=== PATIENT | female | born 1970 | race Caucasian/White ===

== ENCOUNTER 2018-02-11 07:58 | Emergency (ER) | payer OTHER, SELFPAY ==
[2018-02-11] VITALS (33 sets, daily range): BP systolic 81–100; BP diastolic 52–69; PULSE 72–95; RESP 11–26; TEMP 36.4–36.7; O2SAT 94–100
--- NOTE | 2018-02-11 08:28 | W.ED.GENAD ---
Discharge Plan Disposition Patient Disposition: HOME Discharge Details Chief Complaint: Dizzy/Sync Clinical Impression: Vertigo Primary Care Provider: Anel Cunningham ED Provider: Danyel Butler Home Meds and New Rx's Prescriptions: New meclizine 25 mg tablet 25 mg PO TID PRN (Reason: dizziness) Qty: 30 RF: 0 Discharge Instructions Instructions: Vertigo (ED) Additional Instructions: Please drink plenty of fluids to stay hydrated. Use medication as prescribed. Warm Wenceslao maneuver as discussed. Please contact your primary care physician to arrange follow-up. Call today. Return to the ER for any worsening or new concerning symptoms. Referrals: Anel Cunningham [Primary Care Provider] - Discharge Data Discharge Date/Time-TO BE ENTERED AT DEPARTURE: 02/11/18 11:14 Medical Decision Making 8:30 --48-year-old female with history of benign positional vertigo, here with dizziness since waking this morning. Symptoms are positional. She has horizontal nystagmus on exam. Suspect benign positional vertigo. Will give antivert. Consider mild dehydration contributing. Will give IV fluid. Consider electrolyte of normalities. 10:50 --patient reassessed and notes significant improvement after meclizine. Labs reviewed and nondiagnostic. Patient not orthostatic. Usual and customary discharge instructions provided to the patient. I reviewed the Wenceslao maneuver with her. I encouraged her to follow-up with her primary care physician and return should she have any worsening or new concerning symptoms. HPI General Mode of arrival: ambulatory. Date/Time Provider Initiated Documentation: 02/11/18 08:08. Limitations to Documentation: no limitations. Information obtained by: patient. HPI Narrative: 48-year-old female with history of benign positional vertigo, presents with a chief complaint of dizziness. Patient notes that she woke up this morning, stood up and felt dizzy with associated nausea. Patient specifically states she felt lightheaded and had vertigo. Symptoms are similar to when she had benign positional vertigo in the past -last episode was years ago. Symptoms have persisted. Symptoms are positional and occur only with motion and standing. No associated chest pain, shortness of breath, abdominal pain, numbness, tingling or headache. No fever. Last menstrual period was 2 weeks ago. No heavy bleeding. Related Data Home Medications Medication Instructions Recorded Confirmed meclizine 25 mg PO TID PRN #30 tab 10/23/18 Previous Rx's Medication Instructions Recorded meclizine 25 mg PO TID PRN #30 tab 02/11/18 Allergies Allergy/AdvReac Type Severity Reaction Status Date / Time No Known Allergies Allergy Unverified 01/24/17 09:57 General Stated Complaint: Dizzy/Sync ALEXSANDER: 3 Review of Systems Review of Systems All systems reviewed & are unremarkable except as noted in HPI and below PFSH Family History Mother Hyperlipidemia Father Essential hypertension Grandmother Breast cancer Medical History Abnormal uterine bleeding (AUB) Social History Smoking/Tobacco Use Status: Never Surgical History Cervical Procedure (~1998) Cholecystectomy Ligation of fallopian tube Exam Const General: cooperative, no acute distress, well developed, acute distress and not in distress Orientation: alert and awake Limitations: mental status not altered HENNE Head: normal to inspection and normocephalic Mouth: mucous membranes dry Throat: posterior oropharynx normal, uvula midline, posterior oropharynx abnormal and no uvular edema Eyes General: appearance normal, both eyes and all related structures Conjunctivae: conjunctivae normal EOM: EOM intact bilaterally and nystagmus (horizontal on right gaze) Neck Neck: trachea midline, supple and no lymphadenopathy noted Resp Effort & Inspection: normal respiratory effort, not labored and no respiratory distress Auscultation: clear to auscultation bilaterally, no rales, no rhonchi and no wheezes Cardio Jugular venous pressure: no JVD Rate: regular rate Rhythm: regular rhythm Heart Sounds: S1 normal, S2 normal, no gallops, no murmurs and no rubs GI Palpation: soft and nontender Skin General skin exam: no rashes or lesions noted and dry skin Other: warm Neuro General: alert, awake and oriented x3 Cranial Nerves: nystagmus (horizontal on right gaze) Cognition: normal cognition Speech: speech normal Motor: muscle tone normal throughout and strength 5/5 throughout Sensory Exam: no sensory deficits noted Coordination: [id number] test normal Extrem General: no clubbing, cyanosis or edema Psych Appearance: grossly normal Affect: normal affect Course Vital Signs Temperature 36.4 C 02/11/18 08:08 Pulse 84 02/11/18 08:08 Respiratory Rate 18 02/11/18 08:08 Blood Pressure 97/55 L 02/11/18 08:08 Pulse Oximetry 94 L 02/11/18 08:08 Temperature 36.4 C 02/11/18 08:08 Temperature Source Skin 02/11/18 08:08 Pulse 84 02/11/18 08:08 Respiratory Rate 16 02/11/18 08:16 Respiratory Effort 02/11/18 08:16 Respiratory Depth Normal 02/11/18 08:16 Respiratory Pattern Normal 02/11/18 08:16 Blood Pressure 97/55 L 02/11/18 08:08 Blood Pressure Position Sitting 02/11/18 08:08 Pulse Oximetry 94 L 02/11/18 08:08 Oxygen Delivery Method Room Air 02/11/18 08:08 Oxygen Flow Rate 0 02/11/18 08:08
--- NOTE | 2018-02-11 08:33 | ED.GENADUL_ITS ---
Discharge Plan Disposition Patient Disposition: HOME Discharge Details Chief Complaint: Dizzy/Sync Clinical Impression: Vertigo Primary Care Provider: Anel Cunningham ED Provider: Danyel Butler Home Meds and New Rx's Prescriptions: New meclizine 25 mg tablet 25 mg PO TID PRN (Reason: dizziness) Qty: 30 RF: 0 Discharge Instructions Instructions: Vertigo (ED) Additional Instructions: Please drink plenty of fluids to stay hydrated. Use medication as prescribed. Warm Wenceslao maneuver as discussed. Please contact your primary care physician to arrange follow-up. Call today. Return to the ER for any worsening or new concerning symptoms. Referrals: Anel Cunningham [Primary Care Provider] - Discharge Data Discharge Date/Time-TO BE ENTERED AT DEPARTURE: 02/11/18 11:14 Medical Decision Making 8:30 --48-year-old female with history of benign positional vertigo, here with dizziness since waking this morning. Symptoms are positional. She has horizontal nystagmus on exam. Suspect benign positional vertigo. Will give antivert. Consider mild dehydration contributing. Will give IV fluid. Consider electrolyte of normalities. 10:50 --patient reassessed and notes significant improvement after meclizine. Labs reviewed and nondiagnostic. Patient not orthostatic. Usual and customary discharge instructions provided to the patient. I reviewed the Wenceslao maneuver with her. I encouraged her to follow-up with her primary care physician and return should she have any worsening or new concerning symptoms. HPI General Mode of arrival: ambulatory . Date/Time Provider Initiated Documentation: 02/11/18 08:08 . Limitations to Documentation: no limitations . Information obtained by: patient . HPI Narrative: 48-year-old female with history of benign positional vertigo, presents with a chief complaint of dizziness. Patient notes that she woke up this morning, stood up and felt dizzy with associated nausea. Patient specifically states she felt lightheaded and had vertigo. Symptoms are similar to when she had benign positional vertigo in the past -last episode was years ago. Symptoms have persisted. Symptoms are positional and occur only with motion and standing. No associated chest pain, shortness of breath, abdominal pain, numbness, tingling or headache. No fever. Last menstrual period was 2 weeks ago. No heavy bleeding. Related Data Home Medications Medication Instructions Recorded Confirmed meclizine 25 mg PO TID PRN #30 tab 10/23/18 Previous Rx's Medication Instructions Recorded meclizine 25 mg PO TID PRN #30 tab 02/11/18 Allergies Allergy/AdvReac Type Severity Reaction Status Date / Time No Known Allergies Allergy Unverified 01/24/17 09:57 General Stated Complaint: Dizzy/Sync ALEXSANDER: 3 Review of Systems Review of Systems All systems reviewed & are unremarkable except as noted in HPI and below PFSH Family History Mother Hyperlipidemia Father Essential hypertension Grandmother Breast cancer Medical History Abnormal uterine bleeding (AUB) Social History Smoking/Tobacco Use Status: Never Surgical History Cervical Procedure (~1998) Cholecystectomy Ligation of fallopian tube Exam Const General: cooperative, no acute distress, well developed, acute distress and not in distress Orientation: alert and awake Limitations: mental status not altered HENIN Head: normal to inspection and normocephalic Mouth: mucous membranes dry Throat: posterior oropharynx normal, uvula midline, posterior oropharynx abnormal and no uvular edema Eyes General: appearance normal, both eyes and all related structures Conjunctivae: conjunctivae normal EOM: EOM intact bilaterally and nystagmus (horizontal on right gaze) Neck Neck: trachea midline, supple and no lymphadenopathy noted Resp Effort & Inspection: normal respiratory effort, not labored and no respiratory distress Auscultation: clear to auscultation bilaterally, no rales, no rhonchi and no wheezes Cardio Jugular venous pressure: no JVD Rate: regular rate Rhythm: regular rhythm Heart Sounds: S1 normal, S2 normal, no gallops, no murmurs and no rubs GI Palpation: soft and nontender Skin General skin exam: no rashes or lesions noted and dry skin Other: warm Neuro General: alert, awake and oriented x3 Cranial Nerves: nystagmus (horizontal on right gaze) Cognition: normal cognition Speech: speech normal Motor: muscle tone normal throughout and strength 5/5 throughout Sensory Exam: no sensory deficits noted Coordination: [id number] test normal Extrem General: no clubbing, cyanosis or edema Psych Appearance: grossly normal Affect: normal affect Course Vital Signs Temperature 36.4 C 02/11/18 08:08 Pulse 84 02/11/18 08:08 Respiratory Rate 18 02/11/18 08:08 Blood Pressure 97/55 L 02/11/18 08:08 Pulse Oximetry 94 L 02/11/18 08:08 Temperature 36.4 C 02/11/18 08:08 Temperature Source Skin 02/11/18 08:08 Pulse 84 02/11/18 08:08 Respiratory Rate 16 02/11/18 08:16 Respiratory Effort 02/11/18 08:16 Respiratory Depth Normal 02/11/18 08:16 Respiratory Pattern Normal 02/11/18 08:16 Blood Pressure 97/55 L 02/11/18 08:08 Blood Pressure Position Sitting 02/11/18 08:08 Pulse Oximetry 94 L 02/11/18 08:08 Oxygen Delivery Method Room Air 02/11/18 08:08 Oxygen Flow Rate 0 02/11/18 08:08
[2018-02-11] MEDS: Lactated Ringers 1,000 ML 1000 ML IV (08:50)
[2018-02-11 09:04] LABS: Abs Immature Grans 0.02 k/cumm (0.0-0.09); Absolute Basophil Count 0.03 k/cumm (0.0-0.2); Absolute Eosinophil Count 0.11 k/cumm (0.0-0.7); Absolute Lymphocyte Count 1.24 k/cumm (1.2-3.4); Absolute Monocyte Count 0.52 k/cumm (0.11-0.7); Absolute Neutrophil Count 7.33 k/cumm (1.2-6.7); Basophils % 0.3; Eosinophils % 1.2; HCT 40.4 % (36.0-46.0); HGB 13.2 g/dL (12.0-15.5); Immature Grans % 0.2; Lymphocytes % 13.4; Mean Corp. HGB Concentration 32.7 g/dL (32.0-36.0); Mean Corpuscular Hemoglobin 31.1 pg (27.0-33.0); Mean Corpuscular Volume 95.1 fL (80-95); Monocytes % 5.6; Neutrophils % 79.3; Platelet Count 230 x1000/uL (130-400); RBC 4.25 m/cumm (4.00-5.20); RBC Distribution Width 13.6 % (11.7-14.6); White Blood Cell Count 9.25 k/cumm (4.4-10.8)
[2018-02-11] MEDS: Meclizine 25 MG TAB PO (09:13)
[2018-02-11 09:25] LABS: ALT 17 U/L (12-78); AST 12 U/L (15-37); Albumin 3.4 g/dL (3.4-5.0); Alkaline Phosphatase 34 U/L (46-116); Anion Gap 6.8 mmol/L (3-11); BUN 14 mg/dL (7-18); Bilirubin, Total 0.5 mg/dL (0.2-1.0); CO2 29.2 mmol/L (21.0-32.0); Calcium 8.5 mg/dL (8.5-10.1); Chloride 103 mmol/L (98-107); Glucose 110 mg/dL (70-100); Magnesium 1.9 mg/dL (1.8-2.4); Potassium 4.1 mmol/L (3.5-5.1); Sodium 139 mmol/L (136-145); TSH (W/Ref FT4) 1.32 uIU/mL (0.358-3.74); Total Protein 6.5 g/dL (6.4-8.2)
== END 2018-02-11 11:14 | disposition home or self-care (01) ==
PROVIDERS: Emergency Provider Student in an Organized Health Care Education/Training Program; PCP Nurse Practitioner Family
DX: R42 Dizziness and giddiness (principal)
CPT/HCPCS: 36415; 80053; 93005; 95992; 96360; 96361; 99284; 83735; 84443; 85025; 93010; 99285

== ENCOUNTER 2018-05-23 16:45 | Outpatient (REF) | payer OTHER, SELFPAY ==
--- NOTE | 2018-05-23 16:00 | PAPFT_PTH ---
PATIENT: Vilma Carey LOC: [facility] U#:[id number] AGE/SX: 48/F ROOM: RE05/23/[address]: KYLIE Chou : 1970 BED: DIS: 05/23/2018 SPEC #: [id number] RECD: 05/23/18 17:58 STATUS: CHRISTIANOKirt REBrad #: [id number] MICHAEL: 05/23/18 16:[address]: Karime Varela DEPT: [facility] Cytology RECD BY: Sravani Molina ENTERED: 05/23/18 17:59 SP TYPE: PAPFT OTHR DR: Anel Cunningham Tissues: 1 - CX/ENDOCX FOR PAP SMEARS Procedures: PAP THIN PREP/UVM Screening Comments: [id number]
== END 2018-05-23 17:05 ==
LOC: LBN 16:45
PROVIDERS: PCP Nurse Practitioner Family; Visit Provider Nurse Practitioner Family
DX: Z12.4 Encounter for screening for malignant neoplasm of cervix (principal)
CPT/HCPCS: 88142

== ENCOUNTER 2018-12-02 15:48 | Outpatient (CLI) | payer OTHER, SELFPAY ==
[2018-12-02 17:22] LABS: TSH (W/Ref FT4) 1.74 uIU/mL (0.36-3.74)
== END 2018-12-02 16:08 ==
PROVIDERS: PCP Nurse Practitioner Family; Visit Provider Nurse Practitioner Family
DX: N93.9 Abnormal uterine and vaginal bleeding, unspecified (principal)
CPT/HCPCS: 36415; 84443

== ENCOUNTER 2018-12-04 00:16 | Outpatient (CLI) | payer OTHER, SELFPAY ==
--- NOTE | 2018-12-04 07:58 | DI.US_ITS ---
SYMPTOM/DIAGNOSIS: ABNORMAL VAGINAL BLEEDING N93.0 PELVIC ULTRASOUND: 12/04 Pelvic ultrasound was performed transabdominally and transvaginally. Please see the accompanying data sheet for measurements of the pelvic structures. There are multiple areas of heterogeneity of the myometrium consistent with multiple poorly defined small uterine fibroids. An 18 mm in diameter probable submucosal fibroid is also noted in the fundus. Endometrial stripe is about 4 mm in thickness and appears homogeneous. Left ovary is nonvisualized. Right ovary has a normal follicular appearance. No free fluid identified in the cul de sac. CONCLUSION: Probable uterine fibroids as described above includin an apparent submucosal 18 m fundal fibroid.
== END 2018-12-04 00:36 ==
PROVIDERS: PCP Nurse Practitioner Family; Visit Provider Nurse Practitioner Family
DX: N93.9 Abnormal uterine and vaginal bleeding, unspecified (principal); D25.9 Leiomyoma of uterus, unspecified
CPT/HCPCS: 76830; 76856

== ENCOUNTER 2018-12-26 16:46 | Outpatient (REF) | payer OTHER, SELFPAY ==
--- NOTE | 2018-12-26 15:10 | ENDOMET_PTH ---
PATIENT: Vilma Carey LOC: [facility] U#:[id number] AGE/SX: 48/F ROOM: RE12/26/[address]: Miranda Collazo : 1970 BED: DIS: 12/26/2018 SPEC #: [id number] RECD: 12/26/18 17:50 STATUS: LITO REQ #: [id number] MICHAEL: 12/26/18 15:[address]: Miranda Collazo DEPT: Surgical Specimen RECD BY: Sravani Molina ENTERED: 12/26/18 17:51 SP TYPE: Endomet OTHR DR: Anel Cunningham Tissues: 1 - ENDOMETRIUM BX/MITCHEL Procedures: GROSS AND MICRO LEVEL 4 Comments: [id number]
== END 2018-12-26 17:06 ==
LOC: LBN 16:46
PROVIDERS: PCP Nurse Practitioner Family; Visit Provider Obstetrics & Gynecology Gynecology
DX: N85.8 Other specified noninflammatory disorders of uterus (principal); N93.8 Other specified abnormal uterine and vaginal bleeding
CPT/HCPCS: 88305

== ENCOUNTER 2019-02-06 10:02 | Outpatient (CLI) | payer OTHER, SELFPAY ==
[2019-02-06 10:34] LABS: HCT 43.9 % (36.0-46.0); HGB 14.2 g/dL (12.0-15.5); Mean Corp. HGB Concentration 32.3 g/dL (32.0-36.0); Mean Corpuscular Hemoglobin 30.3 pg (27.0-33.0); Mean Corpuscular Volume 93.6 fL (80-95); Mean Platelet Volume 10.9 fL (8.0-11.0); Platelet Count 272 x1000/uL (130-400); RBC 4.69 m/cumm (4.00-5.20); RBC Distribution Width 13.5 % (11.7-14.6); White Blood Cell Count 7.04 k/cumm (4.4-10.8)
[2019-02-06 11:45] LABS: BUN 13 mg/dL (7-18); CREATININE 0.71 mg/dL (0.55-1.02); Calcium 9.4 mg/dL (8.5-10.1); Chloride 102 mmol/L (98-107); Glucose 100 mg/dL (70-100); HCG Quant, Pregnancy 1 mIU/mL (1-3); Potassium 4.6 mmol/L (3.5-5.1); Sodium 139 mmol/L (136-145)
== END 2019-02-06 10:22 ==
PROVIDERS: PCP Nurse Practitioner Family; Visit Provider Obstetrics & Gynecology
DX: N93.8 Other specified abnormal uterine and vaginal bleeding (principal); Z01.812 Encounter for preprocedural laboratory examination; Z01.818 Encounter for other preprocedural examination
CPT/HCPCS: 36415; 80048; 85027; 86850; 86900; 86901; 84702

== ENCOUNTER 2019-02-11 14:14 | Observation (INO) | payer OTHER, SELFPAY ==
[2019-02-11] VITALS (14 sets, daily range): BP systolic 72–119; BP diastolic 42–78; PULSE 66–96; RESP 9–19; TEMP 36.5–37.1; O2SAT 92–99
[2019-02-11] MEDS: Lactated Ringers 1,000 ML 125 ML IV ×4 (09:18→23:51)
[2019-02-11] MEDS: ceFAZolin 2 GM/50 ML BAG IVPB (11:28)
[2019-02-11] MEDS: Bupivacaine 0.25% Pres-Free 30 ML VIAL (12:00)
--- NOTE | 2019-02-11 12:28 | UTER_PTH ---
PATIENT: Vilma Carey LOC: U#:[id number] AGE/SX: 49/F ROOM: 214 RE02/11/[address]: Miranda Collazo : 1970 BED: A DIS: 02/12/2019 SPEC #: [id number] RECD: 02/11/19 17:45 STATUS: LITO REQ #: [id number] MICHAEL: 02/11/19 12:[address]: Miranda Collazo DEPT: Surgical Specimen RECD BY: Sravani Moilna ENTERED: 02/11/19 17:46 SP TYPE: UTER OTHR DR: Anel Cunningham Tissues: 1 - UTERUS W OR W/O OVARIES(NOT TUMOR/PROLAPSE) Procedures: GROSS AND MICRO LEVEL 5 Comments: [id number]
[2019-02-11] MEDS: Lactated Ringers 1,000 ML 30 ML IV (15:47)
[2019-02-11] MEDS: Ketorolac 30 MG/ML VIAL IVP ×2 (16:48→19:50)
--- NOTE | 2019-02-11 17:27 | ROE_ITS ---
Date of service: 02/11/19 Time of Service: 17:27 Operative Note Operative Note DATE OF PROCEDURE: 02/11/19 PRE-OP DIAGNOSIS: Abnormal uterine bleeding, submucosal fibroid POST-OP DIAGNOSIS: same PROCEDURE: Laparoscopic assisted vaginal hysterectomy with bilateral salpingectomy SURGEON: Miranda Collazo CHUTE BUILDER: Clyde Everett ANESTHESIA: GETPrincess ESTIMATED BLOOD LOSS: 100 PATHOLOGY: other (Uterus cervix and fimbriated ends of fallopian tubes) COMPLICATIONS: None Patient was transported to: PACU Patient's condition: stable Indications: 49-year-old female with abnormal uterine bleeding not responsive to medical therapy. She was noted to have a submucosal fibroid on imaging studies and decided for definitive therapy in the form of hysterectomy Findings: Uterus small with normal appearing ovaries and distal fallopian tubes. Patient previously undergone a bilateral tubal ligation. Normal upper abdomen and pelvis. Procedure Description: Patient was taken to the OR where she was placed in the dorsal supine position and general endotracheal anesthesia was administered without difficulty. She was placed in the dorsal lithotomy position in yellowfin stirrups prepped and draped in the usual sterile fashion. A Baird catheter was inserted to gravity drainage remained in place during the case. She received 2 g of Ancef upon arrival in the operating room. Surgical timeout was performed. [place] speculum was placed into the vagina and the anterior lip of the cervix was grasped with single-tooth tenaculum and a Pelosi uterine manipulator was inserted into the uterine cavity and held in place with a single-tooth tenaculum. Attention was turned to the patient's abdomen where the periumbilical region was infiltrated with quarter percent Marcaine without epinephrine a transverse skin incision was made below the umbilicus using a scalpel and through this incision a varies needle was placed and intra-abdominal placement confirmed by a drop in the abdominal pressure with insufflation of carbon dioxide gas. A 12 mm Visiport was then placed to the incision and the abdomen was entered under direct visualization with laparoscope. 2 lower port sites were placed after the insertion site was infiltrated with quarter percent Marcaine without epinephrine and under direct visualization of 5 mm trocar and sleeve were introduced without difficulty. The patient was placed in Trendelenburg the bowel swept away from the operative field with the above- noted findings. A LigaSure electrocautery device was then used to dissect the right fallopian tube distal portion from the mesosalpinx and this specimen was delivered through the 12 mm umbilical port site. The right round ligament was then clamped cauterized and transected and the anterior leaf of the broad ligament was then sequentially clamped cauterized and transected to the level of the lower uterine segment at the cervix bladder interface. Bladder peritoneum was then dissected off of the body of the lower uterine segment and cervix using gentle traction and electrocautery with the LigaSure device. Posterior leaf of the broad ligament was then sequentially clamped cauterized and cut to the level of the uterine vessels. Similar technique was carried out on the contralateral left distal fallopian tube, left anterior leaf the broad ligament with dissection of the bladder flap away from the body of the cervix using LigaSure device and blunt technique. Once the bladder flap had been sufficiently mobilized the left posterior broad ligament was clamped cauterized and incised to the level of the uterine vessels. Attention was then turned to the vaginal portion of the procedure. Pneumoperitoneum was deflated and the Pelosi uterine manipulator was removed and the single-tooth tenaculum was left on the anterior lip of the cervix. The body of the cervix was infiltrated a circumferential fashion with quarter percent Marcaine and Bovie electrocautery was used to incise the body of the cervix circumferentially this allowed entry into the posterior cul-de-sac using curved Sosa scissors through this incision a longbilled weighted speculum was placed. The right and left uterosacral ligaments worse clamped transected and suture- ligated respectively with the sutures tagged and held long. This allowed sufficient mobilization of the cervix so that entry into the anterior cul-de-sac was performed with Metzenbaum scissors. A right angle retractor was placed through this incision and the bladder retracted away from the operative field. The remaining structures of the right broad ligament were subsequently clamped transected and suture-ligated with dissection of the right side of the uterus away from all abdominal attachments. Similar technique was carried out on the contralateral broad ligament. The uterus and cervix were then delivered and passed off of the operative field. The posterior peritoneum was sutured to the posterior vaginal cuff with excellent hemostasis achieved. The vaginal cuff was reapproximated in a vertical fashion with a running locked suture of 0 Vicryl with care taken to incorporate the identified uterosacral ligaments into the closure. After Closure all suture remnants were trimmed and the site carefully inspected and noted be hemostatic. A sterile vaginal pack was placed into the vagina. Attention was then directed towards the abdomen where after gloves were changed pneumoperitoneum was reestablished and laparoscope was used to inspect the vaginal cuff where the site was noted to be hemostatic and well approximated. I direct visualizations both 5 mm ports were removed pneumoperitoneum reduced after the laparoscope and trocar were removed. Fascial closure of the periumbilical site was accomplished with interrupted sutures of 0 Vicryl in [id number] fashion. The skin of 3 port sites was reapproximated with a subcuticular closure of 4-0 Monocryl and sealed with skin glue. Patient was then placed in the dorsal supine position awakened, extubated and transported recovery area in stable condition all sponge, needle and lap counts were performed and were correct x2.
[2019-02-11] MEDS: oxyCODONE 5 mg/Acetaminophen 325 mg TAB PO ×2 (18:08→23:49)
[2019-02-11] MEDS: Docusate Sodium 100 MG CAP PO (19:50)
[2019-02-11] MEDS: Normal Saline Flush 10 ML SYR IV (19:51)
[2019-02-11] MEDS: diphenhydrAMINE 25 MG CAP PO (23:49)
[2019-02-12 00:40] VITALS: BP 98/62; PULSE 95; RESP 18; TEMP 37; O2SAT 100
[2019-02-12] MEDS: Ketorolac 30 MG/ML VIAL IVP ×2 (02:11→08:28)
[2019-02-12 03:20] VITALS: BP 96/61; PULSE 72; RESP 17; TEMP 36.8; O2SAT 95
[2019-02-12 07:05] LABS: HCT 36.8 % (36.0-46.0); HGB 11.8 g/dL (12.0-15.5); Mean Corp. HGB Concentration 32.1 g/dL (32.0-36.0); Mean Corpuscular Hemoglobin 29.9 pg (27.0-33.0); Mean Corpuscular Volume 93.2 fL (80-95); Mean Platelet Volume 11.2 fL (8.0-11.0); Platelet Count 217 x1000/uL (130-400); RBC 3.95 m/cumm (4.00-5.20); RBC Distribution Width 12.9 % (11.7-14.6); White Blood Cell Count 10.14 k/cumm (4.4-10.8)
[2019-02-12 07:15] LABS: Anion Gap 7.8 mmol/L (3-11); BUN 9 mg/dL (7-18); CO2 28.2 mmol/L (21.0-32.0); CREATININE 0.65 mg/dL (0.55-1.02); Calcium 8.7 mg/dL (8.5-10.1); Chloride 106 mmol/L (98-107); Glucose 100 mg/dL (70-100); Potassium 4.2 mmol/L (3.5-5.1); Sodium 142 mmol/L (136-145)
[2019-02-12 07:50] VITALS: BP 108/69; PULSE 62; RESP 18; TEMP 37.1; O2SAT 97
[2019-02-12] MEDS: Docusate Sodium 100 MG CAP PO (08:28)
[2019-02-12] MEDS: Lactated Ringers 1,000 ML 125 ML IV (08:29)
--- NOTE | 2019-02-12 09:54 | DSE_ITS ---
Date of service: 02/12/19 Time of Service: 09:54 DS: Diagnosis Discharge Diagnosis (1) Status post laparoscopic assisted vaginal hysterectomy (LAVH): Status: Acute Asessment and Plan: With removal of tubal remnants. (2) Abnormal uterine bleeding (AUB): Status: Acute Discharge Plan Disposition Patient Disposition: HOME Condition: Fair Discharge Details Reason For Visit: ABNORMAL UTERINE BLEEDING.LAVH WITH BILATERAL SALP Admit Date/Time: 02/11/19 14:14 Admit Provider: Miranda Collazo Attending Provider: Miranda Collazo Primary Care Provider: Kelsey Cunningham[facility]ryn [facility] Course Hospital Course: Patient was admitted the morning of surgery and underwent the above-stated procedure. Postop course was uncomplicated she was able to void spontaneously after Baird catheter was removed the morning of discharge. Tolerating regular diet she had not had a bowel movement prior to discharge but was counseled regarding avoiding constipation. Incisions are clean dry and intact and her pain was controlled with ibuprofen and Percocet. She was given discharge instructions regarding pelvic rest and decreased activity and [facility] Home Meds and New Rx's Prescriptions: No Action No Known Home Meds RF: 0 Discharge Instructions Additional Instructions: Percocet 5/325 1 tablet every 6 hours as needed for pain you may take that in combination with ibuprofen 600 mg every 6 hours. Or you may alternate the doses every 6 hours. Do not take the Percocet and Tylenol together since the Percocet has Tylenol in it. Stand Alone Forms: DSU Post Gynecology Surgery Activity:: Activity as Tolerated Equipment/Supplies:: No Equipment Needed Diet:: Normal Diet Discharge Orders Discharge Orders: Discharge Order (Routine); Ordered 02/12/19 Ordered By: Miranda Collazo DS: Summary Status at Discharge Functional status at discharge: independent ambulation Overall status at discharge: patient is progressing back to baseline Mental Status: mental status grossly normal Speech and Movement: speech and movement normal Mood: congruent mood Affect: normal affect Exam Const General: no acute distress Nutritional Appearance: average body habitus Orientation: alert, awake and oriented x3 Resp Effort & Inspection: normal respiratory effort Auscultation: clear to auscultation bilaterally Cardio Rate: regular rate Rhythm: regular rhythm GI Inspection: incision (Clean dry and intact covered with skin glue) Palpation: soft (Continues at the port sites, no guarding or rebound no masses) General: other (Vaginal packing removed-serosanguineous drainage) Back/Spine/Pelvis Back: no CVA tenderness Skin General skin exam: no rashes or lesions noted Neuro General: other (Ambulatory without assistance in the room.) Extrem General: normal to inspection, full ROM and normal capillary refill Psych Mental Status: mental status grossly normal Speech and Movement: speech and movement normal Mood: congruent mood Affect: normal affect DS: Data Vitals/I&O Vitals and I&O: Vital Signs Temperature 98.8 F 02/12/19 07:50 Temperature Source Tympanic 02/12/19 07:50 Pulse 62 02/12/19 07:50 Pulse Rhythm Regular 02/12/19 01:45 Respiratory Rate 18 02/12/19 07:50 Respiratory Effort 02/12/19 01:45 Respiratory Depth Normal 02/12/19 01:45 Respiratory Pattern Normal 02/12/19 01:45 Blood Pressure 108/69 02/12/19 07:50 Pulse Oximetry 97 02/12/19 07:50 Respiratory End-tidal CO2 32 02/11/19 15:42 Oxygen Delivery Method Room Air 02/12/19 03:20 Oxygen Flow Rate 0 02/12/19 03:20 Pain Level 5 02/12/19 08:28 Comment 02/12/19 03:20 Intake & Output 02/11/19 02/11/19 02/12/19 11:59 23:59 11:59 Intake Total 2869 2820 / 2870 1000 / 1000 Output Total 1954 Balance 865 / 91 1000 / 1000 Weight 185 lb 6.54 oz Intake: IV 2069 1000 / 1000 Oral 800 / 800 Output: Urine 1924 / 192 Estimated Blood Loss 30 30 Other: Urine Color Yellow Yellow Urine Appearance Clear Clear Clear Emesis Description None Data Completed and Pending Labs on day of discharge: Labs from last 24 hours 02/12/19 02/12/19 06:25 06:25 WBC 10.14 RBC 3.95 L Hgb 11.8 L Hct 36.8 MCV 93.2 MCH 29.9 MCHC 32.1 RDW 12.9 Plt Count 217 MPV 11.2 H Sodium 142 Potassium 4.2 Chloride 106 Carbon Dioxide 28.2 Anion Gap 7.8 BUN 9 Creatinine 0.65 Estimated GFR/1.73 m2 >= 60.00 Glucose 100 Calcium 8.7 PFSH Social History (Updated 02/10/19 @ 22:25 by Miranda Collazo MD) Smoking/Tobacco Use Status: Never Drug use: Rarely Substance use type: marijuana Details: Last used: Last weekend Household members: spouse, children, none and other Details: H-Ad. 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 Do you feel safe at home: Yes Do you feel safe in your relationship?: Yes Female Reproductive History Menstrual control method: permanent sterilization
--- NOTE | 2019-02-12 09:56 | PDOC.CMIN ---
Care Management Initial Assess REASON FOR HOSPITALIZATION:: Abnormal uterine bleeding, LAVH with Bilateral Salp
== END 2019-02-12 11:37 | disposition home or self-care (01) ==
LOC: MS 16:14
PROVIDERS: Admitting Provider Obstetrics & Gynecology Gynecology; PCP Nurse Practitioner Family; Visit Provider Obstetrics & Gynecology Gynecology
PROC: 0UT9FZZ Resection of Uterus, Via Natural or Artificial Opening With Percutaneous Endoscopic Assistance (ICD-10-PCS; CPT 58552; principal; 2019-02-11 10:45)
DX: D25.0 Submucous leiomyoma of uterus (principal); N93.9 Abnormal uterine and vaginal bleeding, unspecified; N80.0 Endometriosis of uterus; Z98.51 Tubal ligation status
CPT/HCPCS: 58552; 36415; 80048; 85027; NC; 88307; G0378; J0131; J0690; J1100; J1200; J1885; J2001; J2250; J2405; J3010

== ENCOUNTER 2019-02-20 18:24 | Observation (INO) | payer OTHER, SELFPAY ==
[2019-02-20 18:27] VITALS: BP 134/87; PULSE 108; RESP 18; TEMP 37.1; O2SAT 94
[2019-02-20] MEDS: Normal Saline Flush 10 ML SYR IVP ×3 (18:48→23:24)
[2019-02-20] MEDS: Normal Saline 1,000 ML 1000 ML IV (18:48)
[2019-02-20 18:56] LABS: Abs Immature Grans 0.03 k/cumm (0.0-0.09); Absolute Basophil Count 0.03 k/cumm (0.0-0.2); Absolute Eosinophil Count 0.26 k/cumm (0.0-0.7); Absolute Lymphocyte Count 1.47 k/cumm (1.2-3.4); Absolute Monocyte Count 0.88 k/cumm (0.11-0.7); Absolute Neutrophil Count 8.96 k/cumm (1.2-6.7); Basophils % 0.3; Eosinophils % 2.2; HCT 39.5 % (36.0-46.0); HGB 13.1 g/dL (12.0-15.5); Immature Grans % 0.3; Lymphocytes % 12.6; Mean Corp. HGB Concentration 33.2 g/dL (32.0-36.0); Mean Corpuscular Hemoglobin 30.6 pg (27.0-33.0); Mean Corpuscular Volume 92.3 fL (80-95); Mean Platelet Volume 10.6 fL (8.0-11.0); Monocytes % 7.6; Platelet Count 280 x1000/uL (130-400); RBC 4.28 m/cumm (4.00-5.20); RBC Distribution Width 13.3 % (11.7-14.6); White Blood Cell Count 11.64 k/cumm (4.4-10.8)
[2019-02-20 19:06] LABS: ALT 20 U/L (14-59); AST 8 U/L (15-37); Albumin 3.6 g/dL (3.4-5.0); Alkaline Phosphatase 43 U/L (46-116); Anion Gap 9.1 mmol/L (3-11); BUN 17 mg/dL (7-18); Bilirubin, Total 0.4 mg/dL (0.2-1.0); CO2 26.9 mmol/L (21.0-32.0); CREATININE 0.79 mg/dL (0.55-1.02); Calcium 8.9 mg/dL (8.5-10.1); Chloride 104 mmol/L (98-107); Glucose 102 mg/dL (70-100); Potassium 3.9 mmol/L (3.5-5.1); Sodium 140 mmol/L (136-145); Total Protein 7.4 g/dL (6.4-8.2)
[2019-02-20] MEDS: Ondansetron 4 MG/2 ML VIAL (19:06)
[2019-02-20] MEDS: Omnipaque 350 MG/ML 100 ML BTL IJ (19:21)
--- NOTE | 2019-02-20 19:23 | DI.CT_ITS ---
EXAM: CT ABDOMEN PELVIS W CLINICAL HISTORY: abdominal pain, s/p hysterectomy TECHNIQUE: 100 milliliters of Omnipaque 350 were administered IV. No oral contrast was administered . COMPARISON: ABD PELVIS WITH CONTRAST from 05/17/2017 FINDINGS: The patient is status post hysterectomy. The exam is limited by lack of oral contrast. There is a question of a fluid collection posteriorly in the pelvis measuring 1.6 x 2.3 x 1.8 cm which could rep resent a loop of bowel versus a small abscess. There is a trace amount of free fluid. The ovaries a re unremarkable. The bladder appears intact. There is a small fatty containing hernia below the lev el of the umbilicus in the medial aspect of the right rectus muscle. There is some stranding of the fat which could indicate strangulation. No additional hernias are seen. The heart size is normal. The lung bases are clear. Patient is status post cholecystectomy. There is stable biliary dilatation. A diverticulum is seen of the descending duodenum. The spleen, pancre as, adrenals and kidneys are unremarkable. There is scattered colonic diverticula but no evidence of diverticulitis. There is no bowel dilatation or wall thickening. The aorta shows mild calcificatio n but is normal in diameter. IMPRESSION: 1. Small fatty containing hernia below the level of the umbilicus through the right rectus muscle whi ch may be strangulated. 2. Question of a small abscess in the low pelvis versus adjacent bowel.
[2019-02-20 19:29] VITALS: BP 112/69; PULSE 82; TEMP 37.1; O2SAT 98
--- NOTE | 2019-02-20 20:00 | DI.VRAD_ITS ---
PROCEDURE INFORMATION: Exam: CT Abdomen And Pelvis With Contrast Exam date and time: 02/20/2019 7:18 PM Clinical history: 49 years old, female; Abdominal pain; Generalized; Prior surgery; Surgery date: 1-6 months; Surgery type: S/P hysterectomy 01/12/19 TECHNIQUE: Imaging protocol: Computed tomography of the abdomen and pelvis with intravenous contrast. Radiation optimization: All CT scans at this facility use at least one of these dose optimization techniques: automated exposure control; mA and/or kV adjustment per patient size (includes targeted exams where dose is matched to clinical indication); or iterative reconstruction. Contrast material: [id number]; Contrast volume: 100 ml; Contrast route: IV 20G RAC; COMPARISON: CT ABD PELVIS WITH CONTRAST 05/17/2017 9:03 AM FINDINGS: Lungs: The visualized portions of the lung bases demonstrate no acute disease. Liver: There is marked enlargement of the liver. 5mm hypodense lesion in the right hepatic lobe on image 119 series 5 is too small to characterize but most probably benign representing a cyst. No acute liver pathology. Gallbladder and bile ducts: Prior cholecystectomy. Mild intra-and extrahepatic biliary ductal dilation is most likely the sequela of prior cholecystectomy in the absence of clinical symptomatology. Pancreas: Normal. No ductal dilation. Spleen: Normal. No splenomegaly. Adrenals: Normal. No mass. Kidneys and ureters: There is a 1 cm right renal cyst. Kidneys are otherwise unremarkable. Stomach and bowel: No bowel wall thickening, obstruction, or other acute pathology. Diffuse colonic diverticulosis is present. There is moderately excessive colonic stool content. Appendix: No evidence of appendicitis. Intraperitoneal space: There is a 1.6 cm x 2.3 cm x 1.8 cm fluid collection at the pelvis on image 671 series 5 and image 65 series 6. This is centered at the surgical bed from prior hysterectomy. Trace free fluid in the pelvis is noted. Vasculature: Unremarkable. No abdominal aortic aneurysm. Lymph nodes: Several prominent mesenteric lymph nodes are appreciated, most likely reactive. No concerning retroperitoneal or pelvic adenopathy is otherwise appreciated. Bladder: Unremarkable as visualized. Reproductive: Prior hysterectomy. There are prominent left pelvic vessels, as could be seen with pelvic congestion syndrome. Bones/joints: No acute abnormality or aggressive osseous lesion. Soft tissues: There is a right paraumbilical fat containing hernia which traverses through the right rectus abdominis muscle on image 495 series 5. There is mild stranding of the herniated mesenteric fat which could be related to mild strangulation. IMPRESSION: 1. Small 2.3 cm rim enhancing fluid collection at the hysterectomy bed for which the differential diagnoses includes: Postsurgical seroma versus small abscess in the appropriate clinical setting. Followup is recommended. 2. Right paraumbilical fat containing hernia traversing through the right rectus abdominis muscle with findings favoring mild strangulation of the herniated mesenteric fat. 3. Incidental findings as detailed above. Dictated and Authenticated by: Mathew Sarmiento MD. Ordering:JU Tam MD
[2019-02-20 20:07] LABS: Bilirubin Negative (Negative); Blood Moderate (Negative); Clarity Clear (Clear); Glucose Negative (Negative); Ketones Negative (Negative); Leukocyte Esterase Negative (Negative); Nitrite Negative (Negative); Urobilinogen 0.2 EU/dL (Up TO 0.2); pH 5.5 (5-8)
[2019-02-20 20:16] LABS: Bacteria Negative HPF (Negative); C & S Indicated? No/Sq. Contamination; Casts Negative LPF (Negative); Crystals Negative HPF (Negative); Epithelial Cells Moderate HPF (Negative); Mucus Negative (Negative); Other Cells Negative (Negative)
[2019-02-20 20:19] VITALS: BP 103/66; PULSE 79; TEMP 37.1; O2SAT 98
--- NOTE | 2019-02-20 21:07 | W.PM.HP.N ---
Date of service: 02/20/19 Time of Service: 21:07 Assessment and Plan Assessment and plan (1) Status post laparoscopic assisted vaginal hysterectomy (LAVH): Status: Acute Assessment and plan: The patient did have a CT of the abdomen and pelvis which demonstrated a seroma vs early abscess of the vaginal cuff. Also a small hernia at the umbilical incision with a small portion of herniated mesenteric fat was noted. Due to the severity of the patient's symptoms will place on observation overnight. Start on Zosyn for IV abx over night. I do not feel that the fat containing hernia needs attention at this point in time but we will simply observe this. Repeat labs in the am. Consider discharge home on PO antibiotics tomorrow if she remains afebrile and pain control improves. (2) Postoperative infection: Status: Acute (3) Hernia, umbilical: Status: Acute History of Present Illness History of Present Illness Chief Complaint: Pelvic pain s/p LAVH Narrative: 49 year old presents to the emergency dept 1 week s/p LAVH. Over the last two days she developed increasing pain and had some minimal vaginal spotting. She reports that her pain was such that she had trouble sitting down and feels worse than she did immediately postoperatively. The patient denies fevers or chills. No bowel or bladder complaints. No abnormal vaginal discharge. Review of Systems All systems reviewed & are unremarkable except as noted in HPI and below PFSH Medical History (Updated 02/20/19 @ 21:10 by Clyde Everett MD) Abnormal uterine bleeding (AUB) (Resolved) regular heavy cycles. Mirnea IUD 09/2014 - 02/2016 with no significant improvement in bleeding. Nl EMBx and pelvic u/s 2014. Abnormal uterine bleeding (AUB) (Acute) 02/11/2019. S/p laparoscopic-assisted vaginal hysterectomy with bilateral salpingectomy of tubal remnants Menorrhagia (Acute) Personal history of cervical dysplasia (Acute 01/24/17) 1999 EMBER II LEEP Rx Surgical History (Updated 02/12/19 @ 09:55 by Miranda Collazo MD) Cervical Procedure (~1998) LEEP Cholecystectomy Ligation of fallopian tube Status post laparoscopic assisted vaginal hysterectomy (LAVH) (Acute) Social History (Updated 02/10/19 @ 22:25 by Miranda Collazo MD) Smoking/Tobacco Use Status: Never Drug use: Rarely Substance use type: marijuana Details: edibles Last used: Last weekend Household members: spouse, children, none and other Details: [place]. 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 Do you feel safe at home: Yes Do you feel safe in your relationship?: Yes Female Reproductive History Menstrual control method: permanent sterilization Meds Home Medications and Allergies Home Medications Medication Instructions Recorded Confirmed Type oxycodone-acetaminophen 5 mg-325 1 tab PO Q6H PRN #10 tab MDD 4 02/12/19 02/20/19 Rx mg tablet Allergies Allergy/AdvReac Type Severity Reaction Status Date / Time chlorhexidine Allergy Severe rash Verified 02/20/19 18:57 Results Labs Result diagrams: 02/20/19 18:40 02/20/19 18:40 Labs: Laboratory Results - last 24 hr 02/20/19 02/20/19 02/20/19 18:40 18:40 19:55 WBC 11.64 H RBC 4.28 Hgb 13.1 Hct 39.5 MCV 92.3 MCH 30.6 MCHC 33.2 RDW 13.3 Plt Count 280 MPV 10.6 Immature Gran % 0.3 Neutrophils % 77.0 Lymphocytes % 12.6 Monocytes % 7.6 Eosinophils % 2.2 Basophils % 0.3 Absolute Neutrophils 8.96 H Absolute Lymphocytes 1.47 Absolute Monocytes 0.88 H Absolute Eosinophils 0.26 Absolute Basophils 0.03 Sodium 140 Potassium 3.9 Chloride 104 Carbon Dioxide 26.9 Anion Gap 9.1 BUN 17 Creatinine 0.79 Estimated GFR/1.73 m2 >= 60.00 Glucose 102 H Calcium 8.9 Total Bilirubin 0.4 AST 8 L ALT 20 Alkaline Phosphatase 43 L Total Protein 7.4 Albumin 3.6 Urine Color Yellow Urine Clarity Clear Urine pH 5.5 Ur Specific [place] 1.010 Urine Protein Negative Urine Ketones Negative Urine Blood Moderate H Urine Nitrite Negative Urine Bilirubin Negative Urine Urobilinogen 0.2 Ur Leukocyte Esterase Negative Urine RBC 3-5 H Urine WBC 5-10 Ur Epithelial Cells Moderate Urine Crystals Negative Urine Bacteria Negative Urine Casts Negative Urine Mucus Negative Urine Other Negative Ur Culture Indicated? No/sq. contamination Urine Glucose Negative Last Vital Signs Temp 98.8 F 02/20/19 20:19 Pulse 79 02/20/19 20:19 Resp 18 02/20/19 18:27 BP 103/66 02/20/19 20:19 Pulse Ox 98 02/20/19 20:19
[2019-02-20 21:46] VITALS: BP 98/69; PULSE 89; RESP 17; O2SAT 99
[2019-02-20 22:05] VITALS: BP 102/66; PULSE 90; RESP 18; TEMP 36.9; O2SAT 98
[2019-02-20] MEDS: Lactated Ringers 1,000 ML 75 ML IV (22:37)
[2019-02-20] MEDS: Ketorolac 30 MG/ML VIAL IVP (22:37)
--- NOTE | 2019-02-20 22:57 | NUR.NOTE ---
Patient was admitted to the Med-Surg unit this evening for pain to the lower aspect of her abdomen after doing surgery hysterectomy little over a week ago. She arrived on the unit accompanied by ER nurse on a stretcher. She was placed into bed and assessments as follows: Pt complaint of pain to the right lower aspect of her abdomen rated 6-7/10. She is alert, oriented in all areas. He lungs sounds are clear and her heart rate is regular. She has two healing incisions to the bilateral lower aspects of her abdomen and one to her umbilical area which is benign. 18G IV to her right forearm same patent and asymptomatic for IV fluids and medication regime. Patient ambulates without assistance.
[2019-02-20] MEDS: PIPERACILLIN/TAZO 3.375 GM in Normal Saline 50 ML IVPB (23:23)
--- NOTE | 2019-02-21 00:04 | W.ED.GENAD ---
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 Everett who presents for vaginal bleeding in the last 2 days which is spotting after having a gush of blood. Patient had onset of severe pain in the lower abdomen this evening which was intolerable for approximately 5 to 10 minutes then did mildly improved but is still quite uncomfortable. Patient does report light vaginal spotting. Patient denies fever or chills. Does admit to mild malaise. Patient was sent to the hospital by Dr. Everett after having a phone conversation. I spoke with Dr. Everett who is primarily concerned with the possibility of abscess or postoperative complication and would prefer to have a CAT scan with IV contrast as well as labs and urinalysis performed this evening in the emergency room. Patient is agreeable to this plan of care Patient does have moderate lower abdominal pain with palpation but lacks peritoneal signs and symptoms. I did offer patient morphine 2 mg for comfort which she consents to. After review of patient's labs and CAT scan evaluation. Patient does have a 2.3 cm enhancing fluid collection at the hysterectomy bed for which the differential diagnosis include postsurgical seroma versus small abscess. Patient also noted to have a right periumbilical fat-containing hernia just with question of mild strangulation of the mesenteric fat. There is a possibility that this is related to her recent laparoscopy incision site through the umbilicus. Patient does have mild discomfort on exam at this site. These findings were both discussed with patient's surgeon, Dr. Everett Incidental note of right renal cyst as well as liver cyst. Spoke with Dr. Everett who prefers to evaluate patient in the emergency room and admit for IV antibiotics. HPI General Date/Time Provider Initiated Documentation: 02/20/19 18:27. HPI Narrative: This is a 49-year-old patient the presents for abdominal pain in the lower abdomen which is noted this evening approximately 1 hour prior to arrival. Patient is one-week status post hysterectomy with Dr. Everett. Patient denies fever or chills. Patient reports mild malaise. Patient reports status post surgery she was having no significant abnormality. She reported on Saturday and episode of bleeding during which she expelled a stitch. She called the on-call ROTOGRAVURE PRESS OPERATOR who recommended close observation and for any increase in bleeding to have reevaluation. Patient did have one gush of blood which then resulted in spotting. Patient did follow-up with her surgeon yesterday. Patient had a benign physical exam yesterday per the surgeon was recommended to follow-up if needed. Today while patient was going to the bathroom she had extremely sharp lower abdominal pain which was very difficult to tolerate for approximately 5 to 10 minutes. Patient now reports persistent lower abdominal pain. Pain is worse when lying down improved when standing. 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 ALEXSANDER: 3 Review of Systems All systems reviewed & are unremarkable except as noted in HPI and below Constitutional Constitutional: Denies chills, Denies fatigue, Denies fever(s), Denies headache(s) and Reports malaise ENT Ears, Nose, Mouth, and Throat: Denies headache(s) Gastrointestinal Gastrointestinal: Reports abdominal pain, Reports cramping and Denies vomiting Genitourinary Genitourinary: Reports abnormal vaginal bleeding, Denies flank pain and Denies urinary urgency Neurologic Neurologic: Denies headache(s) Endocrine Endocrine: Denies fatigue [facility] Medical History Abnormal uterine bleeding (AUB) (Resolved) regular heavy cycles. Mirnea IUD 09/2014 - 02/2016 with no significant improvement in bleeding. Nl EMBx and pelvic u/s 2014. Abnormal uterine bleeding (AUB) (Acute) 02/11/2019. S/p laparoscopic-assisted vaginal hysterectomy with bilateral salpingectomy of tubal remnants Menorrhagia (Acute) Personal history of cervical dysplasia (Acute 01/24/17) 1998 EMBER II LEEP Rx Surgical History Cervical Procedure (~1998) LEEP Cholecystectomy Ligation of fallopian tube Status post laparoscopic assisted vaginal hysterectomy (LAVH) (Acute) Social History Smoking/Tobacco Use Status: Never Drug use: Rarely Substance use type: marijuana Details: edibles Last used: Last weekend Household members: spouse, children, none and other Details: H-Ad. 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 Do you feel safe at home: Yes Do you feel safe in your relationship?: Yes Female Reproductive History Menstrual control method: permanent sterilization Exam Narrative Exam Narrative: CONST: Healthy appearing patient, in no acute distress. Well hydrated. Alert and alert. NECK: Normal visual inspection. FROM. No lymphadenopathy. Trachea midline. No Midline tenderness. CHEST: Normal insepection of the chest. RESP: Normal respiratory effort. Speaking full sentences. No cough. No wheezing. No retractions. Clear to auscaltation. Breath sound equal and present bilaterally. CARDIO: No JVD. Normal PMI. Regular Rate. Regular Rhythm. Normal peripheral pulses. GI: Normal inspection of abdomen. No distension. Soft. Tenderness noted in the lower abdomen worse on the right than the left. Mild pain suprapubically. Bowel sounds present in all 4 quadrants. No rebound. No gaurding. MUSCULOSKELETAL: Normal Gait. FROM of all extremities. Distal neurovascularly intact. Sensation intact distally. SKIN: Normal. Dry. No rashes. NEURO: Alert and awake. Speech clear. PSYCH: Normal affect. Cooperative. Course Vital Signs Vital signs: Vital Signs Temperature 37.1 C 02/20/19 18:27 Pulse 108 H 02/20/19 18:27 Respiratory Rate 18 02/20/19 18:27 Blood Pressure 134/87 02/20/19 18:27 Pulse Oximetry 94 L 02/20/19 18:27 Temperature 36.9 C 02/20/19 22:05 Temperature Source Tympanic 02/20/19 20:19 Pulse 90 02/20/19 22:05 Pulse Rhythm Regular 02/20/19 22:05 Respiratory Rate 18 02/20/19 22:05 Respiratory Effort Non-Labored 02/20/19 22:05 Respiratory Depth Normal 02/20/19 22:05 Respiratory Pattern Normal 02/20/19 22:05 Blood Pressure 102/66 02/20/19 22:05 Blood Pressure Position Sitting 02/20/19 18:27 Pulse Oximetry 98 02/20/19 22:05 Oxygen Delivery Method Room Air 02/20/19 22:05 Oxygen Flow Rate 0 02/20/19 22:05 Pain Level 6 02/20/19 22:37 Comment 02/20/19 19:29 Lab/Test Results Lab/Test Results: 02/20/19 19:55 Urine - Clean Catch Urine Culture - Pending Laboratory Tests Range/Units 02/20/19 02/20/19 02/20/19 18:34 18:40 18:40 WBC (4.4-10.8) k/cumm 11.64 H RBC (4.00-5.20) m/cumm 4.28 Hgb (12.0-15.5) g/dL 13.1 Hct (36.0-46.0) % 39.5 MCV (80-95) fL 92.3 MCH (27.0-33.0) pg 30.6 MCHC (32.0-36.0) g/dL 33.2 RDW (11.7-14.6) % 13.3 Plt Count (130-400) x1000/uL 280 MPV (8.0-11.0) fL 10.6 Immature Gran % 0.3 Neutrophils % 77.0 Lymphocytes % 12.6 Monocytes % 7.6 Eosinophils % 2.2 Basophils % 0.3 Absolute Neutrophils (1.2-6.7) k/cumm 8.96 H Absolute Lymphocytes (1.2-3.4) k/cumm 1.47 Absolute Monocytes (0.11-0.7) k/cumm 0.88 H Absolute Eosinophils (0.0-0.7) k/cumm 0.26 Absolute Basophils (0.0-0.2) k/cumm 0.03 Sodium (136-145) mmol/L 140 Potassium (3.5-5.1) mmol/L 3.9 Chloride (98-107) mmol/L 104 Carbon Dioxide (21.0-32.0) mmol/L 26.9 Anion Gap (3-11) mmol/L 9.1 BUN (7-18) mg/dL 17 Creatinine (0.55-1.02) mg/dL 0.79 Estimated GFR/1.73 m2 (mL/min/1.73m2) >= 60.00 Glucose (70-100) mg/dL 102 H Calcium (8.5-10.1) mg/dL 8.9 Total Bilirubin (0.2-1.0) mg/dL 0.4 AST (15-37) U/L 8 L ALT (14-59) U/L 20 Alkaline Phosphatase (46-116) U/L 43 L Total Protein (6.4-8.2) g/dL 7.4 Albumin (3.4-5.0) g/dL 3.6 Urine Color Cancelled Urine Clarity Cancelled Urine pH Cancelled Ur Specific Sage Cancelled Urine Protein Cancelled Urine Ketones Cancelled Urine Blood Cancelled Urine Nitrite Cancelled Urine Bilirubin Cancelled Urine Urobilinogen Cancelled Ur Leukocyte Esterase Cancelled Urine RBC (0-2) Urine WBC (0-5) HPF Ur Epithelial Cells (Negative) HPF Urine Crystals (Negative) HPF Urine Bacteria (Negative) HPF Urine Casts (Negative) LPF Urine Mucus (Negative) Urine Other (Negative) Ur Culture Indicated? Urine Glucose Cancelled Range/Units 02/20/19 19:55 WBC (4.4-10.8) k/cumm RBC (4.00-5.20) m/cumm Hgb (12.0-15.5) g/dL Hct (36.0-46.0) % MCV (80-95) fL MCH (27.0-33.0) pg MCHC (32.0-36.0) g/dL RDW (11.7-14.6) % Plt Count (130-400) x1000/uL MPV (8.0-11.0) fL Immature Gran % Neutrophils % Lymphocytes % Monocytes % Eosinophils % Basophils % Absolute Neutrophils (1.2-6.7) k/cumm Absolute Lymphocytes (1.2-3.4) k/cumm Absolute Monocytes (0.11-0.7) k/cumm Absolute Eosinophils (0.0-0.7) k/cumm Absolute Basophils (0.0-0.2) k/cumm Sodium (136-145) mmol/L Potassium (3.5-5.1) mmol/L Chloride (98-107) mmol/L Carbon Dioxide (21.0-32.0) mmol/L Anion Gap (3-11) mmol/L BUN (7-18) mg/dL Creatinine (0.55-1.02) mg/dL Estimated GFR/1.73 m2 (mL/min/1.73m2) Glucose (70-100) mg/dL Calcium (8.5-10.1) mg/dL Total Bilirubin (0.2-1.0) mg/dL AST (15-37) U/L ALT (14-59) U/L Alkaline Phosphatase (46-116) U/L Total Protein (6.4-8.2) g/dL Albumin (3.4-5.0) g/dL Urine Color Yellow Urine Clarity Clear Urine pH 5.5 Ur Specific Sage 1.010 Urine Protein Negative Urine Ketones Negative Urine Blood Moderate H Urine Nitrite Negative Urine Bilirubin Negative Urine Urobilinogen 0.2 Ur Leukocyte Esterase Negative Urine RBC (0-2) 3-5 H Urine WBC (0-5) HPF 5-10 Ur Epithelial Cells (Negative) HPF Moderate Urine Crystals (Negative) HPF Negative Urine Bacteria (Negative) HPF Negative Urine Casts (Negative) LPF Negative Urine Mucus (Negative) Negative Urine Other (Negative) Negative Ur Culture Indicated? No/sq. contamination Urine Glucose Negative
[2019-02-21] MEDS: Ketorolac 30 MG/ML VIAL IVP ×4 (03:38→21:55)
[2019-02-21] MEDS: PIPERACILLIN/TAZO 3.375 GM in Normal Saline 50 ML IVPB ×3 (06:17→17:29)
[2019-02-21 07:22] VITALS: BP 111/73; PULSE 72; RESP 16; TEMP 37; O2SAT 97
[2019-02-21 08:40] LABS: HCT 35.4 % (36.0-46.0); HGB 11.7 g/dL (12.0-15.5); Mean Corp. HGB Concentration 33.1 g/dL (32.0-36.0); Mean Corpuscular Hemoglobin 30.8 pg (27.0-33.0); Mean Corpuscular Volume 93.2 fL (80-95); Mean Platelet Volume 10.3 fL (8.0-11.0); Platelet Count 275 x1000/uL (130-400); RBC Distribution Width 13.3 % (11.7-14.6); White Blood Cell Count 8.37 k/cumm (4.4-10.8)
[2019-02-21] MEDS: Normal Saline Flush 10 ML SYR IVP ×3 (10:05→22:48)
--- NOTE | 2019-02-21 10:34 | PDOC.CMIN ---
- If Service Date Differs Date of service: 02/21/19 Time of Service: 10:34 Care Management Initial Assess REASON FOR HOSPITALIZATION:: Vaginal Cuff Infection PAST MEDICAL HISTORY/PAST SURGICAL HISTORY:: Medical History. Abnormal uterine bleeding (AUB) (Resolved). regular heavy cycles. Mirnea IUD 09/2014 - 02/2016 with no significant improvement in bleeding. Nl EMBx and pelvic u/s 2014. Abnormal uterine bleeding (AUB) (Acute). 02/11/2019. S/p laparoscopic-assisted vaginal hysterectomy with bilateral salpingectomy of tubal remnants. Menorrhagia (Acute). Personal history of cervical dysplasia (Acute 01/24/17). 1998 EMBER II LEEP Rx. Surgical History. Cervical Procedure (~1998). LEEP. Cholecystectomy. Ligation of fallopian tube. Status post laparoscopic assisted vaginal hysterectomy (LAVH) (Acute) PREVIOUS FUNCTIONAL STATUS/SOCIAL/FAMILY SUPPORTS:: Vilma lives in [place] with her , Jack. They have two adult children. 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 She is independent with her ADL's. CURRENT FUNCTIONAL STATUS:: Vilma was sitting up in her chair when CM met with her. She stated that she has been walking around on the floor because it is hard for her to sit in her room all day. She reported that she is feeling better and is anxious to get home. CM will continue to follow. ADVANCE DIRECTIVES:: None on file Has patient been provided with information about the portal?: Yes Did the patient sign up for the portal?: No CODE STATUS:: Full Code INSURANCE COVERAGE / FINANCIAL ISSUES:: [employer] CURRENT HOME/COMMUNITY SERVICES/EQUIPMENT:: Vilma currently does not have any services or equipment PRIMARY CARE PHYSICIAN:: Anel Cunningham POTENTIAL DISCHARGE NEEDS:: Evaluation for further needs, follow up appointments PATIENT/FAMILY EDUCATION NEEDS:: Review discharge instructions, discussion of self care needs including Ask Me Three ANTICIPATED BARRIERS TO DISCHARGE:: None identified at this time. TRANSPORTATION:: Anticipate Vilma will be driven home via private vehicle by her . PLAN:: Anticipate Vilma will return home with no additional services when medically cleared. She will follow up with her PCP, as recommended. Her will drive her home via private vehicle.
--- NOTE | 2019-02-21 13:09 | PHARADMIT ---
Admission Pharmacy Clinical Review vAGINAL CUFF INFECTION (Observation s/p Laproscopic Vag.hysterectomy) Code Status Full Code Current Weight 83.461 kg Renally Cleared and Narrow Therapeutic Index Meds CrCl~67ml/min QTc Value / Action Taken QTC 435 (2018) BP Control, Fever BP 111/73 Afebrile Electrolytes reviewed WNL DVT Prophylaxis SCD's Opiate Usage / Scheduled Bowel Regimen Ordered MS IVP, Percocet...not using either/NO bowel meds Plt/SCr for Heparin / Enoxaparin Plt 275 SCr 0.79 INR for Warfarin H/H stable, WBC/Bands H/H 11.7/35.4 WBC 8.37 (down from 11.64) Antibiotic appropriateness Zosyn 3.375 Cultures and Sensitivities Urine pending Surgical ABX d/c within 24 hr DM control / Insulin Dosing BG 102 Heart Failure (Check EF%) (BRIAN's, B-Block, Diuretics) none IV to PO Switch Home Meds Reviewed Home Meds Not Ordered ok Comments CT abdomen: small fluid collection, ?herniation of abdominis muscle
[2019-02-21 15:54] VITALS: BP 108/70; PULSE 80; RESP 18; TEMP 37.6; O2SAT 97
--- NOTE | 2019-02-21 17:55 | W.PM.HP.N ---
Date of service: 02/21/19 Time of Service: 17:55 Assessment and Plan Assessment and plan (1) Postoperative infection: Status: Acute Assessment and plan: Doing well today. She has remained afebrile. We will continue IV antibiotics overnight and consider discharge home tomorrow. (2) Status post laparoscopic assisted vaginal hysterectomy (LAVH): Status: Acute History of Present Illness History of Present Illness Chief Complaint: Vaginal cuff infection Narrative: Pain did improve throughout the day today. She has been afebrile. She is ambulatory. No abnormal vaginal discharge. No significant vaginal bleeding. She denies any nausea or vomiting. [facility] Medical History Abnormal uterine bleeding (AUB) (Resolved) regular heavy cycles. Mirnea IUD 09/2014 - 02/2016 with no significant improvement in bleeding. Nl EMBx and pelvic u/s 2014. Abnormal uterine bleeding (AUB) (Acute) 02/11/2019. S/p laparoscopic-assisted vaginal hysterectomy with bilateral salpingectomy of tubal remnants Menorrhagia (Acute) Personal history of cervical dysplasia (Acute 01/24/17) 1998 EMBER II LEEP Rx Surgical History Cervical Procedure (~1998) LEEP Cholecystectomy Ligation of fallopian tube Status post laparoscopic assisted vaginal hysterectomy (LAVH) (Acute) Social History Smoking/Tobacco Use Status: Never Drug use: Rarely Substance use type: marijuana Details: edibles Last used: Last weekend Household members: spouse, children, none and other Details: [place]. 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 Do you feel safe at home: Yes Do you feel safe in your relationship?: Yes Female Reproductive History Menstrual control method: permanent sterilization Meds Home Medications and Allergies Home Medications Medication Instructions Recorded Confirmed Type oxycodone-acetaminophen 5 mg-325 1 tab PO Q6H PRN #10 tab MDD 4 02/12/19 02/20/19 Rx mg tablet Allergies Allergy/AdvReac Type Severity Reaction Status Date / Time chlorhexidine Allergy Severe rash Verified 02/20/19 18:57 Exam GI Other: Abdomen is soft and nontender. Results Labs Result diagrams: 02/21/19 08:28 02/20/19 18:40 Labs: Laboratory Results - last 24 hr 02/20/19 02/20/19 02/20/19 18:34 18:40 18:40 WBC 11.64 H RBC 4.28 Hgb 13.1 Hct 39.5 MCV 92.3 MCH 30.6 MCHC 33.2 RDW 13.3 Plt Count 280 MPV 10.6 Immature Gran % 0.3 Neutrophils % 77.0 Lymphocytes % 12.6 Monocytes % 7.6 Eosinophils % 2.2 Basophils % 0.3 Absolute Neutrophils 8.96 H Absolute Lymphocytes 1.47 Absolute Monocytes 0.88 H Absolute Eosinophils 0.26 Absolute Basophils 0.03 Sodium 140 Potassium 3.9 Chloride 104 Carbon Dioxide 26.9 Anion Gap 9.1 BUN 17 Creatinine 0.79 Estimated GFR/1.73 m2 >= 60.00 Glucose 102 H Calcium 8.9 Total Bilirubin 0.4 AST 8 L ALT 20 Alkaline Phosphatase 43 L Total Protein 7.4 Albumin 3.6 Urine Color Cancelled Urine Clarity Cancelled Urine pH Cancelled Ur Specific [place] Cancelled Urine Protein Cancelled Urine Ketones Cancelled Urine Blood Cancelled Urine Nitrite Cancelled Urine Bilirubin Cancelled Urine Urobilinogen Cancelled Ur Leukocyte Esterase Cancelled Urine RBC Urine WBC Ur Epithelial Cells Urine Crystals Urine Bacteria Urine Casts Urine Mucus Urine Other Ur Culture Indicated? Urine Glucose Cancelled 02/20/19 02/21/19 19:55 08:28 WBC 8.37 RBC 3.80 L Hgb 11.7 L Hct 35.4 L MCV 93.2 MCH 30.8 MCHC 33.1 RDW 13.3 Plt Count 275 MPV 10.3 Immature Gran % Neutrophils % Lymphocytes % Monocytes % Eosinophils % Basophils % Absolute Neutrophils Absolute Lymphocytes Absolute Monocytes Absolute Eosinophils Absolute Basophils Sodium Potassium Chloride Carbon Dioxide Anion Gap BUN Creatinine Estimated GFR/1.73 m2 Glucose Calcium Total Bilirubin AST ALT Alkaline Phosphatase Total Protein Albumin Urine Color Yellow Urine Clarity Clear Urine pH 5.5 Ur Specific [place] 1.010 Urine Protein Negative Urine Ketones Negative Urine Blood Moderate H Urine Nitrite Negative Urine Bilirubin Negative Urine Urobilinogen 0.2 Ur Leukocyte Esterase Negative Urine RBC 3-5 H Urine WBC 5-10 Ur Epithelial Cells Moderate Urine Crystals Negative Urine Bacteria Negative Urine Casts Negative Urine Mucus Negative Urine Other Negative Ur Culture Indicated? No/sq. contamination Urine Glucose Negative Last Vital Signs Temp 99.7 F H 02/21/19 15:54 Pulse 80 02/21/19 15:54 Resp 18 02/21/19 15:54 BP 108/70 02/21/19 15:54 Pulse Ox 97 02/21/19 15:54
[2019-02-21] MEDS: Lactated Ringers 1,000 ML 75 ML IV (18:32)
[2019-02-22] MEDS: PIPERACILLIN/TAZO 3.375 GM in Normal Saline 50 ML IVPB ×3 (00:05→11:01)
[2019-02-22 03:20] VITALS: BP 101/68; PULSE 71; RESP 18; TEMP 36.7; O2SAT 95
[2019-02-22] MEDS: Ketorolac 30 MG/ML VIAL IVP ×2 (04:15→10:18)
[2019-02-22] MEDS: Normal Saline Flush 10 ML SYR IVP ×2 (04:15→06:55)
[2019-02-22 07:27] VITALS: BP 107/74; PULSE 69; RESP 17; TEMP 36.8; O2SAT 96
[2019-02-22] MEDS: Lactated Ringers 1,000 ML 75 ML IV (09:18)
--- NOTE | 2019-02-22 09:50 | W.PM.PROGNOT ---
Date of Service Date of service: 02/22/19 Time of Service: 09:51 Assessment and Plan Assessment and plan (1) Postoperative infection: Status: Acute Assessment and plan: Plan for discharge home today on Augmentin. Follow up in the clinic this week. (2) Status post laparoscopic assisted vaginal hysterectomy (LAVH): Status: Acute (3) Hernia, umbilical: Status: Acute Subjective Subjective Interval history since last seen: Doing well today. Feels much better. Essentially no pain today. Afebrile. Tolerating regular diet. No nausea or vomiting. Normal bowel movement today. Objective Objective Clinical Data: Vital Signs Temperature 98.2 F 02/22/19 07:27 Temperature Source Tympanic 02/22/19 07:27 Pulse 69 02/22/19 07:27 Pulse Rhythm Regular 02/22/19 09:02 Respiratory Rate 17 02/22/19 07:27 Respiratory Effort 02/22/19 09:02 Respiratory Depth Normal 02/22/19 09:02 Respiratory Pattern Normal 02/22/19 09:02 Blood Pressure 107/74 02/22/19 07:27 Blood Pressure Position Sitting 02/20/19 18:27 Pulse Oximetry 96 02/22/19 07:27 Oxygen Delivery Method Room Air 02/22/19 07:27 Oxygen Flow Rate 0 02/22/19 07:27 Pain Level 0 02/22/19 07:27 Comment 02/22/19 03:20 Intake & Output 02/21/19 02/21/19 02/22/19 11:59 23:59 10:59 Intake Total 1070 / 1180 110 / 1180 728.75 / 728.75 Balance 1070 / 1180 110 / 1180 728.75 / 728.75 Intake: IV 1070 / 1180 110 / 1180 428.75 / 428.75 Oral 300 / 300 Other: Urine Color Pale Yellow Urine Appearance Clear Clear Clear Urine Odor None Comment patient is independant Stool Size Small Stool Characteristics Soft Formed Voiding Methods Toilet Laboratory Results WBC 8.37 k/cumm (4.4-10.8) 02/21/19 08:28 RBC 3.80 m/cumm (4.00-5.20) L 02/21/19 08:28 Hgb 11.7 g/dL (12.0-15.5) L 02/21/19 08:28 Hct 35.4 % (36.0-46.0) L 02/21/19 08:28 MCV 93.2 fL (80-95) 02/21/19 08:28 MCH 30.8 pg (27.0-33.0) 02/21/19 08:28 MCHC 33.1 g/dL (32.0-36.0) 02/21/19 08:28 RDW 13.3 % (11.7-14.6) 02/21/19 08:28 Plt Count 275 x1000/uL (130-400) 02/21/19 08:28 MPV 10.3 fL (8.0-11.0) 02/21/19 08:28 Immature Gran % 0.3 02/20/19 18:40 Neutrophils % 77.0 02/20/19 18:40 Lymphocytes % 12.6 02/20/19 18:40 Monocytes % 7.6 02/20/19 18:40 Eosinophils % 2.2 02/20/19 18:40 Basophils % 0.3 02/20/19 18:40 Absolute Neutrophils 8.96 k/cumm (1.2-6.7) H 02/20/19 18:40 Absolute Lymphocytes 1.47 k/cumm (1.2-3.4) 02/20/19 18:40 Absolute Monocytes 0.88 k/cumm (0.11-0.7) H 02/20/19 18:40 Absolute Eosinophils 0.26 k/cumm (0.0-0.7) 02/20/19 18:40 Absolute Basophils 0.03 k/cumm (0.0-0.2) 02/20/19 18:40 Sodium 140 mmol/L (136-145) 02/20/19 18:40 Potassium 3.9 mmol/L (3.5-5.1) 02/20/19 18:40 Chloride 104 mmol/L (98-107) 02/20/19 18:40 Carbon Dioxide 26.9 mmol/L (21.0-32.0) 02/20/19 18:40 Anion Gap 9.1 mmol/L (3-11) 02/20/19 18:40 BUN 17 mg/dL (7-18) 02/20/19 18:40 Creatinine 0.79 mg/dL (0.55-1.02) 02/20/19 18:40 Estimated GFR/1.73 m2 >= 60.00 (mL/min/1.73m2) 02/20/19 18:40 Glucose 102 mg/dL (70-100) H 02/20/19 18:40 Calcium 8.9 mg/dL (8.5-10.1) 02/20/19 18:40 Total Bilirubin 0.4 mg/dL (0.2-1.0) 02/20/19 18:40 AST 8 U/L (15-37) L 02/20/19 18:40 ALT 20 U/L (14-59) 02/20/19 18:40 Alkaline Phosphatase 43 U/L (46-116) L 02/20/19 18:40 Total Protein 7.4 g/dL (6.4-8.2) 02/20/19 18:40 Albumin 3.6 g/dL (3.4-5.0) 02/20/19 18:40 Urine Color Yellow (Yellow) 02/20/19 19:55 Urine Clarity Clear (Clear) 02/20/19 19:55 Urine pH 5.5 (5-8) 02/20/19 19:55 Ur Specific [place] 1.010 (1.005-1.025) 02/20/19 19:55 Urine Protein Negative mg/dL (Negative) 02/20/19 19:55 Urine Ketones Negative mg/dL (Negative) 02/20/19 19:55 Urine Blood Moderate (Negative) H 02/20/19 19:55 Urine Nitrite Negative (Negative) 02/20/19 19:55 Urine Bilirubin Negative (Negative) 02/20/19 19:55 Urine Urobilinogen 0.2 EU/dL (Up TO 0.2) 02/20/19 19:55 Ur Leukocyte Esterase Negative (Negative) 02/20/19 19:55 Urine RBC 3-5 (0-2) H 02/20/19 19:55 Urine WBC 5-10 HPF (0-5) 02/20/19 19:55 Ur Epithelial Cells Moderate HPF (Negative) 02/20/19 19:55 Urine Crystals Negative HPF (Negative) 02/20/19 19:55 Urine Bacteria Negative HPF (Negative) 02/20/19 19:55 Urine Casts Negative LPF (Negative) 02/20/19 19:55 Urine Mucus Negative (Negative) 02/20/19 19:55 Urine Other Negative (Negative) 02/20/19 19:55 Ur Culture Indicated? No/sq. contamination 02/20/19 19:55 Urine Glucose Negative mg/dL (Negative) 02/20/19 19:55
--- NOTE | 2019-02-22 09:56 | PDOC.DSDIS_ITS ---
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 She was placed on Zosyn. Over night she continued to improve and her pain resolved almost completely. She remained afebrile throughout admission. Laboratory studies were normal. She was felt suitable for discharge home on HD 2 Home Meds and New Rx's Prescriptions: New amoxicillin-pot clavulanate [Augmentin] 875-125 mg tablet 1 tab PO BID Qty: 14 RF: 0 fluconazole [Diflucan] 150 mg tablet 150 mg PO ONCE Qty: 1 RF: 2 Continued oxycodone-acetaminophen [Percocet] 5-325 mg tablet 1 tab PO Q6H MDD 4 PRN (Reason: pain) Qty: 10 RF: 0 Discharge Instructions Activity:: Activity as Tolerated Equipment/Supplies:: No Equipment Needed Diet:: As Tolerated Discharge Orders Discharge Orders: Discharge Order (Routine); Ordered 02/22/19 Ordered By: Clyde Everett Discharge Data Discharge Comment: Follow up this week in clinic with Dr. Collazo DS: Diagnosis Discharge Diagnosis (1) Postoperative infection: Status: Acute (2) Status post laparoscopic assisted vaginal hysterectomy (LAVH): Status: Acute (3) Hernia, umbilical: Status: Acute
--- NOTE | 2019-02-22 11:45 | PDOC.CMDIS ---
- If Service Date Differs Date of service: 02/22/19 Time of Service: 11:45 LACE Index Scoring Tool - Questions: Length of Stay (in days): 3 Acuity (Admit via E.D.?): Yes E.D. Visits: 1 - Answers: Total Score: 7 Risk of Readmission: Low Risk Care Management Discharge Reason for Hospitalization: Vaginal Cuff Infection Discharge Plan: Vilma will return home with no additional services at this time. Her will drive her home via private vehicle. She will follow up with her PCP, as recommended. Patient/Family Education Needs: Review discharge instructions, discussion of self care needs including Ask Me Three
== END 2019-02-22 12:05 | disposition home or self-care (01) ==
LOC: ER 18:31 → MS 22:01
PROVIDERS: Admitting Provider Obstetrics & Gynecology; Emergency Provider Physician Assistant; PCP Nurse Practitioner Family; Visit Provider Obstetrics & Gynecology
DX: T81.40XA Infection following a procedure, unspecified, initial encounter (principal); Z48.816 Encounter for surgical aftercare following surgery on the genitourinary system; Z90.710 Acquired absence of both cervix and uterus; K42.9 Umbilical hernia without obstruction or gangrene
CPT/HCPCS: 36415; 80053; 85027; 96361; 96374; 96375; 99223; 99233; 99285; 74177; 81003; 81015; 85025; 87086; 99284; G0378; J1885; J2405; J2543; J3490

== ENCOUNTER 2019-03-02 06:28 | Inpatient (IN) | payer OTHER, SELFPAY ==
[2019-03-02] VITALS (8 sets, daily range): BP systolic 93–112; BP diastolic 62–72; PULSE 76–128; RESP 15–21; TEMP 36.4–37.6; O2SAT 94–97
--- NOTE | 2019-03-02 06:53 | ED.GENADUL_ITS ---
Discharge Plan Disposition Patient Disposition: STILL A PATIENT Condition: Good Discharge Details Chief Complaint: Abd Prob Clinical Impression: Abdominal pain Admit Date/Time: 03/02/19 10:01 Admit Provider: Rula Herman Attending Provider: Rula Herman Primary Care Provider: Anel Cunningham ED Provider: Saima Butler Discharge Data Discharge Date/Time-TO BE ENTERED AT DEPARTURE: 03/02/19 12:35 Medical Decision Making <Dada Hamilton DO - Last Filed: 03/02/19 07:55> This is a pleasant 49-year-old female who presents today for evaluation of abdominal/pelvic pain. On 02/12 she had a hysterectomy secondary to vaginal bleeding, and then on 02/21 she was readmitted secondary to pain which seem to be caused from a small vaginal cuff infection. She was treated with antibiotics during her admission and eventually transition to Augmentin for which she has nearly completed. Since her last discharge she has had continued pain in the left hand side, including at her last checkup however over the last 24 to 48 hours the pain has become severe. Her OB doctor did prescribe Flexeril and some Valium to help with the pain as it was concerning for pelvic floor spasms, however these did not help with the pain at all. Pain is described as sharp and severe. Mainly located on the left-hand side of the abdomen and pelvis. Pain radiates to the left leg. Pain is worsened with movement and palpation, but notably significantly worsened with passive and active flexion of the left hip. She has notable associated symptoms of tingling and numbness over the anterior aspect of her thigh on the left but denies any saddle anesthesia. She denies any bowel or bladder incontinence. She denies any dysuria or hematuria. She denies any fever or chills. She also admits to profuse watery diarrhea over the last few days, nonbloody. She denies any numbness or tingling on the lower aspect of her left leg. She denies any other complaints at this time. She denies any vaginal discharge. She denies any vaginal bleeding. Physical exam demonstrates notable left-sided tenderness in the abdomen and pelvis, including mild peritoneal signs. She is notably tachycardic. No flank or CVA tenderness. Decreased sensation over the anterior thigh, no evidence of saddle anesthesia or decreased rectal tone. Decreased strength for flexion of the left hip which also notably worsens her pain in conjunction with a typical decrease in strength for dorsiflexion of the great toe on the left. With the patient's diarrhea, and other symptoms I am notably concern for any acute intra- abdominal process including worsening of the previous vaginal cuff abscess. We will get blood cultures labs and treat her pain. Additionally I am concerned for potential C. difficile with her profuse watery diarrhea after being on Augmentin. We will page OB, the patient will be signed out to my colleague Dr. Saima Butler for evaluation of labs, imaging, and reassessment. FINDINGS: Vertebrae: No acute fracture. Normal alignment. Discs/Spinal canal/Neural foramina: Lumbar spine degenerative disc disease is noted. Reproductive: Small fluid noted at the level of the cervical cuff in a patient status post hysterectomy. Adjacent gas and fluid collection is felt likely to be present within a loop of small bowel adjacent to the cervical cuff Soft tissues: Unremarkable. IMPRESSION: No acute findings Thank you for allowing us to participate in the care of your patient. Dictated and Authenticated by: Chandu Nam MD 03/02/2019 7:55 AM Eastern Time ([place] & [place]) FINDINGS: Liver: Normal. No mass. Gallbladder and bile ducts: Cholecystectomy. No ductal dilation. Pancreas: Normal. No ductal dilation. Spleen: Normal. No splenomegaly. Adrenals: Normal. No mass. Kidneys and ureters: Normal. No hydronephrosis. Stomach and bowel: Thickened appearance of the sigmoid colon with pericolic stranding likely reflective of sigmoid diverticulitis. Low-attenuation collections within the thickened wall may reflect intramural abscess collection measuring up to 14 x 10 mm. Appendix: No evidence of appendicitis. Intraperitoneal space: Unremarkable. No free air. No significant fluid collection. Vasculature: Unremarkable. No abdominal aortic aneurysm. Lymph nodes: Unremarkable. No enlarged lymph nodes. Bladder: Unremarkable as visualized. Reproductive: Unremarkable as visualized. Bones/joints: Unremarkable. No acute fracture. Soft tissues: Unremarkable. IMPRESSION: 1. Thickened appearance of the sigmoid colon with pericolic stranding likely reflective of sigmoid diverticulitis. Low-attenuation collections within the thickened wall may reflect intramural abscess collection measuring up to 14 x 10 mm. Thank you for allowing us to participate in the care of your patient. Dictated and Authenticated by: Chandu Nam MD 03/02/2019 7:51 AM Eastern Time ([place] & [place]) <Saima Butler MD - Last Filed: 03/02/19 13:25> Vilma Carey is a 49-year-old woman who presented to the emergency department with abdominal pain and diarrhea, signed out to me by Dr. Hamilton at time of shift change with disposition, reassessment pending, imaging showing diverticulitis and 10 x 14 mm intramural abscess. The patient was discussed with Dr. Collazo of gynecology, who requested surgical consultation. I discussed the patient with Dr. Herman of surgery, who will admit patient, plan for Cipro/Flagyl. Clinical impression: diverticulitis Disposition: [facility] inpatient Medical Records Medical records reviewed: Yes I reviewed the patient's medical records. Lab Data Lab results reviewed: Yes I reviewed the patient's lab results. Labs: 03/02/19 08:00 Blood Blood Culture - Pending 03/02/19 07:50 Blood Blood Culture - Pending Laboratory Tests Range/Units 03/02/19 03/02/19 03/02/19 06:44 06:45 07:05 WBC (4.4-10.8) k/cumm RBC (4.00-5.20) m/cumm Hgb (12.0-15.5) g/dL Hct (36.0-46.0) % MCV (80-95) fL MCH (27.0-33.0) pg MCHC (32.0-36.0) g/dL RDW (11.7-14.6) % Plt Count (130-400) x1000/uL MPV (8.0-11.0) fL Immature Gran % Neutrophils % Lymphocytes % Monocytes % Eosinophils % Basophils % Absolute Neutrophils (1.2-6.7) k/cumm Absolute Lymphocytes (1.2-3.4) k/cumm Absolute Monocytes (0.11-0.7) k/cumm Absolute Eosinophils (0.0-0.7) k/cumm Absolute Basophils (0.0-0.2) k/cumm Sodium (136-145) mmol/L 137 Potassium (3.5-5.1) mmol/L 4.0 Chloride (98-107) mmol/L 98 Carbon Dioxide (21.0-32.0) mmol/L 28.3 Anion Gap (3-11) mmol/L 10.7 BUN (7-18) mg/dL 16 Creatinine (0.55-1.02) mg/dL 0.89 Estimated GFR/1.73 m2 (mL/min/1.73m2) >= 60.00 Glucose (70-100) mg/dL 102 H Lactate (0.6-1.4) mmol/L 0.7 Calcium (8.5-10.1) mg/dL 9.0 Total Bilirubin (0.2-1.0) mg/dL 1.2 H AST (15-37) U/L 10 L ALT (14-59) U/L 13 L Alkaline Phosphatase (46-116) U/L 62 Total Protein (6.4-8.2) g/dL 7.8 Albumin (3.4-5.0) g/dL 3.4 Urine Color (Yellow) Yellow Urine Clarity (Clear) Cloudy Urine pH (5-8) 5.5 Ur Specific [place] (1.005-1.025) >= 1.030 H Urine Protein (Negative) mg/dL >=300 H Urine Ketones (Negative) mg/dL 15 H Urine Blood (Negative) Moderate H Urine Nitrite (Negative) Negative Urine Bilirubin (Negative) Large H Urine Urobilinogen (Up TO 0.2) EU/dL 1.0 H Ur Leukocyte Esterase (Negative) Negative Urine RBC (0-2) 5-10 H Urine WBC (0-5) HPF 3-5 Ur Epithelial Cells (Negative) HPF Many Urine Crystals (Negative) HPF Negative Urine Bacteria (Negative) HPF Few Urine Casts (Negative) LPF Negative Urine Mucus (Negative) Trace Ur Culture Indicated? No/sq. contamination Urine Glucose (Negative) mg/dL Negative Range/Units 03/02/19 07:05 WBC (4.4-10.8) k/cumm 16.20 H RBC (4.00-5.20) m/cumm 4.33 Hgb (12.0-15.5) g/dL 13.1 Hct (36.0-46.0) % 39.4 MCV (80-95) fL 91.0 MCH (27.0-33.0) pg 30.3 MCHC (32.0-36.0) g/dL 33.2 RDW (11.7-14.6) % 12.7 Plt Count (130-400) x1000/uL 441 H MPV (8.0-11.0) fL 9.7 Immature Gran % 0.2 Neutrophils % 79.4 Lymphocytes % 10.6 Monocytes % 8.0 Eosinophils % 1.6 Basophils % 0.2 Absolute Neutrophils (1.2-6.7) k/cumm 12.86 H Absolute Lymphocytes (1.2-3.4) k/cumm 1.72 Absolute Monocytes (0.11-0.7) k/cumm 1.30 H Absolute Eosinophils (0.0-0.7) k/cumm 0.26 Absolute Basophils (0.0-0.2) k/cumm 0.03 Sodium (136-145) mmol/L Potassium (3.5-5.1) mmol/L Chloride (98-107) mmol/L Carbon Dioxide (21.0-32.0) mmol/L Anion Gap (3-11) mmol/L BUN (7-18) mg/dL Creatinine (0.55-1.02) mg/dL Estimated GFR/1.73 m2 (mL/min/1.73m2) Glucose (70-100) mg/dL Lactate (0.6-1.4) mmol/L Calcium (8.5-10.1) mg/dL Total Bilirubin (0.2-1.0) mg/dL AST (15-37) U/L ALT (14-59) U/L Alkaline Phosphatase (46-116) U/L Total Protein (6.4-8.2) g/dL Albumin (3.4-5.0) g/dL Urine Color (Yellow) Urine Clarity (Clear) Urine pH (5-8) Ur Specific [place] (1.005-1.025) Urine Protein (Negative) mg/dL Urine Ketones (Negative) mg/dL Urine Blood (Negative) Urine Nitrite (Negative) Urine Bilirubin (Negative) Urine Urobilinogen (Up TO 0.2) EU/dL Ur Leukocyte Esterase (Negative) Urine RBC (0-2) Urine WBC (0-5) HPF Ur Epithelial Cells (Negative) HPF Urine Crystals (Negative) HPF Urine Bacteria (Negative) HPF Urine Casts (Negative) LPF Urine Mucus (Negative) Ur Culture Indicated? Urine Glucose (Negative) mg/dL HPI <Dada R Pomeroy, DO - Last Filed: 03/02/19 07:55> General Date/Time Provider Initiated Documentation: 03/02/19 06:30 . HPI Narrative: This is a pleasant 49-year-old female who presents today for evaluation of abdominal/pelvic pain. On 02/12 she had a hysterectomy secondary to vaginal bleeding, and then on 02/21 she was readmitted secondary to pain which seem to be caused from a small vaginal cuff infection. She was treated with antibiotics during her admission and eventually transition to Augmentin for which she has nearly completed. Since her last discharge she has had continued pain in the left hand side, including at her last checkup however over the last 24 to 48 hours the pain has become severe. Her OB doctor did prescribe Flexeril and some Valium to help with the pain as it was concerning for pelvic floor spasms, however these did not help with the pain at all. Pain is described as sharp and severe. Mainly located on the left-hand side of the abdomen and pelvis. Pain radiates to the left leg. Pain is worsened with movement and palpation, but notably significantly worsened with passive and active flexion of the left hip. She has notable associated symptoms of tingling and numbness over the anterior aspect of her thigh on the left but denies any saddle anesthesia. She denies any bowel or bladder incontinence. She denies any dysuria or hematuria. She denies any fever or chills. She also admits to profuse watery diarrhea over the last few days, nonbloody. She denies any numbness or tingling on the lower aspect of her left leg. She denies any other complaints at this time. She denies any vaginal discharge. She denies any vaginal bleeding. Related Data Home Medications Medication Instructions Recorded Confirmed amoxicillin-pot clavulanate 1 tab PO BID #14 tab 02/22/19 03/02/19 [Augmentin] fluconazole [Diflucan] 150 mg PO ONCE #1 tab 02/22/19 03/02/19 cyclobenzaprine 7.5 mg tablet 7.5 mg PO TID PRN #15 tab 02/27/19 03/02/19 Previous Rx's Medication Instructions Recorded amoxicillin-pot clavulanate 1 tab PO BID #14 tab 02/22/19 [Augmentin] fluconazole [Diflucan] 150 mg PO ONCE #1 tab 02/22/19 cyclobenzaprine 7.5 mg tablet 7.5 mg PO TID PRN #15 tab 02/27/19 Allergies Allergy/AdvReac Type Severity Reaction Status Date / Time chlorhexidine Allergy Severe rash Verified 03/02/19 06:53 General Stated Complaint: Abd Prob ALEXSANDER: 3 Review of Systems <Dada Hamilton DO - Last Filed: 03/02/19 07:55> All systems reviewed & are unremarkable except as noted in HPI and below PFSH <Dada Hamilton DO - Last Filed: 03/02/19 07:55> Medical History Abnormal uterine bleeding (AUB) (Resolved) regular heavy cycles. Mirnea IUD 09/2014 - 02/2016 with no significant improvement in bleeding. Nl EMBx and pelvic u/s 2014. Abnormal uterine bleeding (AUB) (Acute) 02/11/2019. S/p laparoscopic-assisted vaginal hysterectomy with bilateral salpingectomy of tubal remnants Menorrhagia (Acute) Personal history of cervical dysplasia (Acute 01/24/17) 1999 EMBER II LEEP Rx Surgical History Cervical Procedure (~1998) LEEP Cholecystectomy Ligation of fallopian tube Status post laparoscopic assisted vaginal hysterectomy (LAVH) (Acute) Family History Mother Hyperlipidemia Father Essential hypertension Grandmother Breast cancer paternal Social History Smoking/Tobacco Use Status: Never Drug use: Rarely Substance use type: marijuana Details: edibles Last used: Last weekend Household members: spouse, children, none and other Details: H-Ad. 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 Do you feel safe at home: Yes Do you feel safe in your relationship?: Yes Female Reproductive History Menstrual control method: permanent sterilization Exam <Dada Hamilton DO - Last Filed: 03/02/19 07:55> Narrative Exam Narrative: 1.Const: Well-nourished, Well-developed, appearing stated age 2.Eyes: PERRL, no conjunctival injection, and symmetrical lids. 3.ENT: Atraumatic external nose and ears. Moist MM. Neck: Symmetric, trachea midline, No thyromegaly. No nuchal rigidity, or meningeal signs. 4.CVS: +S1/S2, tachycardia, no murmurs or gallops. Peripheral pulses 2+ and equal in all extremities. Brisk capillary refill in all extremities. 5.RESP: Unlabored respiratory effort. Clear to auscultation bilaterally. No wheezes rales or rhonchi 6.GI: Abdomen is notably tense and tender. Significant tenderness and mild peritoneal signs in the left lower quadrant and left pelvis. Notable worsening of pain with flexion, rotation of the left leg, Notable psoas sign. No flank or CVA tenderness. No pain in the right abdomen. 7.MSK: Normocephalic/Atraumatic, Extremities w/o deformity or ttp No cyanosis or clubbing. No midline tenderness to palpation over the CTLS spine. Normal ROM in flexion, extension, side bend, and rotation. Right lower extremity: Patient has +5 out of 5 strength in the right lower extremities in dorsiflexion and plantarflexion, knee flexion and extension, hip flexion and extension. Normal strength for dorsiflexion and plantar flexion of the great toe. Left lower extremity: Patient has notable pain and decreased flexion of the left hip, demonstrates normal strength for extension. Dorsiflexion plantarflexion of the feet are equivalent bilaterally however the patient has mild to moderate atypical reduction in strength for dorsiflexion of the great toe on the left. Sensation is reduced over the thigh of the left upper extremity, however she demonstrates no evidence of saddle anesthesia, rectal tone is intact, normal perirectal sensation. There is +2 over 2 dorsalis pedis pulses bilaterally. There is normal sensation to the skin with light touch at the foot, knee, Good sensation over the deep sural nerve area bilaterally. Reflexes are difficult to elicit for the patellar reflexes bilaterally. 8.Skin: Warm, Dry. No rashes or lesions. 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 Please see musculoskeletal 10.Psych: (AAO) x3. Appropriate mood and affect Course <Dada Hamilton DO - Last Filed: 03/02/19 07:55> Vital Signs Vital signs: Vital Signs Temperature 36.7 C 03/02/19 06:35 Pulse 128 H 11/11/19 06:35 Respiratory Rate 20 03/02/19 06:35 Blood Pressure 112/67 03/02/19 06:35 Temperature 36.7 C 03/02/19 06:35 Temperature Source Temporal Artery Scan 03/02/19 06:35 Pulse 128 H 03/02/19 06:35 Respiratory Rate 20 03/02/19 06:35 Blood Pressure 112/67 03/02/19 06:35 Blood Pressure Position Sitting 03/02/19 06:35 Oxygen Delivery Method Room Air 03/02/19 06:35 Oxygen Flow Rate 0 03/02/19 06:35 Lab/Test Results Lab/Test Results: 03/02/19 06:44 Blood Blood Culture - Pending 03/02/19 06:44 Blood Blood Culture - Pending Sign Out <Dada Hamilton DO - Last Filed: 03/02/19 07:55> Sign Out Data: Sign Out Comment: Pending evaluation by OB/surgery Last updated by Dada Hamilton DO at 03/02/19 07:56
[2019-03-02 06:55] LABS: Bilirubin Large (Negative); Blood Moderate (Negative); Clarity Cloudy (Clear); Glucose Negative (Negative); Ketones 15 mg/dL (Negative); Leukocyte Esterase Negative (Negative); Nitrite Negative (Negative); Specific Gravity >= 1.030 (1.005-1.025); pH 5.5 (5-8)
[2019-03-02 07:01] LABS: Epithelial Cells Many HPF (Negative)
[2019-03-02 07:02] LABS: Bacteria Few HPF (Negative); C & S Indicated? No/Sq. Contamination; Casts Negative LPF (Negative); Crystals Negative HPF (Negative); Mucus Trace (Negative)
[2019-03-02] MEDS: Normal Saline 1,000 ML 1000 ML IV ×2 (07:08→08:11)
[2019-03-02 07:10] LABS: Lactate 0.7 mmol/L (0.6-1.4)
[2019-03-02] MEDS: Omnipaque 350 MG/ML 100 ML BTL IJ (07:14)
[2019-03-02 07:19] LABS: Abs Immature Grans 0.04 k/cumm (0.0-0.09); Absolute Eosinophil Count 0.26 k/cumm (0.0-0.7); Basophils % 0.2; Eosinophils % 1.6; HCT 39.4 % (36.0-46.0); HGB 13.1 g/dL (12.0-15.5); Immature Grans % 0.2; Lymphocytes % 10.6; Mean Corp. HGB Concentration 33.2 g/dL (32.0-36.0); Mean Corpuscular Hemoglobin 30.3 pg (27.0-33.0); Mean Platelet Volume 9.7 fL (8.0-11.0); Neutrophils % 79.4; Platelet Count 441 x1000/uL (130-400); RBC 4.33 m/cumm (4.00-5.20); RBC Distribution Width 12.7 % (11.7-14.6)
[2019-03-02 07:24] LABS: Absolute Basophil Count 0.03 k/cumm (0.0-0.2); Absolute Lymphocyte Count 1.72 k/cumm (1.2-3.4); Absolute Neutrophil Count 12.86 k/cumm (1.2-6.7)
[2019-03-02 07:31] LABS: ALT 13 U/L (14-59); AST 10 U/L (15-37); Albumin 3.4 g/dL (3.4-5.0); Alkaline Phosphatase 62 U/L (46-116); Anion Gap 10.7 mmol/L (3-11); BUN 16 mg/dL (7-18); Bilirubin, Total 1.2 mg/dL (0.2-1.0); CO2 28.3 mmol/L (21.0-32.0); CREATININE 0.89 mg/dL (0.55-1.02); Chloride 98 mmol/L (98-107); Glucose 102 mg/dL (70-100); Sodium 137 mmol/L (136-145); Total Protein 7.8 g/dL (6.4-8.2)
--- NOTE | 2019-03-02 07:36 | DI.CT_ITS ---
EXAM: CT ABDOMEN PELVIS W CT reconstructions of the lumbar spine CLINICAL HISTORY: Severe LLQ pain, postop hysto,diarrhea, weak L leg TECHNIQUE: The exam was performed according to the usual protocol utilizing 100 cc's of Omnipaque 35 0. COMPARISON: CT ABDOMEN PELVIS W from 02/20/2019 FINDINGS: CT scan of the abdomen and pelvis: There is linear atelectasis in the lung bases. The liver is unremarkable. The portal, superior mesenteric and splenic veins are patent. The patient is status post cholecystectomy. No significant biliary ductal dilatation is present. The pancreas is unremarkable. The spleen and adrenal glands are unremarkable. The kidneys, ureters and bladder are unremarkable. Incidental note is again made of a cyst in the ri ght kidney. The patient is status post hysterectomy. There is a small amount of fluid seen at the level of the ce rvical cuff. No focal fluid collection in this region is identified to suggest an abscess. The abdominal aorta is of normal caliber with mild atherosclerosis. No significant abdominal or pelvic adenopathy, ascites or pneumoperitoneum is present. There is diverticular disease of the descending and sigmoid colon. There is bowel wall thickening an d pericolonic inflammatory changes seen in the proximal sigmoid colon consistent with acute diverticu litis. There is a 1.4 x 1.0 cm fluid collection within the wall of the sigmoid colon in the inflamed area. This may represent an intramural abscess. The remainder of the bowel is unremarkable. No findings to suggest an acute appendicitis are present . There is a trace amount of free fluid in the pelvis. No acute osseous abnormalities identified. Reconstructions of the lumbar spine: There is normal alignment of the lumbar spine. Mild degenerative changes are present. No spondyloly sis or spondylolisthesis is present. No acute fractures or subluxations are seen. IMPRESSION: 1. Findings consistent with acute sigmoid diverticulitis. 1.4 x 1.0 cm fluid collection within the w all of the inflamed sigmoid which may represent an intramural abscess. 2. Degenerative changes seen in the lumbar spine. No acute abnormality.
--- NOTE | 2019-03-02 07:52 | DI.VRAD_ITS ---
PROCEDURE INFORMATION: Exam: CT Abdomen And Pelvis With Contrast Exam date and time: 03/02/2019 7:22 AM Clinical history: 49 years old, female; Other: Severe llq pain, postop hysto, diarrhea, weak L leg TECHNIQUE: Imaging protocol: Computed tomography of the abdomen and pelvis with intravenous contrast. Radiation optimization: All CT scans at this facility use at least one of these dose optimization techniques: automated exposure control; mA and/or kV adjustment per patient size (includes targeted exams where dose is matched to clinical indication); or iterative reconstruction. Contrast material: OMNIPAQUE 350; Contrast volume: 100 ml; Contrast route: IV; COMPARISON: CT ABDOMEN PELVIS W 02/20/2019 7:07 PM FINDINGS: Liver: Normal. No mass. Gallbladder and bile ducts: Cholecystectomy. No ductal dilation. Pancreas: Normal. No ductal dilation. Spleen: Normal. No splenomegaly. Adrenals: Normal. No mass. Kidneys and ureters: Normal. No hydronephrosis. Stomach and bowel: Thickened appearance of the sigmoid colon with pericolic stranding likely reflective of sigmoid diverticulitis. Low-attenuation collections within the thickened wall may reflect intramural abscess collection measuring up to 14 x 10 mm. Appendix: No evidence of appendicitis. Intraperitoneal space: Unremarkable. No free air. No significant fluid collection. Vasculature: Unremarkable. No abdominal aortic aneurysm. Lymph nodes: Unremarkable. No enlarged lymph nodes. Bladder: Unremarkable as visualized. Reproductive: Unremarkable as visualized. Bones/joints: Unremarkable. No acute fracture. Soft tissues: Unremarkable. IMPRESSION: 1. Thickened appearance of the sigmoid colon with pericolic stranding likely reflective of sigmoid diverticulitis. Low-attenuation collections within the thickened wall may reflect intramural abscess collection measuring up to 14 x 10 mm. Dictated and Authenticated by: Chandu Nam MD. Ordering:ABDOUL Garland MD
--- NOTE | 2019-03-02 07:55 | DI.VRAD_ITS ---
PROCEDURE INFORMATION: Exam: CT Lumbar Spine Without Contrast Exam date and time: 03/02/2019 7:22 AM Clinical history: 49 years old, female; Other: Severe llq pain, postop hysto, diarrhea, weak L leg TECHNIQUE: Imaging protocol: Computed tomography images of the lumbar spine without contrast. Radiation optimization: All CT scans at this facility use at least one of these dose optimization techniques: automated exposure control; mA and/or kV adjustment per patient size (includes targeted exams where dose is matched to clinical indication); or iterative reconstruction. COMPARISON: No relevant prior studies available. FINDINGS: Vertebrae: No acute fracture. Normal alignment. Discs/Spinal canal/Neural foramina: Lumbar spine degenerative disc disease is noted. Reproductive: Small fluid noted at the level of the cervical cuff in a patient status post hysterectomy. Adjacent gas and fluid collection is felt likely to be present within a loop of small bowel adjacent to the cervical cuff Soft tissues: Unremarkable. IMPRESSION: No acute findings Dictated and Authenticated by: Chandu Nam MD. Ordering:ABDOUL Garland MD
[2019-03-02] MEDS: metroNIDAZOLE 500 MG/100 ML BAG 100 MG IVPB ×3 (08:24→23:55)
--- NOTE | 2019-03-02 08:45 | W.PM.HP.N ---
Date of service: 03/02/19 Time of Service: 12:15 Assessment and Plan Assessment and plan (1) Diverticulitis large intestine: Status: Acute Assessment and plan: The patient will be admitted for IV antibiotics and pain control. It is expected the abscess will resolve without surgical intervention. There is not a collection that is amenable to percutaneous drainage either. Labs ordered for am. Qualifiers: Diverticulitis bleeding: without bleeding Diverticulitis complication: with abscess Qualified Code(s): K57.20 - Diverticulitis of large intestine with perforation and abscess without bleeding History of Present Illness Narrative: This patient presented to the ER today with complaints of left sided abdominal pain and diarrhea. Her recent history is significant for a LAVH on 02/11/19 for benign disease. She was admitted postop with a vaginal cuff infection for which she has been taking Augmentin. CT from today is reviewed and shows sigmoid diverticulitis with possible intramural abscess. Review of Systems Constitutional Constitutional: Denies fatigue and Denies headache(s) Eyes Eyes: Denies change in vision ENT Ears, Nose, Mouth, and Throat: Denies headache(s) and Denies neck mass Cardiovascular Cardiovascular: Denies chest pain, Denies edema, Denies palpitations and Denies dyspnea Respiratory Respiratory: Denies cough, Denies dyspnea and Denies wheezing Gastrointestinal Gastrointestinal: Denies hematochezia Genitourinary Genitourinary: Denies abnormal vaginal bleeding and Denies dysuria Musculoskeletal Musculoskeletal: Denies joint swelling Integumentary/Breasts Skin/Breast: Denies new lesions and Denies rash Neurologic Neurologic: Denies confusion, Denies headache(s) and Denies focal weakness Psychiatric Psychiatric: Reports system reviewed and no additional complaints, except as docu and Denies confusion Endocrine Endocrine: Denies fatigue and Denies palpitations Hematologic/Lymphatic Hematologic/Lymphatic: Denies easy bleeding and Denies lymphadenopathy Allergic/Immunologic Allergic/Immunologic: Denies wheezing [facility] Medical History Abnormal uterine bleeding (AUB) (Resolved) regular heavy cycles. Mirnea IUD 09/2014 - 02/2016 with no significant improvement in bleeding. Nl EMBx and pelvic u/s 2014. Abnormal uterine bleeding (AUB) (Acute) 02/11/2019. S/p laparoscopic-assisted vaginal hysterectomy with bilateral salpingectomy of tubal remnants Menorrhagia (Acute) Personal history of cervical dysplasia (Acute 01/24/17) 1998 EMBER II LEEP Rx Surgical History Cervical Procedure (~1998) LEEP Cholecystectomy Ligation of fallopian tube Status post laparoscopic assisted vaginal hysterectomy (LAVH) (Acute) Family History Mother Hyperlipidemia Father Essential hypertension Grandmother Breast cancer paternal Social History Smoking/Tobacco Use Status: Never Drug use: Rarely Substance use type: marijuana Details: edibles Last used: Last weekend Household members: spouse, children, none and other Details: H-Ad. 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 Do you feel safe at home: Yes Do you feel safe in your relationship?: Yes Female Reproductive History Menstrual control method: permanent sterilization Meds Home Medications and Allergies Home Medications Medication Instructions Recorded Confirmed Type amoxicillin-pot clavulanate 1 tab PO BID #14 tab 02/22/19 03/02/19 Rx [Augmentin] fluconazole [Diflucan] 150 mg PO ONCE #1 tab 02/22/19 03/02/19 Rx cyclobenzaprine 7.5 mg tablet 7.5 mg PO TID PRN #15 tab 02/27/19 03/02/19 Rx Allergies Allergy/AdvReac Type Severity Reaction Status Date / Time chlorhexidine Allergy Severe rash Verified 03/02/19 06:53 Exam Const General: healthy appearing and not in acute distress Nutritional Appearance: well nourished Orientation: oriented x3 HENMT Head: normal to inspection Eyes Sclera: sclerae normal Pupils: PERRL Neck Neck: no lymphadenopathy Thyroid: thyroid normal Carotids: no bruits Resp Effort & Inspection: normal respiratory effort Auscultation: clear to auscultation bilaterally and no wheezes Cardio Rate: regular rate Rhythm: regular rhythm GI Inspection: non-distended Palpation: soft, no hepatosplenomegaly and no hernias Other: Incisions healing well Abdomen mildly tender in LUQ, moderately tender LLQ. No peritonitis. Skin General skin exam: no rashes or lesions noted Neuro General: alert Cognition: normal cognition Extrem General: normal to inspection Psych Affect: normal affect Attitude: cooperative Results Labs Result diagrams: 03/02/19 07:05 03/02/19 07:05 Labs: Laboratory Results - last 24 hr 03/02/19 03/02/19 03/02/19 06:44 06:45 07:05 WBC RBC Hgb Hct MCV MCH MCHC RDW Plt Count MPV Immature Gran % Neutrophils % Lymphocytes % Monocytes % Eosinophils % Basophils % Absolute Neutrophils Absolute Lymphocytes Absolute Monocytes Absolute Eosinophils Absolute Basophils Sodium 137 Potassium 4.0 Chloride 98 Carbon Dioxide 28.3 Anion Gap 10.7 BUN 16 Creatinine 0.89 Estimated GFR/1.73 m2 >= 60.00 Glucose 102 H Lactate 0.7 Calcium 9.0 Total Bilirubin 1.2 H AST 10 L ALT 13 L Alkaline Phosphatase 62 Total Protein 7.8 Albumin 3.4 Urine Color Yellow Urine Clarity Cloudy Urine pH 5.5 Ur Specific [place] >= 1.030 H Urine Protein >=300 H Urine Ketones 15 H Urine Blood Moderate H Urine Nitrite Negative Urine Bilirubin Large H Urine Urobilinogen 1.0 H Ur Leukocyte Esterase Negative Urine RBC 5-10 H Urine WBC 3-5 Ur Epithelial Cells Many Urine Crystals Negative Urine Bacteria Few Urine Casts Negative Urine Mucus Trace Ur Culture Indicated? No/sq. contamination Urine Glucose Negative 03/02/19 07:05 WBC 16.20 H RBC 4.33 Hgb 13.1 Hct 39.4 MCV 91.0 MCH 30.3 MCHC 33.2 RDW 12.7 Plt Count 441 H MPV 9.7 Immature Gran % 0.2 Neutrophils % 79.4 Lymphocytes % 10.6 Monocytes % 8.0 Eosinophils % 1.6 Basophils % 0.2 Absolute Neutrophils 12.86 H Absolute Lymphocytes 1.72 Absolute Monocytes 1.30 H Absolute Eosinophils 0.26 Absolute Basophils 0.03 Sodium Potassium Chloride Carbon Dioxide Anion Gap BUN Creatinine Estimated GFR/1.73 m2 Glucose Lactate Calcium Total Bilirubin AST ALT Alkaline Phosphatase Total Protein Albumin Urine Color Urine Clarity Urine pH Ur Specific [place] Urine Protein Urine Ketones Urine Blood Urine Nitrite Urine Bilirubin Urine Urobilinogen Ur Leukocyte Esterase Urine RBC Urine WBC Ur Epithelial Cells Urine Crystals Urine Bacteria Urine Casts Urine Mucus Ur Culture Indicated? Urine Glucose Last Vital Signs Temp 98.6 F 03/02/19 08:00 Pulse 94 H 03/02/19 08:00 Resp 16 03/02/19 08:00 BP 107/70 03/02/19 08:00 Pulse Ox 96 11/11/19 08:00
[2019-03-02] MEDS: CIPROFLOXACIN 400 MG/200 ML BAG 200 MG IVPB ×2 (09:32→22:27)
[2019-03-02] MEDS: Lactated Ringers 1,000 ML 30 ML IV (09:38)
[2019-03-02] MEDS: Ondansetron 4 MG/2 ML VIAL IVP (10:46)
[2019-03-02] MEDS: Normal Saline Flush 10 ML SYR IVP ×3 (10:47→23:55)
[2019-03-02] MEDS: Ketorolac 30 MG/ML VIAL IVP ×2 (12:06→20:40)
--- NOTE | 2019-03-02 14:14 | CHAPLAIN ---
I introduced myself to Vilma, explained my role and offered support.
[2019-03-02] MEDS: Normal Saline 50 ML 200 ML IV (20:40)
[2019-03-03 02:52] VITALS: BP 92/62; PULSE 79; RESP 16; TEMP 36.8; O2SAT 94
--- NOTE | 2019-03-03 07:20 | W.PM.PROGNOT ---
Documented by User: CYNTHIA Pinto 03/03/19 07:24 Date of Service Date of service: 03/03/19 Time of Service: 07:20 Assessment and Plan Assessment and plan (1) Diverticulitis large intestine: Status: Acute Assessment and plan: Tolerating regular diet. No fevers overnight. Abdominal pain continues, Mild at this time. (+) Flatus Encouraged ambulation and activity OOB as tolerated. Qualifiers: Diverticulitis bleeding: without bleeding Diverticulitis complication: with abscess Qualified Code(s): K57.20 - Diverticulitis of large intestine with perforation and abscess without bleeding Subjective Subjective Interval history since last seen: Patient reports that she is feeling okay this morning. She reports that she is feeling some minor discomfort in her lower abdomen. Denies nausea or vomiting. She has been tolerating the regular diet. Exam Const General: cooperative, healthy appearing and comfortable Orientation: alert and oriented x3 Resp Effort & Inspection: normal respiratory effort, no audible wheezes and no cough GI Inspection: normal to inspection and non-distended Palpation: soft, no guarding and tender Auscultation: normal bowel sounds Objective Objective Clinical Data: Abnormal lab results 03/02/19 03/02/19 Range/Units 07:05 07:05 WBC 16.20 H (4.4-10.8) k/cumm Plt Count 441 H (130-400) x1000/uL Absolute Neutrophils 12.86 H (1.2-6.7) k/cumm Absolute Monocytes 1.30 H (0.11-0.7) k/cumm Glucose 102 H (70-100) mg/dL Total Bilirubin 1.2 H (0.2-1.0) mg/dL AST 10 L (15-37) U/L ALT 13 L (14-59) U/L Vital Signs Temperature 36.8 C 03/03/19 02:52 Temperature Source Tympanic 03/03/19 02:52 Pulse 79 03/03/19 02:52 Pulse Rhythm Regular 03/03/19 00:56 Respiratory Rate 16 03/03/19 02:52 Respiratory Effort Non-Labored 03/03/19 00:56 Respiratory Depth Normal 03/03/19 00:56 Respiratory Pattern Normal 03/03/19 00:56 Blood Pressure 92/62 L 03/03/19 02:52 Blood Pressure Position Sitting 03/02/19 06:35 Pulse Oximetry 94 L 03/03/19 02:52 Oxygen Delivery Method Room Air 03/03/19 02:52 Oxygen Flow Rate 0 03/03/19 02:52 Pain Level 0 03/03/19 02:52 Intake & Output 03/02/19 03/03/19 03/03/19 18:59 06:59 18:59 Intake Total 2300 / 2650 350 / 2650 Output Total 250 / 250 Balance 2300 / 2400 100 / 2400 Weight 83.915 kg Intake: IV 2300 / 2650 350 / 2650 Output: Urine 250 / 250 Other: Urine Color Dark Alem Urine Appearance Clear Urine Odor Normal Comment Voiding independently Voiding Methods Toilet Laboratory Results WBC 16.20 k/cumm (4.4-10.8) H 03/02/19 07:05 RBC 4.33 m/cumm (4.00-5.20) 03/02/19 07:05 Hgb 13.1 g/dL (12.0-15.5) 03/02/19 07:05 Hct 39.4 % (36.0-46.0) 03/02/19 07:05 MCV 91.0 fL (80-95) 03/02/19 07:05 MCH 30.3 pg (27.0-33.0) 03/02/19 07:05 MCHC 33.2 g/dL (32.0-36.0) 03/02/19 07:05 RDW 12.7 % (11.7-14.6) 03/02/19 07:05 Plt Count 441 x1000/uL (130-400) H 03/02/19 07:05 MPV 9.7 fL (8.0-11.0) 03/02/19 07:05 Immature Gran % 0.2 03/02/19 07:05 Neutrophils % 79.4 03/02/19 07:05 Lymphocytes % 10.6 03/02/19 07:05 Monocytes % 8.0 03/02/19 07:05 Eosinophils % 1.6 03/02/19 07:05 Basophils % 0.2 03/02/19 07:05 Absolute Neutrophils 12.86 k/cumm (1.2-6.7) H 03/02/19 07:05 Absolute Lymphocytes 1.72 k/cumm (1.2-3.4) 03/02/19 07:05 Absolute Monocytes 1.30 k/cumm (0.11-0.7) H 03/02/19 07:05 Absolute Eosinophils 0.26 k/cumm (0.0-0.7) 03/02/19 07:05 Absolute Basophils 0.03 k/cumm (0.0-0.2) 03/02/19 07:05 Sodium 137 mmol/L (136-145) 03/02/19 07:05 Potassium 4.0 mmol/L (3.5-5.1) 03/02/19 07:05 Chloride 98 mmol/L (98-107) 03/02/19 07:05 Carbon Dioxide 28.3 mmol/L (21.0-32.0) 03/02/19 07:05 Anion Gap 10.7 mmol/L (3-11) 03/02/19 07:05 BUN 16 mg/dL (7-18) 03/02/19 07:05 Creatinine 0.89 mg/dL (0.55-1.02) 03/02/19 07:05 Estimated GFR/1.73 m2 >= 60.00 (mL/min/1.73m2) 03/02/19 07:05 Glucose 102 mg/dL (70-100) H 03/02/19 07:05 Lactate 0.7 mmol/L (0.6-1.4) 03/02/19 06:44 Calcium 9.0 mg/dL (8.5-10.1) 03/02/19 07:05 Total Bilirubin 1.2 mg/dL (0.2-1.0) H 03/02/19 07:05 AST 10 U/L (15-37) L 03/02/19 07:05 ALT 13 U/L (14-59) L 03/02/19 07:05 Alkaline Phosphatase 62 U/L (46-116) 03/02/19 07:05 Total Protein 7.8 g/dL (6.4-8.2) 03/02/19 07:05 Albumin 3.4 g/dL (3.4-5.0) 03/02/19 07:05 Urine Color Yellow (Yellow) 03/02/19 06:45 Urine Clarity Cloudy (Clear) 03/02/19 06:45 Urine pH 5.5 (5-8) 03/02/19 06:45 Ur Specific [place] >= 1.030 (1.005-1.025) H 03/02/19 06:45 Urine Protein >=300 mg/dL (Negative) H 03/02/19 06:45 Urine Ketones 15 mg/dL (Negative) H 03/02/19 06:45 Urine Blood Moderate (Negative) H 03/02/19 06:45 Urine Nitrite Negative (Negative) 03/02/19 06:45 Urine Bilirubin Large (Negative) H 03/02/19 06:45 Urine Urobilinogen 1.0 EU/dL (Up TO 0.2) H 03/02/19 06:45 Ur Leukocyte Esterase Negative (Negative) 03/02/19 06:45 Urine RBC 5-10 (0-2) H 03/02/19 06:45 Urine WBC 3-5 HPF (0-5) 03/02/19 06:45 Ur Epithelial Cells Many HPF (Negative) 03/02/19 06:45 Urine Crystals Negative HPF (Negative) 03/02/19 06:45 Urine Bacteria Few HPF (Negative) 03/02/19 06:45 Urine Casts Negative LPF (Negative) 03/02/19 06:45 Urine Mucus Trace (Negative) 03/02/19 06:45 Ur Culture Indicated? No/sq. contamination 03/02/19 06:45 Urine Glucose Negative mg/dL (Negative) 03/02/19 06:45 Documented by User: Rula Herman MD 03/03/19 09:05
[2019-03-03 07:24] LABS: Abs Immature Grans 0.02 k/cumm (0.0-0.09); Absolute Basophil Count 0.04 k/cumm (0.0-0.2); Absolute Eosinophil Count 0.49 k/cumm (0.0-0.7); Absolute Lymphocyte Count 1.51 k/cumm (1.2-3.4); Absolute Monocyte Count 0.79 k/cumm (0.11-0.7); Absolute Neutrophil Count 6.72 k/cumm (1.2-6.7); Basophils % 0.4; Eosinophils % 5.1; HCT 34.2 % (36.0-46.0); HGB 10.9 g/dL (12.0-15.5); Immature Grans % 0.2; Lymphocytes % 15.8; Mean Corp. HGB Concentration 31.9 g/dL (32.0-36.0); Mean Corpuscular Hemoglobin 29.8 pg (27.0-33.0); Mean Corpuscular Volume 93.4 fL (80-95); Mean Platelet Volume 9.6 fL (8.0-11.0); Monocytes % 8.3; Neutrophils % 70.2; Platelet Count 378 x1000/uL (130-400); RBC 3.66 m/cumm (4.00-5.20); RBC Distribution Width 12.7 % (11.7-14.6); White Blood Cell Count 9.57 k/cumm (4.4-10.8)
--- NOTE | 2019-03-03 09:06 | DSE_ITS ---
Date of service: 03/03/19 Time of Service: 15:35 DS: Diagnosis Discharge Diagnosis (1) Diverticulitis large intestine: Status: Acute Discharge Plan Disposition Patient Disposition: HOME Condition: Good Discharge Details Chief Complaint: Abd Prob Clinical Impression: Abdominal pain Reason For Visit: DIVERTICULITIS Admit Date/Time: 03/02/19 10:01 Admit Provider: Rula Herman Attending Provider: Rula Herman Primary Care Provider: Anel Cunningham ED Provider: Saima Butler Hospital Course Hospital Course: This patient was admitted with left lower quadrant pain, an elevated white blood cell count and CT findings consistent with sigmoid diverticulitis. She had been on Augmentin for a possible vaginal cuff infection following a hysterectomy at the end of January. Her symptoms improved with IV ciprofloxacin and Flagyl. The day after admission her white blood cell count had normalized. She was afebrile. She is tolerating a soft diet and was passing flatus. Her stool cultures for C. difficile were negative. She was discharged home later in the day on oral antibiotics. The plan will be to proceed with a colonoscopy after the inflammation has resolved in approximately 2 months. Home Meds and New Rx's Prescriptions: New ciprofloxacin HCl 500 mg tablet 500 mg PO BID Qty: 14 RF: 0 metronidazole [Flagyl] 500 mg tablet 500 mg PO TID Qty: 21 RF: 0 Continued cyclobenzaprine 7.5 mg tablet 7.5 mg PO TID PRN (Reason: muscle spasm) Qty: 15 RF: 0 fluconazole [Diflucan] 150 mg tablet 150 mg PO ONCE Qty: 1 RF: 2 Discontinued amoxicillin-pot clavulanate [Augmentin] 875-125 mg tablet 1 tab PO BID Qty: 14 RF: 0 Discharge Instructions Instructions: Diverticulitis (DC), Soft Diet (DC) Additional Instructions: Continue ibuprofen and Tylenol as needed for pain. Continue probiotics. Okay to use a stool softener such as Colace if constipation is a concern. Plan for a colonoscopy in about 2 months. Plan for a follow up appointment next week with Dr. Herman. Your prescriptions have already been called into your pharmacy. Eat a soft diet. Continue to follow any restriction instructions given to you by your [employer] Dean. Stand Alone Forms: Nursing Discharge Form Referrals: Rula Herman MD [ [facility] STAFF PHYSICIAN] - 03/12/19 9:00 am (Return next week for an office visit.) Activity:: Activity as Tolerated Equipment/Supplies:: No Equipment Needed Diet:: Soft for two weeks Discharge Orders Discharge Orders: Discharge Order (Routine); Ordered 03/03/19 Ordered By: Rula Herman Discharge Data Discharge Date/Time-TO BE ENTERED AT DEPARTURE: 03/03/19 14:53 DS: Summary Status at Discharge Functional status at discharge: independent ambulation Overall status at discharge: patient is progressing back to baseline Mental Status: mental status grossly normal Speech and Movement: speech and movement normal Mood: congruent mood Affect: normal affect Exam Psych Mental Status: mental status grossly normal Speech and Movement: speech and movement normal Mood: congruent mood Affect: normal affect DS: Data Vitals/I&O Vitals and I&O: Vital Signs Temperature 98.2 F 03/03/19 02:52 Temperature Source Tympanic 03/03/19 02:52 Pulse 79 03/03/19 02:52 Pulse Rhythm Regular 03/03/19 00:56 Respiratory Rate 16 03/03/19 02:52 Respiratory Effort Non-Labored 03/03/19 00:56 Respiratory Depth Normal 03/03/19 00:56 Respiratory Pattern Normal 03/03/19 00:56 Blood Pressure 92/62 L 03/03/19 02:52 Blood Pressure Position Sitting 03/02/19 06:35 Pulse Oximetry 94 L 03/03/19 02:52 Oxygen Delivery Method Room Air 03/03/19 02:52 Oxygen Flow Rate 0 03/03/19 02:52 Pain Level 0 03/03/19 02:52 Intake & Output 03/02/19 03/02/19 03/03/19 11:59 23:59 11:59 Intake Total 2300 / 2650 350 / 2650 Output Total 250 / 250 Balance 2300 / 2650 350 / 2650 -250 / -250 Weight 185 lb 0.014 oz Intake: IV 2300 / 2650 350 / 2650 Output: Urine 250 / 250 Other: Urine Color Dark Alem Urine Appearance Clear Urine Odor Normal Comment Voiding independently Voiding Methods Toilet Data Completed and Pending Labs on day of discharge: Labs from last 24 hours 03/03/19 07:05 WBC 9.57 D RBC 3.66 L Hgb 10.9 L D Hct 34.2 L MCV 93.4 MCH 29.8 MCHC 31.9 L RDW 12.7 Plt Count 378 MPV 9.6 Immature Gran % 0.2 Neutrophils % 70.2 Lymphocytes % 15.8 Monocytes % 8.3 Eosinophils % 5.1 Basophils % 0.4 Absolute Neutrophils 6.72 H Absolute Lymphocytes 1.51 Absolute Monocytes 0.79 H Absolute Eosinophils 0.49 Absolute Basophils 0.04 03/02/19 08:00 Blood Blood Culture - Pending 03/02/19 07:50 Blood Blood Culture - Pending Preliminary micro results at discharge 03/02/19 08:00 Blood Culture - Pending Blood 03/02/19 07:50 Blood Culture - Pending Blood [facility] Medical History Abnormal uterine bleeding (AUB) (Resolved) regular heavy cycles. Mirnea IUD 09/2014 - 02/2016 with no significant improvement in bleeding. Nl EMBx and pelvic u/s 2014. Abnormal uterine bleeding (AUB) (Acute) 02/11/2019. S/p laparoscopic-assisted vaginal hysterectomy with bilateral salpingectomy of tubal remnants Menorrhagia (Acute) Personal history of cervical dysplasia (Acute 01/24/17) 1998 EMBER II LEEP Rx Surgical History Cervical Procedure (~1998) LEEP Cholecystectomy Ligation of fallopian tube Status post laparoscopic assisted vaginal hysterectomy (LAVH) (Acute) Family History Mother Hyperlipidemia Father Essential hypertension Grandmother Breast cancer paternal Social History Smoking/Tobacco Use Status: Never Drug use: Rarely Substance use type: marijuana Details: edibles Last used: Last weekend Household members: spouse, children, none and other Details: H-Ad. 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 Do you feel safe at home: Yes Do you feel safe in your relationship?: Yes Female Reproductive History Menstrual control method: permanent sterilization
--- NOTE | 2019-03-03 09:11 | PDOC.CMIN ---
- If Service Date Differs Date of service: 03/03/19 Time of Service: 09:11
[2019-03-03] MEDS: Normal Saline 500 ML IV (09:27)
[2019-03-03] MEDS: metroNIDAZOLE 500 MG/100 ML BAG 100 MG IVPB (09:28)
[2019-03-03] MEDS: Normal Saline Flush 10 ML SYR IVP ×2 (09:33→12:01)
[2019-03-03] MEDS: Ketorolac 30 MG/ML VIAL IVP (09:33)
[2019-03-03] MEDS: CIPROFLOXACIN 400 MG/200 ML BAG 200 MG IVPB (12:01)
[2019-03-03] MEDS: Lactated Ringers 1,000 ML 30 ML IV (13:20)
--- NOTE | 2019-03-03 16:55 | PDOC.CMPRO ---
- If Service Date Differs Date of service: 03/03/19 Time of Service: 16:55 Care Management Progress Note Vilma was sitting up in bed when CM came to see her. She was pleasant and smiling and stated that she is feeling much better. She has had 3 hospital stays recently and hopes that this visit will be brief. She shared that she came in with diverticulitis but that her pain is better and she is tolerating a full diet. The plan is for her to discharge later today. P: Vilma will be discharged home with no services. She will follow up with her PCP, surgeon and discharge plan of care. She will transport via private vehicle with family.
--- NOTE | 2019-03-03 16:59 | PDOC.CMDIS ---
- If Service Date Differs Date of service: 03/03/19 Time of Service: 16:59 LACE Index Scoring Tool - Questions: Length of Stay (in days): 1 Acuity (Admit via E.D.?): Yes E.D. Visits: 2 - Answers: Total Score: 6 Risk of Readmission: Low Risk Care Management Discharge Reason for Hospitalization: Diverticulitis Discharge Plan: Vilma will be discharged home with no services. She will follow up with her PCP, surgeon and discharge plan of care. She will transport via private vehicle with family. Patient/Family Education Needs: Discharge plan, limiattions, follow up plan, Ask Me Three
== END 2019-03-03 14:53 | disposition home or self-care (01) | DRG 392 ==
LOC: ER 09:24 → MS 10:02
PROVIDERS: Student in an Organized Health Care Education/Training Program; Admitting Provider Surgery; Emergency Provider Student in an Organized Health Care Education/Training Program; PCP Nurse Practitioner Family; Visit Provider Surgery
DX: K57.20 Diverticulitis of large intestine with perforation and abscess without bleeding (principal); Z98.890 Other specified postprocedural states
CPT/HCPCS: 36410; 36415; 80053; 87040; 96361; 96365; 96367; 96375; 99222; 99233; 99238; 99285; 74177; 81003; 81015; 83605; 85025; 87324; 99284; J0744; J1885; J2405; J3490

== ENCOUNTER 2019-05-20 10:44 | Outpatient (CLI) | payer OTHER, SELFPAY ==
[2019-05-20 11:54] LABS: Abs Immature Grans 0.03 k/cumm (0.0-0.09); Absolute Basophil Count 0.02 k/cumm (0.0-0.2); Absolute Lymphocyte Count 1.46 k/cumm (1.2-3.4); Absolute Monocyte Count 0.89 k/cumm (0.11-0.7); Basophils % 0.2; Eosinophils % 0.9; HCT 41.2 % (36.0-46.0); HGB 13.5 g/dL (12.0-15.5); Immature Grans % 0.3 %; Lymphocytes % 12.7; Mean Corp. HGB Concentration 32.8 g/dL (32.0-36.0); Mean Corpuscular Hemoglobin 30.6 pg (27.0-33.0); Mean Corpuscular Volume 93.4 fL (80-95); Monocytes % 7.7; Neutrophils % 78.2; Platelet Count 301 x1000/uL (130-400); RBC 4.41 m/cumm (4.00-5.20); RBC Distribution Width 14.2 % (11.7-14.6)
[2019-05-20 11:56] LABS: Anion Gap 8.7 mmol/L (3-11); BUN 13 mg/dL (7-18); CO2 30.3 mmol/L (21.0-32.0); CREATININE 0.89 mg/dL (0.55-1.02); Calcium 9.4 mg/dL (8.5-10.1); Chloride 101 mmol/L (98-107); Glucose 100 mg/dL (74-106); Potassium 4.4 mmol/L (3.5-5.1); Sodium 140 mmol/L (136-145)
[2019-05-20 12:01] LABS: Absolute Neutrophil Count 8.99 k/cumm (1.2-6.7)
== END 2019-05-20 11:04 ==
PROVIDERS: PCP Nurse Practitioner Family; Visit Provider Surgery
DX: K57.32 Diverticulitis of large intestine without perforation or abscess without bleeding (principal)
CPT/HCPCS: 36415; 80048; 85025

== ENCOUNTER 2019-05-20 14:04 | Outpatient (CLI) | payer OTHER, SELFPAY ==
--- NOTE | 2019-05-20 15:12 | DI.CT_ITS ---
EXAM: CT ABDOMEN AND PELVIS W CLINICAL HISTORY: RECURRENCE OF DIVERTICULITIS, DIVERTICULAR ABSCESS OF COLON, K57.92, Z87.19 TECHNIQUE: Post IV and oral contrast COMPARISON: CT LUMBAR SPINE RECONS from 03/02/2019 CT ABDOMEN PELVIS W from 03/02/2019 FINDINGS: There is an area of inflammation involving the mid descending colon where there are multiple divertic nick. The findings are consistent with diverticulitis. This is located at a slightly more superior l evel in the descending colon when compared with the previous exam. There is stranding along the left pericolic gutter but no evidence of abscess or perforation. There is no evidence of obstruction. T here is no small bowel dilatation or small bowel inflammation. There is no free fluid. The patient is status post hysterectomy. The ovaries and bladder are unremarkable. The heart size is normal. T he lung bases are clear. The patient is status post cholecystectomy. The liver, spleen, pancreas, a drenals and kidneys are unremarkable. IMPRESSION: Findings are consistent with acute diverticulitis of the mid descending colon.
[2019-05-20] MEDS: Omnipaque 350 MG/ML 100 ML BTL IJ (15:15)
[2019-05-20] MEDS: Normal Saline - Diluent 50 ML VIAL IV (15:16)
[2019-05-20] MEDS: Omnipaque 350 MG/ML 50 ML BTL IJ (15:16)
[2019-05-20] MEDS: Breeza Beverage 473 ML BTL PO ×2 (15:17→15:18)
--- NOTE | 2019-05-20 15:53 | W.PM.HP.N ---
Date of service: 05/20/19 Time of Service: 15:53 [facility] Social History Smoking/Tobacco Use Status: Never Drug use: Rarely Substance use type: marijuana Details: edibles Last used: Last weekend Household members: spouse, children, none and other Details: [place]. 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 Do you feel safe at home: Yes Do you feel safe in your relationship?: Yes Female Reproductive History Menstrual control method: permanent sterilization Meds Home Medications and Allergies Home Medications Medication Instructions Recorded Confirmed Type polyethylene glycol 3350 17 238 g PO ONCE #238 gm 03/12/19 03/12/19 Rx gram/dose oral powder bisacodyl 5 mg tablet,delayed 5 mg PO ONCE #4 tab 03/26/19 03/26/19 Rx release ibuprofen 200 mg tablet 200 mg PO Q6H PRN 05/20/19 05/20/19 History Allergies Allergy/AdvReac Type Severity Reaction Status Date / Time chlorhexidine Allergy Severe rash Verified 05/20/19 13:04
== END 2019-05-20 14:24 ==
PROVIDERS: PCP Nurse Practitioner Family; Visit Provider Surgery
DX: K57.92 Diverticulitis of intestine, part unspecified, without perforation or abscess without bleeding (principal); Z87.19 Personal history of other diseases of the digestive system; Z90.49 Acquired absence of other specified parts of digestive tract
CPT/HCPCS: 74177; 83993; J3490; Q9967

== ENCOUNTER 2019-05-20 16:01 | Inpatient (IN) | payer OTHER, SELFPAY ==
--- NOTE | 2019-05-20 16:10 | W.PM.HP.N ---
Date of service: 05/20/19 Time of Service: 16:10 Assessment and Plan Assessment and plan (1) Diverticulitis large intestine: Status: Acute Assessment and plan: Rocephin and flagyl supportive care bowel rest will post pone CE Qualifiers: Diverticulitis bleeding: without bleeding Diverticulitis complication: with abscess Qualified Code(s): K57.20 - Diverticulitis of large intestine with perforation and abscess without bleeding History of Present Illness Consults Consult date: 05/20/19 Narrative: Pt was in scene in clinic today c/o LLQ pain that radiates into her LLE. She has not had fever and chills. She has not had a BM in several days. She has been able to keep fluids down. She can't eat- it cuases to much pain. She was in hosp in mid w/ jana. She seemed to recover from that and was sheduled for CE in 2 wks w/ Dr. Herman. I did get a CT today b/c I was worried about an abcess. I did review the scan w/ Dr. Cole. She does have pretty signif again. No abcess. She doesn't feel that bad, but given the extensive Dx on Ct- I am gong to admit her for IV abx. Review of Systems All systems reviewed & are unremarkable except as noted in HPI and below Constitutional Constitutional: Reports as per HPI, Reports system reviewed and no additional complaints, except as docu, Denies anorexia, Denies chills, Denies difficulty sleeping, Denies fatigue, Denies headache(s), Denies lethargy, Denies malaise, Denies poor appetite, Denies weakness, Denies weight gain and Denies weight loss Eyes Eyes: Reports as per HPI, Reports system reviewed and no additional complaints, except as docu and Denies change in vision ENT Ears, Nose, Mouth, and Throat: Reports system reviewed and no additional complaints, except as docu, Reports as per HPI, Denies change in voice, Denies dental pain, Denies dysphagia, Denies dizziness, Denies facial pain, Denies headache(s) and Denies odynophagia Cardiovascular Cardiovascular: Reports as per HPI, Reports system reviewed and no additional complaints, except as docu, Denies chest pain, Denies chest pain with activity, Denies syncope, Denies leg edema and Denies dyspnea Respiratory Respiratory: Reports as per HPI, Reports system reviewed and no additional complaints, except as docu, Denies chest congestion, Denies cough, Denies pain with cough and Denies dyspnea Gastrointestinal Gastrointestinal: Reports as per HPI, Reports system reviewed and no additional complaints, except as docu, Denies abdominal pain, Denies bloating, Denies change in bowel habits, Denies change in stool character, Denies constipation, Denies cramping, Denies dysphagia, Denies early satiety, Denies heartburn, Denies diarrhea, Denies nausea, Denies odynophagia and Denies vomiting Musculoskeletal Musculoskeletal: Reports system reviewed and no additional complaints, except as docu, Reports as per HPI, Denies abnormal gait, Denies arthralgias and Denies muscle weakness Integumentary/Breasts Skin/Breast: Reports system reviewed and no additional complaints, except as docu, Reports as per HPI, Denies changing lesions, Denies new lesions and Denies jaundice Neurologic Neurologic: Reports system reviewed and no additional complaints, except as docu, Reports as per HPI, Denies abnormal speech, Denies abnormal gait, Denies dizziness, Denies syncope, Denies headache(s), Denies memory loss and Denies weakness Psychiatric Psychiatric: Reports system reviewed and no additional complaints, except as docu, Reports as per HPI, Denies change in appetite and Denies memory loss Endocrine Endocrine: Denies fatigue, Denies polydipsia and Denies polyuria Hematologic/Lymphatic Hematologic/Lymphatic: Reports system reviewed and no additional complaints, except as docu, Denies easy bleeding and Denies easy bruising Allergic/Immunologic Allergic/Immunologic: Denies system reviewed and no additional complaints, except as docu, Reports as per HPI and Denies urticaria [facility] Medical History Abnormal uterine bleeding (AUB) (Resolved) regular heavy cycles. Mirnea IUD 09/2014 - 02/2016 with no significant improvement in bleeding. Nl EMBx and pelvic u/s 2014. Abnormal uterine bleeding (AUB) (Acute) 02/11/2019. S/p laparoscopic-assisted vaginal hysterectomy with bilateral salpingectomy of tubal remnants Menorrhagia (Acute) Personal history of cervical dysplasia (Acute 01/24/17) 1998 EMBER II LEEP Rx Surgical History Cervical Procedure (~1998) LEEP Cholecystectomy Ligation of fallopian tube Status post laparoscopic assisted vaginal hysterectomy (LAVH) (Acute) Family History Mother Hyperlipidemia Father Essential hypertension Grandmother Breast cancer paternal Social History Smoking/Tobacco Use Status: Never Drug use: Rarely Substance use type: marijuana Details: edibles Last used: Last weekend Household members: spouse, children, none and other Details: H-Ad. 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 Do you feel safe at home: Yes Do you feel safe in your relationship?: Yes Female Reproductive History Menstrual control method: permanent sterilization Meds Home Medications and Allergies Home Medications Medication Instructions Recorded Confirmed Type polyethylene glycol 3350 17 238 g PO ONCE #238 gm 03/12/19 05/20/19 Rx gram/dose oral powder bisacodyl 5 mg tablet,delayed 5 mg PO ONCE #4 tab 03/26/19 05/20/19 Rx release ibuprofen 200 mg tablet 200 mg PO Q6H PRN 05/20/19 05/20/19 History Allergies Allergy/AdvReac Type Severity Reaction Status Date / Time chlorhexidine Allergy Severe rash Verified 05/20/19 13:04 Exam Const General: cooperative, healthy appearing, comfortable, no acute distress, well developed and well groomed Nutritional Appearance: average body habitus and well nourished Orientation: alert, awake and oriented x3 HENMT Head: normal to inspection, normocephalic and atraumatic Ears: hearing grossly normal bilaterally and external ears normal General nose exam: external nose normal Face and sinus: normal facial exam and sinuses nontender Mouth: oral mucosae normal, lip normal, tongue normal and moist mucous membranes Teeth and gingiva: dentition normal Eyes General: appearance normal, both eyes and all related structures Conjunctivae: conjunctivae normal Sclera: sclerae normal Pupils: PERRL Neck Neck: normal visual inspection and full ROM Chest Chest: normal inspection of the chest Resp Effort & Inspection: normal respiratory effort, able to speak in complete sentences, no cough, no nasal flaring, not tachypneic and no use of accessory muscles Auscultation: clear to auscultation bilaterally, no rales, no rhonchi and no wheezes Cardio Jugular venous pressure: no JVD Rate: regular rate Rhythm: regular rhythm GI Inspection: normal to inspection, no edema, non-distended and scar Palpation: soft, no masses, tender (localized rebound/guarding ) in the LLQ and with rebound tenderness and No ascites Auscultation: normal bowel sounds Skin General skin exam: no rashes or lesions noted Trauma: no lacerations or abrasions Neuro General: alert, oriented x3, oriented, gait normal, moves all extremities, no focal motor deficits and CN's II-XI intact bilaterally Cognition: normal cognition Speech: speech normal Gait: normal gait Motor: muscle tone normal throughout Extrem General: normal to inspection, full ROM and no clubbing, cyanosis or edema Psych Appearance: grossly normal and well kempt Mental Status: mental status grossly normal Speech and Movement: speech and movement normal Affect: normal affect
[2019-05-20 16:23] VITALS: BP 108/74; PULSE 61; RESP 12; TEMP 37.5; O2SAT 94
[2019-05-20 16:32] LABS: C-Reactive Protein 6.24 mg/dL (0.0-0.3); Magnesium 1.9 mg/dL (1.8-2.4)
[2019-05-20] MEDS: Lactated Ringers 1,000 ML 125 ML IV (16:54)
[2019-05-20] MEDS: Normal Saline Flush 10 ML SYR IVP (16:55)
[2019-05-20] MEDS: cefTRIAXone 2 GM/50 ML BAG IVPB (16:56)
[2019-05-20] MEDS: metroNIDAZOLE 500 MG/100 ML BAG 100 MG IVPB (17:46)
[2019-05-20] MEDS: Enoxaparin 40 MG/0.4 ML SYR SC (21:39)
[2019-05-20] MEDS: FAMOTIDINE 20 MG/50 ML BAG 200 MG IVPB (21:39)
[2019-05-21] MEDS: metroNIDAZOLE 500 MG/100 ML BAG 100 MG IVPB ×2 (02:06→09:50)
[2019-05-21 04:20] VITALS: BP 93/61; PULSE 81; RESP 17; TEMP 36.8; O2SAT 95
[2019-05-21] MEDS: Lactated Ringers 1,000 ML 125 ML IV ×3 (04:45→21:52)
[2019-05-21 08:16] VITALS: BP 93/60; PULSE 78; RESP 16; TEMP 37; O2SAT 96
[2019-05-21 09:04] LABS: Abs Immature Grans 0.01 k/cumm (0.0-0.09); Absolute Basophil Count 0.04 k/cumm (0.0-0.2); Absolute Eosinophil Count 0.13 k/cumm (0.0-0.7); Absolute Lymphocyte Count 1.44 k/cumm (1.2-3.4); Absolute Monocyte Count 0.67 k/cumm (0.11-0.7); Basophils % 0.5; Eosinophils % 1.6; HCT 38.7 % (36.0-46.0); HGB 12.7 g/dL (12.0-15.5); Immature Grans % 0.1 %; Mean Corp. HGB Concentration 32.8 g/dL (32.0-36.0); Mean Corpuscular Hemoglobin 30.9 pg (27.0-33.0); Mean Corpuscular Volume 94.2 fL (80-95); Mean Platelet Volume 10.3 fL (8.0-11.0); Monocytes % 8.4; Neutrophils % 71.4; Platelet Count 277 x1000/uL (130-400); RBC 4.11 m/cumm (4.00-5.20); White Blood Cell Count 7.98 k/cumm (4.4-10.8)
[2019-05-21 09:15] LABS: C-Reactive Protein 9.53 mg/dL (0.0-0.3)
[2019-05-21 09:29] LABS: ALT 13 U/L (14-59); AST 12 U/L (15-37); Albumin 3.5 g/dL (3.4-5.0); Alkaline Phosphatase 51 U/L (46-116); Anion Gap 7.9 mmol/L (3-11); BUN 9 mg/dL (7-18); Bilirubin, Total 1.3 mg/dL (0.2-1.0); CO2 30.1 mmol/L (21.0-32.0); CREATININE 0.81 mg/dL (0.55-1.02); Calcium 8.4 mg/dL (8.5-10.1); Chloride 103 mmol/L (98-107); Glucose 90 mg/dL (74-106); Potassium 3.7 mmol/L (3.5-5.1); Sodium 141 mmol/L (136-145)
[2019-05-21] MEDS: Lactobacillus Acidophilus CAP 1 CAP PO ×3 (09:46→20:27)
--- NOTE | 2019-05-21 15:30 | CHAPLAIN ---
Vilma was sitting up in her chair when I visited. She said she had diverticulitis in February and may not have gone completely away, although she said she is feeling better than the doctors thought she'd be feeling. She has family and/or friends coming in to visit after work today.
[2019-05-21] MEDS: Normal Saline Flush 10 ML SYR IVP (15:50)
[2019-05-21] MEDS: Ondansetron 4 MG/2 ML VIAL IVP (15:50)
[2019-05-21 16:11] VITALS: BP 107/72; PULSE 67; RESP 18; TEMP 36.8; O2SAT 99
[2019-05-21] MEDS: CLINDAMYCIN 600 MG/50 ML BAG 100 MG IVPB (16:15)
--- NOTE | 2019-05-21 17:21 | INITIAL_ITS ---
- If Service Date Differs Date of service: 05/21/19 Time of Service: 17:21 Care Management Initial Assess REASON FOR HOSPITALIZATION:: Acute diverticulitis PAST MEDICAL HISTORY/PAST SURGICAL HISTORY:: Medical History . Abnormal uterine bleeding (AUB) (Resolved). regular heavy cycles. Mirnea IUD 09/2014 - 02/2016 with no significant improvement in bleeding. Nl EMBx and pelvic u/s 2014. Abnormal uterine bleeding (AUB) (Acute). 02/11/2019. S/p laparoscopic-assisted vaginal hysterectomy with bilateral salpingectomy of tubal remnants. Menorrhagia (Acute). Personal history of cervical dysplasia (Acute 01/24/17). 1998 EMBER II LEEP Rx. Surgical History . Cervical Procedure (~1998). LEEP. Cholecystectomy. Ligation of fallopian tube. Status post laparoscopic assisted vaginal hysterectomy (LAVH) (Acute) PREVIOUS FUNCTIONAL STATUS/SOCIAL/FAMILY SUPPORTS:: Vilma lives in [place] with her , Jack. They have two adult daughters, one in college and one working at a local [employer]. 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 She is independent with her ADL's. CURRENT FUNCTIONAL STATUS:: Vilma was sitting up in her chair when CM met with her. She was pleasant and engaged in conversation. She reported that she hasn't been able to eat for a few days because of pain. Per provider, due to the recurrence of diverticulitis so soon, she will be treated with IV abx. CM will continue to follow. ADVANCE DIRECTIVES:: None on file. Has patient been provided with information about the portal?: Yes Did the patient sign up for the portal?: Yes (previously signed up) CODE STATUS:: Full Code INSURANCE COVERAGE / FINANCIAL ISSUES:: [employer] CURRENT HOME/COMMUNITY SERVICES/EQUIPMENT:: Vilma currently does not have any services or equipment PRIMARY CARE PHYSICIAN:: Anel Ramirez, [facility] POTENTIAL DISCHARGE NEEDS:: Evaluation for further needs, follow up appointments PATIENT/FAMILY EDUCATION NEEDS:: Review discharge instructions, discussion of self care needs including Ask Me Three ANTICIPATED BARRIERS TO DISCHARGE:: None identified at this time TRANSPORTATION:: Anticipate Vilma will be driven home via private vehicle by her . PLAN:: Anticipate Vilma will return home with no additional services when medically cleared. She will follow up with her PCP, as recommended. Her will drive her home via private vehicle. CM will continue to follow.
[2019-05-21] MEDS: FAMOTIDINE 20 MG/50 ML BAG 200 MG IVPB (20:27)
[2019-05-21] MEDS: Enoxaparin 40 MG/0.4 ML SYR SC (20:27)
--- NOTE | 2019-05-21 20:41 | PGE_ITS ---
Date of Service Date of service: 05/21/19 Time of Service: 14:00 Assessment and Plan Assessment and plan (1) Diverticulitis large intestine: Status: Acute Assessment and plan: Pt feels about the same today. WBC- back to nl CRP 6 to 9 today When she was in the hosp in February- she was on cipro and flagyl When she was in the hosp in jan- she was on rocphen. She was very constipated after that surgery. I am going to change her abx today and see what the CRP is today and hopefully d/c home in am will delay CE liquids for nest 2-3 days as tolerated and low fiber diet for a week chaney transition to high fiber diet. Qualifiers: Diverticulitis bleeding: without bleeding Diverticulitis complication: with abscess Qualified Code(s): K57.20 - Diverticulitis of large intestine with perforation and abscess without bleeding Subjective Subjective Interval history since last seen: pt seen and examined. She says she feels about the same painwise. Flagyl is making her very nauseated. She is tolerated water. She is feeling slt hungry. passing gas. linter tender in the LLQ. no diarrhea or bleeding. no headaches. No CP or SOB. no productive cough. no dysuria. no leg pain or swelling. No thrush. Exam Const General: cooperative, healthy appearing, comfortable, no acute distress, well developed and well groomed Nutritional Appearance: average body habitus and well nourished Orientation: alert, awake and oriented x3 [facility] Head: normal to inspection, normocephalic and atraumatic Ears: hearing grossly normal bilaterally and external ears normal General nose exam: external nose normal Face and sinus: normal facial exam and sinuses nontender Mouth: oral mucosae normal, lip normal, tongue normal and moist mucous membranes Teeth and gingiva: dentition normal Eyes General: appearance normal, both eyes and all related structures Conjunctivae: conjunctivae normal Sclera: sclerae normal Pupils: PERRL Neck Neck: normal visual inspection and full ROM Chest Chest: normal inspection of the chest Resp Effort & Inspection: normal respiratory effort, able to speak in complete sentences, no cough, no nasal flaring, not tachypneic and no use of accessory muscles Auscultation: clear to auscultation bilaterally, no rales, no rhonchi and no wheezes Cardio Jugular venous pressure: no JVD Rate: regular rate Rhythm: regular rhythm GI Inspection: normal to inspection, no edema and non-distended Palpation: soft, no masses, nontender and No ascites Auscultation: normal bowel sounds Skin General skin exam: no rashes or lesions noted Trauma: no lacerations or abrasions Neuro General: alert, oriented x3, oriented, gait normal, moves all extremities, no focal motor deficits and CN's II-XI intact bilaterally Cognition: normal cognition Speech: speech normal Gait: normal gait Motor: muscle tone normal throughout Extrem General: normal to inspection, full ROM and no clubbing, cyanosis or edema Psych Appearance: grossly normal and well kempt Mental Status: mental status grossly normal Speech and Movement: speech and movement normal Affect: normal affect Objective Objective Clinical Data: Abnormal lab results 05/21/19 Range/Units 08:55 Calcium 8.4 L (8.5-10.1) mg/dL Total Bilirubin 1.3 H (0.2-1.0) mg/dL AST 12 L (15-37) U/L ALT 13 L (14-59) U/L C-Reactive Protein 9.53 H (0.0-0.3) mg/dL Vital Signs Temperature 36.8 C 05/21/19 16:11 Temperature Source Tympanic 05/21/19 16:11 Pulse 67 05/21/19 16:11 Pulse Rhythm Regular 05/21/19 11:44 Respiratory Rate 18 05/21/19 16:11 Respiratory Effort Non-Labored 05/21/19 11:44 Respiratory Depth Normal 05/21/19 11:44 Respiratory Pattern Normal 05/21/19 11:44 Blood Pressure 107/72 05/21/19 16:11 Pulse Oximetry 99 05/21/19 16:11 Oxygen Delivery Method Room Air 05/21/19 16:11 Oxygen Flow Rate 0 05/21/19 16:11 Pain Level 0 05/21/19 16:11 Comment 05/21/19 04:20 Intake & Output 05/20/19 05/21/19 05/21/19 23:59 11:59 23:59 Intake Total 1250.000 / 3240.000 1990 / 3240.000 Output Total 525 / 525 Balance 1250.000 / 2715.000 1465 / 2715.000 Weight 83.91 kg Intake: IV 1150.000 / 2650.000 1500 / 2650.000 Oral 80 / 80 100 / 590 490 / 590 Output: Urine 525 / 525 Other: Urine Color Yellow Dark Alem Urine Appearance Clear Clear Clear Urine Odor Normal Comment pt up to void indpendently, states she is voiding a lot due to IV fluids Voiding Methods Toilet Toilet Laboratory Results WBC 7.98 k/cumm (4.4-10.8) D 05/21/19 08:55 RBC 4.11 m/cumm (4.00-5.20) 05/21/19 08:55 Hgb 12.7 g/dL (12.0-15.5) 05/21/19 08:55 Hct 38.7 % (36.0-46.0) 05/21/19 08:55 MCV 94.2 fL (80-95) 05/21/19 08:55 MCH 30.9 pg (27.0-33.0) 05/21/19 08:55 MCHC 32.8 g/dL (32.0-36.0) 05/21/19 08:55 RDW 14.0 % (11.7-14.6) 05/21/19 08:55 Plt Count 277 x1000/uL (130-400) 05/21/19 08:55 MPV 10.3 fL (8.0-11.0) 05/21/19 08:55 Immature Gran % 0.1 % 05/21/19 08:55 Neutrophils % 71.4 05/21/19 08:55 Lymphocytes % 18.0 05/21/19 08:55 Monocytes % 8.4 05/21/19 08:55 Eosinophils % 1.6 05/21/19 08:55 Basophils % 0.5 05/21/19 08:55 Absolute Neutrophils 5.70 k/cumm (1.2-6.7) 05/21/19 08:55 Absolute Lymphocytes 1.44 k/cumm (1.2-3.4) 05/21/19 08:55 Absolute Monocytes 0.67 k/cumm (0.11-0.7) 05/21/19 08:55 Absolute Eosinophils 0.13 k/cumm (0.0-0.7) 05/21/19 08:55 Absolute Basophils 0.04 k/cumm (0.0-0.2) 05/21/19 08:55 Sodium 141 mmol/L (136-145) 05/21/19 08:55 Potassium 3.7 mmol/L (3.5-5.1) 05/21/19 08:55 Chloride 103 mmol/L (98-107) 05/21/19 08:55 Carbon Dioxide 30.1 mmol/L (21.0-32.0) 05/21/19 08:55 Anion Gap 7.9 mmol/L (3-11) 05/21/19 08:55 BUN 9 mg/dL (7-18) 05/21/19 08:55 Creatinine 0.81 mg/dL (0.55-1.02) 05/21/19 08:55 Estimated GFR/1.73 m2 >= 60.00 (mL/min/1.73m2) 05/21/19 08:55 Glucose 90 mg/dL (74-106) 05/21/19 08:55 Calcium 8.4 mg/dL (8.5-10.1) L 05/21/19 08:55 Magnesium 1.9 mg/dL (1.8-2.4) 05/20/19 11:03 Total Bilirubin 1.3 mg/dL (0.2-1.0) H 05/21/19 08:55 AST 12 U/L (15-37) L 05/21/19 08:55 ALT 13 U/L (14-59) L 05/21/19 08:55 Alkaline Phosphatase 51 U/L (46-116) 05/21/19 08:55 C-Reactive Protein 9.53 mg/dL (0.0-0.3) H 05/21/19 08:55 Total Protein 7.0 g/dL (6.4-8.2) 05/21/19 08:55 Albumin 3.5 g/dL (3.4-5.0) 05/21/19 08:55
[2019-05-22] MEDS: CLINDAMYCIN 600 MG/50 ML BAG 100 MG IVPB ×2 (00:35→07:58)
[2019-05-22 04:50] VITALS: BP 108/76; PULSE 70; RESP 17; TEMP 36.4; O2SAT 99
[2019-05-22] MEDS: Lactated Ringers 1,000 ML 125 ML IV (05:37)
[2019-05-22 07:45] VITALS: BP 107/74; PULSE 63; RESP 16; TEMP 36.5; O2SAT 97
[2019-05-22 07:59] LABS: C-Reactive Protein 5.06 mg/dL (0.0-0.3)
[2019-05-22] MEDS: Lactobacillus Acidophilus CAP 1 CAP PO ×2 (08:03→13:54)
--- NOTE | 2019-05-22 08:11 | W.PM.PROGNOT ---
Documented by User: [email or web address] Pinto 05/22/19 08:14 Date of Service Date of service: 05/22/19 Time of Service: 08:11 Assessment and Plan Assessment and plan (1) Diverticulitis large intestine: Status: Acute Assessment and plan: AM labs PENDING Tolerating clear liquid diet. Denies any fevers, chills, night sweats. She is eager to return home. Possible d/c home later today. Qualifiers: Diverticulitis bleeding: without bleeding Diverticulitis complication: with abscess Qualified Code(s): K57.20 - Diverticulitis of large intestine with perforation and abscess without bleeding Subjective Subjective Interval history since last seen: Feel about the same. Tolerated clear liquids well overnight. Denies any abdominal pain. Exam Const General: cooperative, healthy appearing and comfortable Orientation: alert and oriented x3 Resp Effort & Inspection: normal respiratory effort, no audible wheezes and no cough GI Inspection: normal to inspection Palpation: soft, no guarding and nontender Auscultation: normal bowel sounds Objective Objective Clinical Data: Abnormal lab results 05/21/19 05/22/19 Range/Units 08:55 07:20 Calcium 8.4 L (8.5-10.1) mg/dL Total Bilirubin 1.3 H (0.2-1.0) mg/dL AST 12 L (15-37) U/L ALT 13 L (14-59) U/L C-Reactive Protein 9.53 H 5.06 H (0.0-0.3) mg/dL Vital Signs Temperature 36.4 C L 05/22/19 04:50 Temperature Source Temporal Artery Scan 05/22/19 04:50 Pulse 70 05/22/19 04:50 Pulse Rhythm Regular 05/22/19 01:43 Respiratory Rate 17 05/22/19 04:50 Respiratory Effort Non-Labored 05/22/19 01:43 Respiratory Depth Normal 05/22/19 01:43 Respiratory Pattern Normal 05/22/19 01:43 Blood Pressure 108/76 05/22/19 04:50 Pulse Oximetry 99 05/22/19 04:50 Oxygen Delivery Method Room Air 05/22/19 04:50 Oxygen Flow Rate 0 05/22/19 04:50 Pain Level 0 05/22/19 04:50 Comment 05/21/19 04:20 Intake & Output 05/21/19 05/22/19 05/22/19 18:59 06:59 18:59 Intake Total 1500 / 3702.083 2202.083 / 3702.083 291.667 / 291.667 Output Total 525 / 525 Balance 975 / 3177.083 2202.083 / 3177.083 291.667 / 291.667 Intake: IV 1500 / 3062.083 1562.083 / 3062.083 291.667 / 291.667 Oral 640 / 640 Output: Urine 525 / 525 Other: Urine Color Dark Aelm Yellow Urine Appearance Clear Clear Urine Odor Normal Voiding Methods Toilet Toilet Laboratory Results WBC 7.98 k/cumm (4.4-10.8) D 05/21/19 08:55 RBC 4.11 m/cumm (4.00-5.20) 05/21/19 08:55 Hgb 12.7 g/dL (12.0-15.5) 05/21/19 08:55 Hct 38.7 % (36.0-46.0) 05/21/19 08:55 MCV 94.2 fL (80-95) 05/21/19 08:55 MCH 30.9 pg (27.0-33.0) 05/21/19 08:55 MCHC 32.8 g/dL (32.0-36.0) 05/21/19 08:55 RDW 14.0 % (11.7-14.6) 05/21/19 08:55 Plt Count 277 x1000/uL (130-400) 05/21/19 08:55 MPV 10.3 fL (8.0-11.0) 05/21/19 08:55 Immature Gran % 0.1 % 05/21/19 08:55 Neutrophils % 71.4 05/21/19 08:55 Lymphocytes % 18.0 05/21/19 08:55 Monocytes % 8.4 05/21/19 08:55 Eosinophils % 1.6 05/21/19 08:55 Basophils % 0.5 05/21/19 08:55 Absolute Neutrophils 5.70 k/cumm (1.2-6.7) 05/21/19 08:55 Absolute Lymphocytes 1.44 k/cumm (1.2-3.4) 05/21/19 08:55 Absolute Monocytes 0.67 k/cumm (0.11-0.7) 05/21/19 08:55 Absolute Eosinophils 0.13 k/cumm (0.0-0.7) 05/21/19 08:55 Absolute Basophils 0.04 k/cumm (0.0-0.2) 05/21/19 08:55 Sodium 141 mmol/L (136-145) 05/21/19 08:55 Potassium 3.7 mmol/L (3.5-5.1) 05/21/19 08:55 Chloride 103 mmol/L (98-107) 05/21/19 08:55 Carbon Dioxide 30.1 mmol/L (21.0-32.0) 05/21/19 08:55 Anion Gap 7.9 mmol/L (3-11) 05/21/19 08:55 BUN 9 mg/dL (7-18) 05/21/19 08:55 Creatinine 0.81 mg/dL (0.55-1.02) 05/21/19 08:55 Estimated GFR/1.73 m2 >= 60.00 (mL/min/1.73m2) 05/21/19 08:55 Glucose 90 mg/dL (74-106) 05/21/19 08:55 Calcium 8.4 mg/dL (8.5-10.1) L 05/21/19 08:55 Magnesium 1.9 mg/dL (1.8-2.4) 05/20/19 11:03 Total Bilirubin 1.3 mg/dL (0.2-1.0) H 05/21/19 08:55 AST 12 U/L (15-37) L 05/21/19 08:55 ALT 13 U/L (14-59) L 05/21/19 08:55 Alkaline Phosphatase 51 U/L (46-116) 05/21/19 08:55 C-Reactive Protein 5.06 mg/dL (0.0-0.3) H 05/22/19 07:20 Total Protein 7.0 g/dL (6.4-8.2) 05/21/19 08:55 Albumin 3.5 g/dL (3.4-5.0) 05/21/19 08:55 Documented by User: Ernestine Murray DO 05/22/19 12:28 Assessment and Plan Assessment and plan (1) Diverticulitis large intestine: Status: Acute Assessment and plan: CRP is 5 today plan d/c home on augmentin/clinda F/u in clinic w/ dr. bullock on saturday low fiber diet for a week than slowly transitionto high fiber diet repeat ce in 4-6 wks. kefir BID go to ED in increase in pain/fever/ n/v Qualifiers: Diverticulitis bleeding: without bleeding Diverticulitis complication: with abscess Qualified Code(s): K57.20 - Diverticulitis of large intestine with perforation and abscess without bleeding Subjective Subjective Interval history since last seen: pt seen and examined. Pt is doing well. no headaches. No CP or SOB. no productive cough. no dysuria. no leg pain or swelling. min pain in RLQ. no R/R/G. +diarrhea. no blood. no thrush
[2019-05-22] MEDS: Normal Saline Flush 10 ML SYR IVP ×3 (10:28→14:35)
--- NOTE | 2019-05-22 12:32 | W.PM.DS.N ---
Date of service: 05/22/19 Time of Service: 12:32 DS: Diagnosis Discharge Diagnosis (1) Diverticulitis large intestine: Status: Acute Discharge Plan Disposition Patient Disposition: HOME Condition: Improving Discharge Details Reason For Visit: ACUTE DIVERTICULITIS Admit Date/Time: 05/20/19 16:01 Admit Provider: Ernestine Murray Attending Provider: Ernestine Murray [facility] Course Hospital Course: Patient was seen in the clinic on 129 with increase in left lower quadrant pain and cramping. She had lab work and CT which was concerned with recurrent acute diverticulitis. She actually has a pretty significant case on her CAT scan even though this does not correlate with her symptoms. She is admitted to the hospital for IV biotics. She had been in the hospital in January after hysterectomy with a vaginal cuff infection she had been on Rocephin and then Augmentin outpatient after that surgery. She had problems with constipation due to having to take narcotic pain meds for postsurgical pain. Sure that she developed the diverticulitis. She was on Cipro and Flagyl inpatient and as an outpatient for treatment that infection. We had her on 24 hours Rocephin and Flagyl. She had marginal improvement of her symptoms and her CRP P actually went up while on this antibiotic regimen. I did change her over to ertapenem and Clinda for concern of antibiotic resistance. Today she is feeling better and her CRP is down to 5. She will be discharged home. She will be kept on low fiber diet for a week's time. We will send her home on Augmentin and clindamycin. She will did not keep her twice a day for a probiotic. She will follow-up with Dr. Lucas in the office. Her colonoscopy was scheduled. Patient understood all discharge in stable and satisfactory condition. If she has any increase in signs and symptoms she should been to the emergency department. This document was created using [employer] voice activated software and may contain errors Home Meds and New Rx's Prescriptions: New amoxicillin-pot clavulanate [Augmentin] 875-125 mg tablet 1 tab PO BID 7 Days Qty: 14 RF: 0 clindamycin HCl 300 mg capsule 300 mg PO TID 7 Days Qty: 21 RF: 0 Continued ibuprofen 200 mg tablet 200 mg PO Q6H PRNRF: 0 Discontinued bisacodyl 5 mg tablet,delayed release (DR/EC) 5 mg PO ONCE Qty: 4 RF: 0 polyethylene glycol 3350 17 gram/dose powder 238 g PO ONCE Qty: 238 RF: 0 Discharge Instructions Instructions: Diverticulitis (GEN) Additional Instructions: -cont on a low fiber/soft diet for one weeks time. Than we will very gradually transition you to a high fiber diet. -once you are the high fiber diet, than we want you to do the psyllium husks daily. -64oz of water/fluid daily (caffeinated beverages and alcohol don't count) -no strenuous activity or heavy lifting (pver 20#'s) x 1 week -Kefir twice a day (this is better than probiotic pills) -finish all the antibiotics -being on antibiotics and liquid diet will give you diarrhea. This should resolve once you are tolerating regular diet and the antibiotics are finished. If you are still having diarrhea- please call the office -F/u w/ Dr. Herman on Saturday -if increase in pain/ nausea or vomiting/ passing clots/fever and chills- go to the ED. Gastrointestinal Soft Diet Overview Overview What is a gastrointestinal soft diet? This diet is soft in texture, low in fiber, and easy to digest. The goal is to decrease) in the bowel that may cause and discomfort. This diet is often used after abdominal surgery or as a transitional diet after flares. Meats & Meat Substitutes ? Foods Allowed: Chicken, turkey, fish, tender cuts of beef and pork, ground meats, eggs, creamy nut butters, tofu, skinless hot dogs, sausage patties without whole spices ? Foods to Avoid : Tough, fibrous meats with gristle, meat with casings (hot dogs, sausage, kielbasa), lunch meats with whole spices, shellfish, beans, chunky peanut butter, nuts Fruits and Juices ? Foods Allowed: Fruit juices without pulp, banana, avocado, applesauce, canned peaches and pears, cooked fruit without the skin/seeds ? Foods to Avoid: Juices with pulp, fresh fruit (except banana and avocado), dried fruits, canned fruit cocktail and pineapple, coconut, frozen/thawed berries Vegetables ? Foods Allowed: Well-cooked or canned vegetables, potatoes without skin, tomato sauces, vegetable juice ? Foods to Avoid: Raw vegetables, all corn, all mushrooms, stewed tomatoes, potato skins, stir-lucas vegetables, sauerkraut, pickles, olives, all dried beans, peas, and legumes Cereals and Grains ? Foods Allowed: Low- fiber dry or cooked cereals (less than 2 grams fiber per serving), white rice, pasta, macaroni, or noodles ? Foods to Avoid: Cereals with nuts, berries, dried fruits, whole grain cereals, bran cereals, granola, brown or wild rice, whole grain pasta Breads and Crackers ? Foods Allowed: White/refined breads and rolls, plain bagel, toast, plain crackers, ugo crackers ? Foods to Avoid: Whole grain breads- including white whole grain; bread/ rolls with raisins, nuts or seeds, multi-grain crackers Dairy ? Foods Allowed: Milk, cheese, yogurt, milkshakes, pudding, ice cream, cottage cheese, sherbet ; lactose free or low lactose versions if lactose intolerant ? Foods to Avoid: Dairy product mixed with fresh fruit (except banana), berries, nuts or seeds Desserts ? Foods Allowed: Plain cake, pudding, custard, ice cream, sherbet, gelatin, fruit whips ? Foods to Avoid: Any dessert that contains nuts, dried fruits, coconut, or fruits with seeds Herbs and Spices ? Foods Allowed: All ground spices or herbs, salt ? Foods to Avoid: Whole spices such as peppercorns, whole cloves, anise seeds, celery seeds, paty, brittney seeds, and fresh herbs Snacks/Other Foods ? Foods Allowed: Sugar, honey, jelly, mayonnaise, mustard, soy sauce, oil, butter, margarine, marshmallows, cookies without dried fruits or nuts, snack chips and pretzels using refined flours ? Foods to Avoid: Carbonated beverages, jams or jellies with seeds, popcorn After several weeks, slowly start to reintroduce the ?Foods to Avoid? back into your diet unless your doctor has told you otherwise. Try a small portion of one of these foods each day. If it does not bother you within 24 hours, it can be added to your diet. Continue to add new foods in this way. Some people may continue to have food sensitivities and may need to continue to avoid certain foods. If you cannot tolerate a food, avoid that food for a few weeks before you try it again. Guidelines when eating 1. Avoid any food that you cannot tolerate or that causes gas, bloating, or stomach pain. 2. Make time for your meals. Do not eat while you are in a hurry. Cut your food into small pieces. Chew each bite to a mashed potato consistency. Do not eat when you cannot concentrate on chewing well. 3. Drink at least 6-8 cups of fluid per day Fluids include: water, coffee, tea, juice, milk, popsicles, soups, gelatin, pudding, ice cream, sherbet, and yogurt. In addition, choose caffeine-free beverages more often, especially if you are having diarrhea. 4. A daily multivitamin may be recommended if diet is limited in amounts or variety of foods. Do not take any herbal supplements without first checking with your doctor. Stand Alone Forms: Nursing Discharge Form Activity:: See above Equipment/Supplies:: No Equipment Needed Diet:: See above Discharge Orders Discharge Orders: Discharge Order (Routine); Ordered 05/22/19 Ordered By: Ernestine Murray DS: Summary Status at Discharge Functional status at discharge: independent ambulation Overall status at discharge: patient is back to baseline Mental Status: mental status grossly normal Speech and Movement: speech and movement normal Mood: congruent mood Affect: normal affect Exam Psych Mental Status: mental status grossly normal Speech and Movement: speech and movement normal Mood: congruent mood Affect: normal affect DS: Data Vitals/I&O Vitals and I&O: Vital Signs Temperature 36.5 C 05/22/19 07:45 Temperature Source Tympanic 05/22/19 07:45 Pulse 63 05/22/19 07:45 Pulse Rhythm Regular 05/22/19 08:30 Respiratory Rate 16 05/22/19 07:45 Respiratory Effort Non-Labored 05/22/19 08:30 Respiratory Depth Normal 05/22/19 08:30 Respiratory Pattern Normal 05/22/19 08:30 Blood Pressure 107/74 05/22/19 07:45 Pulse Oximetry 97 05/22/19 07:45 Oxygen Delivery Method Room Air 05/22/19 07:45 Oxygen Flow Rate 0 05/22/19 07:45 Pain Level 0 05/22/19 07:45 Comment 05/21/19 04:20 Intake & Output 05/21/19 05/22/19 05/22/19 23:59 11:59 23:59 Intake Total 2595.833 / 3845.833 3012.500 / 3012.500 Output Total 525 / 525 Balance 2070.833 / 3320.833 3012.500 / 3012.500 Intake: IV 2105.833 / 3255.833 1622.500 / 1622.500 Oral 490 / 590 1390 / 1390 Output: Urine 525 / 525 Other: Urine Color Straw Yellow Urine Appearance Clear Clear Urine Odor Normal Normal Comment pt voiding independently in the bathroom. pt states that her urine is a bright yellow in color Voiding Methods Toilet Toilet Data Completed and Pending Labs on day of discharge: Labs from last 24 hours 05/22/19 07:20 C-Reactive Protein 5.06 H [facility] Medical History Abnormal uterine bleeding (AUB) (Resolved) regular heavy cycles. Mirnea IUD 09/2014 - 02/2016 with no significant improvement in bleeding. Nl EMBx and pelvic u/s 2014. Abnormal uterine bleeding (AUB) (Acute) 02/11/2019. S/p laparoscopic-assisted vaginal hysterectomy with bilateral salpingectomy of tubal remnants Menorrhagia (Acute) Personal history of cervical dysplasia (Acute 01/24/17) 1998 EMBER II LEEP Rx Surgical History Cervical Procedure (~1998) LEEP Cholecystectomy Ligation of fallopian tube Status post laparoscopic assisted vaginal hysterectomy (LAVH) (Acute) Family History Mother Hyperlipidemia Father Essential hypertension Grandmother Breast cancer paternal Social History Smoking/Tobacco Use Status: Never Drug use: Rarely Substance use type: marijuana Details: edibles Last used: Last weekend Household members: spouse, children, none and other Details: Marianna. 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 Do you feel safe at home: Yes Do you feel safe in your relationship?: Yes Female Reproductive History Menstrual control method: permanent sterilization
[2019-05-22] MEDS: Ondansetron 4 MG/2 ML VIAL IVP (14:35)
--- NOTE | 2019-05-22 17:57 | PDOC.CMDIS ---
- If Service Date Differs Date of service: 05/22/19 Time of Service: 17:57 LACE Index Scoring Tool - Questions: Length of Stay (in days): 3 Acuity (Admit via E.D.?): No E.D. Visits: 2 - Answers: Total Score: 5 Risk of Readmission: Low Risk Care Management Discharge Reason for Hospitalization: Acute diverticulitis Discharge Plan: Vilma will return home with no additional services. Her Jack will drive her home via private vehicle when ready. She will follow up with her PCP, as recommended. Patient/Family Education Needs: Review discharge instructions regarding activity levels and medications, discussion of self care needs including ask me three
== END 2019-05-22 15:01 | disposition home or self-care (01) | DRG 392 ==
PROVIDERS: Admitting Provider Surgery; PCP Nurse Practitioner Family; Visit Provider Surgery
DX: K57.32 Diverticulitis of large intestine without perforation or abscess without bleeding (principal)
CPT/HCPCS: 36415; 80053; 99222; 99232; 99233; 99238; J1650; 83735; 83993; 85025; 86140; J1335; J2405; J3490

== ENCOUNTER 2019-05-26 12:27 | Outpatient (REF) | payer OTHER, SELFPAY | END 2019-05-26 12:47 | LOC: NCHCN 12:27 | PROVIDERS: PCP Nurse Practitioner Family; Visit Provider Nurse Practitioner Family | DX: N39.490 Overflow incontinence (principal); N95.1 Menopausal and female climacteric states | CPT/HCPCS: 87086 ==

== ENCOUNTER 2019-06-11 10:41 | Outpatient (CLI) | payer OTHER, SELFPAY ==
[2019-06-11 11:15] LABS: Abs Immature Grans 0.02 k/cumm (0.0-0.09); Absolute Basophil Count 0.04 k/cumm (0.0-0.2); Absolute Eosinophil Count 0.09 k/cumm (0.0-0.7); Absolute Lymphocyte Count 1.31 k/cumm (1.2-3.4); Absolute Monocyte Count 0.64 k/cumm (0.11-0.7); Basophils % 0.4; HCT 39.6 % (36.0-46.0); Immature Grans % 0.2 %; Lymphocytes % 14.2; Mean Corp. HGB Concentration 32.8 g/dL (32.0-36.0); Mean Corpuscular Hemoglobin 30.8 pg (27.0-33.0); Mean Corpuscular Volume 93.8 fL (80-95); Mean Platelet Volume 10.7 fL (8.0-11.0); Neutrophils % 77.2; Platelet Count 245 x1000/uL (130-400); RBC 4.22 m/cumm (4.00-5.20)
[2019-06-11 11:47] LABS: Anion Gap 10.3 mmol/L (3-11); BUN 15 mg/dL (7-18); CO2 28.7 mmol/L (21.0-32.0); CREATININE 0.76 mg/dL (0.55-1.02); Calcium 9.4 mg/dL (8.5-10.1); Chloride 103 mmol/L (98-107); Glucose 66 mg/dL (74-106); Potassium 4.3 mmol/L (3.5-5.1); Sodium 142 mmol/L (136-145)
== END 2019-06-11 11:01 ==
PROVIDERS: PCP Nurse Practitioner Family; Visit Provider Physical Therapy Assistant
DX: K57.32 Diverticulitis of large intestine without perforation or abscess without bleeding (principal)
CPT/HCPCS: 36415; 80048; 85025

== ENCOUNTER 2019-06-26 03:09 | Outpatient (CLI) | payer OTHER, SELFPAY ==
--- NOTE | 2019-06-26 13:24 | DI.MAMMO_ITS ---
EXAM: MAMMO SCREENING CLINICAL HISTORY: SCREENING, Z12.31 TECHNIQUE: Mammograms were interpreted according to the usual protocol including computer analysis w [employer]SK[employer] CAD system, tomosynthesis and C-view imaging. COMPARISON: 2009 through 2015 FINDINGS: The breasts are composed of scattered fibroglandular densities, Breast Density category B. No suspicious masses or suspicious microcalcifications are seen. No skin thickening or abnormal axillary lymph nodes are seen. There has been no significant change from prior exams. IMPRESSION: ACR BIRADS Category 1, negative mammogram. Yearly screening mammography is recommended. Breast Density Category B, scattered fibroglandular densities.
== END 2019-06-26 03:29 ==
PROVIDERS: PCP Nurse Practitioner Family; Visit Provider Nurse Practitioner Family
DX: Z12.31 Encounter for screening mammogram for malignant neoplasm of breast (principal)
CPT/HCPCS: 77063; 77067

== ENCOUNTER 2020-02-12 14:19 | Outpatient (REF) | payer OTHER, SELFPAY ==
[2020-02-16 20:21] LABS: Patient Race White; SARS-CoV-2 RNA Undetected (Undetected); SARS-CoV-2 Specimen Source Nasal
== END 2020-02-12 14:39 ==
LOC: NCHCN 14:19
PROVIDERS: PCP Nurse Practitioner Family; Visit Provider Nurse Practitioner Family
DX: Z20.828 Contact with and (suspected) exposure to other viral communicable diseases (principal)
CPT/HCPCS: U0003

== ENCOUNTER 2020-05-09 06:42 | Observation (INO) | payer OTHER, SELFPAY ==
[2020-05-09 06:50] VITALS: BP 131/81; PULSE 85; RESP 16; TEMP 36.5; O2SAT 97
--- NOTE | 2020-05-09 07:02 | ED.GENADUL_ITS ---
Discharge Plan Disposition Patient Disposition: STILL A PATIENT Condition: Stable Discharge Details Clinical Impression: Abdominal pain, left lower quadrant Admit Date/Time: 05/09/20 08:45 Admit Provider: Ernestine Murray Attending Provider: Ernestine Murray Primary Care Provider: Anel Cunningham ED Provider: Saima Butler Discharge Data Discharge Date/Time-TO BE ENTERED AT DEPARTURE: 05/09/20 10:45 Medical Decision Making <Florencio Vieira MD - Last Filed: 05/09/20 07:24> 50 yo female with hx of diveritulitis in the past that failed outpatient management and required iv antibiotics but never developed an abscess, s/p cholecystycetomy and hysterectomy, who comes in with left lower abdominal pain for 5 days and has been on augmentin prescribed by Dr. Gonzalez since 05/04 and despite this hasn't improved. Has not had vomit though has had nausea, no fevers. States pain is localized to the left lower abdomen, no right sided or upper abdominal pain. On exam is in no distress and pleasant. She has a soft nondistended abdomen and the only place she has tenderness is the left lower abdomen without guarding or rebound. Suspect she does have recurrent diverticulitis that is likely not responding to augmentin like what has happened to her in the past. Will obtain labs and also a CT to evaluate for diveriticulitis vs abscess vs colitis pt signed out to Dr. Butler pending labs and imaging results and final disposition Differential Diagnosis Differential Diagnosis: diverticulitis, sbo, colitis <Saima Butler MD - Last Filed: 05/09/20 12:44> Vilma Carey is a 50 y/o woman with history of diverticulitis requiring IV antibiotics in the past who presented to the emergency department today with l eft lower quadrant abdominal pain after being on outpatient Augmentin since 05/04 for diverticulitis. Patient signed out to me by Dr. Vieira with labs and imaging pending. Labs reviewed white cell count 6.4, lactate 0.7. CT shows acute diverticulitis with 14 mm abscess and small foci of air concerning for microperforation. I discussed patient presentation results with Dr. Murray surgery, who will admit, requested Cipro and Flagyl. I discussed Flagyl with patient as nausea listed as reaction, patient does not recall having had nausea with Flagyl in the past, recalls no adverse reaction. I discussed admission with the patient, who states that she prefers not to be admitted. Patient reports that she has concerns given Covid pandemic. She also states that she was admitted here January 2019 and was unhappy with the care provided by one of her nurses. Patient reports that the nurse was male, and she cannot remember his name. Patient states that if she were to be admitted she does not want to be cared for by the individual. I discussed situation with nursing supervisor livestock yard, who relays that it should be possible to have only female nurses interact with the patient. I relayed this to the patient and went over risks/benefits of admission. Patient is amenable to admission at this time. Medical Records Medical records reviewed: Yes I reviewed the patient's medical records. Imaging Data Radiologic Study: Attestation: I personally reviewed and interpreted this imaging study as follows: Radiologist's impression: Exam: CT Abdomen And Pelvis With Contrast Exam date and time: 05/09/2020 7:02 AM Age: 50 years old Clinical indication: Generalized; Patient HX: Left lower abdominal pain. S/P hysterectomy 2018. HX of divericulitis TECHNIQUE: Imaging protocol: Computed tomography of the abdomen and pelvis with intravenous contrast. Radiation optimization: All CT scans at this facility use at least one of these dose optimization techniques: automated exposure control; mA and/or kV adjustment per patient size (includes targeted exams where dose is matched to clinical indication); or iterative reconstruction. Contrast material: OMNI-PAQUE 350; Contrast volume: 100 ml; Contrast route: INTRAVENOUS (IV); COMPARISON: CT ABDOMEN PELVIS W 05/20/2019 3:12 PM FINDINGS: Liver: Normal. No mass. Gallbladder and bile ducts: Normal. No calcified stones. No ductal dilation. Pancreas: Normal. No ductal dilation. Spleen: Normal. No splenomegaly. Adrenal glands: Normal. No mass. Kidneys and ureters: Normal. No hydronephrosis. Stomach and bowel: Colonic diverticulosis is present. Trace perisigmoid stranding compatible with acute diverticulitis. A fluid collection adjacent to a loop of sigmoid in the left hemipelvis measures up to 14 mm and may reflect a diverticular abscess. Small droplet of gas associated with this suggests micro perforation. Appendix: No evidence of appendicitis. Intraperitoneal space: Unremarkable. No free air. No significant fluid collection. Vasculature: Unremarkable. No abdominal aortic aneurysm. Lymph nodes: Unremarkable. No enlarged lymph nodes. Urinary bladder: Unremarkable as visualized. Reproductive: The patient is status post hysterectomy. Bones/joints: Unremarkable. No acute fracture. Soft tissues: Unremarkable. IMPRESSION: Colonic diverticulosis is present. Trace perisigmoid stranding compatible with acute diverticulitis. A fluid collection adjacent to a loop of sigmoid in the left hemipelvis measures up to 14 mm and may reflect a diverticular abscess. Small droplet of gas associated with this suggests micro perforation. Lab Data Lab results reviewed: Yes I reviewed the patient's lab results. Labs: Laboratory Tests Range/Units 05/09/20 05/09/20 05/09/20 07:10 07:10 07:10 WBC (4.4-10.8) 10^3/uL 6.40 RBC (3.93-5.22) 10^6/uL 4.40 Hgb (11.2-15.7) g/dL 13.7 Hct (36.0-46.0) % 41.2 MCV (80-95) fL 93.6 MCH (27.0-33.0) pg 31.1 MCHC (32.0-36.0) % 33.3 RDW (11.7-14.6) % 12.8 Plt Count (130-400) 10^3/uL 248 MPV (8.0-11.0) fL 10.7 Immature Gran % 0.3 Neutrophils % 62.9 Lymphocytes % 27.5 Monocytes % 6.1 Eosinophils % 2.7 Basophils % 0.5 Nucleated RBC % % 0 Absolute Neutrophils (1.2-6.7) 10^3/uL 4.03 Absolute Lymphocytes (1.2-3.4) 10^3/uL 1.76 Absolute Monocytes (0.1-0.8) 10^3/uL 0.39 Absolute Eosinophils (0.0-0.7) 10^3/uL 0.17 Absolute Basophils (0.0-0.2) 10^3/uL 0.03 VBG Lactate (0.6-1.4) mmol/L 0.7 Sodium (136-145) mmol/L 139 Potassium (3.5-5.1) mmol/L 3.7 Chloride (98-107) mmol/L 104 Carbon Dioxide (21.0-32.0) mmol/L 27.4 Anion Gap (3-11) mmol/L 7.6 BUN (7-18) mg/dL 8 Creatinine (0.55-1.02) mg/dL 0.82 Estimated GFR/1.73 m2 (mL/min/1.73m2) >= 60.00 Glucose (74-106) mg/dL 89 Calcium (8.5-10.1) mg/dL 8.3 L Magnesium (1.8-2.4) mg/dL 2.0 Total Bilirubin (0.2-1.0) mg/dL 0.9 Conjugated Bilirubin (0.00-0.20) mg/dL 0.23 H AST (15-37) U/L 16 ALT (14-59) U/L 24 Alkaline Phosphatase (46-116) U/L 47 Total Protein (6.4-8.2) g/dL 7.0 Albumin (3.4-5.0) g/dL 3.6 Lipase (73-393) U/L 78 Urine Color (Yellow) Urine Clarity (Clear) Urine pH (5-8) Ur Specific [place] (1.005-1.025) Urine Protein (Negative) mg/dL Urine Ketones (Negative) mg/dL Urine Blood (Negative) Urine Nitrite (Negative) Urine Bilirubin (Negative) Urine Urobilinogen (Up TO 0.2) EU/dL Ur Leukocyte Esterase (Negative) Urine Glucose (Negative) mg/dL Range/Units 05/09/20 07:50 WBC (4.4-10.8) 10^3/uL RBC (3.93-5.22) 10^6/uL Hgb (11.2-15.7) g/dL Hct (36.0-46.0) % MCV (80-95) fL MCH (27.0-33.0) pg MCHC (32.0-36.0) % RDW (11.7-14.6) % Plt Count (130-400) 10^3/uL MPV (8.0-11.0) fL Immature Gran % Neutrophils % Lymphocytes % Monocytes % Eosinophils % Basophils % Nucleated RBC % % Absolute Neutrophils (1.2-6.7) 10^3/uL Absolute Lymphocytes (1.2-3.4) 10^3/uL Absolute Monocytes (0.1-0.8) 10^3/uL Absolute Eosinophils (0.0-0.7) 10^3/uL Absolute Basophils (0.0-0.2) 10^3/uL VBG Lactate (0.6-1.4) mmol/L Sodium (136-145) mmol/L Potassium (3.5-5.1) mmol/L Chloride (98-107) mmol/L Carbon Dioxide (21.0-32.0) mmol/L Anion Gap (3-11) mmol/L BUN (7-18) mg/dL Creatinine (0.55-1.02) mg/dL Estimated GFR/1.73 m2 (mL/min/1.73m2) Glucose (74-106) mg/dL Calcium (8.5-10.1) mg/dL Magnesium (1.8-2.4) mg/dL Total Bilirubin (0.2-1.0) mg/dL Conjugated Bilirubin (0.00-0.20) mg/dL AST (15-37) U/L ALT (14-59) U/L Alkaline Phosphatase (46-116) U/L Total Protein (6.4-8.2) g/dL Albumin (3.4-5.0) g/dL Lipase (73-393) U/L Urine Color (Yellow) Yellow Urine Clarity (Clear) Clear Urine pH (5-8) 5.5 Ur Specific [place] (1.005-1.025) 1.020 Urine Protein (Negative) mg/dL Negative Urine Ketones (Negative) mg/dL Negative Urine Blood (Negative) Negative Urine Nitrite (Negative) Negative Urine Bilirubin (Negative) Negative Urine Urobilinogen (Up TO 0.2) EU/dL 0.2 Ur Leukocyte Esterase (Negative) Negative Urine Glucose (Negative) mg/dL Negative HPI <Florencio Vieira MD - Last Filed: 05/09/20 07:24> General Mode of arrival: ambulatory . Date/Time Provider Initiated Documentation: 05/09/20 06:43 . Limitations to Documentation: no limitations . Information obtained by: patient . History of Present Illness 50 year old F presents to the emergency department with the chief complaint of left lower abdominal pain, described as moderate, Patient started experiencing this day(s) (5) and it has been constant. No relieving factors improve symptom(s), No exacerbating factors reported . Patient notes no other symptoms.. Patient did receive the following treatments prior to arrival, none Related Data Home Medications Medication Instructions Recorded Confirmed ibuprofen 200 mg tablet 200 mg PO Q6H PRN 05/20/19 05/09/20 amoxicillin 875 mg-potassium 1 tab PO TID 14 Days #42 tab 05/04/20 05/09/20 clavulanate 125 mg tablet Previous Rx's Medication Instructions Recorded amoxicillin 875 mg-potassium 1 tab PO TID 14 Days #42 tab 05/04/20 clavulanate 125 mg tablet Allergies Allergy/AdvReac Type Severity Reaction Status Date / Time chlorhexidine Allergy Severe rash Verified 05/09/20 06:55 metronidazole [From Flagyl] AdvReac Intermediate nausea Verified 05/09/20 06:55 General Stated Complaint: Abd Prob ALEXSANDER: 3 Review of Systems <Florencio Vieira MD - Last Filed: 05/09/20 07:24> All systems reviewed & are unremarkable except as noted in HPI and below Constitutional Constitutional: Denies chills, Denies fever(s) and Denies weakness Cardiovascular Cardiovascular: Denies chest pain and Denies dyspnea Respiratory Respiratory: Denies cough and Denies dyspnea Gastrointestinal Gastrointestinal: Denies vomiting Musculoskeletal Musculoskeletal: Denies joint swelling Neurologic Neurologic: Denies weakness PFS <Florencio Vieira MD - Last Filed: 05/09/20 07:24> Medical History (Updated 05/09/20 @ 07:09 by Florencio Vieira MD) Abnormal uterine bleeding (AUB) regular heavy cycles. Mirnea IUD 09/2014 - 02/2016 with no significant improvement in bleeding. Nl EMBx and pelvic u/s 2014. Abnormal uterine bleeding (AUB) 02/11/2019. S/p laparoscopic-assisted vaginal hysterectomy with bilateral salpingectomy of tubal remnants Menorrhagia Personal history of cervical dysplasia (01/24/17) 1998 EMBER II LEEP Rx Surgical History Cervical Procedure (~1998) LEEP Cholecystectomy Ligation of fallopian tube Status post laparoscopic assisted vaginal hysterectomy (LAVH) Family History Mother Hyperlipidemia Father Essential hypertension Grandmother Breast cancer paternal Social History Smoking/Tobacco Use Status: Never Smoking risk assessment performed?: Yes Drug use: Never Substance use type: marijuana Household members: spouse, children, none and other Details: [place]. 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 Do you feel safe at home: Yes Do you feel safe in your relationship?: Yes Female Reproductive History Menstrual control method: permanent sterilization Exam <Florencio Vieira MD - Last Filed: 05/09/20 07:24> Const General: no acute distress Orientation: alert HENMT Head: normal to inspection Ears: external ears normal General nose exam: external nose normal Mouth: moist mucous membranes Eyes General: appearance normal, both eyes and all related structures Neck Neck: normal visual inspection Resp Effort & Inspection: normal respiratory effort and able to speak in complete sentences Cardio Rate: regular rate GI Palpation: soft, not firm and tender Skin General skin exam: no rashes or lesions noted Neuro General: patient alert and patient oriented x3 Extrem General: normal to inspection Psych Mental Status: mental status grossly normal Course <Florencio Vieira MD - Last Filed: 05/09/20 07:24> Vital Signs Vital signs: Vital Signs Temperature 36.5 C 05/09/20 06:50 Pulse 85 05/09/20 06:50 Respiratory Rate 16 05/09/20 06:50 Blood Pressure 131/81 05/09/20 06:50 Pulse Oximetry 97 05/09/20 06:50 Temperature 36.5 C 05/09/20 06:50 Temperature Source Temporal Artery Scan 05/09/20 06:50 Pulse 85 05/09/20 06:50 Respiratory Rate 16 05/09/20 06:50 Respiratory Effort Non-Labored 05/09/20 06:53 Blood Pressure 131/81 05/09/20 06:50 Blood Pressure Position Sitting 05/09/20 06:50 Pulse Oximetry 97 05/09/20 06:50 Oxygen Delivery Method Room Air 05/09/20 06:50 Oxygen Flow Rate 0 05/09/20 06:50 Pain Level 7 05/09/20 06:58 Sign Out <Florencio Vieira MD - Last Filed: 05/09/20 07:24> Sign Out Data: Sign Out Comment: hx of diverticulitis and has had left lower abdominal pain since 05/04 and on augmentin since 05/04 (prescribed by Dr. Gonzalez). Continued pain despite this. Pending labs and imaging, dispo Last updated by Florencio Vieira MD at 05/09/20 07:11
[2020-05-09] MEDS: Normal Saline 1,000 ML 1000 ML IV (07:10)
[2020-05-09 07:16] LABS: Lactate 0.7 mmol/L (0.6-1.4)
[2020-05-09] MEDS: Ketorolac 15 MG/ML VIAL IVP (07:17)
[2020-05-09 07:21] LABS: Abs Immature Grans 0.02 10^3/uL (0.0-0.06); Absolute Basophil Count 0.03 10^3/uL (0.0-0.2); Absolute Eosinophil Count 0.17 10^3/uL (0.0-0.7); Absolute Lymphocyte Count 1.76 10^3/uL (1.2-3.4); Absolute Monocyte Count 0.39 10^3/uL (0.1-0.8); Absolute Neutrophil Count 4.03 10^3/uL (1.2-6.7); Basophils % 0.5; Eosinophils % 2.7; HCT 41.2 % (36.0-46.0); HGB 13.7 g/dL (11.2-15.7); Immature Grans % 0.3; Lymphocytes % 27.5; MCH 31.1 pg (27.0-33.0); MCHC 33.3 % (32.0-36.0); MCV 93.6 fL (80-95); MPV 10.7 fL (8.0-11.0); Monocytes % 6.1; Neutrophils % 62.9; Nucleated RBC 0 %; Platelet Count 248 10^3/uL (130-400); RDW 12.8 % (11.7-14.6); RDW-SD 44.3 fL
[2020-05-09 07:36] LABS: ALT 24 U/L (14-59); AST 16 U/L (15-37); Albumin 3.6 g/dL (3.4-5.0); Alkaline Phosphatase 47 U/L (46-116); Anion Gap 7.6 mmol/L (3-11); BUN 8 mg/dL (7-18); Bilirubin, Direct 0.23 mg/dL (0.00-0.20); Bilirubin, Total 0.9 mg/dL (0.2-1.0); CO2 27.4 mmol/L (21.0-32.0); CREATININE 0.82 mg/dL (0.55-1.02); Calcium 8.3 mg/dL (8.5-10.1); Chloride 104 mmol/L (98-107); Glucose 89 mg/dL (74-106); Lipase 78 U/L (73-393); Potassium 3.7 mmol/L (3.5-5.1); Sodium 139 mmol/L (136-145)
--- NOTE | 2020-05-09 07:40 | DI.CT_ITS ---
EXAM: CT ABDOMEN PELVIS W CLINICAL HISTORY: left lower abdominal pain x1 week TECHNIQUE: Imaging Protocol: Axial computed tomography images with coronal and sagittal reformatted images were created and reviewed CONTRAST MATERIAL: Intravenous: Omnipaque 350 Contrast volume:100 mL Oral: No COMPARISON: CT CT ABDOMEN PELVIS W from 05/20/2019 FINDINGS: ABDOMEN: Lung Bases: Normal where visualized. Liver: Normal density. No measurable mass. Portal, Superior Mesenteric, and Splenic Veins: Unremarkable. Gallbladder and Biliary Tract: Status post cholecystectomy. No biliary ductal dilatation. Pancreas: Normal density, no abnormal calcifications or inflammatory process. Spleen: Normal. Adrenals: No masses seen. Kidneys: Normal size, contour and axis. No radiodense stones or obstructive uropathy. Stable right re nal cyst. No further follow-up is recommended. Abdominal Aorta: Abdominal portion non-dilated. Mild atherosclerosis. Bowel: No obstruction or bowel wall thickening. No evidence of acute appendicitis. Diverticulosis of the descending and sigmoid colon. There is a question of mild inflammatory stranding seen at the ju nction of the descending colon and sigmoid colon and acute diverticulitis cannot be excluded. No macy e air or definite abscess is appreciated. Peritoneal Cavity: No ascites, collection or mesenteric inflammatory response. No free air. Lymph Nodes: Within normal limits. Bones: Degenerative changes. Soft Tissues: Unremarkable. PELVIS: Bladder: Symmetric distention, no gross wall thickening. Reproductive Organs: Unremarkable as visualized. Lymph Nodes: Within normal limits. Bones: Degenerative changes. IMPRESSION: Question of mild acute diverticulitis at the junction of the descending and sigmoid colon. No defini te abscess or free air. RADIATION DOSE DELIVERED: 1,133.49mGy.cm Total DLP DATA REPOSITORY: All CT scans at this facility are submitted to the National Radiology Data Registry (NRDR) Dose Index Registry (DIR) with the [employer] (ACR). RADIATION OPTIMIZATION: All CT scans at this facility use at least one of these dose optimization te chniques: automated exposure control; mA and/or kV adjustment per patient size (includes targeted exa ms where dose is matched to clinical indication); or iterative reconstruction.
[2020-05-09] MEDS: Normal Saline - Diluent 50 ML VIAL IV (07:55)
[2020-05-09] MEDS: Omnipaque 350 MG/ML 100 ML BTL IJ (07:56)
[2020-05-09 07:57] LABS: Bilirubin Negative (Negative); Blood Negative (Negative); Clarity Clear (Clear); Glucose Negative (Negative); Ketones Negative (Negative); Leukocyte Esterase Negative (Negative); Nitrite Negative (Negative); Urobilinogen 0.2 EU/dL (Up TO 0.2); pH 5.5 (5-8)
--- NOTE | 2020-05-09 08:11 | DI.VRAD_ITS ---
Addendum created by Chandu Nam MD on 05/09/2020 8:15:15 AM EST: THIS REPORT CONTAINS FINDINGS THAT MAY BE CRITICAL TO PATIENT CARE. The findings were verbally communicated via telephone conference with Gabe Shepherd 8:15 AM EST on 05/09/2020. The findings were acknowledged and understood. Initial report created on 05/09/2020 8:10:45 AM EST: PROCEDURE INFORMATION: Exam: CT Abdomen And Pelvis With Contrast Exam date and time: 05/09/2020 7:02 AM Age: 50 years old Clinical indication: Generalized; Patient HX: Left lower abdominal pain. S/P hysterectomy 2019. HX of divericulitis TECHNIQUE: Imaging protocol: Computed tomography of the abdomen and pelvis with intravenous contrast. Radiation optimization: All CT scans at this facility use at least one of these dose optimization techniques: automated exposure control; mA and/or kV adjustment per patient size (includes targeted exams where dose is matched to clinical indication); or iterative reconstruction. Contrast material: OMNI-PAQUE 350; Contrast volume: 100 ml; Contrast route: INTRAVENOUS (IV); COMPARISON: CT ABDOMEN PELVIS W 05/20/2019 3:12 PM FINDINGS: Liver: Normal. No mass. Gallbladder and bile ducts: Normal. No calcified stones. No ductal dilation. Pancreas: Normal. No ductal dilation. Spleen: Normal. No splenomegaly. Adrenal glands: Normal. No mass. Kidneys and ureters: Normal. No hydronephrosis. Stomach and bowel: Colonic diverticulosis is present. Trace perisigmoid stranding compatible with acute diverticulitis. A fluid collection adjacent to a loop of sigmoid in the left hemipelvis measures up to 14 mm and may reflect a diverticular abscess. Small droplet of gas associated with this suggests micro perforation. Appendix: No evidence of appendicitis. Intraperitoneal space: Unremarkable. No free air. No significant fluid collection. Vasculature: Unremarkable. No abdominal aortic aneurysm. Lymph nodes: Unremarkable. No enlarged lymph nodes. Urinary bladder: Unremarkable as visualized. Reproductive: The patient is status post hysterectomy. Bones/joints: Unremarkable. No acute fracture. Soft tissues: Unremarkable. IMPRESSION: Colonic diverticulosis is present. Trace perisigmoid stranding compatible with acute diverticulitis. A fluid collection adjacent to a loop of sigmoid in the left hemipelvis measures up to 14 mm and may reflect a diverticular abscess. Small droplet of gas associated with this suggests micro perforation. Dictated and Authenticated by: Chandu Nam MD. Ordering:ILENE Matias MD
[2020-05-09] MEDS: CIPROFLOXACIN 400 MG/200 ML BAG 200 MG IVPB (08:54)
[2020-05-09] MEDS: PIPERACILLIN/TAZO 3.375 GM in Normal Saline 50 ML IVPB ×2 (10:27→19:27)
--- NOTE | 2020-05-09 10:28 | PDOC.ERCMIN ---
- If Service Date Differs Date of service: 05/09/20 Time of Service: 10:28 Care Management Initial Assess REASON FOR HOSPITALIZATION:: Diverticulitis. PAST MEDICAL HISTORY/PAST SURGICAL HISTORY:: Medical History: Abnormal uterine bleeding (AUB) - regular heavy cycles. Mirnea IUD 09/2014 - 02/2016 with no significant improvement in bleeding. Nl EMBx and pelvic u/s 2014, Abnormal uterine bleeding (AUB) - 02/11/2019. S/p laparoscopic-assisted vaginal hysterectomy with bilateral salpingectomy of tubal remnants, Menorrhagia, and Personal history of cervical dysplasia (01/24/17) - 1998 EMBER II LEEP Rx. Surgical History: Cervical Procedure (~1998) - LEEP, Cholecystectomy,. Ligation of fallopian tube, and Status post laparoscopic assisted vaginal hysterectomy (LAVH). PREVIOUS FUNCTIONAL STATUS/SOCIAL/FAMILY SUPPORTS:: Vilma lives in [place] with her , Jack, and one of their two daughters. Their other daughter lives nearby and is a source of support. 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 She drives and is independent with her ADLs. CURRENT FUNCTIONAL STATUS:: Vilma is laying in bed when CM comes to meet with her. She easily engages in conversation. She expresses concern over missing work and is hopeful her inpatient stay will be short-term. CM will continue to follow. ADVANCE DIRECTIVES:: None on file; CM offers Advance Directives form and Vilma declines. Has patient been provided with info about the portal/API?: Yes Did the patient sign up for the portal?: Yes (Already enrolled.) CODE STATUS:: Full Code INSURANCE COVERAGE / FINANCIAL ISSUES:: [employer]. CURRENT HOME/COMMUNITY SERVICES/EQUIPMENT:: Vilma is independent at baseline and does not currently have any services or equipment. PRIMARY CARE PHYSICIAN:: KYLIE Garcia, [facility]. POTENTIAL DISCHARGE NEEDS:: Follow up appointments with PCP and surgeon. PATIENT/FAMILY EDUCATION NEEDS:: Discharge instructions, limitations, follow up plan of care including Ask Me Three and self management. ANTICIPATED BARRIERS TO DISCHARGE:: No anticipated barriers at this time. TRANSPORTATION:: Vilma will drive herself home, as her car is in the [facility] parking lot. PLAN:: Anticipate Vilma will return home with no services when medically cleared by provider. She will drive herself home via private vehicle when ready, as she drove herself to the hospital and her car remains in the [facility] parking lot. Vilma will follow up with her PCP, surgeon, and discharge plan of care as directed. CM will continue to follow.
[2020-05-09 10:31] VITALS: BP 112/69; PULSE 68; RESP 16; TEMP 36.8; O2SAT 98
[2020-05-09 10:42] VITALS: BP 112/69; PULSE 68; RESP 16; TEMP 36.8; O2SAT 98
[2020-05-09 11:18] VITALS: BP 133/86; PULSE 72; RESP 16; TEMP 36.2; O2SAT 99
--- NOTE | 2020-05-09 12:10 | HPE_ITS ---
Date of service: 05/09/20 Time of Service: 12:10 Assessment and Plan Assessment and plan (1) Diverticulitis large intestine: Status: Acute Assessment and plan: Acute diverticulitis with micro perforation Admission to med/surg for bowel rest and antibiotics. NPO Will start IV fluids Ambulation and activity as tolerated Pulmonary toilet Saw the patient this evening. She seems to be doing quite well. She is tolerating clear liquids. She is having minimal pain and cramping. No fevers. We will see how she is faring in the morning and probably discharge home on oral antibiotics. We discussed the importance follow-up. We will probably repeat a CT in 6 weeks time to make sure her infection has cleared. She has had problems with delayed/prolonged infections do not seem to be completely cleared. I will review her last colonoscopy from [facility]. We discussed the importance of high-fiber diet, regular water use, and regular exercise. I also discussed the importance of doing a food diary to find her specific triggers. She feels that she ate a lot and not some popcorn or over [place] and this was a trigger for her. Currently no signs of peritonitis/sepsis. Continue with conservative medical management at this time. We will follow Qualifiers: Diverticulitis bleeding: without bleeding Diverticulitis complication: with abscess Qualified Code(s): K57.20 - Diverticulitis of large intestine with perforation and abscess without bleeding History of Present Illness History of Present Illness Chief Complaint: Diverticulitis Consults Consult date: 05/09/20 Narrative: 50 y/o female presents to the ER for progressively worsening LLQ pain over the weekend. She had been started on Augmentin by Dr. Barron on 05/04, which initially started to improve her symptoms, however after eating chicken over the weekend her symptoms worsened. She has a history of diverticulitis and has previously been treated as an in-patient 02/2019 and 04/2019. She states that she has not had anything to eat since yesterday. She denies having any fevers or chills. CT scan today suggests acute diverticulitis with micro perforation. WBC currently normal. All other labs are unremarkable. She had a Colonoscopy at [facility] on 12/25/19 which was remarkable for diverticulosis in the sigmoid colon. Review of Systems Constitutional Constitutional: Reports as per [facility] Medical History (Updated 05/09/20 @ 07:09 by Florencio Vieira MD) Abnormal uterine bleeding (AUB) regular heavy cycles. Mirnea IUD 09/2014 - 02/2016 with no significant improvement in bleeding. Nl EMBx and pelvic u/s 2014. Abnormal uterine bleeding (AUB) 02/11/2019. S/p laparoscopic-assisted vaginal hysterectomy with bilateral salpingectomy of tubal remnants Menorrhagia Personal history of cervical dysplasia (01/24/17) 1998 EMBER II LEEP Rx Surgical History Cervical Procedure (~1998) LEEP Cholecystectomy Ligation of fallopian tube Status post laparoscopic assisted vaginal hysterectomy (LAVH) Family History Mother Hyperlipidemia Father Essential hypertension Grandmother Breast cancer paternal Social History Smoking/Tobacco Use Status: Never Smoking risk assessment performed?: Yes Drug use: Never Substance use type: marijuana Household members: spouse, children, none and other Details: Marianna. 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 Do you feel safe at home: Yes Do you feel safe in your relationship?: Yes Female Reproductive History Menstrual control method: permanent sterilization Meds Home Medications and Allergies Home Medications Medication Instructions Recorded Confirmed Type ibuprofen 200 mg tablet 200 mg PO Q6H PRN 05/20/19 05/09/20 History amoxicillin 875 mg-potassium 1 tab PO TID 14 Days #42 tab 05/04/20 05/09/20 Rx clavulanate 125 mg tablet Allergies Allergy/AdvReac Type Severity Reaction Status Date / Time chlorhexidine Allergy Severe rash Verified 05/09/20 06:55 metronidazole [From Flagyl] AdvReac Intermediate nausea Verified 05/09/20 06:55 Exam Const General: cooperative, healthy appearing and comfortable Orientation: alert and oriented x3 Resp Effort & Inspection: normal respiratory effort, no audible wheezes and no cough GI Palpation: soft, no guarding and tender in the LLQ Auscultation: normal bowel sounds Results Labs Result diagrams: 05/09/20 07:10 05/09/20 07:10 Labs: Laboratory Results - last 24 hr 0105/09/20 05/09/20 07:10 07:10 07:10 WBC 6.40 RBC 4.40 Hgb 13.7 Hct 41.2 MCV 93.6 MCH 31.1 MCHC 33.3 RDW 12.8 Plt Count 248 MPV 10.7 Immature Gran % 0.3 Neutrophils % 62.9 Lymphocytes % 27.5 Monocytes % 6.1 Eosinophils % 2.7 Basophils % 0.5 Nucleated RBC % 0 Absolute Neutrophils 4.03 Absolute Lymphocytes 1.76 Absolute Monocytes 0.39 Absolute Eosinophils 0.17 Absolute Basophils 0.03 VBG Lactate 0.7 Sodium 139 Potassium 3.7 Chloride 104 Carbon Dioxide 27.4 Anion Gap 7.6 BUN 8 Creatinine 0.82 Estimated GFR/1.73 m2 >= 60.00 Glucose 89 Calcium 8.3 L Magnesium 2.0 Total Bilirubin 0.9 Conjugated Bilirubin 0.23 H AST 16 ALT 24 Alkaline Phosphatase 47 Total Protein 7.0 Albumin 3.6 Lipase 78 Urine Color Urine Clarity Urine pH Ur Specific [place] Urine Protein Urine Ketones Urine Blood Urine Nitrite Urine Bilirubin Urine Urobilinogen Ur Leukocyte Esterase Urine Glucose 05/09/20 07:50 WBC RBC Hgb Hct MCV MCH MCHC RDW Plt Count MPV Immature Gran % Neutrophils % Lymphocytes % Monocytes % Eosinophils % Basophils % Nucleated RBC % Absolute Neutrophils Absolute Lymphocytes Absolute Monocytes Absolute Eosinophils Absolute Basophils VBG Lactate Sodium Potassium Chloride Carbon Dioxide Anion Gap BUN Creatinine Estimated GFR/1.73 m2 Glucose Calcium Magnesium Total Bilirubin Conjugated Bilirubin AST ALT Alkaline Phosphatase Total Protein Albumin Lipase Urine Color Yellow Urine Clarity Clear Urine pH 5.5 Ur Specific [place] 1.020 Urine Protein Negative Urine Ketones Negative Urine Blood Negative Urine Nitrite Negative Urine Bilirubin Negative Urine Urobilinogen 0.2 Ur Leukocyte Esterase Negative Urine Glucose Negative Last Vital Signs Temp 36.2 C L 05/09/20 11:18 Pulse 72 05/09/20 11:18 Resp 16 05/09/20 11:18 BP 133/86 05/09/20 11:18 Pulse Ox 99 05/09/20 11:18 COVID-19 Screening Have you, or household traveled for leisure in last 14 days?: No Had IN PERSON contact w/suspected or confirmed C-19 person: No
[2020-05-09] MEDS: FAMOTIDINE 20 MG/50 ML BAG 200 MG IVPB (12:54)
[2020-05-09] MEDS: POTASSIUM CHLORIDE/D5-0.45NACL 1,000 ML 125 MEQ IV (12:55)
[2020-05-09] MEDS: Enoxaparin 40 MG/0.4 ML SYR SC (12:56)
[2020-05-09 15:53] VITALS: BP 122/80; PULSE 68; RESP 16; TEMP 36.5; O2SAT 98
[2020-05-09] MEDS: Normal Saline Flush 10 ML SYR IVP (19:26)
[2020-05-09] MEDS: Ketorolac 30 MG/ML VIAL IVP (19:27)
[2020-05-09 21:14] LABS: COVID-19 RT-PCR UVMMC Result Negative (Negative)
[2020-05-10] MEDS: Normal Saline Flush 10 ML SYR IVP ×2 (01:24→06:28)
[2020-05-10] MEDS: Ketorolac 30 MG/ML VIAL IVP ×3 (01:25→12:41)
[2020-05-10] MEDS: PIPERACILLIN/TAZO 3.375 GM in Normal Saline 50 ML IVPB ×2 (01:26→09:46)
[2020-05-10 01:39] VITALS: BP 101/66; PULSE 71; RESP 16; TEMP 36.4; O2SAT 96
[2020-05-10] MEDS: POTASSIUM CHLORIDE/D5-0.45NACL 1,000 ML 125 MEQ IV (06:28)
[2020-05-10 06:29] LABS: Abs Immature Grans 0.01 10^3/uL (0.0-0.06); Absolute Basophil Count 0.04 10^3/uL (0.0-0.2); Absolute Eosinophil Count 0.19 10^3/uL (0.0-0.7); Absolute Lymphocyte Count 1.75 10^3/uL (1.2-3.4); Absolute Monocyte Count 0.38 10^3/uL (0.1-0.8); Absolute Neutrophil Count 3.16 10^3/uL (1.2-6.7); Basophils % 0.7; Eosinophils % 3.4; HCT 38.6 % (36.0-46.0); HGB 12.6 g/dL (11.2-15.7); Immature Grans % 0.2; Lymphocytes % 31.6; MCH 30.6 pg (27.0-33.0); MCHC 32.6 % (32.0-36.0); MCV 93.7 fL (80-95); MPV 10.6 fL (8.0-11.0); Monocytes % 6.9; Neutrophils % 57.2; Nucleated RBC 0 %; Platelet Count 223 10^3/uL (130-400); RBC 4.12 10^6/uL (3.93-5.22); RDW 12.6 % (11.7-14.6); RDW-SD 43.8 fL; WBC 5.53 10^3/uL (4.4-10.8)
[2020-05-10 07:01] LABS: C-Reactive Protein 0.08 mg/dL (0.0-0.3)
[2020-05-10 07:03] LABS: ALT 19 U/L (14-59); AST 12 U/L (15-37); Alkaline Phosphatase 39 U/L (46-116); Anion Gap 4.2 mmol/L (3-11); BUN 7 mg/dL (7-18); Bilirubin, Total 0.8 mg/dL (0.2-1.0); CO2 28.8 mmol/L (21.0-32.0); CREATININE 0.89 mg/dL (0.55-1.02); Chloride 108 mmol/L (98-107); Glucose 91 mg/dL (74-106); Potassium 3.7 mmol/L (3.5-5.1); Sodium 141 mmol/L (136-145); Total Protein 5.8 g/dL (6.4-8.2)
[2020-05-10 07:13] VITALS: BP 118/77; PULSE 74; RESP 16; TEMP 36.6; O2SAT 96
--- NOTE | 2020-05-10 07:30 | PGE_ITS ---
Documented by User: CYNTHIA Pinto 05/10/20 07:33 Date of Service Date of service: 05/10/20 Time of Service: 07:30 Assessment and Plan Assessment and plan (1) Diverticulitis large intestine: Status: Acute Assessment and plan: Acute diverticulitis with micro-perforation Continue IV antibiotics for today, then transition to PO antibiotics. Clear liquid diet, should be able to progress diet slowly Activity out of bed, encouraged ambulation within the room. Deep breathing, pulmonary toilet Labs Pending Possible d/c home later today, pending exam and lab work. Qualifiers: Diverticulitis bleeding: without bleeding Diverticulitis complication: with abscess Qualified Code(s): K57.20 - Diverticulitis of large intestine with perforation and abscess without bleeding Subjective Subjective Interval history since last seen: Patient reports that she is feeling well this morning. Tolerating clear liquid diet well. Denies any nausea or vomiting. Exam Const General: cooperative, healthy appearing and comfortable Orientation: alert and oriented x3 Resp Effort & Inspection: normal respiratory effort, no audible wheezes and no cough Objective Last Vital Signs Temp 36.6 C 05/10/20 07:13 Pulse 74 05/10/20 07:13 Resp 16 05/10/20 07:13 BP 118/77 05/10/20 07:13 Pulse Ox 96 05/10/20 07:13 Laboratory Results - last 24 hr 05/09/20 05/09/20 05/09/20 07:10 07:50 10:20 WBC RBC Hgb Hct MCV MCH MCHC RDW Plt Count MPV Immature Gran % Neutrophils % Lymphocytes % Monocytes % Eosinophils % Basophils % Nucleated RBC % Absolute Neutrophils Absolute Lymphocytes Absolute Monocytes Absolute Eosinophils Absolute Basophils Sodium 139 Potassium 3.7 Chloride 104 Carbon Dioxide 27.4 Anion Gap 7.6 BUN 8 Creatinine 0.82 Estimated GFR/1.73 m2 >= 60.00 Glucose 89 Calcium 8.3 L Magnesium 2.0 Total Bilirubin 0.9 Conjugated Bilirubin 0.23 H AST 16 ALT 24 Alkaline Phosphatase 47 C-Reactive Protein Total Protein 7.0 Albumin 3.6 Lipase 78 Urine Color Yellow Urine Clarity Clear Urine pH 5.5 Ur Specific [place] 1.020 Urine Protein Negative Urine Ketones Negative Urine Blood Negative Urine Nitrite Negative Urine Bilirubin Negative Urine Urobilinogen 0.2 Ur Leukocyte Esterase Negative Urine Glucose Negative SARS-CoV-2 (PCR) Negative Nasopharyn COVID-19 PCR Not Applicable Ref Test Perform Site [facility] 05/10/20 05/10/20 05/10/20 06:05 06:05 06:05 WBC 5.53 RBC 4.12 Hgb 12.6 Hct 38.6 MCV 93.7 MCH 30.6 MCHC 32.6 RDW 12.6 Plt Count 223 MPV 10.6 Immature Gran % 0.2 Neutrophils % 57.2 Lymphocytes % 31.6 Monocytes % 6.9 Eosinophils % 3.4 Basophils % 0.7 Nucleated RBC % 0 Absolute Neutrophils 3.16 Absolute Lymphocytes 1.75 Absolute Monocytes 0.38 Absolute Eosinophils 0.19 Absolute Basophils 0.04 Sodium 141 Potassium 3.7 Chloride 108 H Carbon Dioxide 28.8 Anion Gap 4.2 BUN 7 Creatinine 0.89 Estimated GFR/1.73 m2 >= 60.00 Glucose 91 Calcium 8.0 L Magnesium Total Bilirubin 0.8 Conjugated Bilirubin AST 12 L ALT 19 Alkaline Phosphatase 39 L C-Reactive Protein 0.08 Total Protein 5.8 L Albumin 3.0 L Lipase Urine Color Urine Clarity Urine pH Ur Specific [place] Urine Protein Urine Ketones Urine Blood Urine Nitrite Urine Bilirubin Urine Urobilinogen Ur Leukocyte Esterase Urine Glucose SARS-CoV-2 (PCR) Nasopharyn COVID-19 PCR Ref Test Perform Site Documented by User: Ernestine Murray DO 05/11/20 19:36 Assessment and Plan Assessment and plan (1) Diverticulitis large intestine: Status: Acute Assessment and plan: pt seen adn examined. agree w/ above low fiber diet abx f/u in 1-2 wks Qualifiers: Diverticulitis bleeding: without bleeding Diverticulitis complication: with abscess Qualified Code(s): K57.20 - Diverticulitis of large intestine with perforation and abscess without bleeding
[2020-05-10] MEDS: Enoxaparin 40 MG/0.4 ML SYR SC (12:41)
[2020-05-10] MEDS: FAMOTIDINE 20 MG/50 ML BAG 200 MG IVPB (14:30)
--- NOTE | 2020-05-10 15:17 | DSE_ITS ---
Date of service: 05/10/20 Time of Service: 15:18 DS: Diagnosis Discharge Diagnosis (1) Diverticulitis large intestine: Status: Acute Discharge Plan Disposition Patient Disposition: HOME Condition: Stable Discharge Details Reason For Visit: DIVERTICULITIS Admit Date/Time: 05/09/20 08:45 Admit Provider: Ernestine Murray Attending Provider: Ernestine Murray Primary Care Provider: Anel Cunningham Home Meds and New Rx's Prescriptions: New amoxicillin-pot clavulanate [Augmentin] 875-125 mg tablet 1 tab PO Q12H 7 Days Qty: 14 RF: 0 ibuprofen 600 mg tablet 600 mg PO Q6H PRN (Reason: pain (scale score 4-6)) Qty: 90 RF: 4 Continued ibuprofen 200 mg tablet 200 mg PO Q6H PRNRF: 0 Discontinued amoxicillin-pot clavulanate 875-125 mg tablet 1 tab PO TID 14 Days Qty: 42 RF: 0 Discharge Instructions Additional Instructions: -Follow-up with Dr. Murray in 1 week. -no straining to move bowels -It is ok to shower. -Keep wound clean and dry. Wash incision with soap and water daily. Pat dry, don't rub. -You may find that your appetite is smaller. Eat 3-6 small meals throughout the day. It is important to drink lots of water after surgery, 6-10 glasses a day. -If you were given an incentive spirometry (breathing digital director?), continue to do this 10x/hour while awake. -We do want you up walking, at least 5-6 times per day. This is very important to prevent pneumonia and blood clots. You can climb stairs, take them slowly. -You may find that you are very tired- this is normal -no lifting over 10#'s or strenuous activity for at least 2 wks -kefir daily -if increase pain, n/v, fever >101, more than 4 stools per day- go to the ER. What is a gastrointestinal soft diet? This diet is soft in texture, low in fiber, and easy to digest. The goal is to decrease) in the bowel that may cause and discomfort. This diet is often used after abdominal surgery or as a transitional diet after flares. Meats & Meat Substitutes ? Foods Allowed: Chicken, turkey, fish, ground meats, eggs, creamy nut butters, tofu, skinless hot dogs. ? Foods to Avoid : Tough, fibrous meats with gristle, meat with casings (hot dogs, sausage, kielbasa), lunch meats with whole spices, shellfish, beans, chunky peanut butter, nuts Fruits and Juices ? Foods Allowed: Fruit juices without pulp, banana, avocado, applesauce, canned peaches and pears, cooked fruit without the skin/seeds ? Foods to Avoid: Juices with pulp, fresh fruit (except banana and avocado), dried fruits, canned fruit cocktail and pineapple, coconut, frozen/thawed berries (you can have the blueberries if you grind them up in the food processes and strain them). Vegetables ? Foods Allowed: Well-cooked or canned vegetables, potatoes without skin, tomato sauces, vegetable juice ? Foods to Avoid: Raw vegetables, all corn, all mushrooms, stewed tomatoes, potato skins, stir-garcias vegetables, sauerkraut, pickles, olives, all dried beans, peas, and legumes Cereals and Grains ? ? Foods to Avoid: Cereals with nuts, berries, dried fruits, whole grain cereals, bran cereals, granola, brown or wild rice, whole grain pasta Breads and Crackers ? No rice/pasta/breads/crackers. ? Foods to Avoid: Whole grain breads- including white whole grain; bread/ rolls with raisins, nuts or seeds, multi-grain crackers Dairy ? Foods Allowed: Milk, cheese, yogurt, milkshakes, pudding, ice cream, cottage cheese, sherbet ; lactose free or low lactose versions if lactose intolerant ? Foods to Avoid: Dairy product mixed with fresh fruit (except banana), berries, nuts or seeds Desserts ? Foods Allowed: pudding, custard, ice cream, sherbet, gelatin, fruit whips ? Foods to Avoid: Any dessert that contains nuts, dried fruits, coconut, or fruits with seeds Herbs and Spices ? Foods Allowed: All ground spices or herbs, salt ? Foods to Avoid: Whole spices such as peppercorns, whole cloves, anise seeds, celery seeds, paty, brittney seeds, and fresh herbs Snacks/Other Foods ? Foods Allowed: Sugar, honey, jelly, mayonnaise, mustard, soy sauce, oil, butter, margarine, marshmallows, cookies without dried fruits or nuts, snack chips and pretzels using refined flours ? Foods to Avoid: Carbonated beverages, jams or jellies with seeds, popcorn After several weeks, slowly start to reintroduce the ?Foods to Avoid? back into your diet unless your doctor has told you otherwise. Soft diet for the next 10 days. Try a small portion of one of these foods each day. If it does not bother you within 24 hours, it can be added to your diet. Continue to add new foods in this way. Some people may continue to have food sensitivities and may need to continue to avoid certain foods. If you cannot tolerate a food, avoid that food for a few weeks before you try it again. Guidelines when eating 1. Avoid any food that you cannot tolerate or that causes gas, bloating, or stomach pain. 2. Make time for your meals. Do not eat while you are in a hurry. Cut your food into small pieces. Chew each bite to a mashed potato consistency. Do not eat when you cannot concentrate on chewing well. 3. Drink at least 6-8 cups of fluid per day Fluids include: water, coffee, tea, juice, milk, popsicles, soups, gelatin, pudding, ice cream, sherbet, and yogurt. In addition, choose caffeine-free beverages more often, especially if you are having diarrhea. 4. A daily multivitamin may be recommended if diet is limited in amounts or variety of foods. Do not take any herbal supplements without first checking with your doctor. Activity:: no lifting over 10#'s or Equipment/Supplies:: No Equipment Needed Diet:: see above DS: Summary Status at Discharge Functional status at discharge: independent ambulation Overall status at discharge: patient is progressing back to baseline Mental Status: mental status grossly normal Speech and Movement: speech and movement normal Mood: congruent mood Affect: normal affect Exam Psych Mental Status: mental status grossly normal Speech and Movement: speech and movement normal Mood: congruent mood Affect: normal affect DS: Data Vitals/I&O Vitals and I&O: Vital Signs Temperature 36.6 C 05/10/20 07:13 Temperature Source Tympanic 05/10/20 07:13 Pulse 74 05/10/20 07:13 Pulse Rhythm Regular 05/10/20 09:00 Respiratory Rate 16 05/10/20 07:13 Respiratory Effort 05/10/20 09:00 Respiratory Depth Normal 05/10/20 09:00 Respiratory Pattern Normal 05/10/20 09:00 Blood Pressure 118/77 05/10/20 07:13 Blood Pressure Position Sitting 05/09/20 06:50 Pulse Oximetry 96 05/10/20 07:13 Oxygen Delivery Method Room Air 05/10/20 07:13 Oxygen Flow Rate 0 05/10/20 07:13 Pain Level 0 05/10/20 07:28 Comment 05/09/20 23:19 Intake & Output 05/09/20 05/10/20 05/10/20 23:59 11:59 23:59 Intake Total 1870 / 3070 530 / 530 Output Total 1000 / 1000 Balance 1870 / 3070 -470 / -470 Intake: IV 1150 / 2350 50 / 50 Oral 720 / 720 480 / 480 Output: Urine 1000 / 1000 Other: Urine Color Yellow Urine Appearance Clear Clear Urine Odor None Voiding Methods Toilet Data Completed and Pending Labs on day of discharge: Labs from last 24 hours 05/10/20 05/10/20 05/10/20 06:05 06:05 06:05 WBC 5.53 RBC 4.12 Hgb 12.6 Hct 38.6 MCV 93.7 MCH 30.6 MCHC 32.6 RDW 12.6 Plt Count 223 MPV 10.6 Immature Gran % 0.2 Neutrophils % 57.2 Lymphocytes % 31.6 Monocytes % 6.9 Eosinophils % 3.4 Basophils % 0.7 Nucleated RBC % 0 Absolute Neutrophils 3.16 Absolute Lymphocytes 1.75 Absolute Monocytes 0.38 Absolute Eosinophils 0.19 Absolute Basophils 0.04 Sodium 141 Potassium 3.7 Chloride 108 H Carbon Dioxide 28.8 Anion Gap 4.2 BUN 7 Creatinine 0.89 Estimated GFR/1.73 m2 >= 60.00 Glucose 91 Calcium 8.0 L Total Bilirubin 0.8 AST 12 L ALT 19 Alkaline Phosphatase 39 L C-Reactive Protein 0.08 Total Protein 5.8 L Albumin 3.0 L SARS-CoV-2 (PCR) Nasopharyn COVID-19 PCR Ref Test Perform Site 05/09/20 10:20 WBC RBC Hgb Hct MCV MCH MCHC RDW Plt Count MPV Immature Gran % Neutrophils % Lymphocytes % Monocytes % Eosinophils % Basophils % Nucleated RBC % Absolute Neutrophils Absolute Lymphocytes Absolute Monocytes Absolute Eosinophils Absolute Basophils Sodium Potassium Chloride Carbon Dioxide Anion Gap BUN Creatinine Estimated GFR/1.73 m2 Glucose Calcium Total Bilirubin AST ALT Alkaline Phosphatase C-Reactive Protein Total Protein Albumin SARS-CoV-2 (PCR) Negative Nasopharyn COVID-19 PCR Not Applicable Ref Test Perform Site [facility] PFSH Medical History Abnormal uterine bleeding (AUB) regular heavy cycles. Mirnea IUD 09/2014 - 02/2016 with no significant improvement in bleeding. Nl EMBx and pelvic u/s 2014. Abnormal uterine bleeding (AUB) 02/11/2019. S/p laparoscopic-assisted vaginal hysterectomy with bilateral salpingectomy of tubal remnants Menorrhagia Personal history of cervical dysplasia (01/24/17) 1999 EMBER II LEEP Rx Surgical History Cervical Procedure (~1998) LEEP Cholecystectomy Ligation of fallopian tube Status post laparoscopic assisted vaginal hysterectomy (LAVH) Family History Mother Hyperlipidemia Father Essential hypertension Grandmother Breast cancer paternal Social History Smoking/Tobacco Use Status: Never Smoking risk assessment performed?: Yes Drug use: Never Substance use type: marijuana Household members: spouse, children, none and other Details: Alexandru-Ad. 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 Do you feel safe at home: Yes Do you feel safe in your relationship?: Yes Female Reproductive History Menstrual control method: permanent sterilization
[2020-05-10 15:33] VITALS: BP 117/81; PULSE 73; RESP 18; TEMP 36.9; O2SAT 97
--- NOTE | 2020-05-10 20:00 | PDOC.CMDIS ---
- If Service Date Differs Date of service: 05/10/20 Time of Service: 20:00 LACE Index Scoring Tool - Questions: Length of Stay (in days): 2 Acuity (Admit via E.D.?): Yes E.D. Visits: 1 - Answers: Total Score: 6 Risk of Readmission: Low Risk Care Management Discharge Reason for Hospitalization: Diverticulitis. Discharge Plan: Vilma will return home today with no additional services. She drove herself home via private vehicle. She will follow up with her Surgeon and her discharge plan of care. Patient/Family Education Needs: Review discharge instructions regarding diet, medications, and activity levels; discussion of self care needs.
== END 2020-05-10 16:32 | disposition home or self-care (01) ==
LOC: ER 07:45 → MS 10:47
PROVIDERS: Emergency Medicine; Admitting Provider Surgery; Emergency Provider Student in an Organized Health Care Education/Training Program; PCP Nurse Practitioner Family; Visit Provider Surgery
DX: K57.20 Diverticulitis of large intestine with perforation and abscess without bleeding (principal)
CPT/HCPCS: 36415; 80053; 83690; 96361; 96365; 96375; 99222; 99232; 99238; 99285; J1650; U0003; 74177; 81003; 82248; 83605; 83735; 85025; 86140; 99284; G0378; J0744; J1885; J2543; J3490

== ENCOUNTER 2020-07-27 22:35 | Outpatient (REF) | payer OTHER, SELFPAY ==
[2020-07-29 17:31] LABS: COVID-19 RT-PCR UVMMC Result Negative (Negative)
== END 2020-07-27 22:36 | disposition home or self-care (01) ==
LOC: NCHCN 22:35
PROVIDERS: PCP Nurse Practitioner Family; Visit Provider Nurse Practitioner Family
DX: Z20.828 Contact with and (suspected) exposure to other viral communicable diseases (principal)
CPT/HCPCS: U0003

== ENCOUNTER 2020-09-12 13:18 | Emergency (ER) | payer OTHER, SELFPAY ==
[2020-09-12 13:24] VITALS: BP 129/88; PULSE 74; RESP 18; TEMP 36.6; O2SAT 97
[2020-09-12 13:47] LABS: Bilirubin Negative (Negative); Blood Negative (Negative); Clarity Clear (Clear); Glucose Negative (Negative); Ketones Trace mg/dL (Negative); Leukocyte Esterase Negative (Negative); Nitrite Negative (Negative); Specific Gravity >= 1.030 (1.005-1.025); Urobilinogen 0.2 EU/dL (Up TO 0.2)
--- NOTE | 2020-09-12 14:00 | DI.CT_ITS ---
Exam(s) CT ABDOMEN PELVIS W EXAM: CT ABDOMEN PELVIS W CLINICAL HISTORY: rlq pain and flank pain. TECHNIQUE: Imaging Protocol: Axial computed tomography images with coronal and sagittal reformatted images were created and reviewed CONTRAST MATERIAL: Intravenous: Omnipaque 100cc Oral: None COMPARISON: CT CT ABDOMEN PELVIS W from 05/09/2020 FINDINGS: VISUALIZED LUNG BASES: No nodules nor pleural effusions evident. ABDOMEN: There is no ascites. LIVER: There are no focal hepatic lesions evident . GALLBLADDER/BILIARY: Gallbladder surgically absent. CBD is not dilated. PANCREAS: No evidence of pancreatic mass nor dilatation of the pancreatic duct. SPLEEN: Spleen is not enlarged. No obvious intrasplenic lesions. Splenic and portal veins are paten t. ADRENALS: There are no significant adrenal masses. KIDNEYS:No cysts evident. No solid renal masses. No calculi nor hydronephrosis.. ABDOMINAL AORTA: Abdominal aorta is not enlarged. LYMPH NODES:There is no retroperitineal nor paraaortic adenopathy. ABDOMINAL WALL: Small right of center supraumbilical abdominal hernia is unchanged. Contains fat but no bowel loops. GI: There is no evidence of bowel obstruction, free air, nor abscess. PELVIS: GI: No evidence of appendicitis.There are sigmoid diverticuli noted. No obvious evidence of acute di verticulitis.. No free fluid. LYMPH NODES: There is no intrapelvic nor inguinal adenopathy. REPRODUCTIVE: The uterus is again noted to be surgically absent. There are no abnormal adnexal nancy s. URINARY BLADDER: No calculi nor obvious masses evident OSSEOUS: No significant osseous lesions. There is calcification within the central disc spaces at both T11-T12 and T12-L1 levels, finding whic h was also evident on the prior CT scan of April 2020. IMPRESSION: 1. Sigmoid diverticulosis. No obvious acute diverticulitis. No appendicitis. 2. Uterus is again noted be surgically absent. There are no abnormal adnexal masses nor free fluid i n the pelvis. 3. There is a small right of center anterior abdominal wall fat containing hernia. This is slightly below the level of the umbilicus on the right side. This was also evident in April 2020. This con tains fat but no bowel loops. There is no bowel obstruction. No free air. RADIATION DOSE DELIVERED: 1,292.16mGy.cm Total DLP DATA REPOSITORY: All CT scans at this facility are submitted to the National Radiology Data Registry (NRDR) Dose Index Registry (DIR) with the [employer] (ACR). RADIATION OPTIMIZATION: All CT scans at this facility use at least one of these dose optimization te chniques: automated exposure control; mA and/or kV adjustment per patient size (includes targeted exa ms where dose is matched to clinical indication); or iterative reconstruction.
[2020-09-12 14:05] LABS: Bacteria Negative HPF (Negative); C & S Indicated? No; Crystals Negative HPF (Negative); Epithelial Cells Few HPF (Negative); Mucus Moderate (Negative); RBC 0-2 HPF (0-2); WBC 0-2 HPF (0-5)
[2020-09-12 14:07] LABS: Casts Negative LPF (Negative)
--- NOTE | 2020-09-12 14:10 | ED.GENADUL_ITS ---
Discharge Plan Disposition Patient Disposition: HOME Condition: Good Discharge Details Clinical Impression: Abdominal pain, left lower quadrant, Back pain Primary Care Provider: Anel Cunningham ED Provider: Sravani Hudson Home Meds and New Rx's Prescriptions: New prednisone 20 mg tablet 40 mg PO DAILY Qty: 10 RF: 0 cyclobenzaprine 10 mg tablet 10 mg PO TID PRNQty: 10 RF: 0 No Action ibuprofen 200 mg tablet 200 mg PO Q6H PRNRF: 0 estradiol 1 mg tablet 1 mg PO DAILY RF: 0 Discharge Instructions Instructions: Abdominal Pain (ED), Back Pain (ED) Additional Instructions: Please follow-up with the surgeon regarding your small hernia Take the prednisone as prescribed and Flexeril as needed for musculoskeletal pain, do not take this medication hours before driving You may take Tylenol for breakthrough pain Please return for reevaluation with persistent or worsening pain greater than 24 to 48 hours and follow-up with your primary care physician additionally Discharge Data Discharge Date/Time-TO BE ENTERED AT DEPARTURE: 09/12/20 17:15 Medical Decision Making Patient is quite tender in the right lower quadrant, no tenderness over area of reported hernia with history of similar in the past, diagnostic labs reassuring, no rebound or guarding, symptomatic improvement after reevaluation, surgical referral for hernia, potentially referred pain from back, resting comfortably on time of reevaluation, no reproducible tenderness at time of reevaluation, no palpable hernia return precautions discussed and patient expressed understanding No clinical evidence of peritonitis Recheck in 24 to [address] Haddad, no evidence of incarcerated hernia, no obvious acute finding to explain patient's right lower quadrant discomfort, return precautions discussed and patient expressed understanding Differential Diagnosis Differential Diagnosis: Appendicitis, diverticulitis, urinary tract infection, incarcerated hernia Medical Records Medical records reviewed: Yes I reviewed the patient's medical records. Lab Data Lab results reviewed: Yes I reviewed the patient's lab results. HPI General Date/Time Provider Initiated Documentation: 09/12/20 13:37 . Information obtained by: patient . HPI Narrative: This 50-year-old female presents with report of back pain with referral to right lower quadrant. Patient is otherwise healthy. She denies any history of pain in the right lower quadrant. She does have her appendix. She states that she has had significant back pain is because she does a lot of lifting. She states that initially she thought it was referred pain but it became worse today and so she presented for evaluation. She denies any risk of sexually transmitted disease. She denies any left lower quadrant pain. She denies any chest pain or shortness of breath. She states her pain is worsened with movement. She denies any fever or chills,. She denies nausea or vomiting. Related Data Home Medications Medication Instructions Recorded Confirmed ibuprofen 200 mg tablet 200 mg PO Q6H PRN 05/20/19 09/12/20 estradiol 1 mg tablet 1 mg PO DAILY 05/20/20 09/12/20 cyclobenzaprine 10 mg PO TID PRN #10 tab 09/12/20 prednisone 40 mg PO DAILY #10 tab 09/12/20 Previous Rx's Medication Instructions Recorded cyclobenzaprine 10 mg PO TID PRN #10 tab 09/12/20 prednisone 40 mg PO DAILY #10 tab 09/12/20 Allergies Allergy/AdvReac Type Severity Reaction Status Date / Time chlorhexidine Allergy Severe rash Verified 05/20/20 09:01 metronidazole [From Flagyl] AdvReac Intermediate nausea Verified 05/20/20 09:01 General Stated Complaint: Abd Prob ALEXSANDER: 3 Review of Systems Narrative: Review of systems obtained x7 aside from where indicated in HPI [facility] Medical History (Updated 09/12/20 @ 16:29 by CYNTHIA Woodard) Abnormal uterine bleeding (AUB) regular heavy cycles. Mirnea IUD 09/2014 - 02/2016 with no significant improvement in bleeding. Nl EMBx and pelvic u/s 2014. Abnormal uterine bleeding (AUB) 02/11/2019. S/p laparoscopic-assisted vaginal hysterectomy with bilateral salpingectomy of tubal remnants Menorrhagia Personal history of cervical dysplasia (01/24/17) 1998 EMBER II LEEP Rx Surgical History Cervical Procedure (~1998) LEEP Cholecystectomy Ligation of fallopian tube Status post laparoscopic assisted vaginal hysterectomy (LAVH) Family History Mother Hyperlipidemia Father Essential hypertension Grandmother Breast cancer paternal Social History Smoking/Tobacco Use Status: Never Smoking risk assessment performed?: Yes Drug use: Never Substance use type: marijuana Household members: spouse, children, none and other Details: Marianna. 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 Do you feel safe at home: Yes Do you feel safe in your relationship?: Yes Female Reproductive History Menstrual control method: permanent sterilization Exam Const General: cooperative and no acute distress HENMT Other: Moist mucous membranes Chest Chest: normal inspection of the chest Resp Effort & Inspection: normal respiratory effort Cardio Rate: regular rate Rhythm: regular rhythm GI Other: Tenderness with palpation right lower quadrant, no palpable hernia, specifically no suprapubic or periumbilical tenderness Skin General skin exam: no rashes or lesions noted Neuro General: patient alert and patient oriented x3 Course Vital Signs Vital signs: Vital Signs Temperature 36.6 C 09/12/20 13:24 Pulse 74 09/12/20 13:24 Respiratory Rate 18 09/12/20 13:24 Blood Pressure 129/88 09/12/20 13:24 Pulse Oximetry 97 09/12/20 13:24 Temperature 36.6 C 09/12/20 13:24 Temperature Source Temporal Artery Scan 09/12/20 13:24 Pulse 74 09/12/20 13:24 Respiratory Rate 18 09/12/20 13:24 Respiratory Effort 09/12/20 14:03 Blood Pressure 129/88 09/12/20 13:24 Blood Pressure Position Sitting 09/12/20 13:24 Pulse Oximetry 97 09/12/20 13:24 Oxygen Delivery Method Room Air 09/12/20 13:24 Oxygen Flow Rate 0 09/12/20 13:24 Pain Level 9 09/12/20 13:24 Lab/Test Results Lab/Test Results: Laboratory Tests Range/Units 09/12/20 13:35 Urine Color (Yellow) Yellow Urine Clarity (Clear) Clear Urine pH (5-8) 6.0 Ur Specific [place] (1.005-1.025) >= 1.030 H Urine Protein (Negative) mg/dL 30 H Urine Ketones (Negative) mg/dL Trace H Urine Blood (Negative) Negative Urine Nitrite (Negative) Negative Urine Bilirubin (Negative) Negative Urine Urobilinogen (Up TO 0.2) EU/dL 0.2 Ur Leukocyte Esterase (Negative) Negative Urine RBC (0-2) HPF 0-2 Urine WBC (0-5) HPF 0-2 Ur Epithelial Cells (Negative) HPF Few Urine Crystals (Negative) HPF Negative Urine Bacteria (Negative) HPF Negative Urine Casts (Negative) LPF Negative Urine Mucus (Negative) Moderate Ur Culture Indicated? No Urine Glucose (Negative) mg/dL Negative
[2020-09-12 14:11] LABS: Abs Immature Grans 0.01 10^3/uL (0.0-0.06); Absolute Basophil Count 0.06 10^3/uL (0.0-0.2); Absolute Monocyte Count 0.47 10^3/uL (0.1-0.8); Absolute Neutrophil Count 4.19 10^3/uL (1.2-6.7); Basophils % 0.8; Eosinophils % 2.7; HCT 39.8 % (36.0-46.0); HGB 13.3 g/dL (11.2-15.7); Immature Grans % 0.1; Lymphocytes % 32.7; MCH 30.9 pg (27.0-33.0); MCHC 33.4 % (32.0-36.0); MCV 92.3 fL (80-95); Monocytes % 6.4; Neutrophils % 57.3; Nucleated RBC 0 %; RBC 4.31 10^6/uL (3.93-5.22); RDW 12.9 % (11.7-14.6); RDW-SD 44.1 fL; WBC 7.33 10^3/uL (4.4-10.8)
[2020-09-12] MEDS: ACETAMINOPHEN 1,000 MG/100 ML BTL 400 MG IVPB (14:17)
[2020-09-12 14:21] LABS: C-Reactive Protein 0.11 mg/dL (0.0-0.3); Diff Comment PLT Morph Reviewed; RBC Morphology Normal
[2020-09-12 14:30] LABS: ALT 21 U/L (14-59); AST 25 U/L (15-37); Albumin 3.9 g/dL (3.4-5.0); Alkaline Phosphatase 44 U/L (46-116); Anion Gap 9.2 mmol/L (3-11); BUN 12 mg/dL (7-18); Bilirubin, Total 0.7 mg/dL (0.2-1.0); CO2 28.8 mmol/L (21.0-32.0); CREATININE 0.8 mg/dL (0.55-1.02); Calcium 8.9 mg/dL (8.5-10.1); Chloride 104 mmol/L (98-107); Glucose 89 mg/dL (74-106); Lipase 62 U/L (73-393); Potassium 4.3 mmol/L (3.5-5.1); Sodium 142 mmol/L (136-145); Total Protein 7.4 g/dL (6.4-8.2)
[2020-09-12] MEDS: Omnipaque 350 MG/ML 100 ML BTL IV (15:00)
[2020-09-12] MEDS: Normal Saline - Diluent 50 ML VIAL IV (15:01)
[2020-09-12] MEDS: Normal Saline Flush 10 ML SYR IVP (15:02)
[2020-09-12] MEDS: Ketorolac 30 MG/ML VIAL 15 MG IVP (15:38)
[2020-09-12 16:18] VITALS: BP 117/77; PULSE 70; RESP 14; TEMP 36.1; O2SAT 99
== END 2020-09-12 17:15 | disposition home or self-care (01) ==
PROVIDERS: Emergency Provider Physician Assistant; PCP Nurse Practitioner Family
DX: R10.31 Right lower quadrant pain (principal); M54.9 Dorsalgia, unspecified
CPT/HCPCS: 80053; 83690; 96365; 96375; 99285; 74177; 81003; 81015; 85025; 86140; 99283; J0131; J1885; J3490

== ENCOUNTER 2020-12-29 12:57 | Outpatient (CLI) | payer OTHER, SELFPAY ==
[2020-12-29 13:04] LABS: Abs Immature Grans 0.02 10^3/uL (0.0-0.06); Absolute Basophil Count 0.06 10^3/uL (0.0-0.2); Absolute Eosinophil Count 0.13 10^3/uL (0.0-0.7); Absolute Lymphocyte Count 2.13 10^3/uL (1.2-3.4); Absolute Neutrophil Count 4.38 10^3/uL (1.2-6.7); Basophils % 0.8; Eosinophils % 1.8; HCT 43.2 % (36.0-46.0); HGB 14.2 g/dL (11.2-15.7); Immature Grans % 0.3; Lymphocytes % 29.5; MCH 30.7 pg (27.0-33.0); MCHC 32.9 % (32.0-36.0); MCV 93.5 fL (80-95); MPV 10.6 fL (8.0-11.0); Monocytes % 6.9; Neutrophils % 60.7; Nucleated RBC 0 %; Platelet Count 227 10^3/uL (130-400); RBC 4.62 10^6/uL (3.93-5.22); RDW 12.4 % (11.7-14.6); RDW-SD 42.8 fL; WBC 7.22 10^3/uL (4.4-10.8)
[2020-12-29 13:16] LABS: ALT 21 U/L (14-59); AST 17 U/L (15-37); Alkaline Phosphatase 45 U/L (46-116); Anion Gap 5.6 mmol/L (3-11); BUN 15 mg/dL (7-18); Bilirubin, Total 0.6 mg/dL (0.2-1.0); C-Reactive Protein 0.07 mg/dL (0.0-0.3); CO2 30.4 mmol/L (21.0-32.0); CREATININE 0.8 mg/dL (0.55-1.02); Calcium 9.6 mg/dL (8.5-10.1); Chloride 103 mmol/L (98-107); Glucose 103 mg/dL (74-106); Potassium 4.1 mmol/L (3.5-5.1); Sodium 139 mmol/L (136-145); Total Protein 7.4 g/dL (6.4-8.2)
== END 2020-12-29 12:58 | disposition home or self-care (01) ==
LOC: LBO 12:57
PROVIDERS: PCP Nurse Practitioner Family; Visit Provider Surgery
DX: R10.32 Left lower quadrant pain (principal)
CPT/HCPCS: 36415; 80053; 85025; 86140

== ENCOUNTER 2021-12-04 18:16 | Outpatient (REF) | payer OTHER, SELFPAY ==
[2021-12-04 18:54] LABS: Abs Immature Grans 0.03 10^3/uL (0.0-0.06); Absolute Basophil Count 0.05 10^3/uL (0.0-0.2); Absolute Eosinophil Count 0.24 10^3/uL (0.0-0.7); Absolute Lymphocyte Count 2.06 10^3/uL (1.2-3.4); Absolute Monocyte Count 0.72 10^3/uL (0.1-0.8); Absolute Neutrophil Count 6.46 10^3/uL (1.2-6.7); Basophils % 0.5; Eosinophils % 2.5; HCT 40.2 % (36.0-46.0); HGB 13.4 g/dL (11.2-15.7); Immature Grans % 0.3; Lymphocytes % 21.5; MCHC 33.3 % (32.0-36.0); MCV 93 fL (80-95); MPV 11.6 fL (8.0-11.0); Monocytes % 7.5; Neutrophils % 67.7; Platelet Count 258 10^3/uL (130-400); RBC 4.32 10^6/uL (3.93-5.22); RDW 12.8 % (11.7-14.6); RDW-SD 44.1 fL; WBC 9.56 10^3/uL (4.4-10.8)
[2021-12-04 19:50] LABS: ALT 19 U/L (14-59); AST 16 U/L (15-37); Albumin 4.1 g/dL (3.4-5.0); Alkaline Phosphatase 54 U/L (46-116); Anion Gap 11.3 mmol/L (3-11); BUN 13 mg/dL (7-18); Bilirubin, Total 0.7 mg/dL (0.2-1.0); CO2 29.7 mmol/L (21.0-32.0); CREATININE 0.7 mg/dL (0.55-1.02); Calcium 9.4 mg/dL (8.5-10.1); Chloride 100 mmol/L (98-107); Glucose 90 mg/dL (74-106); Potassium 4.2 mmol/L (3.5-5.1); Sodium 141 mmol/L (136-145); Total Protein 7.4 g/dL (6.4-8.2)
== END 2021-12-04 18:17 | disposition home or self-care (01) ==
LOC: NCHCN 18:16
PROVIDERS: PCP Nurse Practitioner Family; Visit Provider Family Medicine
DX: K57.92 Diverticulitis of intestine, part unspecified, without perforation or abscess without bleeding (principal)
CPT/HCPCS: 80053; 85025

== ENCOUNTER → 2021-12-22 00:47 | Outpatient (CLI) | payer OTHER, SELFPAY ==
--- NOTE | 2021-12-22 08:30 | DI.MAMMO_ITS ---
Exam(s) MAMMO SCREENING EXAM: MAMMO SCREENING CLINICAL HISTORY: SCREENING, Z12.31 TECHNIQUE: Mammograms were interpreted according to the usual protocol including computer analysis w [employer] CAD system, tomosynthesis and C-view imaging. COMPARISON: FINDINGS: The breasts are heterogeneously dense. No dominant mass or clumped microcalcification is identified in either breast. The current examination is compared with previous examinations including June and there has been no gross interval change in appearance comparison with previous studies. IMPRESSION: No specific evidence of malignancy at this time. Routine screening examinations are suggested at yea rly intervals due to the family history of breast carcinoma. BI-RADS Category 1 - Negative Breast Density - Category C - Heterogeneously dense
[2021-12-22] MEDS: Barium Sulfate 2% W/V-Berry Smoothie 450 ML BTL PO ×2 (10:31→10:32)
[2021-12-22] MEDS: Omnipaque 350 MG/ML 100 ML BTL IV (10:31)
--- NOTE | 2021-12-22 11:00 | DI.CT_ITS ---
Exam(s) CT ABDOMEN PELVIS W EXAM: CT ABDOMEN PELVIS W INDICATION: ABD PAIN, R10.9; H/O DIVERTICULITIS, Z87.19; NAUSEA, R11.0. COMPARISON: CT CT ABDOMEN PELVIS W from 09/12/2020 TECHNIQUE: FINDINGS: CT examination of the abdomen and pelvis was performed with intravenous infusion of 100 cc of Omnipaq ue 350. Images obtained through the lung bases are unremarkable. The liver is unremarkable in appearance. Prior cholecystectomy noted, bile ducts are CT normal. Pancreas appears normal. Spleen is unremarkable in appearance. Adrenals appear normal. The kidneys are unremarkable with no evidence of hydronephrosis, nephrolithiasis, or renal mass.. Ur inary bladder unremarkable. Abdominal aorta is of normal diameter and no major vascular abnormality is seen. No abdominal wall hernia. No abdominal or pelvic adenopathy. Uterus is atrophic or absent. Appendix is normal. No evidence of diverticulitis or bowel obstruction. IMPRESSION: Negative CT examination of the abdomen and pelvis. RADIATION DOSE DELIVERED: 1,146.65mGy.cm Total DLP 1,146.65mGy.cm Total DLP !Error CTDIvol RADIATION OPTIMIZATION: All CT scans at this facility use at least one of these dose optimization te chniques: automated exposure control; mA and/or kV adjustment per patient size (includes targeted exa ms where dose is matched to clinical indication); or iterative reconstruction.
== END ==
PROVIDERS: PCP Nurse Practitioner Family; Visit Provider Nurse Practitioner Family
DX: R10.9 Unspecified abdominal pain (principal); R11.0 Nausea; Z90.49 Acquired absence of other specified parts of digestive tract; Z12.31 Encounter for screening mammogram for malignant neoplasm of breast; Z80.3 Family history of malignant neoplasm of breast
CPT/HCPCS: 77063; 77067; 74177; J3490

== ENCOUNTER 2022-02-12 14:44 | Outpatient (REF) | payer OTHER, SELFPAY | END 2022-02-12 14:45 | disposition home or self-care (01) | LOC: NCHCN 14:44 | PROVIDERS: PCP Nurse Practitioner Family; Visit Provider Nurse Practitioner Family | DX: R31.0 Gross hematuria (principal); R59.9 Enlarged lymph nodes, unspecified | CPT/HCPCS: 87086 ==

== ENCOUNTER 2022-04-12 10:24 | Outpatient (REF) | payer OTHER, SELFPAY ==
[2022-04-12 15:03] LABS: Calculated LDL 159 mg/dL (<100); Cholesterol 252 mg/dL (<200); HDL Cholesterol 67 mg/dL (40-60); Triglyceride 132 mg/dL (<150)
[2022-04-13 10:06] LABS: HIV-1/2 Ag & Ab Screen Negative (Negative)
[2022-04-13 10:19] LABS: Hepatitis C Ab w Rflx HCV PCR Negative (Negative)
== END 2022-04-12 10:25 | disposition home or self-care (01) ==
LOC: NCHCN 10:24
PROVIDERS: PCP Nurse Practitioner Family; Visit Provider Nurse Practitioner Family
DX: B00.1 Herpesviral vesicular dermatitis (principal); E66.9 Obesity, unspecified; N39.46 Mixed incontinence; Z11.4 Encounter for screening for human immunodeficiency virus [HIV]; Z11.59 Encounter for screening for other viral diseases
CPT/HCPCS: 80061; 86803; 87389

== ENCOUNTER 2022-05-10 07:12 | Day surgery (SDC) | payer OTHER, SELFPAY ==
[2022-05-10 08:01] VITALS: BP 125/83; PULSE 77; RESP 16; TEMP 37; O2SAT 97
--- NOTE | 2022-05-10 08:05 | W.PM.HP.N ---
Date of service: 05/10/22 Time of Service: 08:05 Assessment and Plan Assessment and plan (1) Mixed incontinence: Status: Acute Assessment and plan: We will plan for an injection of a bulking agent at the bladder neck for the ISD component of her mixed urinary incontinence. History of Present Illness History of Present Illness Chief Complaint: Urinary incontinence Narrative: This is a 52 year old woman who has a history of mixed urinary incontinence. Her urgency incontinence improved with pelvic floor physical therapy. She continues to have leakage with activity consistent with stress incontinence and ISD. She presents for an injection of a bulking agent. She has had 2 previous vaginal deliveries. She had a hysterectomy for benign disease in 2019. Review of Systems Constitutional Comments: No fevers or chills Hx vertigo. No vision change or dysphasia No diabetes or thyroid dysfunction No shortness of breath, cough or hemoptysis No chest pain or palpitations No nausea, vomiting, hepatitis, ulcers, jaundice No seizures, strokes or peripheral neuropathy No bleeding disorders or anemia No gout PFSH All Active Problems H/O: hysterectomy (Chronic) Cold sore (Acute) Acute epidemic vertigo (Acute) Obesity (Chronic) Mixed incontinence (Acute) Situational anxiety (Acute) Depression (Chronic) Cough (Acute) Allergic rhinitis (Acute) Nausea (Acute) Abdominal pain (Acute) Bronchitis (Acute) Lymph nodes enlarged (Acute) Gross hematuria (Acute) Stress incontinence (Acute) Umbilical pain (Acute) Back pain (Acute) Benign paroxysmal positional vertigo of left ear (Acute) Abdominal pain, left lower quadrant (Acute) Diverticulitis large intestine (Acute) Postoperative infection (Acute) Status post laparoscopic assisted vaginal hysterectomy (LAVH) (Acute) Abnormal uterine bleeding (AUB) (Acute) 02/11/2019. S/p laparoscopic-assisted vaginal hysterectomy with bilateral salpingectomy of tubal remnants Personal history of cervical dysplasia (Acute 01/24/17) 1998 EMBER II LEEP Rx Menorrhagia (Acute) Medical History Abnormal uterine bleeding (AUB) regular heavy cycles. Mirnea IUD 09/2014 - 02/2016 with no significant improvement in bleeding. Nl EMBx and pelvic u/s 2014. Surgical History Cervical Procedure (~1998) LEEP Cholecystectomy Ligation of fallopian tube Family History Mother Hyperlipidemia Father Essential hypertension Grandmother Breast cancer paternal Social History Smoking/Tobacco Use Status: Never Smoking risk assessment performed?: Yes Alcohol Intake: current Alcohol Intake frequency: a few times a week Alcohol type: beer, wine and hard liquor Drug use: Never Substance use type: does not use Household members: spouse, children, none and other Details: Marianna. 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 Do you feel safe at home: Yes Additional Social history: Female Reproductive History Menstrual control method: permanent sterilization Meds Allergies and Home Medications Allergies Allergy/AdvReac Type Severity Reaction Status Date / Time chlorhexidine Allergy Severe rash Verified 05/10/22 07:50 escitalopram [From Lexapro] Allergy Unknown pt states Verified 05/10/22 07:50 puts me out metronidazole [From Flagyl] AdvReac Intermediate nausea Verified 05/10/22 07:50 sertaraline Allergy Unknown pt states Uncoded 05/10/22 07:50 puts me out Home Medications Medication Instructions Recorded Confirmed Type loratadine 10 mg tablet 10 mg PO DAILY 12/07/21 05/10/22 History estradiol 0.1 mg/24 hr semiweekly 1 patch topical DAILY 05/10/22 05/10/22 History transdermal patch Exam Const General: cooperative Neck Neck: supple Resp Effort & Inspection: normal respiratory effort Auscultation: clear to auscultation bilaterally Cardio Rate: regular rate Rhythm: regular rhythm GI Palpation: soft and no masses Neuro General: patient alert, patient awake and patient oriented x3 Time Spent Time spent with Patient: <40 minutes Time was spent: counseling the patient
--- NOTE | 2022-05-10 08:05 | W.ANESPRE ---
General Info Date of Service Date Performed: 05/10/22 Height: 5 ft 2 in Weight: 91.2 kg Body Mass Index (BMI): 36.8 Surgical Procedure: Operation Date: 05/10/22 08:40 Proposed Procedure Side Surgeon p Cystoscopy/Transuretheral Injection of Coaptite to Bladder Neck Patric Lara MD Meds Allergies and Home Medications Allergies Allergy/AdvReac Type Severity Reaction Status Date / Time chlorhexidine Allergy Severe rash Verified 05/10/22 07:50 escitalopram [From Lexapro] Allergy Unknown pt states Verified 05/10/22 07:50 puts me out metronidazole [From Flagyl] AdvReac Intermediate nausea Verified 05/10/22 07:50 sertaraline Allergy Unknown pt states Uncoded 05/10/22 07:50 puts me out Home Medication Medication Instructions Recorded loratadine 10 mg tablet 10 mg PO DAILY 12/07/21 estradiol 0.1 mg/24 hr semiweekly 1 patch topical DAILY 05/10/22 transdermal patch Current Visit Medications: Current Medications Generic Name Dose Route Start Last Admin Trade Name Sabinoq PRN Reason Stop Dose Admin Ringer's Solution 1,000 mls @ 80 mls/hr 05/10/22 06:00 IV 06/08/22 23:59 INFUSION [place] IV Miscellaneous Supplies 1 each 05/10/22 06:00 Iv Access IV 06/08/22 23:59 DIRECTED [place] Sodium Chloride 0 ml 05/10/22 06:00 Normal Saline Flush 10 Ml Syr IV 06/08/22 23:59 PRN PRN Sodium Chloride 0 ml 05/10/22 06:00 Normal Saline 10 Ml Vial IJ 06/08/22 23:59 DIRECTED PRN Sterile Water 0 ml 05/10/22 06:00 Water,Injection,Sterile 10 Ml Vial IJ 06/08/22 23:59 DIRECTED PRN Trimethoprim/Sulfamethoxazole 1 tab 05/10/22 06:00 Sulfameth/Trimeth Ds Tab PO 05/10/22 16:00 PREOP [place] PFSH Active Problems Active Problems: Problem Status Onset Code H/O: hysterectomy Z90.710 Cold sore B00.1 Acute epidemic vertigo A88.1 Obesity E66.9 Mixed incontinence N39.46 Situational anxiety F41.8 Depression F32.A Cough R05.9 Allergic rhinitis J30.9 Nausea R11.0 Abdominal pain R10.9 Bronchitis J40 Lymph nodes enlarged R59.9 Gross hematuria R31.0 Stress incontinence N39.3 Umbilical pain R10.33 Back pain M54.9 Benign paroxysmal positional vertigo of left ear H81.12 Abdominal pain, left lower quadrant R10.32 Diverticulitis large intestine K57.32 Postoperative infection T81.40XA Status post laparoscopic assisted vaginal hysterectomy (LAVH) Z90.710 Abnormal uterine bleeding (AUB) N93.9 Personal history of cervical dysplasia 01/24/17 Z87.410 Menorrhagia N92.0 Medical History Medical History Abnormal uterine bleeding (AUB) regular heavy cycles. Mirnea IUD 09/2014 - 02/2016 with no significant improvement in bleeding. Nl EMBx and pelvic u/s 2014. Medical History Comments:: Patient requests all female team Surgical History Surgical History Cervical Procedure (~1998) LEEP Cholecystectomy Ligation of fallopian tube Tobacco Smoking/Tobacco Use Status: Never Alcohol Alcohol Intake: current Alcohol intake frequency: a few times a week Alcohol type: beer, wine and hard liquor Substance Use Substance use: Never Substance use type: does not use Vital Signs and Lab Results Vital Signs Most Recent Vital Signs in EMR: Most Recent Vital Signs Temp Pulse Resp BP Pulse Ox 37 C 77 16 125/83 97 05/10/22 08:01 05/10/22 08:01 05/10/22 08:01 05/10/22 08:01 05/10/22 08:01 Lab Results Blood Type / Crossmatch: No Data to Display Complete Blood Count: No Data to Display Complete Metabolic Panel: No Data to Display Liver Function Panel: No Data to Display Coagulation Panel: No Data to Display Cardiac Panel: No Data to Display Arterial Blood Gas: No Data to Display Venous Blood Gas: No Data to Display Pancreas Panel: No Data to Display Thyroid Panel: No Data to Display Infectious Disease: HIV (1&2) Ag and Ab, 4th Generation Negative (Negative) 04/12/22 09:25 Hepatitis C Antibody Negative (Negative) 04/12/22 09:25 Blood Cultures: No Data to Display Toxicology Panel: No Data to Display Panel: No Data to Display Anesthesia Assessment and Plan Anesthesia History Personal History: No History of Anesthesia Complications Family History: No Family History of Anesthesia Complications Exercise Tolerance Exercise Tolerance: Metabolic Equivalents>4 Pertinent Negatives Pertinent Negatives: No Symptoms of GERD Cardiac & Pulmonary Exam Cardiac Exam: Normal S1/S2 Heart Sounds Pulmonary Exam: Clear Bilateral Breath Sounds Implantable Cardiac Device Does patient have a Pacemaker or an ICD?: No Airway Exam Known Difficult Airway: No Mallampati Class: 2 Mouth Opening: Normal (> 3cm) Thyromental Distance: Greater than 3 cm Neck Range of Motion: Full ROM Neck Circumference: Normal Teeth Condition: Normal Dentition ASA Classification ASA Score: ASA 2 Emergency Case?: No NPO Status NPO Status: NPO Clears >2 hours, Solids >8 hours Status Status: Not Relevant due to Medical History Anesthesia Plan Resuscitation Status: Full Code Anesthesia Technique: General Anesthesia Airway Planned: Natural Airway Monitors Used: Standard Monitors
[2022-05-10] MEDS: Sulfameth/Trimeth DS TAB 1 TAB PO (08:06)
[2022-05-10 08:12] VITALS: BMI 36.8
[2022-05-10] MEDS: Lactated Ringers 1,000 ML 80 ML IV (08:20)
[2022-05-10] MEDS: Lidocaine 2% Jelly 6 ML SYR (08:53)
--- NOTE | 2022-05-10 09:00 | W.PM.DSUDISC ---
Date of service: 05/10/22 Time of Service: 09:00 Discharge Plan Disposition Patient Disposition: Home Condition: Good Discharge Details Reason For Visit: Incontinence Attending Provider: Patric Lara Primary Care Provider: Anel Cunningham Home Meds and New Rx's Prescriptions: No Action loratadine 10 mg tablet 10 mg PO DAILY estradiol 0.1 mg/24 hr patch semiweekly 1 patch topical DAILY Label Comments: APPLY 1 PATCH TOPICALLY TO THE SKIN 2 TIMES A WEEK Discharge Instructions Additional Instructions: no followup appt but ask pt to call office in about 1 week with progress report Activity:: Activity as Tolerated Shower/Bathe:: 24 hours Diet:: As Tolerated Discharge Orders Discharge Orders: Discharge Order (Routine); Ordered 05/10/22 Ordered By: Patric Lara DS: Diagnosis Discharge Diagnosis (1) Mixed incontinence: Status: Acute
--- NOTE | 2022-05-10 09:02 | ROE_ITS ---
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 The incontinence began shortly after she had a hysterectomy in 2019. She has been utilizing pelvic floor physical therapy. Her urgency incontinence symptoms have improved, but she still has incontinence with minimal activity. The symptoms are consistent with intrinsic sphincter deficiency. She presents for cystoscopy with transurethral injection of a bulking agent at the bladder neck. Procedure Description: The patient was brought to the operating room on 05/10/2022. She was given preoperative antibiotics. After successful induction of general anesthesia without intubation, she was placed in the dorsal lithotomy position. Her genitalia was prepped and draped. 2% Xylocaine jelly was instilled into the urethra to act as a local anesthetic. A 20 [place] urethrotome sheath was passed through the urethra into the bladder. The bladder was inspected with a 30 degree lens. Both ureteral orifices appeared normal with no blood coming from either side. No bladder masses were identified. We then withdrew the scope back to the bladder neck. Using a transurethral injection system, we injected 2 vials of coapt tight submucosally at the bladder neck. At the completion of the procedure, the bladder neck appeared closed at rest. The scope was removed. The bladder was drained with a 14 [place] straight catheter. The catheter was then removed. She tolerated the procedure well. She will check in with us in a week for a symptom check.
[2022-05-10 09:04] VITALS: BP 98/71; PULSE 76; RESP 16; TEMP 36.2; O2SAT 97
[2022-05-10] MEDS: Phenazopyridine 200 MG TAB PO (09:28)
--- NOTE | 2022-05-10 09:35 | W.ANESPOSTOP ---
Postoperative Evaluation Date, Time and Location Date Performed: 05/10/22 Time Performed: 09:36 Patient Location: Day Surgery Unit Vital Signs Most Recent Imported Vital Signs: Most Recent Vital Signs Temp Pulse Resp BP Pulse Ox 36.2 C L 76 16 98/71 L 97 05/10/22 09:04 05/10/22 09:04 05/10/22 09:04 05/10/22 09:04 05/10/22 09:04 Pain Score Most Recent Pain Score: Most Recent Pain Score Pain Level 0 05/10/22 09:04 Assessment Mental Status: Awake (Alert & Oriented to Patient Baseline) Airway and Respiratory Function: Patent airway with normal (patient baseline) respiratory exam Cardiovascular Function: Hemodynamically Stable Hydration Status: Adequately Hydrated Nausea & Vomiting: No Nausea or Vomiting Pain: Pt. Denies Any Pain Peripheral Nerve Block: Patient did not receive a nerve block
[2022-05-10 09:40] VITALS: BP 116/86; PULSE 71; RESP 16; TEMP 36.2; O2SAT 98
[2022-05-10] MEDS: Acetaminophen 325 MG TAB 650 MG PO (10:04)
== END 2022-05-10 10:35 | disposition home or self-care (01) ==
PROVIDERS: PCP Nurse Practitioner Family; Visit Provider Urology
PROC: (CPT 51715; principal; 2022-05-10 08:30)
DX: N39.46 Mixed incontinence (principal); N36.42 Intrinsic sphincter deficiency (ISD)
CPT/HCPCS: 51715; J2704; L8606

== ENCOUNTER 2022-06-26 16:34 | Outpatient (CLI) | payer OTHER, SELFPAY ==
[2022-06-26 13:33] LABS: Abs Immature Grans 0.04 10^3/uL (0.0-0.06); Absolute Basophil Count 0.07 10^3/uL (0.0-0.2); Absolute Eosinophil Count 0.23 10^3/uL (0.0-0.7); Absolute Lymphocyte Count 2.05 10^3/uL (1.2-3.4); Basophils % 0.6; Eosinophils % 2.1; HCT 41.6 % (36.0-46.0); HGB 13.7 g/dL (11.2-15.7); Immature Grans % 0.4; Lymphocytes % 18.4; MCH 30.6 pg (27.0-33.0); MCHC 32.9 % (32.0-36.0); MCV 93 fL (80-95); MPV 10.8 fL (8.0-11.0); Monocytes % 6.7; Neutrophils % 71.8; Platelet Count 267 10^3/uL (130-400); RBC 4.48 10^6/uL (3.93-5.22); RDW 12.9 % (11.7-14.6); WBC 11.12 10^3/uL (4.4-10.8)
[2022-06-26 13:34] LABS: Absolute Monocyte Count 0.75 10^3/uL (0.1-0.8); Absolute Neutrophil Count 7.98 10^3/uL (1.2-6.7)
[2022-06-26 13:45] LABS: C-Reactive Protein 1.36 mg/dL (0.0-0.3)
== END 2022-06-26 16:35 | disposition home or self-care (01) ==
LOC: LBO 16:35
PROVIDERS: PCP Nurse Practitioner Family; Visit Provider Surgery
DX: K57.32 Diverticulitis of large intestine without perforation or abscess without bleeding (principal)
CPT/HCPCS: 36415; 85025; 86140

== ENCOUNTER 2022-08-23 15:20 | Outpatient (REF) | payer OTHER, SELFPAY ==
[2022-08-23 21:15] LABS: Vitamin D 25 Total 26.2 ng/mL (30-100)
== END 2022-08-23 15:21 | disposition home or self-care (01) ==
LOC: NCHCN 15:20
PROVIDERS: PCP Nurse Practitioner Family; Visit Provider Family Medicine
DX: F32.89 Other specified depressive episodes (principal); E66.9 Obesity, unspecified; E55.9 Vitamin D deficiency, unspecified
CPT/HCPCS: 82306

== ENCOUNTER 2022-11-22 17:43 | Outpatient (REF) | payer OTHER, SELFPAY ==
[2022-11-22 15:09] LABS: HCT 41.2 % (36.0-46.0); HGB 13.7 g/dL (11.2-15.7); MCH 30.6 pg (27.0-33.0); MCHC 33.3 % (32.0-36.0); MCV 92 fL (80-95); MPV 11.7 fL (8.0-11.0); Platelet Count 258 10^3/uL (130-400); RBC 4.48 10^6/uL (3.93-5.22); RDW 13.1 % (11.7-14.6); RDW-SD 44.2 fL; WBC 7.01 10^3/uL (4.4-10.8)
[2022-11-22 15:30] LABS: C-Reactive Protein 0.35 mg/dL (0.0-0.3); TSH (W/Ref FT4) 2.29 uIU/mL (0.36-3.74)
[2022-11-22 15:42] LABS: Vitamin D 25 Total 32.2 ng/mL (30-100)
[2022-11-23 12:34] LABS: Lyme Ab w Rflx to Lyme Confirm Negative (Negative)
== END 2022-11-22 17:44 | disposition home or self-care (01) ==
LOC: NCHCN 17:43
PROVIDERS: PCP Nurse Practitioner Family; Visit Provider Family Medicine
DX: R53.83 Other fatigue (principal); R79.82 Elevated C-reactive protein (CRP); R63.5 Abnormal weight gain; E55.9 Vitamin D deficiency, unspecified
CPT/HCPCS: 82306; 85027; 84443; 86140; 86618

== ENCOUNTER 2023-10-16 15:47 | Emergency (ER) | payer OTHER, SELFPAY ==
[2023-10-16 16:02] VITALS: BP 131/90; PULSE 87; RESP 10; TEMP 37; O2SAT 96
--- NOTE | 2023-10-16 16:15 | DI.RAD_ITS ---
Exam(s) XR HAND LT COMPLETE EXAM: XR HAND LT COMPLETE CLINICAL HISTORY: L hand injury, pain at thenar eminence. TECHNIQUE: 2D digital imaging was performed of the left hand. Three views were obtained. AP, later al and oblique views were obtained. COMPARISON: No exams were available for comparison FINDINGS: BONES: No acute fracture is present. No bony destructive lesion is seen. JOINTS: No dislocation present. SOFT TISSUE: Normal. IMPRESSION: Unremarkable radiographs of the left hand. DATA REPOSITORY: RADIATION DOSE DELIVERED:
--- NOTE | 2023-10-16 16:15 | DI.RAD_ITS ---
Exam(s) XR FOREARM LT EXAM: XR FOREARM LT CLINICAL HISTORY: generalized L forearm pain. TECHNIQUE: 2D digital imaging was performed of the left forearm. Two views were obtained. AP and l ateral views were obtained. COMPARISON: No exams were available for comparison FINDINGS: BONES: No acute fracture is present. No bony destructive lesion is seen. Visualized portion of elbow and wrist joints are unremarkable. SOFT TISSUE: Normal. IMPRESSION: Unremarkable radiographs of the left forearm. DATA REPOSITORY: RADIATION DOSE DELIVERED:
--- NOTE | 2023-10-16 16:27 | ED.GENADUL_ITS ---
Discharge Plan Disposition Patient Disposition: Home Discharge Details Clinical Impression: Pain of hand after trauma Primary Care Provider: Anel Cunningham ED Provider: Amber Kelly Home Meds and New Rx's Prescriptions: Continued loratadine 10 mg tablet 10 mg PO DAILY estradiol 0.1 mg/24 hr patch semiweekly 1 patch topical DAILY Patient Comments: APPLY 1 PATCH TOPICALLY TO THE SKIN 2 TIMES A WEEK Discharge Instructions Additional Instructions: Please follow-up with your primary care provider in 2 weeks if you are not feeling significantly better. I encourage you to rest, ice, elevate your hand above heart level, and use Tylenol/ibuprofen as needed for discomfort. Please do not resume any heavy projects until your hand is feeling better. HPI General Date/Time Provider Initiated Documentation: 10/16/23 16:08 . HPI Narrative: Vilma is a 53-year-old female who presents to the emergency department today for evaluation of left hand/forearm pain. She reports that her arm was injured by some sheet rock that fell on her, saying it was a heavy pile. She is not sure exactly how it hit her arm, states that she was fighting for her life to keep it upright. She did sustain abrasions to her legs, but no other injuries. She reports pain to the thenar eminence of her left hand and diffuse pain along her forearm. No distal numbness/tingling. Denies other injury such as head injury, neck pain, back pain, or other extremity pain. Denies significant past medical history. She has not taken any Tylenol/ibuprofen or applied any ice. Physical exam remarkable for diffuse tenderness palpation along the forearm and hand. No point tenderness/step-off?deformity to metacarpals. Decreased flexion of fingers due to pain and thenar eminence, full extension. Brisk cap refill. Sensation grossly intact. No elbow or shoulder pain, full range of motion to each of these. Patient is alert and interactive, no acute distress. No snuffbox tenderness. Full painless range of motion to thumb. No obvious ecchymosis, erythema, swelling, or skin tears/lacerations DDx includes but not limited to sprain, strain, fracture, contusion, other soft tissue injury. I independently interpreted the following tests: Hand and forearm x-ray. No obvious fracture or dislocation noted. This was confirmed by radiologist. Workup today reassuring. Likely sprain/soft tissue injury. Recommend rest, ice, compression, elevation. Herman bandage offered by RN. Recommend follow-up with PCP if symptoms not significantly improved in 2 to 3 weeks. Related Data Home Medications Medication Instructions Recorded Confirmed loratadine 10 mg tablet 10 mg PO DAILY 12/07/21 10/16/23 estradiol 0.1 mg/24 hr semiweekly 1 patch topical DAILY 05/10/22 10/16/23 transdermal patch Allergies Allergy/AdvReac Type Severity Reaction Status Date / Time chlorhexidine Allergy Severe rash Verified 10/16/23 16:06 escitalopram [From Lexapro] Allergy Unknown pt states Verified 10/16/23 16:06 puts me out metronidazole [From Flagyl] AdvReac Intermediate nausea Verified 10/16/23 16:06 sertaraline Allergy Unknown pt states Uncoded 10/16/23 16:06 puts me out General Stated Complaint: Orthopedic ALEXSANDER: 4 Review of Systems Narrative: See HPI Exam Const General: cooperative, healthy appearing, comfortable and no acute distress Nutritional Appearance: average body habitus Resp Effort & Inspection: normal respiratory effort and able to speak in complete sentences Skin General skin exam: no rashes or lesions noted Extrem General: normal to inspection, capillary refill normal, no joint enlargement and no clubbing, cyanosis or edema Left upper extremity: normal capillary refill, no joint enlargement, elbow/forearm (Diffuse tenderness) Details: distal pulses intact; no foreign bodies, no penetrating wound and no deformity, wrist Details: normal to inspection and hand (Mild tenderness to palpation of thenar eminence) Details: abnormal ROM of finger (Decreased flexion of fingers due to discomfort and palm); no unusual warmth, no swelling, no abrasions, no lacerations, no foreign bodies and no puncture wound Course Vital Signs Vital signs: Vital Signs Temperature 37.0 C 10/16/23 16:02 Pulse 87 10/16/23 16:02 Respiratory Rate 10 L 10/16/23 16:02 Blood Pressure 131/90 10/16/23 16:02 Pulse Oximetry 96 10/16/23 16:02 Temperature 37.0 C 10/16/23 16:02 Temperature Source Temporal Artery Scan 10/16/23 16:02 Pulse 87 10/16/23 16:02 Respiratory Rate 10 L 10/16/23 16:02 Blood Pressure 131/90 10/16/23 16:02 Blood Pressure Position Sitting 10/16/23 16:02 Pulse Oximetry 96 10/16/23 16:02 Oxygen Delivery Method Room Air 10/16/23 16:02 Oxygen Flow Rate 0 10/16/23 16:02 Pain Level 5 10/16/23 16:02 Medical Decision Making Quality:SDOH Health Related Social Needs: No Data to Display PFSH All Active Problems (Updated 10/16/23 @ 17:49 by Amber Scott) Pain of hand after trauma (Acute) H/O: hysterectomy (Chronic) Cold sore (Acute) Acute epidemic vertigo (Acute) Obesity (Chronic) Mixed incontinence (Acute) Situational anxiety (Acute) Depression (Chronic) Cough (Acute) Allergic rhinitis (Acute) Nausea (Acute) Abdominal pain (Acute) Bronchitis (Acute) Lymph nodes enlarged (Acute) Gross hematuria (Acute) Stress incontinence (Acute) Umbilical pain (Acute) Back pain (Acute) Benign paroxysmal positional vertigo of left ear (Acute) Abdominal pain, left lower quadrant (Acute) Diverticulitis large intestine (Acute) Postoperative infection (Acute) Status post laparoscopic assisted vaginal hysterectomy (LAVH) (Acute) Abnormal uterine bleeding (AUB) (Acute) 02/11/2019. S/p laparoscopic-assisted vaginal hysterectomy with bilateral salpingectomy of tubal remnants Personal history of cervical dysplasia (Acute 01/24/17) 1998 EMBER II LEEP Rx Menorrhagia (Acute) Medical History (Updated 10/16/23 @ 17:49 by Amber Scott) Abnormal uterine bleeding (AUB) regular heavy cycles. Mirnea IUD 09/2014 - 02/2016 with no significant improvement in bleeding. Nl EMBx and pelvic u/s 2014. Surgical History Ligation of fallopian tube Cholecystectomy Cervical Procedure (~1998) LEEP Family History Mother Hyperlipidemia Father Essential hypertension Grandmother Breast cancer paternal Social History Smoking/Tobacco Use Status: Never Smoking risk assessment performed?: Yes Alcohol Intake: current Alcohol Intake frequency: a few times a week Alcohol type: beer, wine and hard liquor Drug use: Never Substance use type: does not use Household members: spouse, children, none and other Details: H-Ad. 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 Do you feel safe at home: Yes Additional Social history: Female Reproductive History Menstrual control method: permanent sterilization
[2023-10-16] MEDS: Acetaminophen 325 MG TAB 650 MG PO (16:35)
--- NOTE | 2023-10-16 17:38 | DI.VRAD_ITS ---
PROCEDURE INFORMATION: Exam: XR Left Forearm Exam date and time: 10/16/2023 4:56 PM Age: 53 years old Clinical indication: Other: Generalized L forearm pain TECHNIQUE: Imaging protocol: Radiologic exam of the left forearm. Views: 2 views. COMPARISON: CR XR HAND LT COMPLETE 10/16/2023 4:54 PM FINDINGS: Bones/joints: No acute fracture or subluxation. Soft tissues: Unremarkable. IMPRESSION: No acute bony pathology. Dictated and Authenticated by: Barbara Lopez MD. Ordering:PETER lCark MD
--- NOTE | 2023-10-16 17:38 | DI.VRAD_ITS ---
PROCEDURE INFORMATION: Exam: XR Left Hand Exam date and time: 10/16/2023 4:54 PM Age: 53 years old Clinical indication: Other: L hand injury, pain at thenar eminence TECHNIQUE: Imaging protocol: Radiologic exam of the left hand. Views: 3 or more views. COMPARISON: No relevant prior studies available. FINDINGS: Bones/joints: No acute fracture or subluxation. Soft tissues: Unremarkable. IMPRESSION: No acute bony pathology. Dictated and Authenticated by: Barbara Lopez MD. Ordering:PETER Clark MD
--- OUTSIDE RECORDS SUMMARY | 2023-10-16 17:44 | XMS_ITS | Continuity of Care Document ---
Author Name Unknown Organization [facility] Ambulatory [facility] Address [address] [place] [address] Care Team Providers Care Compensation And Benefits Analyst Name Role Phone ROLAND CARO APRN Primary Care Physician [phone] Encounter [facility] NBR [id number] Date(s): 09/05/23 - 09/05/23 [facility] Amb[facility] [address] [place] [address]- [place] Encounter Diagnosis Lumbar disc herniation(Discharge Diagnosis) - 09/05/23 Radiculopathy of lumbar region(Discharge Diagnosis) - 09/05/23 Discharge Disposition: Home or Self Care Attending Physician: Nida Abebe DO Referring Physician: ROLAND CARO APRN Allergies, Adverse Reactions, Alerts Substance Reaction Severity Status escitalopram Unknown Unknown Active Sertraline Hydrochloride Unknown Unknown Act donald Medications Albuterol (Eqv-Ventolin HFA) 90 mcg/inh inhalation aerosol INHALE 1-2 PUFFS BY MOUTH EVERY 4 HOURS NEEDED Start Date: 06/18/23 Status: Ordered estradiol 0.025 mg/24 hours weekly transdermal film, extended release 1 patches, Transdermal, every week, 0 Refill(s) Start Date: 09/05/23 Status: Ordered Fish Oil 1200 mg oral capsule 1,200 mg = 1 cap, Oral, Daily, # 100 cap, 0 Refill(s) Start Date: 06/18/23 Status: Ordered magnesium amino acids chelate (as elemental magnesium) 300 mg oral capsule 300 mg = 1 cap, Oral, Daily, # 100 cap, 0 Refill(s) Start Date: 06/18/23 Status: Ordered meloxicam 7.5 mg oral tablet TAKE ONE TABLET BY MOUTH EVERY DAY Start Date: 06/18/23 Status: Ordered Vitamin D3 1000 intl units oral capsule 25 mcg = 1 cap, Oral, Daily, # 100 cap, 0 Refill(s) Start Date: 06/18/23 Status: Ordered Problem List Condition Confirmation Course Effective Dates Status H ealth Status Informant Radiculopathy due to lumbar intervertebral disc disorder Confirmed Active Vital Signs Most recent to oldest [Reference Range]: 1 Temperature Temporal Artery [36-38 Deg C ] 36.5 Deg C (09/05/23 8:11 AM) Peripheral Pulse Rate [60-100 bpm] 75 bp m (09/05/23 8:11 AM) Respiratory Rate [12-24 br/min] 20 br/mi n (09/05/23 8:11 AM) Blood Pressure [90-140/60-90 mmHg] 131/8 0mmHg (09/05/23 8:11 AM) Mean Arterial Pressure, Cuff [65-140 mmH g] 97 mmHg (09/05/23 8:11 AM) Social History Social History Type Response Tobacco Never tobacco user T obacco Use:. Sex Discharge instructions * Event Display: Discharge Instructions Discharge summary * Event Display: Discharge Summary Patient Care team information Care Team Personnel Name: ROLAND CARO APRN Position: No Access Member Role: Primary Care Physician Address: Address: [address] [place] [address]- Care Team Related Persons Name: SHAN TAYLOR Name: SHAN TAYLOR V Address: Home [address] [place] [address], [phone] Address: [address] [id number]
--- OUTSIDE RECORDS SUMMARY | 2023-10-16 17:44 | XMS_ITS | Continuity of Care Document ---
Author Name Unknown Organization [facility] Ambulatory Clin[facility] Address [address] [place] [address] Care Team Providers Care Senior Applications Architect Name Role Phone ROLAND CARO APRN Primary Care Physician Encounter [facility] NBR [id number] Date(s): 06/20/23 - 06/20/23 [facility] [address] [place] [address]- [place] Encounter Diagnosis Radiculopathy due to lumbar intervertebral disc disorder(Discharge Diagnosis) - 06/20/23 Discharge Disposition: Home or Self Care Attending Physician: Manohar Fish DO ([facility]) Referring Physician: ROLAND CARO APRN Allergies, Adverse Reactions, Alerts Substance Reaction Severity Status escitalopram Unknown Unknown Active Sertraline Hydrochloride Unknown Unknown Act donald Assessment and Plan Extracted from: Title:Neurosurgery office Visit Note Author:Manohar Fish DO ([facility]) Date:06/20/23 1.??Radiculopathy due to lum bar intervertebral disc disorder??M51.16 53-year-old healthy female with right S1 radiculopathy.?? MRI shows??right paracentral disc protrusion at L5-S1.?? Patient??has failed medical??management??and physical therapy.?? She is scheduled for an LESI in 2 months.?? I discussed the role of surgery??and let her know that it would be reasonable to??monitor her symptoms after??the trial of??ALEXSANDER??to determine whether??she would like to pursue surgery.?? I discussed the??red flag??symptoms that should prompt a more urgent surgical evaluation.?? Patient is??agreeable. Future Appointments Medications Albuterol (Eqv-Ventolin HFA) 90 mcg/inh inhalation aerosol INHALE 1-2 PUFFS BY MOUTH EVERY 4 HOURS NEEDED Start Date: 06/18/23 Status: Ordered Fish Oil 1200 mg oral [...] Most recent to oldest [Reference Range]: 1 Peripheral Pulse Rate [60-100 bpm] 68 bp m (06/20/23 10:49 AM) Blood Pressure [90-140/60-90 mmHg] 122/7 0mmHg (06/20/23 10:49 AM) Mean Arterial Pressure, Cuff [65-140 mmH g] 87 mmHg (06/20/23 10:49 AM) Weight 89.4 kg (06/20/23 10:49 AM) Weight Measured (lbs) 197.093 lb (06/20/23 10:49 AM) Weight Dosing 89.400 kg (06/20/23 10:49 AM) Height 157.48 cm (06/20/23 10:49 AM) Height/Length Measured (inches) 62 inch (06/20/23 10:49 AM) BSA Measured 1.98 m2 (06/20/23 10:49 AM) Body Mass Index 36.05 kg/m2 (06/20/23 10:49 AM) Social History Social History Type Response Tobacco Never tobacco user T obacco Use:. Sex Hospital Discharge Instructions Follow Up Care 05/17/2023 10:34:38 With:Manohar Fish DO ([facility]) Address: [address] [place] [id number] [phone] When: Unknown Comments:As needed Physician Outpatient Note * Manohar Fish DO ([facility]): PERFORM Event Display: Office Clinic Note Physician Authored Date: [id number] GUILLE JOSEPH :1970 Age:53 years Sex:Female Visit Date:06/20/2023 Primary Care Physician: ROLAND CARO APRN Chief Complaint Low back pain History of Present Illness This is a 53-year-old otherwise healthy female who??began to have??right- sided??sciatica??in January 2023,??likely related to??pushing hay??for her horses.?? She was placed on a steroid taper and underwent physical therapy, which did not help??and possibly worsen her symptoms.?? She sought resident care technician which relaxed the piriformis muscle??and helped the pain in that region.?? She continues to have low back and posterior leg pain, with??numbness and tingling in the plantar aspect of the foot.?? She denies bowel or bladder dysfunction.?? Her pain is worse in the morning after lying down??and and the pain feels like a muscle spasm??in the back of her leg.?? She was seen by Dr. Martell and offered a??LESI??which is scheduled??for 2 months from now. Review of Systems As per HPI Physical Exam Vitals & Measurements HR:??68??(Peripheral)?? BP:??122/70?? SpO2:??98%?? HT:??157.48??cm?? WT:??89.4??kg?? BMI:??36.05?? Pain Score:??7?? BSA:??1.98?? NAD?? Awake and alert Speech fluent and logical Face symmetric Motor 5 out of 5 bilateral lower extremities all muscle groups No clonus DP pulses palpable Positive straight leg raise on right, negative on left Assessment/Plan 1.??Radiculopathy due to lumbar intervertebral disc disorder??M51.16 53-year-old healthy female with right S1 radiculopathy.?? MRI shows??right paracentral disc protrusion at L5-S1.?? Patient??has failed medical??management??and physical therapy.?? She is scheduled for an LESI in 2 months.?? I discussed the role of surgery??and let her know that it would be reasonable to??monitor her symptoms after??the trial of??ALEXSANDER??to determine whether??she would like to pursuesurgery.?? I discussed the??red flag??symptoms that should prompt a more urgent surgical evaluation.?? Patient is??agreeable. Follow Up Instructions With When Contact Information Manohar Fish DO ([facility]) [address] [place] [phone] Additional Instructions: As needed Problem List/Past Medical History Ongoing Radiculopathy due to lumbar intervertebral disc disorder Historical No qualifying data Medications Albuterol (Eqv-Ventolin HFA) 90 mcg/inh inhalation aerosol Fish Oil 1200 mg oral capsule, 1200 mg= 1 cap, Oral, Daily magnesium amino acids chelate (as elemental magnesium) 300 mg oral capsule, 300 mg= 1 cap, Oral, Daily meloxicam 7.5 mg oral tablet Vitamin D3 1000 intl units oral capsule, 25 mcg= 1 cap, Oral, Daily Allergies Sertraline Hydrochloride??(Unknown) escitalopram??(Unknown) Social History Electronic Cigarette/Vaping Electronic Cigarette Use: Never. Tobacco Never tobacco user Tobacco Use:. Diagnostic Results Diagnostic Study Interpretation: MRI lumbar without contrast??05/02/2023:??Large right paracentral disc protrusion at L5-S1. Electronically Signed on 06/20/23 11:18 AM Manohar Fish DO ([facility]) Patient Care team information Care Team Personnel Name: ROLAND CARO APRN Position: No Access Member Role: Primary Care Physician Address: Address: [address] [place] [address] Care Team Related Persons Name: SHAN TAYLOR Name: SHAN TAYLOR V Address: Home [address] [place] [address], [phone] Address: Temporary [address] [facility], [id number]
--- OUTSIDE RECORDS SUMMARY | 2023-10-16 17:44 | XMS_ITS | Continuity of Care Document ---
Author Name Unknown Organization [facility] Ambulatory Clinics Address [address] [place] [address] Care Team Providers Care Hearing Instrument Specialist Name Role Phone ROLAND CARO APRN Primary Care Physician Encounter [facility] NBR [id number] Date(s): 07/30/23 - 07/30/23 [facility] Ambulatory Clinics [address] [place] [address]- [place] Encounter Diagnosis Lumbar disc herniation(Discharge Diagnosis) - 07/30/23 Lumbar radiculopathy(Discharge Diagnosis) - 07/30/23 Low back pain(Discharge Diagnosis) - 07/30/23 Discharge Disposition: Home or Self Care Attending Physician: Nida Abebe DO Allergies, Adverse Reactions, Alerts Substance Reaction Severity Status escitalopram Unknown Unknown Active Sertraline Hydrochloride Unknown Unknown Act donald Assessment and Plan Extracted from: Title:[facility] Office Visit Note - Pain Management A uthor:Nida Abebe DO Date:07/30/23 Low back pain??M54.50 ?? Lumbar disc herniation??M51.26 Ordered: Surgical Procedure Booking Request LTTL, 07/30/23 11:12:00 EDT, lumbar disc herniation, Lumbar disc herniation Lumbar radiculopathy, Outpatient, right S1 TFESI, Primary Procedure, 45, Special equipment needed (include C-Arm requests)?, Local, 0, Nida Abebe DO, Right S1 Transforaminal... ?? Lumbar radiculopathy??M54.16 Ordered: Surgical Procedure Booking Request LTTL, 07/30/23 11:12:00 EDT, lumbar disc herniation, Lumbar disc herniation Lumbar radiculopathy, Outpatient, right S1 TFESI, Primary Procedure, 45, Special equipment needed (include C-Arm requests)?, Local, 0, Nida Abebe, DO, Right S1 Transforaminal... ? Vilma reports 85% improvement following a recent right S1 transforaminal epidural steroid injection.?? She continues to experience some mild residual discomfort in the right leg. ??She does not feel that her pain is bothersome enough at this point in time to pursue??surgery for the disc herniation. However,??she would be interested in a repeat injection to see if that would help eliminate the??remaining??discomfort.?? After reviewing options, agreed to move forward with a repeat right S1 transforaminal ALEXSANDER. ??If this is??ineffective in resolving the residual??pain, can also consider an interlaminar approach at L5-S1. ?? She will return for??lumbar ALEXSANDER. ? Medications Albuterol (Eqv-Ventolin HFA) 90 mcg/inh inhalation [...] Range]: 1 Peripheral Pulse Rate [60-100 bpm] 74 bp m (07/30/23 1:49 PM) Blood Pressure [90-140/60-90 mmHg] 130/7 0mmHg (07/30/23 1:49 PM) Mean Arterial Pressure, Cuff [65-140 mmH g] 90 mmHg (07/30/23 1:49 PM) Social History Social History Type Response Tobacco Never tobacco user T obacco Use:. Sex Physician Outpatient Note * Nida Abebe, DO: PERFORM, MODIFY, MODIFY, MODIFY, MODIFY, MODIFY Event Display: Office Clinic Note Physician Authored Date: [id number] VILMA JOSEPH :1970 Age:53 years Sex:Female Visit Date:07/30/2023 Primary Care Physician: ROLAND CARO APRN Chief Complaint Injection follow up History of Present Illness ?? Vilma is here for follow-up to review her response to a recent??right S1 transforaminal epidural steroid injection for right-sided disc herniation at L5- S1 performed on 07/03/23.?? She reports 85% relief from the injection, which started to take effect the following day postprocedure.?She has no ticed??reduction in pain and improvement in function.?? She is able to sit, stand and walk more comfortably.?? The back pain has improved the most. The leg pain has also improved but she still??can feel some tightness??in the posterior??right leg. ??She states??that mobility has improved -for example, she used to have to lay flat on her bed to put on her socks and shoes and she is now able to do this without laying on her bed. ??Residual pain is rated 2/10. ??She continues to do the home stretches from physical therapy a few times per week. Review of Systems Constitutional:?No fevers/chills Gastrointestinal:?No bowel dysfunction Genitourinary:?No bladder dysfunction Musculoskeletal:??Positive for back pain Neurological: No new weakness, no numbness/tingling Physical Exam Vitals & Measurements HR:??74??(Peripheral)?? BP:??130/70?? SpO2:??98%?? General: NAD HEENT: Facial movements symmetric Resp: Breathing comfortably, unlabored respirations Neuro: Motor:Strength is 5 out of 5 lower extremities bilaterally??hip flexion, knee extension, ankle dorsiflexion, EHL, plantarflexion Sensation:Intact to light touch in the lower extremities bilaterally Reflexes: 1+ bilateral knees and left ankle. ??Absent right ankle.? Gait:??Normal Assessment/Plan Low back pain??M54.50 ?? Lumbar disc herniation??M51.26 Ordered: Surgical Procedure Booking Request LTTL, 07/30/23 11:12:00 EDT, lumbar disc herniation, Lumbar discherniation Lumbar radiculopathy, Outpatient, right S1 TFESI, Primary Procedure, 45, Special equipment needed (include C-Arm requests)?, Local, 0, Nida Abebe, DO, Right S1 Transforaminal... ?? Lumbar radiculopathy??M54.16 Ordered: Surgical Procedure Booking Request LTTL, 07/30/23 11:12:00 EDT, lumbar disc herniation, Lumbar discherniation Lumbar radiculopathy, Outpatient, right S1 TFESI, Primary Procedure, 45, Special equipment needed (include C-Arm requests)?, Local, 0, Nida Abebe, DO, Right S1 Transforaminal... ? Vilma reports 85% improvement following a recent right S1 transforaminal epidural steroid injection.?? She continues to experience some mild residual discomfort in the right leg. ??She does not feel that her pain is bothersome enough at this point in time to pursue??surgery for the disc herniation. However,??she would be interested in a repeat injection to see if that would help eliminate the??luisa ining??discomfort.?? After reviewing options, agreed to move forward with a repeat right S1 transforaminal ALEXSANDER. ??If this is??ineffective in resolving the residual??pain, can also consider an interlaminar approach at L5-S1. ?? She will return for??lumbar ALEXSANDER. Images MRI lumbar spine reviewed Problem List/Past Medical History Ongoing Radiculopathy due [...] Never. Tobacco Never tobacco user Tobacco Use:. Electronically Signed on 07/30/23 02:33 PM Nida Abebe DO Patient Care team information Care Team Personnel Name: ROLAND CARO APRN Position: No Access Member Role: Primary Care Physician Address: Address: [address] [place] [address]- Care Team Related Persons Name: SHAN TAYLOR Name: SHAN TAYLOR V Address: Home [address] [place] [phone] Address[address], [phone]
--- OUTSIDE RECORDS SUMMARY | 2023-10-16 17:44 | XMS_ITS | Continuity of Care Document ---
Author Name Unknown Organization [facility] Address [address] [place] [address] Care Team Providers Care Calculation Reviewer Name Role Phone ROLAND CARO APRN Primary Care Physician Encounter [facility] NBR [id number] Date(s): 07/03/23 - 07/03/[address] [facility] [address] [place] [address]- [place] Encounter Diagnosis Lumbar disc herniation(Discharge Diagnosis) - 07/03/23 Lumbar radiculopathy(Discharge Diagnosis) - 07/03/23 Discharge Disposition: Home or Self Care Attending Physician: Nida Abebe DO Allergies, Adverse Reactions, Alerts Substance Reaction Severity Status escitalopram Unknown Unknown Active Sertraline Hydrochloride Unknown Unknown Act donald Assessment and Plan Future Appointments Functional Status 07/03/23 Family Member Travel History No recent t ravel Recent Travel History No recent travel Medications Albuterol (Eqv-Ventolin HFA) 90 mcg/inh inhalation [...] Temperature Temporal Artery [36-38 Deg C ] 36.1 Deg C (07/03/23 8:13 AM) Peripheral Pulse Rate [60-100 bpm] 84 bp m (07/03/23 8:13 AM) Respiratory Rate [12-24 br/min] 18 br/mi n (07/03/23 8:13 AM) Blood Pressure [90-140/60-90 mmHg] 131/9 2mmHg (07/03/23 8:13 AM) Mean Arterial Pressure, Cuff [65-140 mmH g] 105 mmHg (07/03/23 8:13 AM) Social History Social History Type Response Tobacco Never tobacco user T obacco Use:. Sex Patient Care team information Care Team Personnel Name: ROLAND CARO APRN Position: No Access Member Role: Primary Care Physician Address: Address: [address] [place] [address] Care Team Related Persons Name: SHAN TAYLOR Name: SHAN TAYLOR V Address: Home [address] [place] [address], [id number] Address: Temporary [address] [place] [address], [phone]
--- OUTSIDE RECORDS SUMMARY | 2023-10-16 17:44 | XMS_ITS | Continuity of Care Document ---
Author Name Unknown Organization [facility] Address [address] [place] [address] Care Team Providers Care Property Condition Assessor Name Role Phone ROLAND CARO APRN Primary Care Physician [phone] Encounter [facility] NBR [id number] Date(s): 05/02/23 - 05/02/[address] [address]- [place] Encounter Diagnosis Low back pain, unspecified(Final) - Discharge Disposition: Home or Self Care Attending Physician: ORLAND CARO APRN Admitting Physician: ROLAND CARO APRN Referring Physician: ROLAND CARO APRN Allergies, Adverse Reactions, Alerts No Known Allergies Assessment and Plan Future Appointments Problem List No Known Problems Results Radiology Reports * Exam Date Time Procedure Performing Provider Status 05/02/23 8:51 AM MRI Spine Lumbar w/ + w/o Contrast Johanna Gaming; Betty (Verified) Notes: (MRI Spine Lumbar w/ + w/o Contrast) Reason For Exam: LOW BACK PAIN MRI Spine Lumbar w/ + w/o Contrast EXAM DESCRIPTION: MRI Spine Lumbar w/ + w/o Contrast 05/02/2023 INDICATION: LOW BACK PAIN TECHNIQUE: Multiplanar MRI examination of the lumbar spine utilizing T1, fat-suppressed T2 and fast STIR technique. Postcontrast axial and sagittal T1 weighted images were also obtained 18 mL of MultiHance contrast was utilized COMPARISON: None FINDINGS: Lumbar lordosis is satisfactory. No significant scoliosis Decreased signal in the central portion of the T11-12 and T12-L1 intervertebral discs on all pulse sequences which may reflect interbody spacer apparatus placement. Correlation with surgical history is recommended. L5-S1: Prominent broad-based right paracentral disc extrusion with significant right lateral recess stenosis and encroachment on the right S1 nerve root. No significant central stenosis with AP spinal canal diameter of 10 mm. No significant neural foraminal narrowing L4-5: No focal disc protrusion, significant spinal stenosis or neural foraminal narrowing. L3-4: No focal disc protrusion, significant spinal stenosis or neural foraminal narrowing. L2-3: Mild diffuse disc bulge. No significant spinal stenosis. Mild bilateral neural foraminal narrowing L1-2: No focal disc protrusion, significant spinal stenosis or neural foraminal narrowing. No significant stenosis in the visualized lower thoracic spine The conus is normal in morphology and signal intensity and terminates at the L1 level. No suspicious regional marrow lesions. No vertebral body compression deformity in the lumbar region Paraspinal soft tissues are unremarkable Postcontrast images demonstrate no abnormal enhancement. IMPRESSION: Prominent broad-based right paracentral disc extrusion at L5-S1 resulting in significant right lateral recess stenosis and encroachment on the right S1 nerve root. Mild diffuse disc bulge at L2-3. No significant spinal stenosis with mild bilateral neural foraminal narrowing Remaining levels demonstrate no focal disc protrusion or significant stenosis Normal conus Postcontrast images demonstrate no abnormal enhancement. Findings suggesting possible interbody spacer apparatus at the T11-12 and T12-L1 levels. Correlation with surgical history is recommended. JOB #: [id number] Final Signed by: Clyde Mejia MD Signed (Electronic Signature): 05/02/2023 9:27 am Social History Social History Type Response Tobacco Never tobacco user T obacco Use:. Sex Patient Care team information Care Team Personnel Name: ROLAND CARO APRN Position: No Access Member Role: Primary Care Physician Address: Address: [address] [place] [address] Care Team Related Persons Name: SHAN TAYLOR Name: SHAN TAYLOR V Address: Home [address] [place] [phone] Address: Temporary [address] [place] [phone]
--- OUTSIDE RECORDS SUMMARY | 2023-10-16 17:44 | XMS_ITS | Continuity of Care Document ---
Author Name Unknown Organization [facility] Ambulatory [facility] Address [address] [place] [address] Care Team Providers Care Customer Solutions Specialist Name Role Phone ROLAND CARO APRN Primary Care Physician En[facility] NBR [id number] Date(s): 06/18/23 - 06/18/23 [facility] [address] [place] [address]- [place] Encounter Diagnosis Lumbar disc herniation(Discharge Diagnosis) - 06/18/23 Lumbar radiculopathy(Discharge Diagnosis) - 06/18/23 Discharge Disposition: Home or Self Care Attending Physician: Nida Abebe DO Referring Physician: ROLAND CARO APRN Allergies, Adverse Reactions, Alerts Substance Reaction Severity Status escitalopram Unknown Unknown Active Sertraline Hydrochloride Unknown Unknown Act donald Assessment and Plan Future Appointments Medications Albuterol (Eqv-Ventolin HFA) 90 [...] Start Date: 06/18/23 Status: Ordered Problem List No Known Problems Vital Signs Most recent to oldest [Reference Range]: 1 Temperature Temporal Artery [36-38 Deg C ] 36.6 Deg C (06/18/23 9:41 AM) Peripheral Pulse Rate [60-100 bpm] 70 bp m (06/18/23 9:41 AM) Blood Pressure [90-140/60-90 mmHg] 132/8 0mmHg (06/18/23 9:41 AM) Mean Arterial Pressure, Cuff [65-140 mmH g] 97 mmHg (06/18/23 9:41 AM) Weight 89.4 kg (06/18/23 9:41 AM) Weight Measured (lbs) 197.093 lb (06/18/23 9:41 AM) Weight Dosing 89.400 kg (06/18/23 9:41 AM) [place] Body Weight Calculated 50.1 kg (06/18/23 9:41 AM) Height 157.48 cm (06/18/23 9:41 AM) Height/Length Measured (inches) 62 inch (06/18/23 9:41 AM) BSA Measured 1.98 m2 (06/18/23 9:41 AM) Body Mass Index 36.05 kg/m2 (06/18/23 9:41 AM) Social History Social History Type Response Tobacco Never tobacco user T obacco Use:. Sex Patient Care team information Care Team Personnel Name: ROLAND CARO APRN Position: No Access Member Role: Primary Care Physician Address: Address: [address] [place] [id number]- Care Team Related Persons Name: SHAN TAYLOR Name: SHAN TAYLOR V Address: Home [address] [place] [phone] Address: Temporary [address] [place] [phone]
--- OUTSIDE RECORDS SUMMARY | 2023-10-16 17:44 | XMS_ITS | Patient Health Record ---
Author Name Unknown Organization [facility] Address [address] [place] [address] Care Team Providers Care Senior Electronics Design Engineer Name Role Phone [facility] Primary Care Provid er Unavailable Emeli Melissa MD Unavailable [phone] Allergies No Known Allergies Reason For Referral No Information Medications Medication SIG (Take, Route, Frequency, Duration) Notes Start Date End Date Status Loratadine Active Estradiol tablet, unknown dosage QD Not-Taking Ditropan XL 10 MG 1 tablet Orally Once a day for 30 day(s) Not-Taking Vivelle-Dot 0.1 MG/24HR 1 patch to skin Transdermal Two times a Week for 84 days Active Social History Tobacco Use: Social History Observation Description Date Details (start date - stop date) Never Smoker NA - NA Smoking Question Answer Notes Are you a: nonsmoker Problems Problem Type SNOMED Code ICD Code Onset Dates Problem Status W/U Status Risk Notes Problem Menopausal and postmenopausal disorders (371174234) Unspecified menopausal and perimenopausal disorder (N95.9) Active confirmed Problem Hysterectomy (980481951) 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 confirmed Problem Female urinary stress incontinence (42897048) JAMISON (stress urinary incontinence, female) (N39.3) Active confirmed Plan Of Treatment No Information Insurance Providers Payer Name Payer Address Payer Phone Subscriber Number Group Number Insured Name Patient Relationship to Insured Coverage Start Date Coverage End Date [employer] [address] CRISTINO GONZALEZ, OSBALDO [phone] [id number] DespinsPr escott, Vilma Self - patient is the insured Medical (General) History Medical History History ICD Code S/p gall bladder removal S/p [facility] Reocurreing Last Pap: 05/23/2018 NIL, No HPV testing Surgical History Surgery Date(Month/Year) FLAKITA PETIT at [facility] 02/11/2019 Hospitalization History Reason Date(Month/Year) Hysterectomy recurrent diverticulitis
--- OUTSIDE RECORDS SUMMARY | 2023-10-16 17:44 | XMS_ITS | Continuity of Care Document ---
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 Name Role Phone ROLAND CARO APRN Primary Care Physician Encounter [facility] FIN NBR [id number] Date(s): 09/14/22 - 09/14/[address] [id number] [place] Encounter Diagnosis Acute diverticulitis(Discharge Diagnosis) - 09/14/22 Calcification of bladder(Discharge Diagnosis) - 09/14/22 Ventral hernia(Discharge Diagnosis) - 09/14/22 Discharge Disposition: Home or Self Care Attending Physician: Mark Anthony Hardy DO Admitting Physician: Mark Anthony Hardy DO Allergies, Adverse Reactions, Alerts No Known Allergies Functional Status 09/14/22 Other exposure to Infectious Disease Non e Medications ibuprofen 800 mg oral tablet 800 mg = 1 tab, Oral, every 6 hr, X 10 days, # 40 tab, 0 Refill(s), 09/24/22 10:50:00 EDT Start Date: 09/14/22 Stop Date: 09/24/22 Status: Ordered Mental Status 09/14/22 Eye Opening Response Yuki Spontaneous ly Best Verbal Response [place] Oriented Best Motor Response Yuki Obeys comman ds Yuki Coma Score 15 Problem List No Known Problems Results Laboratory List Name Date CBC w/ Diff 09/14/22 Comprehensive Metabolic Panel 09/14/22 Lactic Acid 09/14/22 Lipase Level 09/14/22 Magnesium Level 09/14/22 Urinalysis with Micro if Indicated and C ulture if Indicated 09/14/22 Automated Diff 09/14/22 Most recent to oldest [Reference Range]: 1 WBC [4.8-10.8 K/mcL] 11.1 K/mcL *HI* (09/14/22 9:35 AM) RBC [4.20-5.40 Million/mcL] 4.14 Million /mcL *LOW* (09/14/22 9:35 AM) Neutro Auto [42.2-75.2 %] 74.0 % (09/14/22 9:35 AM) Lymph Auto [20.5-51.1 %] 15.6 % *LOW* (09/14/22:35 AM) [place] Auto [1.7-9.3 %] 7.7 % (09/14/22 9:35 AM) Basophil Auto [0.0-0.8 %] 0.5 % (09/14/22 9:35 AM) BUN [8-26 mg/dL] 10 mg/dL (09/14/22 9:35 AM) UA Color [Yellow] Yellow (09/14/22:35 AM) Glucose Level [74-106 mg/dL] 100 mg/dL (09/14/22 9:35 AM) Potassium Level [3.5-5.1 mmol/L] 4.5 mmo l/L 1 (09/14/22 9:35 AM) Baso Absolute [0.0-0.2 K/mcL] 0.0 K/mcL (09/14/22 9:35 AM) MCV [81.0-99.0 fL] 94.0 fL (09/14/22 9:35 AM) UA Urobilinogen [0.2] 0.2 (09/14/22 9:35 AM) UA Bili [Negative] Negative (09/14/22 9:35 AM) UA Ketones [Negative] Negative (09/14/22 9:35 AM) AST [15-41 IntlUnit/L] 20 IntlUnit/L (09/14/22 9:35 AM) ALT [14-54 IntlUnit/L] 16 IntlUnit/L (09/14/22 9:35 AM) MCHC [32.0-36.0 g/dL] 33.2 g/dL (09/14/22 9:35 AM) Osmolality [275-295 mOsm/kg] 273 mOsm/kg *LOW* (09/14/22 9:35 AM) Sodium Level [134-143 mmol/L] 137 mmol/L (09/14/22 9:35 AM) UA Leuk Est [Negative] Negative (09/14/22 9:35 AM) Lymph Absolute [1.2-3.4 K/mcL] 1.7 K/mcL (09/14/22 9:35 AM) UA Nitrite [Negative] Negative (09/14/22 9:35 AM) UA Glucose [Negative] Negative (09/14/22 9:35 AM) Hct [37.0-47.0 %] 38.9 % (09/14/22 9:35 AM) Lipase Level [18-51 unit/L] 27 unit/L (09/14/22 9:35 AM) Calcium Level [8.9-10.3 mg/dL] 9.1 mg/dL (09/14/22 9:35 AM) [place] Absolute [0.1-0.6 K/mcL] 0.8 K/mcL *HI* (09/14/22 9:35 AM) Albumin Level [3.5-5.0 g/dL] 3.9 g/dL (09/14/22 9:35 AM) Protein Total [6.5-8.1 g/dL] 6.7 g/dL (09/14/22 9:35 AM) UA Protein [Negative] Negative (09/14/22 9:35 AM) MCH [27.0-31.0 pg] 31.2 pg *HI* (09/14/22 9:35 AM) Magnesium Level [1.8-2.5 mg/dL] 2.0 mg/d L (09/14/22 9:35 AM) Neutro Absolute [1.4-6.5 K/mcL] 8.2 K/mc L *HI* (09/14/22 9:35 AM) Bilirubin Total [0.2-1.2 mg/dL] 0.7 mg/d L (09/14/22 9:35 AM) Hgb [12.0-16.0 g/dL] 12.9 g/dL (09/14/22 9:35 AM) Alk Phos [38-130 IntlUnit/L] 40 IntlUnit /L (09/14/22 9:35 AM) UA Blood [Negative] Negative (09/14/22 9:35 AM) MPV [7.4-10.4 fL] 10.8 fL *HI* (09/14/22 9:35 AM) UA Spec Grav 1.025 *NA* (09/14/22 9:35 AM) Platelets [130-400 K/mcL] 249 K/mcL (09/14/22 9:35 AM) CO2 [22-32 mmol/L] 29 mmol/L (09/14/22 9:35 AM) Eos Absolute [0.0-0.2 K/mcL] 0.2 K/mcL (09/14/22 9:35 AM) Lactic Acid Lvl [0.5-2.2 mmol/L] 1.2 mmo l/L (09/14/22 9:35 AM) UA pH 5.00 *NA* (09/14/22 9:35 AM) UA Appear [Clear] Clear (09/14/22 9:35 AM) Chloride Level [98-111 mmol/L] 101 mmol/ L (09/14/22 9:35 AM) RDW-CV [11.5-14.5 %] 13.2 % (09/14/22 9:35 AM) A/G Ratio 1.4 *NA* (09/14/22 9:35 AM) BUN/Creat Ratio [8.0-20.0] 14.7 (09/14/22 9:35 AM) Globulin 2.8 *NA* (09/14/22 9:35 AM) Imm Gran Absolute 0.03 *NA* (09/14/22 9:35 AM) Imm Gran Auto [0.0-0.5 %] 0.3 % (09/14/22 9:35 AM) Urine Srce Clean Catch (09/14/22 9:35 AM) Creatinine Level [0.44-1.00 mg/dL] 0.68 mg/dL (09/14/22 9:35 AM) Anion Gap [3.0-12.0] 7.0 (09/14/22 9:35 AM) Eos, Auto [0.00-3.00 %] 1.90 % (09/14/22 9:35 AM) eGFR CKD-EPI [>=60 mL/min/1.73 m2] 105 m L/min/1.73 m2 (09/14/22 9:35 AM) 1Result Comment: slight hemolysis, performed on serum tube. Plasma grossly hemolyzed Radiology Reports * Exam Date Time Procedure Performing Provider Status 09/14/22 9:[address] Abdomen and Pelvis w/ Contrast Johanna Rodríguez; Auth (Verified) Notes: (CT Abdomen and Pelvis w/ Contrast) Reason For Exam: Abdominal Pain CT Abdomen and Pelvis w/ Contrast EXAM DESCRIPTION: CT Abdomen and Pelvis w/ Contrast 09/14/2022 INDICATION: ABDOMINAL PAIN TECHNIQUE: All CT scans at this facility use at least one of these dose optimization techniques: Automated exposure control; mA and/or kV adjustment per patient size (includes targeted exams where dose is matched to clinical indication); or iterative reconstruction. Technique: Axial CT images of the abdomen/pelvis with IV contrast administration 100 cc of Isovue-300 contrast was utilized COMPARISON: None FINDINGS: No focal hepatic lesion. Normal enhancement of the main hepatic veins and main portal vein. Normal spleen size without focal mass. Status post cholecystectomy. Adrenal glands and pancreas appear within normal limits Small low-attenuation lesion in the mid right kidney which is difficult to characterize based on size, likely reflecting small cyst. Otherwise no focal renal mass, hydronephrosis or perinephric fluid collection on either side Ovoid calcifications in the mid lower pelvis which appear to be in the inferior bladder/bladder neck region suspicious for bladder calculi. Largest calcification measures approximately 9 x 11 mm. Extension of calculi into the proximal urethra cannot be excluded. No significant bladder wall thickening or bladder distension. Normal caliber abdominal aorta with scattered atherosclerotic calcifications. No retroperitoneal adenopathy in the abdomen or pelvis. No pelvic mass identified with apparent prior hysterectomy Inflammatory stranding in the distal sigmoid mesentery with regional diverticula consistent with acute diverticulitis. No bowel dilatation to suggest obstruction or ileus. No focal fluid collection to suggest abscess. No ascites or free intraperitoneal air. Normal appendix. Small fat containing ventral abdominal hernia just to the right of midline inferior to the umbilicus. The visualized lung bases are clear. No suspicious regional osseous lesions. IMPRESSION: Acute diverticulitis involving the distal sigmoid colon. No evidence of abscess or free air. Nonobstructive bowel pattern Calcifications in the lower mid pelvis which appear to be within the bladder. One of the calcifications may be extending into the proximal urethra. No bladder distention or bladder wall thickening. Additional nonacute findings as detailed above. JOB #: [id number] Final Signed by: Clyde Mejia MD Signed (Electronic Signature): 09/14/2022 10:10 am Vital Signs Most recent to oldest [Reference Range]: 1 2 3 Temperature Temporal Artery [36-38 Deg C] 36 Deg C (09/14/22 8:56 AM) Peripheral Pulse Rate [60-100 bpm] 80 bpm (09/14/22 11:00 AM) 86 bpm (09/14/22 9:12 AM) 86 bpm (09/14/22 8:56 AM) Respiratory Rate [12-24 br/min] 14 br/min (09/14/22 11:00 AM) 16 br/min (09/14/22 8:56 AM) Blood Pressure [90-140/60-90 mmHg] 122/77mmHg (09/14/22 11:00 AM) 124/87mmHg (09/14/22 10:30 AM) 136/95mmHg (09/14/22 8:56 AM) Mean Arterial Pressure Cuff 92 mmHg (09/14/22 11:00 AM) 98 mmHg (09/14/22 10:30 AM) Weight Dosing 86.00 kg (09/14/22 9:20 AM) Weight Estimated 86.00 kg (09/14/22 8:56 AM) Height/Length Dosing 157.000 cm (09/14/22 9:20 AM) Height/Length Estimated 157.000 cm (09/14/22 8:56 AM) Social History Social History Type Response Tobacco Never tobacco user T obacco Use:. Sex Hospital Discharge Instructions Patient Education 09/14/2022 09:47:10 Diverticulitis Diverticulitis Diverticulitis is infection or inflammation of small pouches (diverticula) in the colon that form due to a condition called diverticulosis. Diverticula can trap stool (feces) and bacteria, causing infection and inflammation. Diverticulitis may cause severe stomach pain and diarrhea. It may lead to tissue damage in the colon that causes bleeding or blockage. The diverticula may also burst (rupture) and cause infected stool to enter other areas of the abdomen. What are the causes? This condition is caused by stool becoming trapped in the diverticula, which allows bacteria to grow in the diverticula. This leads to inflammation and infection. What increases the risk? You are more likely to develop this condition if you have diverticulosis. The risk increases if you: ??? Are overweight or obese. ??? Do not get enough exercise. ??? Drink alcohol. ??? Use tobacco products. ??? Eat a diet that has a lot of red meat such as beef, pork, or yen. ??? Eat a diet that does not include enough fiber. High-fiber foods include fruits, vegetables, beans, nuts, and whole grains. ??? Are over 40 years of age. What are the signs or symptoms? Symptoms of this condition may include: ??? Pain and tenderness in the abdomen. The pain is normally located on the left side of the abdomen, but it may occur in other areas. ??? Fever and chills. ??? Nausea. ??? Vomiting. ??? Cramping. ??? Bloating. ??? Changes in bowel routines. ??? Blood in your stool. How is this diagnosed? This condition is diagnosed based on: ??? Your medical history. ??? A physical exam. ??? Tests to make sure there is nothing else causing your condition. These tests may include: ??? Blood tests. ??? Urine tests. ??? CT scan of the abdomen. How is this treated? Most cases of this condition are mild and can be treated at home. Treatment may include: ??? Taking ldbh-qkw-hbbxvie pain medicines. ??? Following a clear liquid diet. ??? Taking antibiotic medicines by mouth. ??? Resting. More severe cases may need to be treated at a hospital. Treatment may include: ??? Not eating or drinking. ??? Taking prescription pain medicine. ??? Receiving antibiotic medicines through an IV. ??? Receiving fluids and nutrition through an IV. ??? Surgery. When your condition is under control, your health care provider may recommend that you have a colonoscopy. This is an exam to look at the entire large intestine. During the exam, a lubricated, bendable tube is inserted into the anus and then passed into the rectum, colon, and other parts of the large intestine. A colonoscopy can show how severe your diverticula are and whether something else may be causing your symptoms. Follow these instructions at home: Medicines ??? Take dusu-lsk-kwhagxu and prescription medicines only as told by your health care provider. These include fiber supplements, probiotics, and stool softeners. ??? If you were prescribed an antibiotic medicine, take it as told by your health care provider. Donot stop taking the antibiotic even if you start to feel better. ??? Ask your health care provider if the medicine prescribed to you requires you to avoid driving or using machinery. Eating and drinking ??? Follow a full liquid diet or another diet as directed by your health care provider. ??? After your symptoms improve, your health care provider may tell you to change your diet. He or she may recommend that you eat a diet that contains at least 25 grams (25 g) of fiber daily. Fiber makes it easier to pass stool. Healthy sources of fiber include: ??? Berries. One cup contains 4???8 grams of fiber. ??? Beans or lentils. One-half cup contains 5???8 grams of fiber. ??? Green vegetables. One cup contains 4 grams of fiber. ??? Avoid eating red meat. General instructions ??? Do not use any products that contain nicotine or tobacco, such as cigarettes, e-cigarettes, andchewing tobacco. If you need help quitting, ask your health care provider. ??? Exercise for at least 30 minutes, 3 times each week. You should exercise hard enough to raise your heart rate and break a sweat. ??? Keep all follow-up visits as told by your health care provider. This is important. You may needto have a colonoscopy. Contact a health care provider if: ??? Your pain does not improve. ??? Your bowel movements do not return to normal. Get help right away if: ??? Your pain gets worse. ??? Your symptoms do not get better with treatment. ??? Your symptoms suddenly get worse. ??? You have a fever. ??? You vomit more than one time. ??? You have stools that are bloody, black, or tarry. Summary ??? Diverticulitis is infection or inflammation of small pouches (diverticula) in the colon that form due to a condition called diverticulosis. Diverticula can trap stool (feces) and bacteria, causing infection and inflammation. ??? You are at higher risk for this condition if you have diverticulosis and you eat a diet that does not include enough fiber. ??? Most cases of this condition are mild and can be treated at home. More severe cases may need irene treated at a hospital. ??? When your condition is under control, your health care provider may recommend that you have an exam called a colonoscopy. This exam can show how severe your diverticula are and whether something else may be causing your symptoms. ??? Keep all follow-up visits as told by your health care provider. This is important. This information is not intended to replace advice given to you by your health care provider. Make sure you discuss any questions you have with your health care provider. Document Revised: 01/18/2020 Document Reviewed: 01/18/2020 [employer] Patient Education ?? 2021 [employer]. Follow Up Care 09/14/2022 08:56:05 With:ROLAND CARO APRN Address: [address] [place] [id number]- When:1 week Physician Emergency department Note * Mark Anthony Hardy DO: PERFORM Event Display: ED Note Physician Authored Date: [id number] GUILLE TAYLOR :1970 Age:52 years Sex:Female Visit Date:09/14/2022 Primary Care Physician: ROLAND CARO APRN Basic Information Time Seen: Mark Anthony Hardy DO / 09/14/2022 09:08 Chief Complaint Patient complains of L sided abdominal and back pain for past week. Hx diverticulitis. Denies fevers. History Of Present Illness: ??This is a pleasant??52-year-old female PMH??diverticulitis??who presents to the emergency department with concerns of??acute exacerbation of diverticulitis. ??For the past week she has been experiencing lower lumbar back pain and some left lower abdominal tenderness consistent with previous flares of diverticulitis.?? No fevers although??she does endorse being quite cold.?? She does??states shehas been having hematochezia??and more loose stool bowel movements. Review of Systems: CONSTITUTIONAL: _No weight loss, fever, chills, weakness or fatigue SKIN: _No rash, no itching, no jaundice EYES: _No visual loss, blurred vision, double vision or scleral icterus ENT: _No ear pain; patent nares without bleeding or congestion; no sore throat CARDIOLOGY: _No chest pain, No edema, No palpitations PULMONOLOGY: _No pleuritic chest pain, No vpzzvqycg-uz-jjkmko, No cough, No hemoptysis ABDOMEN:_no nausea, no vomiting,??(+)ve LLQ??abdominal pain, no melena,??(+)ve hematochezia :_no dysuria, no urinary frequency, no urinary urgency NEURO:_No focal neurological deficit, no headache, no dizziness ?? REST OF REVIEW OF SYSTEMS IS NEGATIVE PERTAINS TO CHIEF COMPLAINT Physical Exam Vitals & Measurements T:??36?C ??(Temporal Artery)?? HR:??86??(Peripheral)?? RR:??16?? BP:??136/95?? SpO2:??97%?? HT:??157.000??cm?? WT:??86.00??kg??(Estimated)?? O2 Therapy:??Room air?? GENERAL: This is a very pleasant older female??with mild lower abdominal discomfort. No cardiopulmonary distress. SKIN: Warm and dry. No rash. HEENT: Normocephalic, atraumatic. ??PERRLA, EOMI, no conjunctival injection, no scleral icterus. ??TMs not examined. ??Nares are without congestion or rhinorrhea. ??No posterior pharyngeal erythema or tonsillar exudate. ??Dentition grossly intact. ??Mucous membranes are moist. NECK: Supple. No midline tenderness. No JVD. No thyromegaly. Dynamic ROM against resistance intact. HEART: Regular rate and rhythm. ??S1 and S2. No murmur. LUNGS: Clear to auscultation bilaterally. ??No respiratory distress. ABDOMEN: Non-distended, LLQ tenderness with voluntary guarding; no??rebound or rigidity.?No peritoneal findings. BACK: No midline TLS spine tenderness. ??No CVAT. ??No SI tenderness. EXTREMITIES: No unilateral leg swelling or posterior calf tenderness. No edema. NEUROLOGIC: GCS 15. CN III-XII intact without acute focal neurological deficit. Medical Decision Making: Abdominal pain.?? Suspect recurrent diverticulitis. ??We will treat with gentle IV fluids,??as needed??intravenous??opiates /??intravenous antiemetics. ??Will obtain screening laboratory work-up, urinalysis, and CT abdomen/pelvis with contrast. Procedure No Qualifying Data Reexamination/Reevaluation 10:45 AM: Laboratory work-up reveals a white blood cell count 11.1, hemoglobin 12.9, hematocrit 38.9, platelet count 249.?? Chemistries reveal sodium 137, potassium 4.5, chloride 101, CO2 29, BUN 10,creatinine 0.68.?? Normal liver function testing.?? Normal urinalysis.?? CT abdomen/pelvis is document on the right and demonstrates acute diverticulitis involving the distal sigmoid colon without evidence of abscess or free air.?? Patient be discharged home with pain management using ibuprofen 800mg every 6 hours with food.?? Patient agreed to forego antibiotic therapy at present time and was instructed to return with any new or worsening symptoms.?? All questions were answered.?? Patient expressed understanding of disposition and was grateful for discharge home. ??Of note, discussed findings of bladder calcifications in addition to her fat- containing??ventral abdominal hernia??and to discuss this further with her PCP. Assessment/Plan 1.??Acute diverticulitis??K57.92 Ordered: ibuprofen 800 mg oral tablet, 800 mg = 1 tab, Oral, every 6 hr, X 10 days, # 40 tab, 0 Refill(s), 09/24/22 10:50:00 EDT ?? 2.??Calcification of bladder??N32.89 ?? 3.??Ventral hernia??K43.9 ?? Orders: Dilaudid, 0.5 mg = 0.25 mL, IV Push, Injection, every 20 min for 3 doses, PRN pain, moderate, FirstDose: 09/14/22 9:12:00 EDT, Stop Date: Limited # of times, Physician Stop Normal Saline Flush, 10 mL, IV Flush, Injection, As Directed, PRN telephone lineworker, First Dose: 09/14/22 9:12:00 EDT, Routine Sodium Chloride 0.9% 1,000 mL, Total Volume (mL): 1,000, 1,000 mL, Soln-IV, IV Bolus, 999 mL/hr, Start Date: 09/14/22 9:12:00 EDT, Populate Charting Weight From Order Sodium Chloride 0.9% 1,000 mL, Total Volume (mL): 1,000, 1,000 mL, Soln-IV, IV, 125 mL/hr, Start Date: 09/14/22 9:12:00 EDT, Populate Charting Weight From Order Clostridium Difficile (GeneXpert), Stool, Stat Collect, 09/14/22 9:12:00 EDT, Once, Nurse collect, Print Label Fecal Lactoferrin, Stool, Stat Collect, 09/14/22 9:12:00 EDT, Once, Nurse collect, Print Label Fecal Occult Blood (iFOB), Stool, Stat Collect, 09/14/22 9:12:00 EDT, Once, Nurse collect, Print Label GI Panel (BioFire), Stool, Stat Collect, 09/14/22 9:12:00 EDT, Once, Nurse collect, Print Label Stool Culture LC, Stool, Stat Collect, 09/14/22 9:12:00 EDT, Once, Nurse collect, Print Label Patient Education Diverticulitis Follow Up With When Contact Information ROLAND CARO APRN Within [address] [place] [phone]- Additional Instructions: Problem List/Past Medical History Ongoing No chronic problems Historical No qualifying data Medication Administration Given Sodium Chloride 0.9%, 1000 mL, IV Bolus Normal Saline Flush, 10 mL, IV Flush Allergies No Known Allergies Social History Electronic Cigarette/Vaping Electronic Cigarette Use: Never. Tobacco Never tobacco user Tobacco Use:. Family History Non-Contributory Diagnostic Results CT Abdomen and Pelvis w/ Contrast 09/14/2022 10:[address] Abdomen and Pelvis w/ Contrast ?? 09/14/22 10:10:17 EXAM DESCRIPTION: CT Abdomen and Pelvis w/ Contrast ?? 09/14/2022 ?? INDICATION: ABDOMINAL PAIN ?? TECHNIQUE: All CT scans at this facility use at least one of these dose optimization techniques: Automated exposure control; mA and/or kV adjustment per patient size (includes targeted exams where dose is matched to clinical indication); or iterative reconstruction. ?? Technique: Axial CT images of the abdomen/pelvis with IV contrast administration ?? 100 cc of Isovue-300 contrast was utilized ?? COMPARISON: None ?? FINDINGS: No focal hepatic lesion. Normal enhancement of the main hepatic veins and main portal vein. ?? Normal spleen size without focal mass. ?? Status post cholecystectomy. ?? Adrenal glands and pancreas appear within normal limits ?? Small low-attenuation lesion in the mid right kidney which is difficult to characterize based on size, likely reflecting small cyst. Otherwise no focal renal mass, hydronephrosis or perinephric fluid collection on either side ?? Ovoid calcifications in the mid lower pelvis which appear to be in the inferior bladder/bladder neck region suspicious for bladder calculi. Largest calcification measures approximately 9 x 11 mm. Extension of calculi into the proximal urethra cannot be excluded. No significant bladder wall thickening or bladder distension. ?? Normal caliber abdominal aorta with scattered atherosclerotic calcifications. No retroperitoneal adenopathy in the abdomen or pelvis. ?? No pelvic mass identified with apparent prior hysterectomy ?? Inflammatory stranding in the distal sigmoid mesentery with regional diverticula consistent with acute diverticulitis. No bowel dilatation to suggest obstruction or ileus. No focal fluid collection to suggest abscess. No ascites or free intraperitoneal air. Normal appendix. ?? Small fat containing ventral abdominal hernia just to the right of midline inferior to the umbilicus. ?? The visualized lung bases are clear. ?? No suspicious regional osseous lesions. ?? IMPRESSION: Acute diverticulitis involving the distal sigmoid colon. No evidence of abscess or free air. Nonobstructive bowel pattern ?? Calcifications in the lower mid pelvis which appear to be within the bladder. One of the calcifications may be extending into the proximal urethra. No bladder distention or bladder wall thickening. ?? Additional nonacute findings as detailed above. ? JOB #: [id number] Electronically Signed By: ?? Signed By: Clyde Mejia MD Lab Results CBC and Differential?? LATEST RESULTS?? WBC?? 09/14/22 09:35?? 11.1 ??High?? RBC?? 09/14/22 09:35?? 4.14 ??Low?? Hgb?? 09/14/22 09:35?? 12.9?? Hct?? 09/14/22 09:35?? 38.9?? MCV?? 09/14/22 09:35?? 94.0?? MCH?? 09/14/22 09:35?? 31.2 ??High?? MCHC?? 09/14/22 09:35?? 33.2?? RDW-CV?? 09/14/22 09:35?? 13.2?? Platelets?? 09/14/22 09:35?? 249?? MPV?? 09/14/22 09:35?? 10.8 ??High?? Neutro Auto?? 09/14/22 09:35?? 74.0?? Lymph Auto?? 09/14/22 09:35?? 15.6 ??Low?? [place] Auto?? 09/14/22 09:35?? 7.7?? Eos, Auto?? 09/14/22 09:35?? 1.90?? Basophil Auto?? 09/14/22 09:35?? 0.5?? Imm Gran Auto?? 09/14/22 09:35?? 0.3?? Neutro Absolute?? 09/14/22 09:35?? 8.2 ??High?? Lymph Absolute?? 09/14/22 09:35?? 1.7?? [place] Absolute?? 09/14/22 09:35?? 0.8 ??High?? Eos Absolute?? 09/14/22 09:35?? 0.2?? Baso Absolute?? 09/14/22 09:35?? 0.0?? Imm Gran Absolute?? 09/14/22 09:35?? 0.03? Routine Chemistry?? LATEST RESULTS?? Sodium Level?? 09/14/22 09:35?? 137?? Potassium Level?? 09/14/22 09:35?? 4.5?? Chloride Level?? 09/14/22 09:35?? 101?? CO2?? 09/14/22 09:35?? 29?? Alk Phos?? 09/14/22 09:35?? 40?? AST?? 09/14/22 09:35?? 20?? ALT?? 09/14/22 09:35?? 16?? BUN?? 09/14/22 09:35?? 10?? Glucose Level?? 09/14/22 09:35?? 100?? Creatinine Level?? 09/14/22 09:35?? 0.68?? BUN/Creat Ratio?? 09/14/22 09:35?? 14.7?? Calcium Level?? 09/14/22 09:35?? 9.1?? Protein Total?? 09/14/22 09:35?? 6.7?? Albumin Level?? 09/14/22 09:35?? 3.9?? Globulin?? 09/14/22 09:35?? 2.8?? A/G Ratio?? 09/14/22 09:35?? 1.4?? Bilirubin Total?? 09/14/22 09:35?? 0.7?? Anion Gap?? 09/14/22 09:35?? 7.0?? Lactic Acid Lvl?? 09/14/22 09:35?? 1.2?? Lipase Level?? 09/14/22 09:35?? 27?? Magnesium Level?? 09/14/22 09:35?? 2.0?? Osmolality?? 09/14/22 09:35?? 273 ??Low?? eGFR CKD-EPI?? 09/14/22 09:35?? 105? UA Macroscopic?? LATEST RESULTS?? UA Color?? 09/14/22 09:35?? Yellow?? UA Appear?? 09/14/22 09:35?? Clear?? UA Glucose?? 09/14/22 09:35?? Negative?? UA Bili?? 09/14/22 09:35?? Negative?? UA Ketones?? 09/14/22 09:35?? Negative?? UA Spec Grav?? 09/14/22 09:35?? 1.025?? UA Blood?? 09/14/22 09:35?? Negative?? UA pH?? 09/14/22 09:35?? 5.00?? UA Protein?? 09/14/22 09:35?? Negative?? UA Urobilinogen?? 09/14/22 09:35?? 0.2?? UA Nitrite?? 09/14/22 09:35?? Negative?? UA Leuk Est?? 09/14/22 09:35?? Negative? Electronically Signed on 09/14/22 10:53 AM Mark Anthony Hardy DO Emergency department Discharge instructions * Mark Anthony Hardy DO: PERFORM Event Display: ED Discharge Information Authored Date: [id number] GUILLE TAYLOR :1970 Age:52 years Sex:Female Visit Date:09/14/2022 Primary Care Physician: ROLAND CARO APRN Discharge Instructions We would like to thank you for allowing us to assist you with your healthcare needs. The following includes patient education materials and information regarding your injury/illness. Diagnosis from Today's Visit Acute diverticulitis Calcification of bladder Ventral hernia Discharge Vitals Temperature??(Temporal Artery) 96.8 ??F (36 ??C) Heart Rate??(Peripheral) 86 Respiratory Rate?? 16 Blood Pressure?? 136/95?? Height?? 61.81 in (157.000 cm) Weight??(Estimated) 189.63 lb (86.00 kg) Allergies No Known Allergies What to Do Next You Need to Schedule the Following Appointments Follow Up with??ROLAND CARO APRN When:??Within 1 week Where: [address] [place] [id number]- You were treated today on an emergency basis; it may be buitrago to contact your primary care provider to notify them of your visit today. You may have been referred to your regular doctor or a specialist, please follow up as instructed. If your condition worsens or you can't get in to see the doctor, contact the Emergency Department. Medications What How Much When Why Instructions Next Dose New ibuprofen (ibuprofen 800 mg oral tablet) 1 tab Oral (given by mouth) Every 6 hours Acute diverticulitis Duration: 10 Days Printed Prescription Education Materials Diverticulitis Diverticulitis is infection or inflammation of small pouches (diverticula) in the colon that form due to a condition called diverticulosis. Diverticula can trap stool (feces) and bacteria, causing infection and inflammation. Diverticulitis may cause severe stomach pain and diarrhea. It may lead to tissue damage in the colon that causes bleeding or blockage. The diverticula may also burst (rupture) and cause infected stool to enter other areas of the abdomen. What are the causes? This condition is caused by stool becoming trapped in the diverticula, which allows bacteria to grow in the diverticula. This leads to inflammation and infection. What increases the risk? You are more likely to develop this condition if you have diverticulosis. The risk increases if you: ? Are overweight or obese. ? Do not get enough exercise. ? Drink alcohol. ? Use tobacco products. ? Eat a diet that has a lot of red meat such as beef, pork, or yen. ? Eat a diet that does not include enough fiber. High-fiber foods include fruits, vegetables, beans, nuts, and whole grains. ? Are over 40 years of age. What are the signs or symptoms? Symptoms of this condition may include: ? Pain and tenderness in the abdomen. The pain is normally located on the left side of the abdomen, but it may occur in other areas. ? Fever and chills. ? Nausea. ? Vomiting. ? Cramping. ? Bloating. ? Changes in bowel routines. ? Blood in your stool. How is this diagnosed? This condition is diagnosed based on: ? Your medical history. ? A physical exam. ? Tests to make sure there is nothing else causing your condition. These tests may include: ? Blood tests. ? Urine tests. ? CT scan of the abdomen. How is this treated? Most cases of this condition are mild and can be treated at home. Treatment may include: ? Taking hlvj-tiq-ltegvih pain medicines. ? Following a clear liquid diet. ? Taking antibiotic medicines by mouth. ? Resting. More severe cases may need to be treated at a hospital. Treatment may include: ? Not eating or drinking. ? Taking prescription pain medicine. ? Receiving antibiotic medicines through an IV. ? Receiving fluids and nutrition through an IV. ? Surgery. When your condition is under control, your health care provider may recommend that you have a colonoscopy. This is an exam to look at the entire large intestine. During the exam, a lubricated, bendable tube is inserted into the anus and then passed into the rectum, colon, and other parts of the large intestine. A colonoscopy can show how severe your diverticula are and whether something else may be causing your symptoms. Follow these instructions at home: Medicines ? Take iwex-bjf-iiwmoce and prescription medicines only as told by your health care provider. These include fiber supplements, probiotics, and stool softeners. ? If you were prescribed an antibiotic medicine, take it as told by your health care provider. Do notstop taking the antibiotic even if you start to feel better. ? Ask your health care provider if the medicine prescribed to you requires you to avoid driving or using machinery. Eating and drinking ? Follow a full liquid diet or another diet as directed by your health care provider. ? After your symptoms improve, your health care provider may tell you to change your diet. He or she may recommend that you eat a diet that contains at least 25 grams (25 g) of fiber daily. Fiber makesit easier to pass stool. Healthy sources of fiber include: ? Berries. One cup contains 4???8 grams of fiber. ? Beans or lentils. One-half cup contains 5???8 grams of fiber. ? Green vegetables. One cup contains 4 grams of fiber. ? Avoid eating red meat. General instructions ? Do not use any products that contain nicotine or tobacco, such as cigarettes, e- cigarettes, and chewing tobacco. If you need help quitting, ask your health care provider. ? Exercise for at least 30 minutes, 3 times each week. You should exercise hard enough to raise your heart rate and break a sweat. ? Keep all follow-up visits as told by your health care provider. This is important. You may need to have a colonoscopy. Contact a health care provider if: ? Your pain does not improve. ? Your bowel movements do not return to normal. Get help right away if: ? Your pain gets worse. ? Your symptoms do not get better with treatment. ? Your symptoms suddenly get worse. ? You have a fever. ? You vomit more than one time. ? You have stools that are bloody, black, or tarry. Summary ? Diverticulitis is infection or inflammation of small pouches (diverticula) in the colon that form due to a condition called diverticulosis. Diverticula can trap stool (feces) and bacteria, causing infection and inflammation. ? You are at higher risk for this condition if you have diverticulosis and you eat a diet that does not include enough fiber. ? Most cases of this condition are mild and can be treated at home. More severe cases may need to be treated at a hospital. ? When your condition is under control, your health care provider may recommend that you have an examcalled a colonoscopy. This exam can show how severe your diverticula are and whether something elsemay be causing your symptoms. ? Keep all follow-up visits as told by your health care provider. This is important. This information is not intended to replace advice given to you by your health care provider. Make sure you discuss any questions you have with your health care provider. Document Revised: 01/18/2020 Document Reviewed: 01/18/2020 [employer] Patient Education ?? 2021 [employer] Tests Performed Radiology CT Abdomen and Pelvis w/ Contrast 09/14/2022 10:12 EDT Medications and Immunizations Administered Given Sodium Chloride 0.9%, 1000 mL, IV Bolus Normal Saline Flush, 10 mL, IV Flush Lab Test Name Test Result Date/Time WBC 11.1 K/mcL 09/14/2022 09:35 EDT RBC 4.14 Million/mcL 09/14/2022 09:35 EDT Hgb 12.9 g/dL 09/14/2022 09:35 EDT Hct 38.9 % 09/14/2022 09:35 EDT MCV 94.0 fL 09/14/2022 09:35 EDT MCH 31.2 pg 09/14/2022 09:35 EDT MCHC 33.2 g/dL 09/14/2022 09:35 EDT RDW-CV 13.2 % 09/14/2022 09:35 EDT Platelets 249 K/mcL 09/14/2022 09:35 EDT MPV 10.8 fL 09/14/2022 09:35 EDT Neutro Auto 74.0 % 09/14/2022 09:35 EDT Lymph Auto 15.6 % 09/14/2022 09:35 EDT [place] Auto 7.7 % 09/14/2022 09:35 EDT Eos, Auto 1.90 % 09/14/2022 09:35 EDT Basophil Auto 0.5 % 09/14/2022 09:35 EDT Imm Gran Auto 0.3 % 09/14/2022 09:35 EDT Neutro Absolute 8.2 K/mcL 09/14/2022 09:35 EDT Lymph Absolute 1.7 K/mcL 09/14/2022 09:35 EDT [place] Absolute 0.8 K/mcL 09/14/2022 09:35 EDT Eos Absolute 0.2 K/mcL 09/14/2022 09:35 EDT Baso Absolute 0.0 K/mcL 09/14/2022 09:35 EDT Imm Gran Absolute 0.03 09/14/2022 09:35 EDT Sodium Level 137 mmol/L 09/14/2022 09:35 EDT Potassium Level 4.5 mmol/L 09/14/2022 09:35 EDT Chloride Level 101 mmol/L 09/14/2022 09:35 EDT CO2 29 mmol/L 09/14/2022 09:35 EDT Alk Phos 40 IntlUnit/L 09/14/2022 09:35 EDT AST 20 IntlUnit/L 09/14/2022 09:35 EDT ALT 16 IntlUnit/L 09/14/2022 09:35 EDT BUN 10 mg/dL 09/14/2022 09:35 EDT Glucose Level 100 mg/dL 09/14/2022 09:35 EDT Creatinine Level 0.68 mg/dL 09/14/2022 09:35 EDT BUN/Creat Ratio 14.7 09/14/2022 09:35 EDT Calcium Level 9.1 mg/dL 09/14/2022 09:35 EDT Protein Total 6.7 g/dL 09/14/2022 09:35 EDT Albumin Level 3.9 g/dL 09/14/2022 09:35 EDT Globulin 2.8 09/14/2022 09:35 EDT A/G Ratio 1.4 09/14/2022 09:35 EDT Bilirubin Total 0.7 mg/dL 09/14/2022 09:35 EDT Anion Gap 7.0 09/14/2022 09:35 EDT Lactic Acid Lvl 1.2 mmol/L 09/14/2022 09:35 EDT Lipase Level 27 unit/L 09/14/2022 09:35 EDT Magnesium Level 2.0 mg/dL 09/14/2022 09:35 EDT Osmolality 273 mOsm/kg 09/14/2022 09:35 EDT eGFR CKD-EPI 105 mL/min/1.73 m2 09/14/2022 09:35 EDT UA Color YELLOW. 09/14/2022 09:35 EDT UA Appear CLEAR. 09/14/2022 09:35 EDT UA Glucose NEGATIVE 09/14/2022 09:35 EDT UA Bili NEGATIVE 09/14/2022 09:35 EDT UA Ketones NEGATIVE 09/14/2022 09:35 EDT UA Spec Grav 1.025 09/14/2022 09:35 EDT UA Blood NEGATIVE 09/14/2022 09:35 EDT UA pH 5.00 09/14/2022 09:35 EDT UA Protein NEGATIVE 09/14/2022 09:35 EDT UA Urobilinogen 0.2 09/14/2022 09:35 EDT UA Nitrite NEGATIVE 09/14/2022 09:35 EDT UA Leuk Est NEGATIVE 09/14/2022 09:35 EDT Patient/Fermentologist Signature Patient Name:GUILLE TAYLOR Princess I have received this information and my questions have been answered. Patient/Fermentologist Name: Patient/Fermentologist Signature: Relationship to Patient: Witness Name/Signature: Date: Electronically Signed on: 09/14/2022 11:35 EDTSigned by:HUGH CT Abdomen and Pelvis W contrast IV * Roberto PRESCOTT, [place]: VERIFY, VERIFY Event Display: Report EXAM DESCRIPTION: CT Abdomen and Pelvis w/ Contrast 09/14/2022 INDICATION: ABDOMINAL PAIN TECHNIQUE: All CT scans at this facility use at least one of these dose optimization techniques: Automated exposure control; mA and/or kV adjustment per patient size (includes targeted exams where dose is matched to clinical indication); or iterative reconstruction. Technique: Axial CT images of the abdomen/pelvis with IV contrast administration 100 cc of Isovue-300 contrast was utilized COMPARISON: None FINDINGS: No focal hepatic lesion. Normal enhancement of the main hepatic veins and main portal vein. Normal spleen size without focal mass. Status post cholecystectomy. Adrenal glands and pancreas appear within normal limits Small low-attenuation lesion in the mid right kidney which is difficult to characterize based on size, likely reflecting small cyst. Otherwise no focal renal mass, hydronephrosis or perinephric fluid collection on either side Ovoid calcifications in the mid lower pelvis which appear to be in the inferior bladder/bladder neck region suspicious for bladder calculi. Largest calcification measures approximately 9 x 11 mm. Extension of calculi into the proximal urethra cannot be excluded. No significant bladder wall thickening or bladder distension. Normal caliber abdominal aorta with scattered atherosclerotic calcifications. No retroperitoneal adenopathy in the abdomen or pelvis. No pelvic mass identified with apparent prior hysterectomy Inflammatory stranding in the distal sigmoid mesentery with regional diverticula consistent with acute diverticulitis. No bowel dilatation to suggest obstruction or ileus. No focal fluid collection to suggest abscess. No ascites or free intraperitoneal air. Normal appendix. Small fat containing ventral abdominal hernia just to the right of midline inferior to the umbilicus. The visualized lung bases are clear. No suspicious regional osseous lesions. IMPRESSION: Acute diverticulitis involving the distal sigmoid colon. No evidence of abscess or free air. Nonobstructive bowel pattern Calcifications in the lower mid pelvis which appear to be within the bladder. One of the calcifications may be extending into the proximal urethra. No bladder distention or bladder wall thickening. Additional nonacute findings as detailed above. JOB #: [id number] Final Signed by: Clyde Mejia MD Signed (Electronic Signature): 09/14/2022 10:10 am Patient Care team information Care Team Personnel Name: ROLAND CARO APRN Position: No Access Member Role: Primary Care Physician Address: Address: [address] [place] [id number] [place] [address] Name: Kim Lopes Position: Nurse Member Role: ED Nurse Name: Mark Anthony Hardy DO Position: Physician Member Role: Admitting Physician Address: Address: [address] [place] [id number] [place] Care Team Related Persons Name: SHAN TAYLOR Name: SHAN TAYLOR V Address: Home [address] [place] [phone] Address: Temporary [address] [place] [id number]
== END 2023-10-16 17:56 | disposition home or self-care (01) ==
PROVIDERS: Emergency Provider Nurse Practitioner Family; PCP Nurse Practitioner Family
DX: M79.642 Pain in left hand (principal); W23.0XXA Caught, crushed, jammed, or pinched between moving objects, initial encounter
CPT/HCPCS: 99284; 73090; 73130; 99283

== ENCOUNTER 2023-11-25 18:13 | Outpatient (REF) | payer OTHER, SELFPAY ==
--- OUTSIDE RECORDS SUMMARY | 2023-11-25 18:14 | XMS_ITS | Clinical Summary ---
Author Organization [facility] Address [address] [place] [id number] Care Team Providers Care Site Supervising Technical Operator Name Role Phone Jennifer Pinto MD Primary Care Provider [phone] Social History Tobacco Use Types Packs/Day Years Used Date Smoking Tobacco: Never Assessed Interpersonal Safety Answer Date Record ed Physically Hurt Never 11/22/2019 Verbally Threaten Not on file 11/22/2019 Sex and Gender Information Value Date Recorded Sex Assigned at Not on file Gender Identity Not on file Sexual Orientation Not on file Plan of Treatment Health Maintenance Due Date Last Done Comments Hepatitis B Vaccine (1 of 3 - 19+ 3-dose series) 01/30 COVID-19 Vaccine ( season) 2022 Hepatitis C Screen Completed 04/12/2022 Procedures Procedure Name Priority Date/Time Associated Diagnosis Comments HEPATITIS C AB W REFLEX TO HCV RNA BY PCR Routine 04/12/2022 9:25 EST from Last 3 Months or Most Recently Relevant to Health Maintenance Results * HEPATITIS C AB W REFLEX TO HCV RNA BY PCR (04/12/2022 9:25 EST) Hep C Antibody Negative Negative 04/13/2022 10:14 EST [facility] Blood VENOUS BLOOD / Unknown 04/12/2022 9:25 EST 04/12/2022 21:30 EST Provider Outr Resulting Lab CHEMISTRY & BLOOD GAS ORDERABLES [facility] [address] [place] [address] from Last 3 Months or Most Recently Relevant to Health Maintenance Care Teams Site Supervising Technical Operator Relationship Specialty Start Date End Date Jennifer Pinto MD [address] [place] [address] PCP - General 08/30/14
--- OUTSIDE RECORDS SUMMARY | 2023-11-25 18:14 | XMS_ITS | Encounter Summary ---
Author Organization [facility] Address [address] [place] [address] Care Team Providers Care Steel Welder Name Role Phone Unavailable Primary Care Provider Unavailabl e Encounter Details Date Type Department Care Team (Late st Contact Info) Description 07/30/2014 Results Only [facility] Laboratory Services - [facility] [place] [address] [place], [place] [address] Ender Varela, [facility] [address] [place] [address] Social History Tobacco Use Types Packs/Day Years Used Date Smoking Tobacco: Never Assessed Sex and Gender Information Value Date Recorded Sex Assigned at Not on file Gender Identity Not on file Sexual Orientation Not on file documented as of this encounter Plan of Treatment Not on file documented as of this encounter Procedures Procedure Name Priority Date/Time Associated Diagnosis Comments PAP TEST- RESULT ONLY Routine 07/30/2014 0:00 EDT documented in this encounter Results * PAP TEST- RESULT ONLY (07/30/2014 0:00 EDT) Pathology Report: CYTOPATHOLOGY REPORT Reports generated via electronic interface contain original data; however they are lacking the format of the original report. Caution should be taken when reading/interpreti ng unformatted reports. Name: ? VILMA CAREY ? Accession #: ? [id number] : ? 1970 (Age: 44) ??F ?Collect Date: ? 07/30/2014 Location: ? [facility] ? Receive Date: ? 08/02/2014 Provider: ?[facility] TECHNICIAN Copy to: ?NANCY TAYLOR MD ? Specimen/Source: ?Pap Test, Cervix/Endocervix, ThinPrep Imaging System with manual evaluation Last Menstrual Period: ? 07/19/14 Previous Gynecologic Pathology: ? EMBER II: 1998 Treatment History: ? LEEP: Bx 1998 ? SPECIMEN ADEQUACY ? Satisfactory for Evaluation - transformation zone component present GENERAL CATEGORIZATION ? Negative for Intraepithelial Lesion or Malignancy INTERPRETATION ? Reactive cellular changes associated with inflammation present (includes repair). ? Document reviewed and electronically signed by: ? JULIO CÉSAR ROBERTSON MD [facility] ? Report Date: ??08/11/2014 17:[address] [facility] 07/30/2014 08/02/2014 Ender Varela [facility] PHARMACY TECHNICIAN PATHOLOGY ORDERABLES [facility] [address] [place] [address] documented in this encounter Visit Diagnoses Not on filedocumented in this encounter
--- OUTSIDE RECORDS SUMMARY | 2023-11-25 18:14 | XMS_ITS | Encounter Summary ---
Author Organization [facility] Address [address] [place] [address] Care Team Providers Care Operational Risk Consultant Name Role Phone Jennifer Pinto MD Primary Care Provider [phone] Encounter Details Date Type Department Care Team (Late st Contact Info) Description 07/28/2020 Lab Requisition [facility] Pathology & Laboratory Medicine - [facility] [address] [place], [place] [phone] Outr Resulting Lab, Provider Social History Tobacco Use Types Packs/Day Years [...] Procedure Name Priority Date/Time Associated Diagnosis Comments ZZCOVID-19 TEST [facility] PCR Today 07/27/2020 12:20 EDT COVID-19 TESTING Routine 07/27/2020 12:2 0 EDT documented in this encounter Results * COVID-19 TEST [facility] PCR (07/27/2020 12:20 EDT) Swab ENTIRE NASOPHARYNX / Unknown 07/27/2020 12:20 EDT 07/28/2020 17:15 EDT Provider Outr Resulting Lab MICROBIOLOGY - GENERAL ORDERABLES [facility] [address] [place] [address] * COVID-19 TESTING (07/27/2020 12:20 EDT) COVID-19 rt-PCR Result Negative Negative 07/29/2020 17:21 EDT [facility] Comment: This test has not been FDA cleared or approved. This test has been authorized by FDA under an EUA for use by authorized laboratories. This test has been authorized only for detection of nucleic acid from 2019-nCoV, not for any other viruses or pathogens. This test is only authorized for the duration of the declaration that circumstances exist justifying the authorization of emergency use of in vitro diagnostic tests for detection and/or diagnosis of 2019-nCoV under section 564(b)(1) of Act, 21 U.S.C ?? 360bbb-3(b) (1), unless the authorization is terminated or revoked sooner. Negative results do not preclude 2019-nCoV infection and should not be used as the sole basis for treatment or other patient management decisions. Negative results must be combined with clinical observations, patient history, and epidemiological information. Testing was performed using the florencio SARS-CoV-2 assay ([employer] on the Florencio 6800 System Performing Lab Florencio [address] [facility] 07/29/2020 17:21 EDT [facility] Swab 07/27/2020 12:2 0 EDT 07/28/2020 17:15 EDT Provider Outr Resulting Lab MICROBIOLOGY - GENERAL ORDERABLES [facility] [address] [place] [address] documented in this encounter Visit Diagnoses Not on filedocumented in this encounter Care Teams Operational Risk Consultant Relationship Specialty Start Date End Date Jennifer Pinto MD [address] [place] [address] PCP - General 08/30/14 documented as of this encounter
--- OUTSIDE RECORDS SUMMARY | 2023-11-25 18:14 | XMS_ITS | Encounter Summary ---
Author Organization [facility] Address [address] [place] [address] Care Team Providers Care Dry Heat Cabinet Attendant Name Role Phone Unavailable Primary Care Provider Unavailabl e Encounter Details Date Type Department Care Team (Late st Contact Info) Description 03/10/2010 Results Only [facility] Laboratory Services - [facility] ([facility] [place] [address] [place], [place] [phone] Ender Varela, [facility] [address] [place] [address] Social History Tobacco Use Types Packs/Day Years Used Date Smoking Tobacco: Never Assessed Sex and Gender Information Value Date Recorded Sex Assigned at Not on file Gender Identity Not on file Sexual Orientation Not on file documented as of this encounter Plan of Treatment Not on file documented as of this encounter Procedures Procedure Name Priority Date/Time Associated Diagnosis Comments CYTOPATHOLOGY Routine 03/10/2010 0:00 EST documented in this encounter Results * CYTOPATHOLOGY (03/10/2010 0:00 EST) Pathology Report: CYTOPATHOLOGY REPORT ? Reports generated via electronic interface contain original data; ? however they are lacking the format of the original report. ? Caution should be taken when reading/interpreti ng unformatted reports. ? Name: ? BRANDON, VILMA ? Accession #: ? [id number] ? : ? 1970 (Age: 40) ??F ?Collect Date: ? 03/10/2010 ? Location: ? [facility] ? Receive Date: ? 03/13/2010 ? Provider: ?ENDER MADISYN DIGITAL IMAGING TECHNICIAN ? Copy to: ? Specimen/Source: ?Pap Test, Cervix/Endocervix, ThinPrep Imaging System ? with manual evaluation ? Last Menstrual Period: ? 11/12/10 ? Previous Gynecologic Pathology: ? EMBER II: 09/99 ? Treatment History: ? LEEP: EMBER II 09/99 ? SPECIMEN ADEQUACY ? Satisfactory for Evaluation ? - transformation zone component present ? GENERAL CATEGORIZATION ? Negative for Intraepithelial Lesion or Malignancy ? Document reviewed and electronically signed by: ? John Stumler, CT(ASCP) ? Report Date: ??03/15/2010 13:45 ? End of Report ? [facility] 03/10/2010 03/13/2010 Ender Varela DIGITAL IMAGING TECHNICIAN PATHOLOGY ORDERABLES [facility] [address] [place] [address] documented in this encounter Visit Diagnoses Not on filedocumented in this encounter
--- OUTSIDE RECORDS SUMMARY | 2023-11-25 18:14 | XMS_ITS | Encounter Summary ---
Author Organization [facility] Address [address] [place] [address] Care Team Providers Care Weaver Tire Cord Name Role Phone Jennifer Pinto MD Primary Care Provider [phone] Encounter Details Date Type Department Care Team (Latest Contact Info) Description 08/30/2014 15:27 EDT - 08/30/2014 23:59 EDT Hospital Encounter [address] [address] Unknown, Provider, Discharge Disposition: Home or Self Care Social History Tobacco Use Types Packs/Day Years Used Date Smoking Tobacco: Never Assessed Sex and Gender Information Value Date Recorded Sex Assigned at Not on file Gender Identity Not on file Sexual Orientation Not on file documented as of this encounter Discharge Disposition Disposition Code Departure Means Destination Home or Self Usp documented in this encounter Plan of Treatment Not on file documented as of this encounter Visit Diagnoses Not on filedocumented in this encounter Care Teams Weaver Tire Cord Relationship Specialty Start Date End Date Jennifer Pinto MD [address] [place] [address] PCP - General 08/30/14 documented as of this encounter
--- OUTSIDE RECORDS SUMMARY | 2023-11-25 18:14 | XMS_ITS | Encounter Summary ---
Author Organization [facility] Address [address] [place] [address] Care Team Providers Care Maintenance Superintendent Name Role Phone Unavailable Primary Care Provider Unavailabl e Encounter Details Date Type Department Care Team (Late st Contact Info) Description 09/24/2008 Orders Only [facility] Laboratory Services - [facility] ([facility] [facility] [address] [place], [place] [address] Ender Varela, [facility] [address] [place] [phone] Social History Tobacco Use Types Packs/Day Years Used Date Smoking Tobacco: Never Assessed Sex and Gender Information Value Date Recorded Sex Assigned at Not on file Gender Identity Not on file Sexual Orientation Not on file documented as of this encounter Plan of Treatment Not on file documented as of this encounter Procedures Procedure Name Priority Date/Time Associated Diagnosis Comments CYTOPATHOLOGY Routine 09/24/2008 0:00 EDT documented in this encounter Results * CYTOPATHOLOGY (09/24/2008 0:00 EDT) Pathology Report: CYTOPATHOLOGY REPORT ? Reports generated via electronic interface contain original data; ? however they are lacking the format of the original report. ? Caution should be taken when reading/interpreti ng unformatted reports. ? Name: ? BRANDON, VILMA ? Accession #: ? [id number] ? : ? 1970 (Age: 38) ??F ?Collect Date: ? 09/24/2008 ? Location: ? [facility] ? Receive Date: ? 09/27/2008 ? Provider: ?ENDER MADISYN BALANCE WHEEL HAND FILER ? Copy to: ? Specimen/Source: ?Pap Test, Cervix/Endocervix, ThinPrep Imaging System ? with manual evaluation ? Last Menstrual Period: ? 5/26/09 ? Hormonal/Contracep tive Status: ? Tubal ligation ? Other: ? HPVA - HPV testing requested if ASC-US on the current ThinPrep Pap test. ? SPECIMEN ADEQUACY ? Satisfactory for Evaluation ? - transformation zone component present ? GENERAL CATEGORIZATION ? Negative for Intraepithelial Lesion or Malignancy ? Document reviewed and electronically signed by: ? Heidi White, SCT(ASCP) ? Report Date: ??09/30/2008 15:06 ? End of Report ? [facility] 09/24/2008 09/27/2008 Ender Varela BALANCE WHEEL HAND FILER PATHOLOGY ORDERABLES [facility] [address] [place] [address] documented in this encounter Visit Diagnoses Not on filedocumented in this encounter
--- OUTSIDE RECORDS SUMMARY | 2023-11-25 18:14 | XMS_ITS | Encounter Summary ---
Author Organization [facility] Address [address] [place] [address] Care Team Providers Care Nailing Machine Operator Automatic Name Role Phone Jennifer Pinto MD Primary Care Provider [phone] Encounter Details Date Type Department Care Team (Late st Contact Info) Description 05/09/2020 Lab Requisition [facility] Pathology & Laboratory Medicine - [address] [address] Outr Resulting Lab, Provider Social History Tobacco [...] Comments ZZCOVID-19 TEST [facility] PCR Today 05/09/2020 10:20 EST COVID-19 TESTING Routine 05/09/2020 10:2 0 EST documented in this encounter Results * COVID-19 TEST [facility] PCR (05/09/2020 10:20 EST) Swab ENTIRE NASOPHARYNX / Unknown 05/09/2020 10:20 EST 05/09/2020 15:51 EST Provider Outr Resulting Lab MICROBIOLOGY - GENERAL ORDERABLES [facility] [address] [place] [address] * COVID-19 TESTING (05/09/2020 10:20 EST) COVID-19 rt-PCR Result Negative Negative 05/09/2020 21:10 EST [facility] Comment: This test has not [...] clinical observations, patient history, and epidemiological information. Performed on the [employer] Fusion instrument Performing Lab [place] [facility] 05/09/2020 21:10 EST [facility] Swab 05/09/2020 10:2 0 EST 05/09/2020 15:51 EST Provider Outr Resulting Lab MICROBIOLOGY - GENERAL ORDERABLES [facility] [address] [place] [address] documented in this encounter Visit Diagnoses Not on filedocumented in this encounter Care Teams Nailing Machine Operator Automatic Relationship Specialty Start Date End Date Jennifer Pinto MD [address] [place] [address] PCP - General 08/30/14 documented as of this encounter
--- OUTSIDE RECORDS SUMMARY | 2023-11-25 18:14 | XMS_ITS | Encounter Summary ---
Author Organization [facility] Address [address] [place] [address] Care Team Providers Care Optometric Tech Name Role Phone Jennifer Pinto MD Primary Care Provider [phone] Encounter Details Date Type Department Care Team (Late st Contact Info) Description 08/05/2015 Results Only [facility] [phone] Ender Varela, [facility] [address] [place] [address] Social History Tobacco Use Types [...] Diagnosis Comments PAP TEST- RESULT ONLY Routine 08/05/2015 0:00 EDT documented in this encounter Results * PAP TEST- RESULT ONLY (08/05/2015 0:00 EDT) Pathology Report: CYTOPATHOLOGY REPORT Reports generated via electronic interface contain original data; however they are lacking the format of the original report. Caution should be taken when reading/interpreti ng unformatted reports. Name: ? BRANDONVILMA ? Accession #: ? [id number] : ? 1970 (Age: 45) ??F ?Collect Date: ? 08/05/2015 Location: ? [facility] ? Receive Date: ? 08/09/2015 Provider: ?ENDER VARELA CYCLE LIAISON Copy to: ?JENNIFER PINTO MD ? Specimen/Source: ?Pap Test, Cervix/Endocervix, ThinPrep Imaging System with manual evaluation Last Menstrual Period: ? Hormonal/Contracep tive Status: ? Intrauterine device: Mirena Previous Gynecologic Pathology: ? EMBER II: 1998 Treatment History: ? LEEP: 1998 ? SPECIMEN ADEQUACY ? Satisfactory for Evaluation - transformation zone component present GENERAL CATEGORIZATION ? Negative for Intraepithelial Lesion or Malignancy INTERPRETATION ? Reactive cellular changes associated with inflammation present (includes repair). ? Document reviewed and electronically signed by: ? SHANNON MCNALLY MD ? Report Date: ??08/19/2015 11:00 End of Report [facility] 08/05/2015 08/09/2015 Ender Varela CYCLE LIAISON PATHOLOGY ORDERABLES [facility] [address] [place] [address] documented in this encounter Visit Diagnoses Not on filedocumented in this encounter Care Teams Optometric Tech Relationship Specialty Start Date End Date Jennifer Pinto MD [address] [place] [address] PCP - General 08/30/14 documented as of this encounter
--- OUTSIDE RECORDS SUMMARY | 2023-11-25 18:14 | XMS_ITS | Referral Summary ---
Author Organization [facility] Address [address] [place] [address] Care Team Providers Care Chemical Treatment Operator Name Role Phone Jennifer Pinto MD Primary Care Provider [phone] Social History Tobacco Use Types Packs/Day Years Used Date Smoking Tobacco: Never Assessed Interpersonal Safety Answer Date Record ed Physically Hurt Never 11/22/2019 Verbally Threaten Not on file 11/22/2019 Sex and Gender Information Value Date Recorded Sex Assigned at Not on file Gender Identity Not on file Sexual Orientation Not on file Plan of Treatment Not on file Procedures Procedure Name Priority Date/Time Associated Diagnosis Comments HEPATITIS C AB W REFLEX TO HCV RNA BY PCR Routine 04/12/2022 9:25 EST from Last 3 Months or Most Recently Relevant to Health Maintenance Results * HEPATITIS C AB W REFLEX TO HCV RNA BY PCR (04/12/2022 9:25 EST) Hep C Antibody Negative Negative 04/13/2022 10:14 EST [facility] Blood VENOUS BLOOD / Unknown 04/12/2022 9:25 EST 04/12/2022 21:30 EST Provider Outr Resulting Lab CHEMISTRY & BLOOD GAS ORDERABLES [facility] [address] [place] [address] from Last 3 Months or Most Recently Relevant to Health Maintenance Care Teams Chemical Treatment Operator Relationship Specialty Start Date End Date Jennifer Pinto MD [address] [place] [address] [facility] - General 08/30/14
--- OUTSIDE RECORDS SUMMARY | 2023-11-25 18:14 | XMS_ITS | Encounter Summary ---
Author Organization [facility] Address [address] [place] [address] Care Team Providers Care Splicing Supervisor Name Role Phone Unavailable Primary Care Provider Unavailabl e Encounter Details Date Type Department Care Team (Late st Contact Info) Description 05/16/2007 Results Only [facility] [address] [place] [address] Ender Varela, [facility] [address] [place] [phone] Social History Tobacco Use Types Packs/Day Years Used Date Smoking Tobacco: Never Assessed Sex and Gender Information Value Date Recorded Sex Assigned at Not on file Gender Identity Not on file Sexual Orientation Not on file documented as of this encounter Plan of Treatment Not on file documented as of this encounter Procedures Procedure Name Priority Date/Time Associated Diagnosis Comments CYTOPATHOLOGY Routine 05/16/2007 0:00 EST documented in this encounter Results * CYTOPATHOLOGY (05/16/2007 0:00 EST) Pathology Report: CYTOPATHOLOGY REPORT Reports generated via electronic interface contain original data; however they are lacking the format of the original report. Caution should be taken when reading/interpreti ng unformatted reports. Name: ? BRANDONVILMA ? Accession #: ? [id number] : ? 1970 (Age: 37) ??F ?Collect Date: ? 05/16/2007 Location: ? [facility] ? Receive Date: ? 05/19/2007 Provider: ?ENDER VARELA MANAGER FILTER Copy to: ? Specimen/Source: ?ThinPrep Pap Test, Cervix/Endocervix, processed on [employer] ThinPrep Imaging System, with manual evaluation Last Menstrual Period: ? 05-04-07 Previous Gynecologic Pathology: ? Yes: abn paps 1998, normal paps since Treatment History: ? LEEP Other: ? HPVA - HPV testing requested if ASC-US on the current ThinPrep Pap test. ? SPECIMEN ADEQUACY ? Satisfactory for Evaluation - transformation zone component present - scant squamous epithelial component secondary to excessive blood GENERAL CATEGORIZATION ? Negative for Intraepithelial Lesion or Malignancy ? Document reviewed and electronically signed by: ? Angy Fiore, SCT(ASCP) ? Report Date: ??05/26/2007 11:01 End of Report [facility] 05/16/2007 05/19/2007 Ender Varela MANAGER FILTER PATHOLOGY ORDERABLES [facility] [address] [place] [address] documented in this encounter Visit Diagnoses Not on filedocumented in this encounter
--- OUTSIDE RECORDS SUMMARY | 2023-11-25 18:14 | XMS_ITS | Clinical Summary ---
[place] [address] Care Team Providers Care Veneer Joiner Name Role Phone Madonna Cr MD Primary Care Provider [phone] Allergies No known active allergies Medications Medication Sig Dispensed Refills Start Date End Date Status Uzgfteicjhdfw-Lc-Qvdp-Min erals 18-0.4 mg Tablet Take by mouth. Active Social History Tobacco Use Types Packs/Day Years Used Date Smoking Tobacco: Never Smokeless Tobacco: Never Comments:never vape Alcohol Use Standard Drinks/Week Comments Yes 0 (1 standard drink = 0.6 oz pur e alcohol) occasional liquor Sex and Gender Information Value Date Recorded Sex Assigned at Not on file Gender Identity Not on file Sexual Orientation Not on file Last Filed Vital Signs Vital Sign Reading Time Taken Comments Blood Pressure 105/63 12/25/2019 2:10 PM EDT Pulse 79 12/25/2019 1:40 PM EDT Temperature 36.7 ??C (98.1 ??F) 12/25/2019 11:58 AM E DT Respiratory Rate 18 12/25/2019 2:05 PM EDT Oxygen Saturation 95% 12/25/2019 2:10 PM EDT Inhaled Oxygen Concentration - - Weight 82.1 kg (181 lb) 12/25/2019 11:58 AM EDT Height 157.5 cm (5' 2) 12/25/2019 11:58 AM EDT Body Mass Index 33.11 12/25/2019 11:58 AM EDT Plan of Treatment Health Maintenance Due Date Last Done Comments CT Colonography 1970 FIT DNA 1970 FIT 1970 Sigmoidoscopy 1970 HIV screen 01/31/1988 Hepatitis C Screening 01/31/1988 Hepatitis B vaccine (0-59 yrs) (1) 1989 Tdap adult 1989 Tetanus vaccine 1989 HPV test 01/31/2000 PAP Smear 01/31/2000 Breast Cancer Share Decision Needed 2010 Breast Cancer screening 2010 Zoster vaccine (1 of 2) 01/31/2020 Covid-19 Vaccine (1 - 2022-24 season) 2022 Influenza (Flu) vaccine (1 o f 1 - Influenza standard series) 12/22/2023 Colonoscopy 12/24/2029 12/25/2019, 12/25/2019 Colorectal Cancer Screening 12/24/2029 Sigmoidoscopy (10 year) with FIT yearly 12/24/2029 0 12/25/2019, 12/25/2019 Procedures Procedure Name Priority Date/Time Associated Diagnosis Comments COLONOSCOPY Routine 12/25/2019 12:52 PM EDT from Last 3 Months or Most Recently Relevant to Health Maintenance Results * COLONOSCOPY (12/25/2019 12:52 PM EDT) COLONOSCOPY [facility] Endoscopy Procedure Date: 12/25/2019 12:52 PM ? Patient Name: Vilma Carey ? Date of : 1970 ? Age: 49 ? Order #: [id number] ? Instrument Name: [id number] ? Procedure: ? Colonoscopy Indications: ? Follow-up of diverticulitis Providers: ? Jazzy Lara MD, Helio Lynn ? Gloria Fischer, ? English Drawer Referring : ?Anel Cunningham Medicines: ? Midazolam 6 mg IV, Fentanyl 250 ? micrograms IV Complications: ? No immediate complications. Procedure: ? Pre-Anesthesia Assessment: ? - Prior to the procedure, a History ? and Physical was performed, and ? patient medications and allergies ? were reviewed. The patient's ? tolerance of previous anesthesia was ? also reviewed. The risks and benefits ? of the procedure and the sedation ? options and risks were discussed with ? the patient. All questions were ? answered, and informed consent was ? obtained. Prior Anticoagulants: The ? patient has taken no previous ? anticoagulant or antiplatelet agents. ? ASA Grade Assessment: I - A normal, ? healthy patient. After reviewing the ? risks and benefits, the patient was ? deemed in satisfactory condition to ? undergo the procedure. ? The procedure, indications, benefits, ? risks and alternatives were explained ? to the patient. Specifically ? discussed were potential ? complications including, but not ? limited to, bleeding, perforation, ? infection, missing a cancer, and ? adverse medication reactions. The ? patient was placed in the left ? lateral decubitus position, and a ? digital rectal exam was performed. ? The Colonoscope was inserted in the ? anus and under direct visualization, ? advanced to the cecum, identified by ? appendiceal orifice and ileocecal ? valve. Careful inspection was made as ? the colonoscope was withdrawn. The ? colonoscopy was performed without ? difficulty. The patient tolerated the ? procedure well. Withdrawal time was ? 10 minutes. ? Findings: ? The perianal and digital rectal examinations were ? normal. ? The terminal ileum appeared normal. ? The descending colon, transverse colon, ascending ? colon and cecum appeared normal. ? Multiple medium-mouthed diverticula were found in the ? sigmoid colon. ? The retroflexed view of the distal rectum and anal ? verge was normal and showed no anal or rectal ? abnormalities. ? Moderate Sedation: ? I was present during the intraservice time as ? documented by the sedation RN. Impression: ?- The examined portion of the ileum ? was normal. ? - The descending colon, transverse ? colon, ascending colon and cecum are ? normal. ? - Diverticulosis in the sigmoid colon. ? - The distal rectum and anal verge ? are normal on retroflexion view. ? - No specimens collected. Recommendation: ?- Repeat colonoscopy in 10 years for ? screening purposes. ? - Return to referring physician. ? Attending Participation: ? I personally performed the entire procedure. ? Jazzy Lara MD Jazzy Lara MD 12/25/2019 1:49:28 PM This report has been signed electronically. Number of Addenda: 0 Note Initiated On: 12/25/2019 12:52 PM PROVATION 12/25/2019 12:5 2 PM EDT Anel Cunningham TOTER GENERAL SURGICAL ORDERABLES [employer]ATION from Last 3 Months or Most Recently Relevant to Health Maintenance Care Teams Veneer Joiner Relationship Specialty Start Date End Date Madonna Cr MD [address] [place], [place] [address] PCP - General Family Medicine 05/17/20
--- OUTSIDE RECORDS SUMMARY | 2023-11-25 18:14 | XMS_ITS | Encounter Summary ---
Author Organization [facility] Address [address] [place] [address] Care Team Providers Care Billet Recorder Name Role Phone Jennifer Pinto MD Primary Care Provider [phone] Encounter Details Date Type Department Care Team (Late st Contact Info) Description 01/24/2017 Results Only [facility] [phone] Ender Varela, [facility] [address] [place] [address] Social History Tobacco Use Types [...] Diagnosis Comments PAP TEST- RESULT ONLY Routine 01/24/2017 0:00 EDT documented in this encounter Results * PAP TEST- RESULT ONLY (01/24/2017 0:00 EDT) Pathology Report: CYTOPATHOLOGY REPORT Reports generated via electronic interface contain original data; however they are lacking the format of the original report. Caution should be taken when reading/interpreti ng unformatted reports. Name: ? BRANDON, TINA ? Accession #: ? [id number] ? : ? 1970 (Age: 46) ??F ?Collect Date: ? 01/24/2017 ? Location: ? [facility] ? Receive Date: ? 01/25/2017 ? Provider: ENDER VARELA LINING STRAP CLOSER Copy to: ROLAND CARO JOINTER MACHINE ? Final Report SPECIMEN ADEQUACY ? Satisfactory for Evaluation - transformation zone component present GENERAL CATEGORIZATION ? Negative for Intraepithelial Lesion or Malignancy ?? Last Menstrual Period: 01/07/2017 Previous Gynecologic Pathology: EMBER II: 1998 Treatment History: LEEP: 1998 Specimen/Source: ??Pap Test, Cervix, ThinPrep Imaging System with manual evaluation Document reviewed and electronically signed by: ? Maciel Delgado, MONTSE(ASCP) ? Report ??Date: 02/08/2017 14:43 HPV with Pap Test ? Date Ordered: ? 02/08/2017 ? Status: ?? Signed Out ?Date Complete: ? 02/11/2017 ? By: ??System Interface ? Date Reported: ? 02/11/2017 ? Interpretation RESULT: Negative for HPV. No E6 or E7 mRNA is detected from HPV types 16,18,31,33,35, 39,45,51,52,56,58, 59,66, and 68 by child care lead teacher mediated amplification. Comments Document reviewed and electronically signed by: ? System Interface ? Report date: 02/11/2017 By the signature above, the attending physician certifies that he/she has personally conducted a gross and/or microscopic examination of the described specimens and rendered or confirmed the above diagnosis. End of Report [facility] 01/24/2017 01/25/2017 Ender Varela LINING STRAP CLOSER PATHOLOGY ORDERABLES [facility] [address] [place] [address] documented in this encounter Visit Diagnoses Not on filedocumented in this encounter Care Teams Billet Recorder Relationship Specialty Start Date End Date Jennifer Pinto MD [address] [place] [address] PCP - General 08/30/14 documented as of this encounter
--- OUTSIDE RECORDS SUMMARY | 2023-11-25 18:14 | XMS_ITS | Encounter Summary ---
Author Organization [facility] Address [address] [place] [address] Care Team Providers Care Features Reporter Name Role Phone Jennifer Pinto MD Primary Care Provider [phone] Encounter Details Date Type Department Care Team (Late st Contact Info) Description 04/12/2022 Lab Requisition [facility] Pathology & Laboratory Medicine - [facility] [address] [place] [address] Outr Resulting Lab, Provider Social History Tobacco [...] Procedure Name Priority Date/Time Associated Diagnosis Comments HIV 1/2 ANTIGEN AND ANTIBODY, 4TH GENERATION Routine 04/12/2022 9:25 EST documented in this encounter Results * HIV 1/2 ANTIGEN AND ANTIBODY, 4TH GENERATION (04/12/2022 9:25 EST) HIV 1 and 2 Antibody/p24 Antigen, 4th Generation Negative Negative 04/13/2022 10:02 EST [facility] Comment:If acute HIV-1 infec tion is suspected in a high risk patient, submit plasma specimen for HIV-1 RNA quantitation test. Blood VENOUS BLOOD / Unknown 04/12/2022 9:25 EST 04/12/2022 21:30 EST Narrative [facility] - 04/13/2022 10:02 EST Fourth Generation assay performed on the [employer] XPT. Provider Outr Resulting Lab IMMUNOLOGY A ND SEROLOGY ORDERABLES Performing Organization Address City/State/[facility] Co de Phone Number [facility] [address] [place] [address] documented in this encounter Visit Diagnoses Not on filedocumented in this encounter Care Teams Features Reporter Relationship Specialty Start Date End Date Jennifer Pinto MD [address] [place] [address] PCP - General 08/30/14 documented as of this encounter
--- OUTSIDE RECORDS SUMMARY | 2023-11-25 18:14 | XMS_ITS | Encounter Summary ---
Author Organization [facility] Address [address] [place] [address] Care Team Providers Care V/Stol Landing Signal Officer Name Role Phone Jennifer Pinto MD Primary Care Provider [phone] Encounter Details Date Type Department Care Team (Late st Contact Info) Description 05/23/2018 Results Only [facility]- [facility] [phone] Ender Varela, [facility] [address] [place] [address] Social History Tobacco Use Types [...] Diagnosis Comments PAP TEST- RESULT ONLY Routine 05/23/2018 0:00 EST documented in this encounter Results * PAP TEST- RESULT ONLY (05/23/2018 0:00 EST) Pathology Report: CYTOPATHOLOGY REPORT Reports generated via electronic interface contain original data; however they are lacking the format of the original report. Caution should be taken when reading/interpreti ng unformatted reports. Name: ? BRANDON, TINA ? Accession #: ? [id number] : ? 1970 (Age: 48) ??F ?Collect Date: ? 05/23/2018 Location: ? [facility] ? Receive Date: ? 05/26/2018 Provider: ?ENDER VARELA STRATEGIC PROCUREMENT MANAGER Copy to: ?ROLAND CARO PAID INTERN ? Specimen/Source: ?Pap Test, Cervix, ThinPrep Imaging System with manual evaluation Last Menstrual Period: ? 04/08/18 Previous Gynecologic Pathology: ? EMBER II: 1998 ? SPECIMEN ADEQUACY ? Satisfactory for Evaluation - transformation zone component present GENERAL CATEGORIZATION ? Negative for Intraepithelial Lesion or Malignancy ? Document reviewed and electronically signed by: ? MONTSE Thomson(ASCP) ? Report Date: ??05/30/2018 13:51 End of Report [facility] 05/23/2018 05/26/2018 Ender Varela STRATEGIC PROCUREMENT MANAGER PATHOLOGY ORDERABLES [facility] [address] [place] [address] documented in this encounter Visit Diagnoses Not on filedocumented in this encounter Care Teams V/Stol Landing Signal Officer Relationship Specialty Start Date End Date Jennifer Pinto MD [address] [place] [address] PCP - General 08/30/14 documented as of this encounter
--- OUTSIDE RECORDS SUMMARY | 2023-11-25 18:14 | XMS_ITS | Encounter Summary ---
Author Organization [facility] Address [address] [place] [address] Care Team Providers Care Director Skills Name Role Phone Unavailable Primary Care Provider Unavailabl e Encounter Details Date Type Department Care Team (Late st Contact Info) Description 11/16/2004 Results Only [facility] - [facility] [address] [place] [address] Shane Sharma MD [address] [facility] [address] [address] Social History Tobacco Use Types Packs/Day Years Used Date Smoking Tobacco: Never Assessed Sex and Gender Information Value Date Recorded Sex Assigned at Not on file Gender Identity Not on file Sexual Orientation Not on file documented as of this encounter Plan of Treatment Not on file documented as of this encounter Procedures Procedure Name Priority Date/Time Associated Diagnosis Comments SURGICAL PATHOLOGY Routine 11/16/2004 0:00 EDT documented in this encounter Results * SURGICAL PATHOLOGY (11/16/2004 0:00 EDT) Pathology Report: SURGICAL PATHOLOGY REPORT Reports generated via electronic interface contain original data; however they are lacking the format of the original report. Caution should be taken when reading/interpreti ng unformatted reports. Name: ? BRANDON, TINA ? Accession #: ? [id number] ? : ? 1970 (Age: 34) ??F ? Collect Date: ? 11/16/2004 ? Location: ? [facility] ? Receive Date: ? 11/16/2004 ? Provider: SHANE SHARMA MD Copy to: NANCY TAYLOR MD ? Final Pathologic Diagnosis: ? Uterine contents, evacuation: - Immature chorionic villi, decidua, and gestational endometrium consistent with products of ??conception. Document reviewed and electronically signed by: JORGE OLIVA MD Report ??Date: 11/17/2004 17:46 By the signature above, the attending physician certifies that he/she has personally conducted a gross and/or microscopic examination of the described specimens and rendered or confirmed the above diagnosis. Specimen(s) Received: ? Products of conception Clinical History: ? 7 wk gestation. ??LMP 10/05/2004. ??Desires TAB. ??Desires sterilization. Gross Description: ? Received in formalin labelled [place] and POC are 5.5 x 5.0 x 1.5 cm of multiple red-brown, spongy, membranous, diffusely hemorrhagic, soft tissue fragments. ??No parts are grossly identified. ??Director Of Software Engineering sections are submitted as (A1) to (A3). ??(Thu Xie/philippe End of Report [facility] 11/16/2004 11/16/2004 15: 06 EDT Shane Sharma MD PATHOLOGY ORDERABLES [facility] [address] [place] [address] documented in this encounter Visit Diagnoses Not on filedocumented in this encounter
--- OUTSIDE RECORDS SUMMARY | 2023-11-25 18:14 | XMS_ITS | Encounter Summary ---
Author Organization [facility] Address [address] [place] [address] Care Team Providers Care Lubrication Technician Name Role Phone Jennifer Pinto MD Primary Care Provider [phone] Encounter Details Date Type Department Care Team (Latest Contact Info) Description 12/26/2018 13:44 EDT - 12/26/2018 23:59 EDT Hospital Encounter [address] [address] Unknown, Provider, Discharge Disposition: Home or Self Care Social History Tobacco Use Types Packs/Day Years Used Date Smoking Tobacco: Never Assessed Sex and Gender Information Value Date Recorded Sex Assigned at Not on file Gender Identity Not on file Sexual Orientation Not on file documented as of this encounter Discharge Disposition Disposition Code Departure Means Destination Home or Self Longterm documented in this encounter Plan of Treatment Not on file documented as of this encounter Visit Diagnoses Not on filedocumented in this encounter Care Teams Lubrication Technician Relationship Specialty Start Date End Date Jennifer Pinto MD [address] [place] [address] PCP - General 08/30/14 documented as of this encounter
--- OUTSIDE RECORDS SUMMARY | 2023-11-25 18:14 | XMS_ITS | Encounter Summary ---
Author Organization [facility] Address [address] [place] [address] Care Team Providers Care Carbon Plant Grinder Name Role Phone Jennifer Pinto MD Primary Care Provider [phone] Encounter Details Date Type Department Care Team (Late st Contact Info) Description 11/24/2021 Lab Requisition [facility] Pathology & Laboratory Medicine - [facility] [address] [place] [address] Emeli Melissa MD [address] [place] [address] [address] [place] [address] Encounter for screening for diabetes mellitus; Other fatigue; Encounter for screening for lipoid disorders Social History Tobacco Use Types Packs/Day Years [...] Procedure Name Priority Date/Time Associated Diagnosis Comments THYROID CASCADE Routine 11/24/2021 11:00 EDT Other fatigue LIPID PROFILE (INCLUDES CHOLESTEROL, TRIGLYCERIDES, HDL, LDL) Routine 11/24/2021 11:00 EDT Encounter for screening for lipoid disorders documented in this encounter Results * (ABNORMAL) LIPID PROFILE (INCLUDES CHOLESTEROL, TRIGLYCERIDES, HDL, LDL) (11/24/2021 11:00 EDT) Cholesterol 215(H) <200 mg/dL 11/24/2021 20:43 EDT [facility] Comment:Note that therapeuti c goals will differ between patients based on cardiac risk factors and current medical therapy. HDL 53 >=50 mg/dL 11/24/2021 20:43 T [facility] Comment:Note that therapeuti c goals will differ between patients based on cardiac risk factors and current medical therapy. LDL, Calculated 126 <160 mg/dL 20:43 T [facility] Comment:Note that therapeuti c goals will differ between patients based on cardiac risk factors and current medical therapy. Triglyceride 181(H) <=150 mg/dL 11/24/2021 20:43 T [facility] Comment:Note that therapeuti c goals will differ between patients based on cardiac risk factors and current medical therapy. Chol/HDL Ratio 4.1 See Note 11/24/2021 20:43 T [facility] Comment:No reference range h as been established for CHOL/HDL ratio. Non HDL Cholesterol 162(H) <160 mg/dL 11/24/2021 20:43 T [facility] Comment:Note that therapeuti c goals will differ between patients based on cardiac risk factors and current medical therapy. Blood VENOUS BLOOD / Unknown 11/24/2021 11:00 EDT 11/24/2021 20:30 EDT Emeli Melissa MD CHEMISTRY & BLOO D GAS ORDERABLES [facility] [address] [place] [address] * THYROID CASCADE (11/24/2021 11:00 EDT) TSH 2.24 0.47 - 4.68 mIU/L 11/24/2021 21:17 EDT [facility] Blood VENOUS BLOOD / Unknown 11/24/2021 11:00 EDT 11/24/2021 20:30 EDT Narrative [facility] - 11/24/2021 21:17 EDT NOTE: The results of this assay can be falsely lowered due to the consumption of Biotin. Emeli Melissa MD CHEMISTRY & BLOO D GAS ORDERABLES [facility] [address] [place] [address] documented in this encounter Visit Diagnoses Diagnosis Encounter for screening for diabetes mellitus Screening for diabetes mellitus Other fatigue Encounter for screening for lipoid disorders Screening for lipoid disorders documented in this encounter Care Teams Carbon Plant Grinder Relationship Specialty Start Date End Date Jennifer Pinto MD [address] [place] [id number] PCP - General 08/30/14 documented as of this encounter
--- OUTSIDE RECORDS SUMMARY | 2023-11-25 18:14 | XMS_ITS | Encounter Summary ---
Author Organization [facility] Address [address] [place] [address] Care Team Providers Care Optical Instruments Supervisor Name Role Phone Jennifer Pinto MD Primary Care Provider [phone] Encounter Details Date Type Department Care Team (Late st Contact Info) Description 12/11/2022 Documentation Visit [facility] Rehabilitation Therapy [address] [place], [place] [id number] Miriam Suarez, PT [address] [place], [place] [id number] Social History Tobacco Use Types Packs/Day Years Used Date Smoking Tobacco: Never Assessed Interpersonal Safety Answer Date Record ed Physically Hurt Never 11/22/2019 Verbally Threaten Not on file 11/22/2019 Sex and Gender Information Value Date Recorded Sex Assigned at Not on file Gender Identity Not on file Sexual Orientation Not on file documented as of this encounter Progress Notes * Miriam Suarez, PT - 12/11/2022 0735 EDT [facility] Outpatient Rehabilitation Services [phone] Physical Therapy Discharge Not Seen Recently Therapy Diagnosis: Pelvic floor dysfunction in female Referring Clinician: Emeli Melissa MD Reporting Period: 02/06/22-02/23/22 Physical Therapy Program to Date: In summary, the program has included: eval, education, HEP Goal Review: Attended eval only; no further information Discharge Reason: Non-compliant with appointments Discharge patient at this time; future therapy will require a new physician's referral. documented in this encounter Plan of Treatment Not on file documented as of this encounter Visit Diagnoses Not on filedocumented in this encounter Care Teams Optical Instruments Supervisor Relationship Specialty Start Date End Date Jennifer Pinto MD [address] [place] [address] PCP - General 08/30/14 documented as of this encounter
--- OUTSIDE RECORDS SUMMARY | 2023-11-25 18:14 | XMS_ITS | Encounter Summary ---
Author Organization [facility] Address [address] [place] [address] Care Team Providers Care Adolescent Medicine Specialist Name Role Phone Jennifer Pinto MD Primary Care Provider [phone] Encounter Details Date Type Department Care Team (Late st Contact Info) Description 11/22/2022 Lab Requisition [facility] Pathology & Laboratory Medicine - [address] [id number] Outr Resulting Lab, Provider Social History Tobacco [...] Procedure Name Priority Date/Time Associated Diagnosis Comments LYME AB Routine 11/22/2022 10:20 EDT documented in this encounter Results * LYME AB (11/22/2022 10:20 EDT) Lyme Ab Negative Negative 11/23/2022 12:28 EDT [facility] Blood VENOUS BLOOD / Unknown 11/22/2022 10:20 EDT 11/22/2022 21:48 EDT Provider Outr Resulting Lab IMMUNOLOGY A ND SEROLOGY ORDERABLES [facility] [address] [place] [address] documented in this encounter Visit Diagnoses Not on filedocumented in this encounter Care Teams Adolescent Medicine Specialist Relationship Specialty Start Date End Date Jennifer Pinto MD [address] [place] [address] PCP - General 08/30/14 documented as of this encounter
--- OUTSIDE RECORDS SUMMARY | 2023-11-25 18:14 | XMS_ITS | Encounter Summary ---
Author Organization [facility] Address [address] [place] [address] Care Team Providers Care Forge Operator Name Role Phone Jennifer Pinto MD Primary Care Provider [phone] Encounter Details Date Type Department Care Team (Latest Contact Info) Description 02/11/2019 7:44 EDT - 02/11/2019 23:59 EDT Hospital Encounter [address] [address] Unknown, Provider, Discharge Disposition: Home or Self Care Social History Tobacco Use Types Packs/Day Years Used Date Smoking Tobacco: Never Assessed Sex and Gender Information Value Date Recorded Sex Assigned at Not on file Gender Identity Not on file Sexual Orientation Not on file documented as of this encounter Discharge Disposition Disposition Code Departure Means Destination Home or Self [facility] documented in this encounter Plan of Treatment Not on file documented as of this encounter Visit Diagnoses Not on filedocumented in this encounter Care Teams Forge Operator Relationship Specialty Start Date End Date Jennifer Pinto MD [address] [place] [address] PCP - General 08/30/14 documented as of this encounter
--- OUTSIDE RECORDS SUMMARY | 2023-11-25 18:14 | XMS_ITS | Encounter Summary ---
Author Organization [facility] Address [address] [place] [address] Care Team Providers Care Police Stenographer Name Role Phone Jennifer Pinto MD Primary Care Provider Encounter Details Date Type Department Care Team (Late st Contact Info) Description 12/26/2018 Results Only [facility] [phone] Christian Suarez MD [facility] [place], [place] [phone] Social History Tobacco Use Types Packs/Day Years Used Date Smoking Tobacco: Never Assessed Sex and Gender Information Value Date Recorded Sex Assigned at Not on file Gender Identity Not on file Sexual Orientation Not on file documented as of this encounter Plan of Treatment Not on file documented as of this encounter Procedures Procedure Name Priority Date/Time Associated Diagnosis Comments SURGICAL PATHOLOGY Routine 12/26/2018 7:03 EDT documented in this encounter Results * SURGICAL PATHOLOGY (12/26/2018 7:03 EDT) Pathology Report: SURGICAL PATHOLOGY REPORT Reports generated via electronic interface contain original data; however they are lacking the format of the original report. Caution should be taken when reading/interpret ing unformatted reports. Name: ? VILMA CAREY ? Accession #: ? [id number] ? : ? 1970 (Age: 48) ??F ? Collect Date: ? 12/26/2018 ? Location: ? [facility] ? Receive Date: ? 12/26/2018 ? Provider: CHRISTIAN SUAREZ MD Copy to: ROLAND CARO YARN WRAPPER ? Final Pathologic Diagnosis: ENDOMETRIUM, BIOPSY: - Inactive endometrium with extensive stromal breakdown. - Benign endocervical tissue. Document reviewed and electronically signed by: JORGE OLIVA MD Report ??Date: 12/30/2018 18:10 By the signature above, the attending physician certifies that he/she has personally conducted a gross and/or microscopic examination of the described specimens and rendered or confirmed the above diagnosis. Specimen(s) Received: Endometrial biopsy Clinical History: Abnormal uterine bleeding Gross Description: ? Received in formalin labelled with proper patient identification (initials P, T) and endometrium is an aggregate of soft dark brown tissue admixed with viscous material (1.2 x 0.8 x 0.3 cm). Submitted entirely in 1 and 2. Saira Ely 12/29/2018 7:46 AM End of Report [facility] 12/26/2018 7:03 EDT 12/26/2018 7:03 EDT Christian Suarez MD PATHOLOGY ORDERABLES [facility] [address] [place] [address] documented in this encounter Visit Diagnoses Not on filedocumented in this encounter Care Teams Police Stenographer Relationship Specialty Start Date End Date Jennifer Pinto MD [address] [place] [address] PCP - General 08/30/14 documented as of this encounter
--- OUTSIDE RECORDS SUMMARY | 2023-11-25 18:14 | XMS_ITS | Encounter Summary ---
Author Organization [facility] Address [address] [place] [address] Care Team Providers Care Experienced Truck Driver Name Role Phone Unavailable Primary Care Provider Unavailabl e Encounter Details Date Type Department Care Team (Late st Contact Info) Description 08/27/2014 Results Only [facility]- [facility] [phone] Christian Suarez MD [address] [place] [address] [address] [place] [address] Social History Tobacco Use Types Packs/Day Years Used Date Smoking Tobacco: Never Assessed Sex and Gender Information Value Date Recorded Sex Assigned at Not on file Gender Identity Not on file Sexual Orientation Not on file documented as of this encounter Plan of Treatment Not on file documented as of this encounter Procedures Procedure Name Priority Date/Time Associated Diagnosis Comments SURGICAL PATHOLOGY Routine 08/27/2014 7:17 EDT documented in this encounter Results * SURGICAL PATHOLOGY (08/27/2014 7:17 EDT) Pathology Report: SURGICAL PATHOLOGY REPORT Reports generated via electronic interface contain original data; however they are lacking the format of the original report. Caution should be taken when reading/interpreti ng unformatted reports. Name: ? VILMA CAREY ? Accession #: ? [id number] ? : ? 1970 (Age: 44) ??F ? Collect Date: ? 08/27/2014 ? Location: ? [facility] ? Receive Date: ? 08/28/2014 ? Provider: CHRISTIAN SUAREZ MD Copy to: NANCY TAYLOR MD ? Final Pathologic Diagnosis: ENDOMETRIUM, BIOPSY: - ??Early secretory endometrium with no specific histopathologic features. - ??No characteristic features of chronic endometriosis, polyp, hyperplasia, or surinder malignancy. Document reviewed and electronically signed by: Rekha Antonio MD Report ??Date: 09/01/2014 12:11 By the signature above, the attending physician certifies that he/she has personally conducted a gross and/or microscopic examination of the described specimens and rendered or confirmed the above diagnosis. Specimen(s) Received: Endometrial biopsy Clinical History: Abnormal uterine bleeding Gross Description: ? Received in formalin labelled with proper patient identification (initials P, T) and endometrium is an aggregate of chaney-pink soft tissue fragments (2.4 x 1.2 x 0.3 cm). Submitted in toto in 1 and 2. Eli Medina 08/30/2014 8:26 AM End of Report [facility] 08/27/2014 7:17 EDT 08/28/2014 7:17 EDT Christian Suarez MD PATHOLOGY ORDERABLES [facility] [address] [place] [address] documented in this encounter Visit Diagnoses Not on filedocumented in this encounter
--- OUTSIDE RECORDS SUMMARY | 2023-11-25 18:14 | XMS_ITS | Encounter Summary ---
Author Organization [facility] Address [address] [place] [address] Care Team Providers Care Body Builder Apprentice Name Role Phone Unavailable Primary Care Provider Unavailabl e Encounter Details Date Type Department Care Team (Late st Contact Info) Description 04/12/2011 Results Only [facility] Laboratory Services - [facility] ([facility] [address] [place], [place] [address] Ender Varela, [facility] [address] [place] [address] Social History Tobacco Use Types [...] Diagnosis Comments PAP TEST- RESULT ONLY Routine 04/12/2011 0:00 EST documented in this encounter Results * PAP TEST- RESULT ONLY (04/12/2011 0:00 EST) Pathology Report: CYTOPATHOLOGY REPORT Reports generated via electronic interface contain original data; however they are lacking the format of the original report. Caution should be taken when reading/interpreti ng unformatted reports. Name: ? LILY CAREYA ? Accession #: ? [id number] : ? 1970 (Age: 41) ??F ?Collect Date: ? 04/12/2011 Location: ? [facility] ? Receive Date: ? 04/13/2011 Provider: ?ENDER VARELA COLORECTAL SURGEON Copy to: ?NANCY TAYLOR MD ? Specimen/Source: ?Pap Test, Cervix/Endocervix, ThinPrep Imaging System with manual evaluation Last Menstrual Period: ? 03/02 Previous Gynecologic Pathology: ? EMBER II: 1998 Treatment History: ? LEEP: EMBER II 1998 Other: ? Additional clinical information: 03/10/10 pap neg. ? SPECIMEN ADEQUACY ? Satisfactory for Evaluation - transformation zone component present GENERAL CATEGORIZATION ? Negative for Intraepithelial Lesion or Malignancy INTERPRETATION ? Reactive cellular changes associated with inflammation present (includes repair). ? Document reviewed and electronically signed by: ? JULIO CÉSAR ROBERTSON [facility] ? Report Date: ??04/20/2011 15:46 End of Report [facility] 04/12/2011 04/13/2011 Ender Varela COLORECTAL SURGEON PATHOLOGY ORDERABLES [facility] [address] [place] [address] documented in this encounter Visit Diagnoses Not on filedocumented in this encounter
--- OUTSIDE RECORDS SUMMARY | 2023-11-25 18:14 | XMS_ITS | Encounter Summary ---
Author Organization [facility] Address [address] [place] [address] Care Team Providers Care Security Patrol Driver Name Role Phone Jennifer Pinto MD Primary Care Provider [phone] Encounter Details Date Type Department Care Team (Late st Contact Info) Description 04/12/2022 Lab Requisition [facility] Pathology & Laboratory Medicine - [facility] [address] [place] [address] Outr Resulting Lab, Provider Social History Tobacco [...] RNA BY PCR Routine 04/12/2022 9:25 EST documented in this encounter Results * HEPATITIS C AB W REFLEX TO HCV RNA BY PCR (04/12/2022 9:25 EST) Hep C Antibody Negative Negative 04/13/2022 10:14 EST [facility] Blood VENOUS BLOOD / Unknown 04/12/2022 9:25 EST 04/12/2022 21:30 EST Provider Outr Resulting Lab CHEMISTRY & BLOOD GAS ORDERABLES [facility] [address] [place] [address] documented in this encounter Visit Diagnoses Not on filedocumented in this encounter Care Teams Security Patrol Driver Relationship Specialty Start Date End Date Jennifer Pinto MD [address] [place] [address] PCP - General 08/30/14 documented as of this encounter
--- OUTSIDE RECORDS SUMMARY | 2023-11-25 18:14 | XMS_ITS | Encounter Summary ---
Author Organization [facility] Address [address] [place] [address] Care Team Providers Care Dredge Operator Name Role Phone Unavailable Primary Care Provider Unavailabl e Encounter Details Date Type Department Care Team (Late st Contact Info) Description 05/15/2013 Results Only [facility] - [facility] ([facility] [address], [place] [address] Ender Varela, [facility] [address] [place] [address] Social History Tobacco Use Types [...] Diagnosis Comments PAP TEST- RESULT ONLY Routine 05/15/2013 0:00 EST documented in this encounter Results * PAP TEST- RESULT ONLY (05/15/2013 0:00 EST) Pathology Report: CYTOPATHOLOGY REPORT Reports generated via electronic interface contain original data; however they are lacking the format of the original report. Caution should be taken when reading/interpreti ng unformatted reports. Name: ? VILMA CAREY ? Accession #: ? [id number] : ? 1970 (Age: 43) ??F ?Collect Date: ? 05/15/2013 Location: ? [facility] ? Receive Date: ? 05/18/2013 Provider: ?ENDER VARELA BRAILLE DUPLICATING MACHINE OPERATOR Copy to: ?NANCY TAYLOR MD ? Specimen/Source: ?Pap Test, Cervix/Endocervix, ThinPrep Imaging System with manual evaluation Last Menstrual Period: ? 04/01/13 Previous Gynecologic Pathology: ? EMBER II: 1998 Treatment History: ? LEEP: 1998 Other: ? Additional clinical information: WNL 04/12/11 ? SPECIMEN ADEQUACY ? Satisfactory for Evaluation - transformation zone component present GENERAL CATEGORIZATION ? Negative for Intraepithelial Lesion or Malignancy ? Document reviewed and electronically signed by: ? QUINTEN CLINTON MD ? Report Date: ??05/21/2013 16:21 End of Report [facility] 05/15/2013 05/18/2013 Ender Varela BRAILLE DUPLICATING MACHINE OPERATOR PATHOLOGY ORDERABLES [facility] [address] [place] [address] documented in this encounter Visit Diagnoses Not on filedocumented in this encounter
--- OUTSIDE RECORDS SUMMARY | 2023-11-25 18:14 | XMS_ITS | Encounter Summary ---
Author Organization [facility] [place] [address] Care Team Providers Care Special Agent In Charge Name Role Phone Anel Cunningham APRN Primary Care Provider [phone] Encounter Details Date Type Department Care Team (Late st Contact Info) Description 12/25/2019 1:00 PM EDT - 12/25/2019 2:00 PM EDT Surgery [place] [id number] Jazzy Lara MD [facility] [place] [address] COLONOSCOPY, DIAGNOSTIC (WRVU 3.26) Social History Tobacco Use Types Packs/Day Years Used Date Smoking Tobacco: Never Smokeless Tobacco: Never Comments:never vape Alcohol Use Standard Drinks/Week Comments Yes 0 (1 standard drink = 0.6 oz pur e alcohol) occasional liquor Sex and Gender Information Value Date Recorded Sex Assigned at Not on file Gender Identity Not on file Sexual Orientation Not on file documented as of this encounter Last Filed Vital Signs Vital Sign Reading Time Taken Comments Blood Pressure 99/74 12/25/2019 2:00 PM EDT Pulse 79 12/25/2019 1:40 PM EDT Temperature 36.7 ??C (98.1 ??F) 12/25/2019 11:58 AM E DT Respiratory Rate 18 12/25/2019 2:00 PM EDT Oxygen Saturation 96% 12/25/2019 2:00 PM EDT Inhaled Oxygen Concentration - - Weight 82.1 kg (181 lb) 12/25/2019 11:58 AM EDT Height 157.5 cm (5' 2) 12/25/2019 11:58 AM EDT Body Mass Index 33.11 12/25/2019 11:58 AM EDT documented in this encounter Discharge Instructions * Discharge Instructions* Felix Stringer, RN - 12/25/2019 2:18 PM EDT Colonoscopy: What to Expect at Home Your Recovery Your doctor will talk to you about when you will need your next colonoscopy. Your doctor can help you decide how often you need to be checked. This will depend on the results of your test and your risk for colorectal cancer. After the test, you may be bloated or have gas pains. You may need to pass gas. If a biopsy was done or a polyp was removed, you may have streaks of blood in your stool (feces) for a few days. Problems such as heavy rectal bleeding may not occur until several weeks after the test. This isn't common. But it can happen after polyps are removed. This care sheet gives you a general idea about how long it will take for you to recover. But each person recovers at a different pace. Follow the steps below to get better as quickly as possible. How can you care for yourself at home? Activity Rest when you feel tired. ?? You can do your normal activities when it feels okay to do so. Diet ?? Follow your doctor's directions for eating. ?? Unless your doctor has told you not to, drink plenty of fluids. This helps to replace the fluidsthat were lost during the colon prep. ?? Do not drink alcohol. Medicines ?? Your doctor will tell you if and when you can restart your medicines. He or she will also give you instructions about taking any new medicines. ?? If you take blood thinners, such as warfarin (Coumadin), clopidogrel (Plavix), or aspirin, be sure to talk to your doctor. He or she will tell you if and when to start taking those medicines again. Make sure that you understand exactly what your doctor wants you to do. ?? If polyps were removed or a biopsy was done during the test, your doctor may tell you not to take aspirin or other anti-inflammatory medicines for a few days. These include ibuprofen (Advil, Motrin) and naproxen (Aleve). Other instructions ?? For your safety, do not drive or operate machinery until the medicine wears off and you can think clearly. Your doctor may tell you not to drive or operate machinery until the day after your test. ?? Do not sign legal documents or make major decisions until the medicine wears off and you can think clearly. The anesthesia can make it hard for you to fully understand what you are agreeing to. Additional Information for Sedation Patients For patients who received sedation: ?? You may have received medications before and/or during your procedure which effects your judgement and reaction time. ?? Do not drive, operate machinery, drink alcoholic beverages or make important decisions for 24 hours. ?? Be careful on stairs as you may be unsteady on your feet. ?? You may eat a regular diet as tolerated. ?? Do not smoke if you are alone. ?? IV site: Slight redness or tenderness is normal, you can use a warm compress if you would like. If tenderness and/or redness increase or if foul drainage occurs, please contact your Doctor. Please call [phone] before 8pm Mon-Fri with problems, questions or concerns. If you call after 8pm or on weekends, call the Hospital at [phone] and ask to speak to the [employer] Production Technician director consumer and the corner brace block machine operator will contact that person for you. When should you call for help? Call 214 anytime you think you may need emergency care. For example, call if: ?? You passed out (lost consciousness). ?? You pass maroon or bloody stools. ?? You have trouble breathing. Call your doctor now or seek immediate medical care if: ?? You have pain that does not get better after you take pain medicine. ?? You are sick to your stomach or cannot drink fluids. ?? You have new or worse belly pain. ?? You have blood in your stools. ?? You have a fever. ?? You cannot pass stools or gas. Watch closely for changes in your health, and be sure to contact your doctor if you have any problems. Where can you learn more? [facility] View your After Visit Summary and more online at [email or web address] If you would like to provide feedback about your hospital experience, please call the Office of Patient and Family Relations at . If you have received this After Visit Summary in error, please immediately return it in person to the department, or notify the [facility] Privacy Office by calling toll free at between the hours of 8AM and 5PM to arrange for our retrieval of the documents at no cost to you. Content Version: 12.2 ?? [id number] [employer]. Care instructions adapted under license by [facility]. If you have questions about a medical condition or this instruction, always ask your healthcare professional. [employer] disclaims any warranty or liability for your use of this information. documented in this encounter Medications at Time of Discharge Medication Sig Dispensed Refills Start Date End Date Ldrtexfypbefn-Lv-Exyn-Minerals 18-0.4 mg Tablet Take by mouth. documented as of this encounter H&P Notes * Jazzy Lara MD - 12/25/2019 12:56 PM EDT Patient Name: Vilma Carey Patient Age: 49 y.o. Birthdate: 1970 Admit date: 12/25/2019 Attending Physician: Jazzy Lara MD Gastroenterology and Hepatology Pre-Procedure History and Physical Exam Procedure: Colonoscopy: Indication: F/U of diverticulitis There is no problem list on file for this patient. EXAM: HEENT: Airway examined, oropharynx clear Mallampati Score: II (soft palate, uvula, fauces visible) LUNGS: Clear to auscultation HEART: Regular rate and rhythm, normal S1, S2 ABDOMEN: Normal bowel sounds, soft, non tender, non distended, A/P Proceed with the planned endoscopic procedure. ASA 1 - Normal health patient Sedation Plan: moderate (conscious sedation) Risks and benefits of the procedure explained to the patient. Consent signed. documented in this encounter Plan of Treatment Not on file documented as of this encounter Procedures Procedure Name Priority Date/Time Associated Diagnosis Comments Colonoscopy, Diagnostic (01136) 12/25/2019 12:59 PM EDT Diverticulosis of large intestine without perforation or abscess with bleeding COLONOSCOPY Routine 12/25/2019 12:52 PM EDT documented in this encounter Results * COLONOSCOPY (12/25/2019 12:52 PM EDT) COLONOSCOPY [facility] Endoscopy Procedure Date: 12/25/2019 12:52 PM ? Patient Name: Vilma Carey ? N: [id number] ? Date of : 1970 ? Age: 49 ? Order #: [id number] ? Instrument Name: [id number] ? Procedure: ? Colonoscopy Indications: ? Follow-up of diverticulitis Providers: ? Jazzy Lara MD, Helio Lynn ? Gloria Fischer, ? Air Conditioning Mechanic Industrial Referring MD: ?Anel Cunningham Medicines: ? Midazolam 6 mg [...] 12/25/2019 12:5 2 PM EDT Anel Cunningham KEYMODULE ASSEMBLY MACHINE TENDER GENERAL SURGICAL ORDERABLES [employer] documented in this encounter Visit Diagnoses Diagnosis Diverticulosis of large intestine without perforation or abscess with bleeding Diverticulosis of colon with hemorrhage documented in this encounter Administered Medications Inactive Administered Medications - up to 3 most recent administrations Medication Order MAR Action Action Date Dose Rate Site fentaNYL 50 mcg/mL multi-dose injection ONCE PRN, Starting on Sat12/25/19 at 1303, Until Sat12/25/19 at 1645, Intra-Operative (Intra-Procedure), Routine Given 12/25/2019 1:24 PM EDT 50 mcg Given 12/25/2019 1:20 PM EDT 50 mcg Given 12/25/2019 1:10 PM EDT 50 mcg lactated ringers infusion 100 mL/hr, Intravenous, CONTINUOUS, Starting on Sat12/25/19 at 1215, Until Sat12/25/19 at 1645, Endoscopy (Day of Procedure) New Bag 12/25/2019 12:30 PM EDT 100 mL/hr 100 mL/hr midazolam (PF) (VERSED) multi-dose injection ONCE PRN, Starting on Sat12/25/19 at 1302, Until Sat12/25/19 at 1645, Intra-Operative (Intra-Procedure), Routine Given 12/25/2019 1:25 PM EDT 1 mg Given 12/25/2019 1:21 PM EDT 1 mg Given 12/25/2019 1:15 PM EDT 1 mg ondansetron (ZOFRAN) injection 4 mg 4 mg, Intravenous, ONCE, 1 dose, On Sat12/25/19 at 1330, Endoscopy (Intra-Procedure) Given 12/25/2019 1:00 PM EDT 4 mg documented in this encounter Active and Recently Administered Medications Times are shown in EDT. Scheduled Medication Order 12/23/2019 12/24/2019 12/25/2019 ondansetron (ZOFRAN) injection 4 mg (COMPLETED) 4 mg, Intravenous, ONCE, 1 dose, On Sat12/25/19 at 1330, Endoscopy (Intra-Procedure) 1300 (Given - Provid er: Helio Fischer RN)1330 (Due) Continuous Medication Order 12/23/2019 12/24/2019 12/25/2019 lactated ringers infusion 100 mL/hr, Intravenous, CONTINUOUS, Starting on Sat12/25/19 at 1215, Until Sat12/25/19 at 1645, Endoscopy (Day of Procedure) 1230 (New Bag - Prov ider: Roseann Devlin RN) PRN Medication Order 12/23/2019 12/24/2019 12/25/2019 fentaNYL 50 mcg/mL multi-dose injection (CANCELED) ONCE PRN, Starting on Sat12/25/19 at 1303, Until Sat12/25/19 at 1645, Intra-Operative (Intra-Procedure), Routine 1303 (Given - Provid er: Helio Fischer RN)1306 (Given - Provider: Helio Fischer RN)1310 (Given - Provider: Helio Fischer RN)1320 (Given - Provider: Helio Fischer RN)1324 (Given - Provider: Helio Fischer RN) midazolam (PF) (VERSED) multi-dose injection (CANCELED) ONCE PRN, Starting on Sat12/25/19 at 1302, Until Sat12/25/19 at 1645, Intra-Operative (Intra-Procedure), Routine 1302 (Given - Provid er: Helio Fischer RN)1306 (Given - Provider: Helio Fischer RN)1310 (Given - Provider: Helio Fischer RN)1315 (Given - Provider: Helio Fischer RN)1321 (Given - Provider: Helio Fischer RN)1325 (Given - Provider: Helio Fischer, [place]) documented in this encounter Care Teams Special Agent In Charge Relationship Specialty Start Date End Date Anel Cunningham APRN [address] [place] [address] PCP - General Family Medicine 06/12/19 05/16/20 documented as of this encounter
--- OUTSIDE RECORDS SUMMARY | 2023-11-25 18:14 | XMS_ITS | Encounter Summary ---
Author Organization [facility] Address [address] [place] [address] Care Team Providers Care Coastal/Harbor Defense Officer Name Role Phone Jennifer Pinto MD Primary Care Provider [phone] Encounter Details Date Type Department Care Team (Late st Contact Info) Description 02/11/2019 Results Only [facility] [phone] Christian Suarez MD [facility] [place], [place] [id number] Social History Tobacco Use Types Packs/Day Years Used Date Smoking Tobacco: Never Assessed Sex and Gender Information Value Date Recorded Sex Assigned at Not on file Gender Identity Not on file Sexual Orientation Not on file documented as of this encounter Plan of Treatment Not on file documented as of this encounter Procedures Procedure Name Priority Date/Time Associated Diagnosis Comments SURGICAL PATHOLOGY Routine 02/11/2019 23 :22 EDT documented in this encounter Results * SURGICAL PATHOLOGY (02/11/2019 23:22 EDT) Pathology Report: SURGICAL PATHOLOGY REPORT Reports generated via electronic interface contain original data; however they are lacking the format of the original report. Caution should be taken when reading/interpret ing unformatted reports. Name: ? VILMA CAREY ? Accession #: ? [id number] ? : ? 1970 (Age: 49) ??F ? Collect Date: ? 02/11/2019 ? Location: ? [facility] ? Receive Date: ? 02/11/2019 ? Provider: CHRISTIAN SUAREZ MD Copy to: ROLAND CARO DEVELOPMENT TEAM LEAD ? Final Pathologic Diagnosis: UTERUS, CERVIX, AND FALLOPIAN TUBES, HYSTERECTOMY AND BILATERAL SALPINGECTOMY: - ??Endometrium: ? - Inactive endometrium. - ??Myometrium: ? - Leiomyomata. ? - Adenomyosis. - ??Cervix: ? - No specific pathologic features. - ??Serosa: ? - No specific pathologic features. - ??Fallopian tubes: ? - No specific pathologic features. Document reviewed and electronically signed by: CHOCO JEFFERSON MD Report ??Date: 02/18/2019 09:49 By the signature above, the attending physician certifies that he/she has personally conducted a gross and/or microscopic examination of the described specimens and rendered or confirmed the above diagnosis. Specimen(s) Received: Uterus, cervix, bilateral fallopian tubes Clinical History: Abnormal uterine bleeding Gross Description: ? Received in formalin labelled with proper patient identification (initials P, T) and uterus, cervix, bilateral fallopian tubes is an intact, unopened uterus (83.6 g, 8.9 cm fundus to cervix x 4.0 cm cornu to cornu x 4.2 cm anterior to posterior) and detached, unoriented fimbriated fallopian tubes (2.3 cm in length x 0.5 cm in diameter and 2.5 cm in length x 0.4 cm in diameter). The serosa is smooth and purple-dennis. The cervix (2.3 cm in diameter) is covered by chaney-lizarraga, wrinkled ectocervical mucosa and has a slitlike os (1.0 cm in diameter). The endocervical canal (2.5 cm in length) is lined by denuded chaney mucosa. The endometrial cavity (2.6 cm cornu to cornu x 3.8 cm in length) is lined by soft red-brown endometrium (0.1 cm in maximum thickness). The chaney, coarsely trabeculated myometrium has a maximum thickness of 2.0 cm. Multiple whorled, white intramural and submucosal nodules are identified (ranging from 0.2 cm to 0.9 cm in greatest dimension). No hemorrhage or necrosis is identified. The fimbriated fallopian tubes have smooth purple lizarraga serosal surfaces. Sectioning reveals patent, unremarkable lumens. Global Compensation Analyst sections are submitted as follows: BLOCK FLOOD 1-2- ??anterior cervix to lower uterine segment, bisected 3-4- ??posterior cervix to lower uterine segment, it 5-7- ??telesales representative anterior endomyometrium, to include intramural and submucosal nodules 8-10- ??telesales representative posterior endomyometrium, to include intramural nodules 11- ??shorter fallopian tube, to include the bisected fimbria 12- ??longer fallopian tube to include the bisected fimbria CYNTHIA Copeland (ASCP) 02/12/2019 9:31 AM End of Report [facility] 02/11/2019 23:2 2 EDT 02/11/2019 23:22 EDT Christian Suarez MD PATHOLOGY ORDERABLES [facility] [address] [place] [address] documented in this encounter Visit Diagnoses Not on filedocumented in this encounter Care Teams Coastal/Harbor Defense Officer Relationship Specialty Start Date End Date Jennifer Pinto MD [address] [place] [address] PCP - General 08/30/14 documented as of this encounter
--- OUTSIDE RECORDS SUMMARY | 2023-11-25 18:15 | XMS_ITS | Encounter Summary ---
[place] [address] Care Team Providers Care Grocery Packer Name Role Phone Margo Cunninghamdon Horvath HEATHER Primary Care Provider [phone] Encounter Details Date Type Department Care Team (Late st Contact Info) Description 09/24/2019 Telephone [place] [phone] Karime Lugo, [facility] Social History Tobacco Use Types Packs/Day Years Used Date Smoking Tobacco: Never Assessed Sex and Gender Information Value Date Recorded Sex Assigned at Not on file Gender Identity Not on file Sexual Orientation Not on file documented as of this encounter Miscellaneous Notes * Telephone Encounter - Karime Lugo - 09/24/2019 9:08 AM EDT Vilma Carey [id number] Diagnosis/Indication: 1. Have you ever had a/an Colonoscopy before? Yes: Date 02/06/18 If yes, did you have any problems with the procedure? No What type of sedation was used: IV Conscious Sedation 2. Do you take any Blood Thinners? No 3. Do you have a Pacemaker or Defibrillator device? No 4. Are you a diabetic? No 5. Do you have any Allergies to Eggs, Latex or Medications? No 6. Do you take any Oral Iron Supplements (Including multi-vitamins)? Yes (Iron) 7. Do you have a history of three or more abdominal surgeries? No 8. Have you had a problem with sedation or anesthesia? No 9. Do you have a c-pap machine or oxygen tank? Neither 10. Do you take prescription narcotic pain medications, including suboxone or methodone? No 11. Do you have a preference regarding the gender of your provider? No Preference 12. Is there any other information you would like to give us to aid in scheduling? No 13. Say to patient: You must have a responsible alliance party who will drive you to your procedure, stay oncampus for the entire duration of your procedure, and drive you home from your procedure? Height: 5'7 Weight: 150 Age:49 y.o. documented in this encounter Plan of Treatment Not on file documented as of this encounter Visit Diagnoses Not on filedocumented in this encounter Care Teams Grocery Packer Relationship Specialty Start Date End Date Anel Cunningham APRN [address] [place] [address] PCP - General Family Medicine 06/12/19 05/16/20 documented as of this encounter
--- OUTSIDE RECORDS SUMMARY | 2023-11-25 18:15 | XMS_ITS | Encounter Summary ---
[place] [address] Care Team Providers Care Cytology Technologist Name Role Phone Octavio Anel H HEATHER Primary Care Provider [phone] Encounter Details Date Type Department Care Team (Late st Contact Info) Description 11/20/2019 Telephone [place] [address] Diana Loving Social History Tobacco Use Types Packs/Day Years Used Date Smoking Tobacco: Never Assessed Sex and Gender Information Value Date Recorded Sex Assigned at Not on file Gender Identity Not on file Sexual Orientation Not on file documented as of this encounter Miscellaneous Notes * Telephone Encounter - Diana Loving - 11/20/2019 9:20 AM EDT Vilma Carey [id number] Diagnosis/Indication: [place] 1. Have you ever had a/an Colonoscopy before? No If yes, did you have any problems with the procedure? No What type of sedation was used: None 2. Do you take any Blood Thinners? No 3. Do you have a Pacemaker or Defibrillator device? No 4. Are you a diabetic? No 5. Do you have any Allergies to Eggs, Latex or Medications? No 6. Do you take any Oral Iron Supplements (Including multi-vitamins)? Yes (Multivitamin) 7. Do you have a history of three or more abdominal surgeries? Yes 8. Have you had a problem with sedation or anesthesia? No 9. Do you have a c-pap machine or oxygen tank? Neither 10. Do you take prescription narcotic pain medications, including suboxone or methodone? No 11. Do you have a preference regarding the gender of your provider? Yes: Female 12. Is there any other information you would like to give us to aid in scheduling? No 13. Say to patient: You must have a responsible democrat who will drive you to your procedure, stay oncampus for the entire duration of your procedure, and drive you home from your procedure? *Please Verify the height and weight, and adjust if height and/or weight have changed* There is no height or weight on file to calculate BMI. *Delete if not needed* Height: 5'2 Weight: 185 BMI: 33.8 Age:49 y.o. documented in this encounter Plan of Treatment Not on file documented as of this encounter Visit Diagnoses Not on filedocumented in this encounter Care Teams Cytology Technologist Relationship Specialty Start Date End Date Anel Cunningham APRN [address] [place] [address] PCP - General Family Medicine 06/12/19 05/16/20 documented as of this encounter
--- OUTSIDE RECORDS SUMMARY | 2023-11-25 18:15 | XMS_ITS ---
Author Organization [facility] Address [address] [place] [address] Care Team Providers Care Film Replacement Orderer Name Role Phone [facility] Primary Care Provid er Unavailable Shin PRESCOTT, Emeli Unavailable [phone] REASON FOR VISIT new pharmacy; make a payment Medications Medication SIG (Take, Route, Fr equency, Duration) Notes Start Date End Date Status Vivelle-Dot 0.1 MG/24HR 1 patch to skin Transdermal Two times a Week for 84 days Act donald Encounters Encounter Location Date Provider Diagnosis [facility] [address] [facility], [address] [place] [address] 10/12/2022 Emeli Melissa Unspecified menopaus al and perimenopausal disorder N95.9 Assessments Encounter Date Diagnosis (ICD Code) Assessment Notes Treat ment Notes Treatment Clinical Notes 10/12/2022 Unspecified menopausal and perimenopausal disorder (ICD-10 - N95.9) Plan Of Treatment Medication Medication Name Sig Start Date Stop Date Notes Vivelle-Dot 0.1 MG/24HR 1 patch to skin Transdermal Two times a Week for 84 days Progress Notes * Vilma BANG ADOB:1 (52 yo F)Acc No.[id number]:10/12/2022 Patient:?Khalif Bang na A :1970???Age:52 Y???Sex:Female Address:[address], [place], [address] * Refills? Refill Vivelle-Dot Patch Twice Weekly, 0.1 MG/24HR, Transdermal, 24, 1 patch to skin, Two times a Week, 84 days, Refills=1 * true * Date:? Generated for Guerita koroma/Demi/Homeroitting on:?11/25/2023 06:14 PM EDT
--- OUTSIDE RECORDS SUMMARY | 2023-11-25 18:15 | XMS_ITS | Patient Health Record ---
Author Organization [facility] Address [address] [place] [address] Care Team Providers Care Farm Operations Manager Name Role Phone [facility] Primary Care Provid er Unavailable Emeli Melissa MD Unavailable [phone] Allergies No Known Allergies Reason For Referral [...] Risk Notes Problem Menopausal and postmenopausal disorders (375232836) Unspecified menopausal and perimenopausal disorder (N95.9) Active confirmed Problem Hysterectomy (083222945) 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 confirmed Problem Female urinary stress incontinence (88555040) JAMISON (stress urinary incontinence, female) (N39.3) Active confirmed Plan Of Treatment No Information Insurance Providers Payer Name Payer Address Payer Phone Subscriber Number Group Number Insured Name Patient Relationship to Insured Coverage Start Date Coverage End Date [employer] [address] [place]ST[place] GONZALEZ, [place] [phone] [id number] Sis magana Vilma Self - patient is the insured Medical (General) History Medical History History ICD Code S/p gall bladder removal S/p [facility] Reocurreing Last Pap: 05/23/2018 NIL, No HPV testing Surgical History Surgery Date(Month/Year) FLAKITA PETIT at [facility] 02/11/2019 Hospitalization History Reason Date(Month/Year) Hysterectomy recurrent diverticulitis
--- OUTSIDE RECORDS SUMMARY | 2023-11-25 18:15 | XMS_ITS | Encounter Summary ---
[place] [address] Care Team Providers Care Care Process Manager Name Role Phone Anel Cunningham APRN Primary Care Provider [phone] Encounter Details Date Type Department Care Team (Late st Contact Info) Description 07/22/2019 Telephone [place] [phone] Nidia Mcnulty Social History Tobacco Use Types Packs/Day Years Used Date Smoking Tobacco: Never Assessed Sex and Gender Information Value Date Recorded Sex Assigned at Not on file Gender Identity Not on file Sexual Orientation Not on file documented as of this encounter Miscellaneous Notes * Telephone Encounter - Courtney Lees - 07/22/2019 1:45 PM EDT Patient just called back to speak with Nidia. Please contact her at: [phone] * Telephone Encounter - Nidia Mcnulty - 07/22/2019 1:28 PM EDT Left message for patient to contact the office. Per Darien CHAIREZ, she would like the CT reports for February and March 2019. Please ask patient where she had those done. Thank you. documented in this encounter Plan of Treatment Not on file documented as of this encounter Visit Diagnoses Not on filedocumented in this encounter Care Teams Care Process Manager Relationship Specialty Start Date End Date Anel Cunningham APRN [address] [place] [address] PCP - General Family Medicine 06/12/19 05/16/20 documented as of this encounter
--- OUTSIDE RECORDS SUMMARY | 2023-11-25 18:15 | XMS_ITS | Encounter Summary ---
Author Organization [facility] [place] [address] Care Team Providers Care Mainspring Reverse Winder Name Role Phone Anel Cnuningham APRN Primary Care Provider [phone] Reason for Visit * Consultation (Urgent) - Closed Specialty Diagnoses / Procedures Referred By Doug t Referred To Contact Gastroenterology Diagnoses Diverticulitis of intestine, part unspecified, without perforation or abscess without bleeding Anel Cunningham APRN [address] [place] [address] [facility] [address] [place] [address] Referral ID Status Reason Start Date Expiration Date V isits Requested Visits Authorized [id number] Closed Consult, Test & Treat Connection [facility] PCP Updated and/or Approved 06/11/2019 06/10/2020 6 6 Encounter Details Date Type Department Care Team (Latest Contact Info) Description 07/21/2019 4:00 PM EDT TH Visit (TeleHealth) [place] [phone] Darien Curry APRN [facility] [address] [place] [address] Diverticulosis of large intestine without perforation or abscess with bleeding Social History Tobacco Use Types Packs/Day Years Used Date Smoking Tobacco: Never Assessed Sex and Gender Information Value Date Recorded Sex Assigned at Not on file Gender Identity Not on file Sexual Orientation Not on file documented as of this encounter Progress Notes * Darien Curry, RN - 07/21/2019 4:00 PM EDT Section of Gastroenterology and Hepatology [address] [place], [place] [id number] .Vilma Carey : 1970 Patient is here for further evaluation of gastrointestinal symptoms at the request of Anel Cunningham. HPI: She has been referred for diverticulitis. Long hx of intermittent flares. One flare in 2014. Three flares since January 2019. April 2019 CT scan: diverticulitis of mid descending colon; she indicates two other CTs done latefall 2018. Will need to obtain from [facility]. She has been hospitalized twice since January 2019. In the past she has been treated with Cipro andFlagyl. When hospitalized was tx with Rocephin. Last episode she was treated with Augmentin and Clindamycin. She has not had a return of sx since May 2019. However, she is being cautious with diet and lifestyle. She mentions a hx of abscess formation which occurred with February 2019 episode of diverticulitis.Pt indicates she has had three CT scans since last fall. She underwent a hysterectomy and she developed a cuff infection. Tx with abx. Then developed diverticulitis. No blood in stool. Reviewed diet. [place] foods. To try to minimize sx. Weight stable. Kefir smoothieeach morning. No chronic nsaids. Daily stools. Soft. No straining. Hx of hemorrhoids. Anal soreness. No fecal seepage or incontinence. Recently having reflux with tomato based products. No hx of reflux. Experiencing heartburn; especially at night. No dysphagia, odynophagia, n/v. Hx of eating late due to work. Elevated head of bed. Social History Socioeconomic History ??? Marital status: Not on file Spouse name: Not on file ??? Number of children: Not on file ??? Years of education: Not on file ??? Highest education level: Not on file Occupational History ??? Not on file Social Needs ??? Financial resource strain: Not on file ??? Food insecurity Worry: Not on file Inability: Not on file ??? Transportation needs Medical: Not on file Non-medical: Not on file Tobacco Use ??? Smoking status: Not on file Substance and Sexual Activity ??? Alcohol use: Not on file ??? Drug use: Not on file ??? Sexual activity: Not on file Lifestyle ??? Physical activity Days per week: Not on file Minutes per session: Not on file ??? Stress: Not on file Relationships ??? Social connections Talks on phone: Not on file Gets together: Not on file Attends jew service: Not on file Active member of club or organization: Not on file Attends meetings of clubs or organizations: Not on file Relationship status: Not on file ??? Intimate partner violence Fear of current or ex partner: Not on file Emotionally abused: Not on file Physically abused: Not on file Forced sexual activity: Not on file Other Topics Concern ??? Not on file Social History Narrative ??? Not on file Medical History: diverticulosis/itis; Surgical History: bry; cholecystectomy; tubal ligation Family History: Mother and siblings: hx of diverticulitis Allergies not on file No current outpatient medications on file. Review of Systems -negative except General: Cardiac: Resp: GI: see above : MS: Neuro: Skin: Psyche: Sleep: Endo: Impression: 1. Diverticulosis/itis: continue with bland diet. Slowly add fiber in diet to bulk stools and provide regularity. Continue with daily probiotics. After covid 19 threat, will proceed with a colonoscopy and surgical consult. Instructed if sx resurface and to call GI office for possible abx therapy. 2. Encouraged foot stool or squatty potty to encourage emptying. I spent a total of 54 minutes telephone call; pt aware call is billable. 39 minutes were spent counseling the patient in the medical problems described above. Sincerely, Darien Curry NP Section of Gastroenterology and Hepatology documented in this encounter Plan of Treatment Scheduled Orders Name Type Priority Associated Diagnoses Orde r Schedule COLONOSCOPY Procedures Routine Diverticulosis of large intestine without perforation or abscess with bleeding Ordered: 08/06/2019 documented as of this encounter Visit Diagnoses Diagnosis Diverticulosis of large intestine without perforation or abscess with bleeding Diverticulosis of colon with hemorrhage documented in this encounter Care Teams Mainspring Reverse Winder Relationship Specialty Start Date End Date Anel Cunningham APRN [address] [place] [address] PCP - General Family Medicine 06/12/19 05/16/20 documented as of this encounter
--- OUTSIDE RECORDS SUMMARY | 2023-11-25 18:15 | XMS_ITS | Encounter Summary ---
Author Organization [facility] [place] [address] Care Team Providers Care Conduit Mechanic Name Role Phone Anel Cunningham HEATHER Primary Care Provider [phone] [phone] Encounter Details Date Type Department Care Team (Latest Contact Info) Description 12/25/2019 11:46 AM EDT - 12/25/2019 2:40 PM EDT Hospital Encounter [place] [phone] Jazzy Lara MD [facility] [place] [place] [address] Discharge Disposition: Home Social History Tobacco Use Types Packs/Day Years [...] occurs, please contact your Doctor. Please call [phone] before 8pm Mon-Fri with problems, questions or concerns. If you call after 8pm or on weekends, call the Hospital at [phone] and ask to speak to the All Round Butcher inside sales person and the tin whiz machine operator will contact that person for you. When should you call for help? Call 255 anytime you think you may need emergency [...] any problems. Where can you learn more? [facility] View your After Visit Summary and more online at [email or web address] If you would like to provide feedback [...] cost to you. Content Version: 12.2 ?? 4150-6428 [employer]. Care instructions adapted under license by [facility]. If you have questions about a medical condition or this instruction, always ask your healthcare professional. [employer] disclaims any warranty or liability for your use of this information. documented in this encounter Medications at Time of Discharge Medication Sig Dispensed Refills Start Date End Date Pxbylddgvuwqn-Kt-Kkee-Minerals 18-0.4 mg Tablet Take by mouth. documented as of this encounter H&P Notes * Jazzy Lara MD - 12/25/2019 12:56 PM EDT Patient Name: Vilma Carye Patient Age: 49 y.o. Birthdate: 1970 Admit [...] Priority Date/Time Associated Diagnosis Comments Colonoscopy, Diagnostic (19663) 12/25/2019 12:59 PM EDT Diverticulosis of large intestine without perforation or abscess with bleeding COLONOSCOPY Routine 12/25/2019 12:52 PM EDT documented in this encounter Results * COLONOSCOPY (12/25/2019 12:52 PM EDT) [facility] Signature COLONOSCOPY [facility] Endoscopy Procedure Date: 12/25/2019 12:52 PM ? Patient Name: Vilma Carey ? Date of : 1970 ? Age: 49 ? Order #: [id number] ? Instrument Name: [id number] ? Procedure: ? Colonoscopy Indications: ? Follow-up of diverticulitis Providers: ? Jazzy Lara MD, Helio Lynn ? Gloria Fischer, ? Meat Supervisor Referring : ?Anel Cunningham Medicines: ? Midazolam [...] 12/25/2019 12:5 2 PM EDT Anel Cunningham HEATHER GENERAL SURGICAL ORDERABLES [employer]OVATION documented in this encounter Visit Diagnoses Not on filedocumented in this encounter Administered Medications Inactive Administered Medications - up to 3 most recent administrations Medication Order MAR Action Action Date Dose Rate Site lactated ringers infusion 100 mL/hr, Intravenous, CONTINUOUS, Starting on Sat12/25/19 at 1215, Until Sat12/25/19 at 1645, Endoscopy (Day of Procedure) New Bag 12/25/2019 12:30 PM EDT 100 mL/hr 100 mL/hr documented in this encounter Active and Recently [...] Helio Fischer RN)1310 (Given - Provider: Helio Fischer, RN)1320 (Given - Provider: Helio Fischer RN)1324 [...] Helio Fischer RN)1325 (Given - Provider: Helio Fischer RN) documented in this encounter Care Teams Conduit Mechanic Relationship Specialty Start Date End Date Anel Cunningham APRN [address] [place] [address] PCP - General Family Medicine 06/12/19 05/16/20 documented as of this encounter
--- OUTSIDE RECORDS SUMMARY | 2023-11-25 18:15 | XMS_ITS | Encounter Summary ---
[place] [address] Care Team Providers Care Project Management Instructor Name Role Phone Anel Cunningham APRN Primary Care Provider [phone] [phone] Encounter Details Date Type Department Care Team (Late st Contact Info) Description 08/11/2019 Telephone [place] [phone] Kar[facility] Lugo, [facility] Social History Tobacco Use Types Packs/Day Years Used Date Smoking Tobacco: Never Assessed Sex and Gender Information Value Date Recorded Sex Assigned at Not on file Gender Identity Not on file Sexual Orientation Not on file documented as of this encounter Miscellaneous Notes * Telephone Encounter - Karime Lugo - 08/11/2019 12:15 PM EDT New referral which was graded as urgency D. Deferring referral and sending letter. documented in this encounter Plan of Treatment Not on file documented as of this encounter Visit Diagnoses Not on filedocumented in this encounter Care Teams Project Management Instructor Relationship Specialty Start Date End Date Anel Cunningham APRN [address] [place] [address] PCP - General Family Medicine 06/12/19 05/16/20 documented as of this encounter
--- OUTSIDE RECORDS SUMMARY | 2023-11-25 18:15 | XMS_ITS | Encounter Summary ---
[place] [address] Care Team Providers Care Rehabilitation Assistant Name Role Phone Anel Cunningham APRN Primary Care Provider [phone] [phone] Encounter Details Date Type Department Care Team (Late st Contact Info) Description 07/16/2019 [place] [phone] Nidia Mcnulty Social History Tobacco Use Types Packs/Day Years Used Date Smoking Tobacco: Never Assessed Sex and Gender Information Value Date Recorded Sex Assigned at Not on file Gender Identity Not on file Sexual Orientation Not on file documented as of this encounter Miscellaneous Notes * Telephone Encounter - Nidia Mcnulty - 07/17/2019 8:52 AM EDT Patient appointment converted to a telephone conference. * Telephone Encounter - Nidia Mcnulty - 07/16/2019 3:52 PM EDT Left message for patient to contact the office to reschedule her appointment with Darien 07/21/2019 to a telephone conference. documented in this encounter Plan of Treatment Not on file documented as of this encounter Visit Diagnoses Not on filedocumented in this encounter Care Teams Rehabilitation Assistant Relationship Specialty Start Date End Date Anel Cunningham APRN [address] [place] [address] PCP - General Family Medicine 06/12/19 05/16/20 documented as of this encounter
[2023-11-25 21:19] LABS: Bilirubin Negative (Negative); Blood Small (Negative); Clarity Clear (Clear); Glucose Negative (Negative); Ketones Negative (Negative); Leukocyte Esterase Trace (Negative); Nitrite Negative (Negative); Specific Gravity 1.025 (1.005-1.025); Urobilinogen 0.2 mg/dL (Up to 0.2); pH 5.5 (5-8)
[2023-11-25 21:35] LABS: Bacteria Few HPF (Negative); C & S Indicated? No; Crystals Negative HPF (Negative); Epithelial Cells Few HPF (Negative); Mucus Negative (Negative)
== END 2023-11-25 18:14 | disposition home or self-care (01) ==
LOC: NCHCN 18:13
PROVIDERS: PCP Nurse Practitioner Family; Visit Provider Nurse Practitioner Family
DX: R30.0 Dysuria (principal); R39.15 Urgency of urination
CPT/HCPCS: 87077; 81003; 81015; 87086; 87186

== ENCOUNTER 2024-04-24 00:20 | Outpatient (CLI) | payer OTHER, SELFPAY ==
--- NOTE | 2024-04-24 | DI.MAMMO_ITS ---
Exam(s) MAMMO SCREENING EXAM: MAMMO SCREENING CLINICAL HISTORY: SCREENING MAMMO Z12.31. TECHNIQUE: Bilateral full field digital CC and MLO mammographic images were obtained with 3D tomosyn thesis and utilizing computer aided detection (CAD). COMPARISON: Prior mammograms were reviewed. FINDINGS: There has been no significant change in the appearance and distribution of the fibroglandular tissue. There are no CAD designations. There are no new spiculated masses nor malignant appearing microcalcification groups. There is no significant architectural distortion nor skin thickening-retraction. IMPRESSION: No radiographic evidence of malignancy. BI-RADS Category 1 - Negative Breast Density - Category B - Scattered areas of fibroglandular density Breast density Category C or D implies that the patient has dense breast tissue. Dense breast tissue can make it harder to find cancer on a mammogram. Dense breast tissue is also associated with an incr eased risk of breast cancer. This information about the result of the mammogram report was provided to the patient to raise their awareness. Use this report when you speak with the patient about their risks for breast cancer, which includes their family history. At that time, you may recommend additional screening tests (Ultrasoun d or MRI) as these tests may add significant information. A negative radiographic report should not delay biopsy if a dominant or clinically suspicious mass is present. Up to ten percent of cancers are not identified on mammography. A negative report may reinforce clinical impression. Adenosis and dense breasts may obscure an underlying neoplasm. False positive reports average 6 to 10%. Patient will receive a letter notifying them of these results.
--- OUTSIDE RECORDS SUMMARY | 2024-04-24 00:34 | XMS_ITS | Encounter Summary ---
Author Organization [facility] Address [address] [place] [address] Care Team Providers Care Change Management Consultant Name Role Phone Jennifer Pinto MD Primary Care Provider Unavailabl e Encounter Details Date Type Department Care Team (Late st Contact Info) Description 11/22/2022 Lab Requisition [facility] Pathology & Laboratory Medicine - [address] [id number] Outr Resulting Lab, Provider Social History Tobacco Use Types Packs/Day Years Used Date Smoking Tobacco: Never Assessed Interpersonal Safety Answer Date Record ed Physically Hurt Never 11/22/2019 Verbally Threaten Not on file 11/22/2019 Comments Unknown Sex and Gender Information Value Date Recorded Sex Assigned at Not on file Legal Sex Female 18:22 EST Gender Identity Not on file Sexual Orientation Not on file documented as of this encounter Plan of Treatment Not on file documented as of this encounter Procedures Procedure Name Priority Date/Time Associated Diagnosis Comments LYME AB Routine 11/22/2022 10:20 EDT documented in this encounter Results * LYME AB (11/22/2022 10:20 EDT) Lyme Ab Negative Negative 11/23/2022 12:28 EDT [facility] Blood VENOUS BLOOD / Unknown 11/22/2022 10:20 EDT 11/22/2022 21:48 EDT us Provider Outr Resulting Lab IMMUNOLOGY AND SEROL OGY ORDERABLES Final Result Performing Organization Address City/State/[facility] Co de Phone Number [facility] [address] [place] [address] documented in this encounter Visit Diagnoses Not on filedocumented in this encounter Care Teams Change Management Consultant Relationship Specialty Start Date End Date Jennifer Pinto MD PCP - General 08/30/14 02/10/24 documented as of this encounter
--- OUTSIDE RECORDS SUMMARY | 2024-04-24 00:34 | XMS_ITS | Referral Summary ---
Author Organization [facility] Address [address] [place] [address] Care Team Providers Care Art Museum Aide Name Role Phone Unavailable Primary Care Provider Unavailabl e Social History Tobacco Use Types Packs/Day Years [...] C Antibody Negative Negative 04/13/2022 10:14 EST [facility] Blood VENOUS BLOOD / Unknown 04/12/2022 9:25 EST 04/12/2022 21:30 EST us Provider Outr Resulting Lab CHEMISTRY & BLOOD GA S ORDERABLES Final Result [facility] [address] [place] [address] from Last 3 Months or Most Recently Relevant to Health Maintenance Insurance CIGNA CIGNA
--- OUTSIDE RECORDS SUMMARY | 2024-04-24 00:34 | XMS_ITS | Clinical Summary ---
Author Organization [facility] Address [address] [place] [address] Care Team Providers Care Procedures Rn Name Role Phone Unavailable Primary Care Provider [...] 3-dose series) 01/30 COVID-19 Vaccine ( season) 2023 Hepatitis C Screen Completed 04/12/2022 Procedures Procedure Name Priority Date/Time Associated Diagnosis Comments HEPATITIS C AB W REFLEX TO HCV RNA BY PCR Routine 04/12/2022 9:25 EST from Last 3 Months or Most Recently Relevant to Health Maintenance Results * HEPATITIS C AB W REFLEX TO HCV RNA BY PCR (04/12/2022 9:25 EST) Hep C Antibody Negative Negative 04/13/2022 10:14 EST [facility] Blood VENOUS BLOOD / Unknown 04/12/2022 9:25 EST 04/12/2022 21:30 EST us Provider Outr Resulting Lab CHEMISTRY & BLOOD GA S ORDERABLES Final Result [facility] [address] [place] [id number] from Last 3 Months or Most Recently Relevant to Health Maintenance Insurance CIGNA CIGNA
--- OUTSIDE RECORDS SUMMARY | 2024-04-24 00:34 | XMS_ITS | Encounter Summary ---
Author Organization [facility] Address [address] [place] [address] Care Team Providers Care Electrical Maintenance Man Name Role Phone Jennifer Pinto MD Primary Care Provider Unavailabl e Encounter Details Date Type Department Care Team (Late st Contact Info) Description 12/11/2022 Documentation Visit [facility] Rehabilitation Therapy [address] [place], [place] [id number] Miriam Suarez, PT [address] [place], [place] [phone] Social History Tobacco Use Types Packs/Day Years [...] Suarez, PT - 12/11/2022 0735 EDT [facility] Rehabilitation Services [phone] Physical Therapy Discharge Not Seen Recently Therapy [...] on filedocumented in this encounter Care Teams Electrical Maintenance Man Relationship Specialty Start Date End Date Jennifer Pinto MD PCP - General 08/30/14 02/10/24 documented as of this encounter
--- OUTSIDE RECORDS SUMMARY | 2024-04-24 00:34 | XMS_ITS | Encounter Summary ---
Author Organization [facility] Address [address] [place] [address] Care Team Providers Care Pharmacy Intake Coordinator Name Role Phone Jennifer Pinto MD Primary Care Provider Unavailabl e Encounter Details Date Type Department Care Team (Late st Contact Info) Description 04/12/2022 Lab Requisition [facility] Pathology & Laboratory Medicine - [address] [address] Outr Resulting Lab, Provider Social History Tobacco [...] C Antibody Negative Negative 04/13/2022 10:14 EST [facility] Blood VENOUS BLOOD / Unknown 04/12/2022 9:25 EST 04/12/2022 21:30 EST us Provider Outr Resulting Lab CHEMISTRY & BLOOD GA S ORDERABLES Final Result [facility] [address] [place] [address] documented in this encounter Visit Diagnoses Not on filedocumented in this encounter Care Teams Pharmacy Intake Coordinator Relationship Specialty Start Date End Date Jennifer Pinto MD PCP - General 08/30/14 02/10/24 documented as of this encounter
--- OUTSIDE RECORDS SUMMARY | 2024-04-24 00:35 | XMS_ITS | Encounter Summary ---
Author Organization [facility] Address [address] [place] [address] Care Team Providers Care Perforator Typist Name Role Phone Jennifer Pinto MD Primary Care Provider Unavailabl e Encounter Details Date Type Department Care Team (Late st Contact Info) Description 07/28/[address] [facility] Pathology & Laboratory Medicine - [address] [address] Outr Resulting Lab, Provider Social History Tobacco [...] Unknown 07/27/2020 12:20 EDT 07/28/2020 17:15 EDT us Provider Outr Resulting Lab MICROBIOLOGY - GENER AL ORDERABLES Final Result Performing Organization Address [facility]/ZIP Co de Phone Number [facility] [address] [place] [address] * COVID-19 TESTING (07/27/2020 12:20 EDT) COVID-19 rt-PCR Result Negative Negative 07/29/2020 17:21 EDT [facility] Comment: This test has [...] performed using the florencio SARS-CoV-2 assay ([employer] on the Florencio 6800 System Performing Lab Florencio [address] [facility] Lab 07/29/2020 17:21 EDT [facility] Swab 07/27/2020 12:2 0 EDT 07/28/2020 17:15 EDT us Provider Outr Resulting Lab MICROBIOLOGY - GENER AL ORDERABLES Final Result Performing Organization Address [facility] Co de Phone Number [facility] [address] [place] [address] documented in this encounter Visit Diagnoses Not on filedocumented in this encounter Care Teams Perforator Typist Relationship Specialty Start Date End Date Jennifer Pinto MD PCP - General 08/30/14 02/10/24 documented as of this encounter
--- OUTSIDE RECORDS SUMMARY | 2024-04-24 00:35 | XMS_ITS | Clinical Summary ---
[place] [address] Care Team Providers Care Flanger Name Role Phone Madonna Cr MD Primary Care Provider [phone] Allergies No known active allergies Medications Medication Sig Dispensed Refills Start Date End Date Status Dpytbeldraiyx-My-Ivqz-Min erals 18-0.4 mg Tablet Take by mouth. [...] Hepatitis B vaccine (0-59 yrs) (1) 1989 Tetanus/Diphtheria/Pertussis Vaccines (1 - Tdap) 1989 HPV test 01/31/2000 PAP Smear 01/31/2000 Breast Cancer Share Decision Needed 2010 Breast Cancer screening 2010 Zoster vaccine (1 of 2) 01/31/2020 Covid-19 Vaccine (1 - season) 2023 Influenza (Flu) vaccine (1 o f 1 - Influenza standard series) 12/22/2023 Colonoscopy 12/24/2029 12/25/2019, 12/25/2019 Colorectal Cancer Screening 12/24/2029 Sigmoidoscopy (10 year) with FIT yearly 12/24/2029 0 12/25/2019, 12/25/2019 Procedures Procedure Name Priority Date/Time Associated Diagnosis Comments COLONOSCOPY Routine 12/25/2019 12:52 PM EDT from Last 3 Months or Most Recently Relevant to Health Maintenance Results * COLONOSCOPY (12/25/2019 12:52 PM EDT) COLONOSCOPY [facility] Procedure Date: 12/25/2019 12:52 PM ? Patient Name: Vilma aCrey ? Date of : 1970 ? Age: 49 ? Order #: [id number] ? Instrument Name: [id number] ? Procedure: ? Colonoscopy Indications: ? Follow-up of diverticulitis Providers: ? Jazzy Lara MD, Helio Lynn ? Gloria Fischer, ? Wood Cabinetmaker Referring : ?Anel Cunningham Medicines: ? Midazolam [...] 12/25/2019 12:5 2 PM EDT Anel Cunningham LOBSTER MAN GENERAL SURGICAL ORDERABLES PROVATION from Last 3 Months or Most Recently Relevant to Health Maintenance Care Teams Flanger Relationship Specialty Start Date End Date Madonna Cr MD [address] [place] [address] PCP - General Family Medicine 05/17/20
--- OUTSIDE RECORDS SUMMARY | 2024-04-24 00:35 | XMS_ITS | Encounter Summary ---
[place] [address] Care Team Providers Care Junior Sales Representative Name Role Phone Anel Cunningham APRN Primary Care Provider [phone] Encounter Details Date Type Department Care Team (Late st Contact Info) Description 07/16/2019 Telephone [place] [phone] Nidia Mcnulty Social History Tobacco Use Types [...] the office to reschedule her appointment with [facility] 07/21/2019 to a telephone conference. documented in this encounter Plan of Treatment Not on file documented as of this encounter Visit Diagnoses Not on filedocumented in this encounter Care Teams Junior Sales Representative Relationship Specialty Start Date End Date Anel Cunningham APRN [address] [place] [address] PCP - General Family Medicine 06/12/19 05/16/20 documented as of this encounter
--- OUTSIDE RECORDS SUMMARY | 2024-04-24 00:35 | XMS_ITS | Encounter Summary ---
Author Organization [facility] Address [address] [place] [address] Care Team Providers Care Code Machine Operator Name Role Phone Jennifer Pinto MD Primary Care Provider Jossy celaya Encounter Details Date Type Department Care Team (Late st Contact Info) Description 08/05/2015 Results Only [facility] [phone] Ender Varela, [facility] [address] [place] [address] Social History Tobacco Use Types Packs/Day Years Used Date Smoking Tobacco: Never Assessed Comments Unknown Sex and Gender Information Value [...] when reading/interpreti ng unformatted reports. Name: ? BRANDON VILMA ? Accession #: ? [id number] : ? 1970 (Age: 45) ??F ?Collect Date: ? 08/05/2015 Location: ? [facility] ? Receive Date: ? 08/09/2015 Provider: ?ENDER VARELA REPRODUCTION MACHINE LOADER Copy to: ?JENNIFER PINTO MD ? Specimen/Source: [...] Report Date: ??08/19/2015 11:00 End of Report [facility] 08/05/2015 08/09/2015 Ender Varela REPRODUCTION MACHINE LOADER PATHOLOGY ORDERABLES Final R esult [facility] [address] [place] [address] documented in this encounter Visit Diagnoses Not on filedocumented in this encounter Care Teams Code Machine Operator Relationship Specialty Start Date End Date Jennifer Pinto MD PCP - General 08/30/14 02/10/24 documented as of this encounter
--- OUTSIDE RECORDS SUMMARY | 2024-04-24 00:35 | XMS_ITS | Encounter Summary ---
Author Organization [facility] Address [address] [place] [address] Care Team Providers Care Lead Android Developer Name Role Phone Unavailable Primary Care Provider Unavailabl e Encounter Details Date Type Department Care Team (Late st Contact Info) Description 08/27/2014 Results Only [facility]- [facility] [phone] Christian Suarez MD [facility] [place] [address] Social History Tobacco Use Types [...] ? BRANDON, TINA ? Accession #: ? [id number] ? : ? 1970 (Age: 44) ??F [...] [place] 08/30/2014 8:26 AM End of Report [facility] 08/27/2014 7:17 EDT 08/28/2014 7:17 EDT us Christian Suarez MD PATHOLOGY ORDERABLES Final Res ult [facility] [address] [place] [address] documented in this encounter Visit Diagnoses Not on filedocumented in this encounter
--- OUTSIDE RECORDS SUMMARY | 2024-04-24 00:35 | XMS_ITS | Encounter Summary ---
Author Organization [facility] Address [address] [place] [address] Care Team Providers Care Automat Car Attendant Name Role Phone Unavailable Primary Care Provider Unavailabl e Encounter Details Date Type Department Care Team (Late st Contact Info) Description 05/16/2007 Results Only [facility] [address] [place] [address] Ender Varela, [facility] [address] [place] [address] Social History Tobacco Use Types [...] ? VILMA CAREY ? Accession #: ? [id number] : ? 1970 (Age: 37) ??F ?Collect Date: ? 05/16/2007 Location: ? [facility] ? Receive Date: ? 05/19/2007 Provider: ?ENDER VARELA CONTRACT MANAGER Copy to: ? Specimen/Source: ?ThinPrep Pap Test, Cervix/Endocervix, processed on [employer] ThinPrep Imaging System, with manual evaluation Last [...] Document reviewed and electronically signed by: ? LOKESH Shetty(ASCP) ? Report Date: ??05/26/2007 11:01 End of Report [facility] 05/16/2007 05/19/2007 us Ender Varela CONTRACT MANAGER PATHOLOGY ORDERABLES Final R esult [facility] [address] [place] [address] documented in this encounter Visit Diagnoses Not on filedocumented in this encounter
--- OUTSIDE RECORDS SUMMARY | 2024-04-24 00:35 | XMS_ITS | Encounter Summary ---
Author Organization [facility] Address [address] [place] [address] Care Team Providers Care Planishing Hammer Operator Name Role Phone Jennifer Pinto MD Primary Care Provider Unavailabl e Encounter Details Date Type Department Care Team (Late st Contact Info) Description 12/26/2018 Results Only [facility]- [facility] [phone] Christian Suarez MD [facility] [place] [address] Social History Tobacco Use Types [...] when reading/interpret ing unformatted reports. Name: ? GUILLE LONG ? Accession #: ? [id number] ? : ? 1970 (Age: 48) ??F ? Collect Date: ? 12/26/2018 ? Location: ? [facility] ? Receive Date: ? 12/26/2018 ? Provider: CHRISTIAN SUAREZ MD Copy to: ROLAND CARO EXTRACTOR PLANT OPERATOR ? Final Pathologic Diagnosis: ENDOMETRIUM, BIOPSY: - [...] [place] 12/29/2018 7:46 AM End of Report [facility] 12/26/2018 7:03 EDT 12/26/2018 7:03 EDT us Christian Suarez MD PATHOLOGY ORDERABLES Final Res ult [facility] [address] [place] [address] documented in this encounter Visit Diagnoses Not on filedocumented in this encounter Care Teams Planishing Hammer Operator Relationship Specialty Start Date End Date Jennifer Pinto MD PCP - General 08/30/14 02/10/24 documented as of this encounter
--- OUTSIDE RECORDS SUMMARY | 2024-04-24 00:35 | XMS_ITS | Encounter Summary ---
Author Organization [facility] Address [address] [place] [address] Care Team Providers Care Gambling Floor Supervisor Name Role Phone Jennifer Pinto MD Primary Care Provider Unavailabl e Encounter Details Date Type Department Care Team (Late st Contact Info) Description 05/09/2020 Lab Requisition [facility] Pathology & Laboratory Medicine - [address] [address] Outr Resulting Lab, Provider Social History Tobacco [...] Unknown 05/09/2020 10:20 EST 05/09/2020 15:51 EST us Provider Outr Resulting Lab MICROBIOLOGY - GENER AL ORDERABLES Final Result [facility] [address] [place] [address] * COVID-19 TESTING (05/09/2020 10:20 EST) COVID-19 rt-PCR Result Negative Negative 05/09/2020 21:10 EST [facility] Comment: This test has [...] history, and epidemiological information. Performed on the [employer] Fusion instrument Performing Lab [facility] 05/09/2020 21:10 EST [facility] Swab 05/09/2020 10:2 0 EST 05/09/2020 15:51 EST us Provider Outr Resulting Lab MICROBIOLOGY - GENER AL ORDERABLES Final Result Performing Organization Address [facility] Co de Phone Number [facility] [address] [place] [address] documented in this encounter Visit Diagnoses Not on filedocumented in this encounter Care Teams Gambling Floor Supervisor Relationship Specialty Start Date End Date Jennifer Pinto MD PCP - General 08/30/14 02/10/24 documented as of this encounter
--- OUTSIDE RECORDS SUMMARY | 2024-04-24 00:35 | XMS_ITS | Encounter Summary ---
Author Organization [facility] [place] [address] Care Team Providers Care Commercial Green Building Designer Name Role Phone Anel Cunningham HEATHER Primary Care Provider [phone] Encounter Details Date Type Department Care Team (Late st Contact Info) Description 12/25/2019 1:00 PM EDT - 12/25/2019 2:00 PM EDT [place] [phone] Jazzy Lara MD [facility] [place] [address] COLONOSCOPY, DIAGNOSTIC (WRVU 3.26) Social History Tobacco [...] occurs, please contact your Doctor. Please call [phone] before 8pm Mon-Fri with problems, questions or concerns. If you call after 8pm or on weekends, call the Hospital at [phone] and ask to speak to the Customer Response Representative extension service agent and the combination saw operator will contact that person for you. When should you call for help? Call [phone] anytime you think you may need emergency [...] any problems. Where can you learn more? [facility] View your After Visit Summary and more online at [email or web address] If you would like to provide [...] cost to you. Content Version: 12.2 ?? 9028-9958 [employer]. Care instructions adapted under license by [facility]. If you have questions about a medical condition or this instruction, always ask your healthcare professional. [employer] disclaims any warranty or liability for your use of this information. documented in this encounter Medications at Time of Discharge Medication Sig Dispensed Refills Start Date End Date Cegthtkkvvcbh-Fc-Ticg-Minerals 18-0.4 mg Tablet Take by mouth. documented [...] Priority Date/Time Associated Diagnosis Comments Colonoscopy, Diagnostic (88140) 12/25/2019 12:59 PM EDT Diverticulosis of large intestine without perforation or abscess with bleeding COLONOSCOPY Routine 12/25/2019 12:52 PM EDT documented in this encounter Results * COLONOSCOPY (12/25/2019 12:52 PM EDT) COLONOSCOPY [facility] Procedure Date: 12/25/2019 12:52 PM ? Patient Name: Vilma Carey ? N: [id number] ? Date of : 1970 ? Age: 49 ? Order #: [id number] ? Instrument Name: [id number] ? Procedure: ? Colonoscopy Indications: ? Follow-up of diverticulitis Providers: ? Jazzy Lara MD, Helio Lynn ? Gloria Fischer, ? Superintendent Plant Protection Referring MD: ?Anel Cunningham Medicines: ? Midazolam [...] 12/25/2019 12:5 2 PM EDT Anel Cunningham WEAVING SUPERVISOR GENERAL SURGICAL ORDERABLES PROVATION documented in this [...] SPRING) documented in this encounter Care Teams Commercial Green Building Designer Relationship Specialty Start Date End Date Anel Cunningham APRN [address] [place] [address] PCP - General Family Medicine 06/12/19 05/16/20 documented as of this encounter
--- OUTSIDE RECORDS SUMMARY | 2024-04-24 00:35 | XMS_ITS | Encounter Summary ---
Author Organization [facility] Address [address] [place] [address] Care Team Providers Care Smt Technician Name Role Phone Unavailable Primary Care Provider Unavailabl e Encounter Details Date Type Department Care Team (Late st Contact Info) Description 07/30/2014 Results Only [facility] Laboratory Services - [facility] ([facility]) [address] [place], [place] [phone] Ender Varela, [facility] [address] [place] [address] Social History Tobacco Use Types [...] ? VILMA CAREY ? Accession #: ? [id number] : ? 1970 (Age: 44) ??F ?Collect Date: ? 07/30/2014 Location: ? [facility] ? Receive Date: ? 08/02/2014 Provider: ?ENDER VARELA INFORMATION SYSTEMS PLANNER Copy to: ?NANCY TAYLOR MD ? Specimen/Source: [...] signed by: ? JULIO CÉSAR ROBERTSON MD [facility] ? Report Date: ??08/11/2014 17:34 End of Report [facility] 07/30/2014 08/02/2014 us Ender Varela INFORMATION SYSTEMS PLANNER PATHOLOGY ORDERABLES Final R esult [facility] [address] [place] [address] documented in this encounter Visit Diagnoses Not on filedocumented in this encounter
--- OUTSIDE RECORDS SUMMARY | 2024-04-24 00:35 | XMS_ITS | Encounter Summary ---
Author Organization [facility] Address [address] [place] [address] Care Team Providers Care Fermenting Cellars Supervisor Name Role Phone Unavailable Primary Care Provider Unavailabl e Encounter Details Date Type Department Care Team (Late st Contact Info) Description 03/10/[address] [facility] Services - [facility] ([facility]) [address] [place], [place] [id number] Ender Varela, [facility] [address] [place] [address] Social History Tobacco Use Types [...] ? BRANDON, VILMA ? Accession #: ? [id number] ? : ? 1970 (Age: 40) ??F ?Collect Date: ? 03/10/2010 ? Location: ? [facility] ? Receive Date: ? 03/13/2010 ? Provider: ?ENDER MADISYN FINE GRADER ? Copy to: ? Specimen/Source: ?Pap Test, [...] ? [facility] 03/10/2010 03/13/2010 us Ender Varela FINE GRADER PATHOLOGY ORDERABLES Final R esult [facility] [address] [place] [address] documented in this encounter Visit Diagnoses Not on filedocumented in this encounter
--- OUTSIDE RECORDS SUMMARY | 2024-04-24 00:35 | XMS_ITS | Encounter Summary ---
Author Organization [facility] Address [address] [place] [address] Care Team Providers Care Supervisor Lamp Shades Name Role Phone Jennifer Pinto MD Primary Care Provider Jossy celaya Encounter Details Date Type Department Care Team (Late st Contact Info) Description 01/24/2017 Results Only [facility]- [facility] [phone] Ender Varela, [facility] [address] [place] [address] Social History Tobacco Use Types [...] ? BRANDON, TINA ? Accession #: ? [id number] ? : ? 1970 (Age: 46) ??F ?Collect Date: ? 01/24/2017 ? Location: ? [facility] ? Receive Date: ? 01/25/2017 ? Provider: ENDER VARELA TELECOM ENGINEER Copy to: ROLAND CARO POLICE INVESTIGATOR ? Final Report SPECIMEN ADEQUACY ? Satisfactory for Evaluation - transformation zone component present GENERAL CATEGORIZATION ? Negative for Intraepithelial Lesion or Malignancy ?? Last Menstrual Period: 01/07/2017 Previous Gynecologic Pathology: EMBER II: 1998 Treatment History: LEEP: 1998 Specimen/Source: ??Pap Test, Cervix, ThinPrep Imaging System with manual evaluation Document reviewed and electronically signed by: ? Maciel Delgado, CT(ASCP) ? Report ??Date: 02/08/2017 14:43 HPV with Pap Test ? Date Ordered: ? 02/08/2017 ? Status: ?? Signed Out ?Date Complete: ? 02/11/2017 ? By: ??System Interface ? Date Reported: ? 02/11/2017 ? Interpretation RESULT: Negative for HPV. No E6 or E7 mRNA is detected from HPV types 16,18,31,33,35, 39,45,51,52,56,58, 59,66, and 68 by deputy assessor mediated amplification. Comments Document reviewed and electronically signed by: ? System Interface ? Report date: 02/11/2017 By the signature above, the attending physician certifies that he/she has personally conducted a gross and/or microscopic examination of the described specimens and rendered or confirmed the above diagnosis. End of Report [facility] 01/24/2017 01/25/2017 Ender Varela TELECOM ENGINEER PATHOLOGY ORDERABLES Final R esult [facility] [address] [place] [address] documented in this encounter Visit Diagnoses Not on filedocumented in this encounter Care Teams Supervisor Lamp Shades Relationship Specialty Start Date End Date Jennifer Pinto MD PCP - General 08/30/14 02/10/24 documented as of this encounter
--- OUTSIDE RECORDS SUMMARY | 2024-04-24 00:35 | XMS_ITS | Encounter Summary ---
Author Organization [facility] Address [address] [place] [address] Care Team Providers Care Pilling Machine Operator Name Role Phone Jennifer Pinto MD Primary Care Provider Unavailabl e Encounter Details Date Type Department Care Team (Latest Contact Info) Description 12/26/2018 13:44 EDT - 12/26/2018 23:59 EDT Hospital Encounter [address] [address] Unknown, Provider, Discharge Disposition: Home or Self [...] on filedocumented in this encounter Care Teams Pilling Machine Operator Relationship Specialty Start Date End Date Jennifer Pinto MD PCP - General 08/30/14 02/10/24 documented as of this encounter
--- OUTSIDE RECORDS SUMMARY | 2024-04-24 00:35 | XMS_ITS | Encounter Summary ---
[place] [address] Care Team Providers Care Line Construction Engineer Name Role Phone Margo Cunninghamdon Horvath HEATHER Primary Care Provider +1 [phone] Encounter Details Date Type Department Care Team (Late st Contact Info) Description 09/24/2019 [place] [phone] Karime Lugo, [facility] Social History Tobacco Use Types Packs/Day Years Used Date Smoking Tobacco: Never Assessed Sex and Gender Information Value Date Recorded Sex Assigned at Not on file Gender Identity Not on file Sexual Orientation Not on file documented as of this encounter Miscellaneous Notes * Telephone Encounter - Karime Lugo - 09/24/2019 9:08 AM EDT Vilma Carey [id number] Diagnosis/Indication: 1. Have you ever had a/an [...] to patient: You must have a responsible republican who will drive you to your procedure, stay oncamp[place] for the entire duration of your procedure, and drive you home from your procedure? Height: 5'7 Weight: 150 Age:49 y.o. documented in this encounter Plan of Treatment Not on file documented as of this encounter Visit Diagnoses Not on filedocumented in this encounter Care Teams Line Construction Engineer Relationship Specialty Start Date End Date Anel Cunningham APRN [address] [place] [address] PCP - General Family Medicine 06/12/19 05/16/20 documented as of this encounter
--- OUTSIDE RECORDS SUMMARY | 2024-04-24 00:35 | XMS_ITS | Encounter Summary ---
[place] [address] Care Team Providers Care Instructor Industrial Design Name Role Phone Anel Cunningham APRN Primary Care Provider [phone] Encounter Details Date Type Department Care Team (Late st Contact Info) Description 07/22/2019 Telephone [place] [phone] Nidia Mcnulty Social History Tobacco Use Types [...] speak with Nidia. Please contact her at: [phone] * Telephone Encounter - Nidia Mcnulty - [...] on filedocumented in this encounter Care Teams Instructor Industrial Design Relationship Specialty Start Date End Date Anel Cunningham APRN [address] [place] [address] PCP - General Family Medicine 06/12/19 05/16/20 documented as of this encounter
--- OUTSIDE RECORDS SUMMARY | 2024-04-24 00:35 | XMS_ITS | Encounter Summary ---
Author Organization [facility] Address [address] [place] [address] Care Team Providers Care Fur Coat Sewer Name Role Phone Unavailable Primary Care Provider Unavailabl e Encounter Details Date Type Department Care Team (Late st Contact Info) Description 04/12/2011 Results Only [facility] Laboratory Services - [facility] ([facility]) [address] [place], [place] [phone] Ender Varela, [facility] [address] [place] [address] Social History Tobacco Use Types [...] Name: ? BRANDONVILMA ? Accession #: ? [id number] : ? 1970 (Age: 41) ??F ?Collect Date: ? 04/12/2011 Location: ? [facility] ? Receive Date: ? 04/13/2011 Provider: ?ENDER VARELA TRIBAL COUNCIL MEMBER Copy to: ?NANCY TAYLOR MD ? Specimen/Source: [...] electronically signed by: ? JULIO CÉSAR ROBERTSON [facility] ? Report Date: ??04/20/2011 15:46 End of Report [facility] 04/12/2011 04/13/2011 us Ender Varela TRIBAL COUNCIL MEMBER PATHOLOGY ORDERABLES Final R esult [facility] [address] [place] [address] documented in this encounter Visit Diagnoses Not on filedocumented in this encounter
--- OUTSIDE RECORDS SUMMARY | 2024-04-24 00:35 | XMS_ITS | Encounter Summary ---
Author Organization [facility] Address [address] [place] [address] Care Team Providers Care Edging Machine Catcher Name Role Phone Jennifer Pinto MD Primary Care Provider Unavailabl e Encounter Details Date Type Department Care Team (Late st Contact Info) Description 02/11/2019 Results Only [facility] [phone] Christian Suarez MD [facility] [place] [address] Social History Tobacco Use Types [...] ? VILMA CAREY ? Accession #: ? [id number] ? : ? 1970 (Age: 49) ??F ? Collect Date: ? 02/11/2019 ? Location: ? [facility] ? Receive Date: ? 02/11/2019 ? Provider: CHRISTIAN SUAREZ MD Copy to: ROLAND CARO TAX REVENUE OFFICER ? Final Pathologic Diagnosis: UTERUS, CERVIX, AND [...] serosal surfaces. Sectioning reveals patent, unremarkable lumens. Website Optimization Strategist sections are submitted as follows: BLOCK FLOOD 1-2- ??anterior cervix to lower uterine segment, bisected 3-4- ??posterior cervix to lower uterine segment, it 5-7- ??public relations representative anterior endomyometrium, to include intramural and submucosal nodules 8-10- ??public relations representative posterior endomyometrium, to include intramural nodules 11- ??shorter fallopian tube, to include the bisected fimbria 12- ??longer fallopian tube to include the bisected fimbria CYNTHIA Copeland (ASCP) 02/12/2019 9:31 AM End of Report [facility] 02/11/2019 23:2 2 EDT 02/11/2019 23:22 EDT us Christian Suarez MD PATHOLOGY ORDERABLES Final Res ult [facility] [address] [place] [address] documented in this encounter Visit Diagnoses Not on filedocumented in this encounter Care Teams Edging Machine Catcher Relationship Specialty Start Date End Date Jennifer Pinto MD PCP - General 08/30/14 02/10/24 documented as of this encounter
--- OUTSIDE RECORDS SUMMARY | 2024-04-24 00:35 | XMS_ITS | Encounter Summary ---
Author Organization [facility] Address [address] [place] [address] Care Team Providers Care Pocket Machine Operator Name Role Phone Jennifer Pinto MD Primary Care Provider Unavailabl e Encounter Details Date Type Department Care Team (Late st Contact Info) Description 11/24/2021 Lab Requisition [facility] Pathology & Laboratory Medicine - [facility] [address] [place] [address] Emeli Melissa MD [address] [place] [address] [address] [place] [address] Encounter for screening for diabetes [...] Cholesterol 215(H) <200 mg/dL 11/24/2021 20:43 EDT [facility] Comment:Note that therapeuti c goals will differ between patients based on cardiac risk factors and current medical therapy. HDL 53 >=50 mg/dL 11/24/2021 20:43 EDT [facility] Comment:Note that therapeuti c goals will differ between patients based on cardiac risk factors and current medical therapy. LDL, Calculated 126 <160 mg/dL 20:43 EDT [facility] Comment:Note that therapeuti c goals will differ between patients based on cardiac risk factors and current medical therapy. Triglyceride 181(H) <=150 mg/dL 11/24/2021 20:43 T [facility] Comment:Note that therapeuti c goals will differ between patients based on cardiac risk factors and current medical therapy. Chol/HDL Ratio 4.1 See Note 11/24/2021 20:43 T [facility] Comment:No reference range h as been established for CHOL/HDL ratio. Non HDL Cholesterol 162(H) <160 mg/dL 11/24/2021 20:43 T [facility] Comment:Note that therapeuti c goals will differ between patients based on cardiac risk factors and current medical therapy. Blood VENOUS BLOOD / Unknown 11/24/2021 11:00 EDT 11/24/2021 20:30 EDT us Emeli Melissa MD CHEMISTRY & BLOOD GAS OR DERABLES Final Result [facility] [address] [place] [address] * THYROID CASCADE (11/24/2021 11:00 EDT) TSH 2.24 0.47 - 4.68 mIU/L 11/24/2021 21:17 EDT [facility] Blood VENOUS BLOOD / Unknown 11/24/2021 11:00 EDT 11/24/2021 20:30 EDT Narrative [facility] - 11/24/2021 21:17 EDT NOTE: The results of this assay can be falsely lowered due to the consumption of Biotin. us Emeli Melissa MD CHEMISTRY & BLOOD GAS OR DERABLES Final Result [facility] [address] [place] [address] documented in this encounter Visit Diagnoses Diagnosis Encounter for screening for diabetes mellitus Screening for diabetes mellitus Other fatigue Encounter for screening for lipoid disorders Screening for lipoid disorders documented in this encounter Care Teams Pocket Machine Operator Relationship Specialty Start Date End Date Jennifer Pinto MD PCP - General 08/30/14 02/10/24 documented as of this encounter
--- OUTSIDE RECORDS SUMMARY | 2024-04-24 00:35 | XMS_ITS | Encounter Summary ---
Author Organization [facility] Address [address] [place] [address] Care Team Providers Care Head Cook Name Role Phone Unavailable Primary Care Provider Unavailabl e Encounter Details Date Type Department Care Team (Late st Contact Info) Description 05/15/2013 Results Only [facility] Laboratory Services - [facility] ([facility]) [address] [place], [place] [id number] Ender Varela, [facility] [address] [place] [address] Social History Tobacco Use Types [...] ? BRANDON VILMA ? Accession #: ? [id number] : ? 1970 (Age: 43) ??F ?Collect Date: ? 05/15/2013 Location: ? [facility] ? Receive Date: ? 05/18/2013 Provider: ?ENDER VARELA CLINICAL MASSAGE THERAPIST Copy to: ?NANCY TAYLOR MD ? Specimen/Source: [...] End of Report [facility] 05/15/2013 05/18/2013 us Ender Varela CLINICAL MASSAGE THERAPIST PATHOLOGY ORDERABLES Final R esult [facility] [address] [place] [address] documented in this encounter Visit Diagnoses Not on filedocumented in this encounter
--- OUTSIDE RECORDS SUMMARY | 2024-04-24 00:35 | XMS_ITS | Encounter Summary ---
[place] [address] Care Team Providers Care Service Operator Name Role Phone Anel Cunningham APRN Primary Care Provider [phone] [phone] Encounter Details Date Type Department Care Team (Late st Contact Info) Description 08/11/2019 Telephone [place] [phone] Karime Lugo, [facility] Social History Tobacco Use Types Packs/Day [...] on filedocumented in this encounter Care Teams Service Operator Relationship Specialty Start Date End Date Anel Cunningham APRN [address] [place] [address] PCP - General Family Medicine 06/12/19 05/16/20 documented as of this encounter
--- OUTSIDE RECORDS SUMMARY | 2024-04-24 00:35 | XMS_ITS | Encounter Summary ---
[place] [address] Care Team Providers Care Oil Heaterman Name Role Phone Octavio Anel H HEATHER Primary Care Provider [phone] [phone] Encounter Details Date Type Department Care Team (Late st Contact Info) Description 11/20/2019 Telephone [place] [address] Diana Loving Social History Tobacco Use Types Packs/Day Years Used Date Smoking Tobacco: Never Assessed Sex and Gender Information Value Date Recorded Sex Assigned at Not on file Gender Identity Not on file Sexual Orientation Not on file documented as of this encounter Miscellaneous Notes * Telephone Encounter - Diana Loving - 11/20/2019 9:20 AM EDT Vilma Carey [id number] Diagnosis/Indication: [place] 1. Have you ever had a/an Colonoscopy [...] to patient: You must have a responsible green party who will drive you to your [...] on filedocumented in this encounter Care Teams Oil Heaterman Relationship Specialty Start Date End Date Anel Cunningham APRN [address] [place] [address] PCP - General Family Medicine 06/12/19 05/16/20 documented as of this encounter
--- OUTSIDE RECORDS SUMMARY | 2024-04-24 00:35 | XMS_ITS | Encounter Summary ---
Author Organization [facility] Address [address] [place] [address] Care Team Providers Care Pick Up Name Role Phone Unavailable Primary Care Provider Unavailabl e Encounter Details Date Type Department Care Team (Late st Contact Info) Description 09/24/2008 Orders Only [facility] Laboratory Services - [facility] ([facility] [address] [place], [place] [id number] Ender Varela, [facility] [address] [place] [address] Social History Tobacco Use Types [...] ? BRANDON, VILMA ? Accession #: ? [id number] ? : ? 1970 (Age: 38) ??F ?Collect Date: ? 09/24/2008 ? Location: ? [facility] ? Receive Date: ? 09/27/2008 ? Provider: ?ENDER MADISYN LONGWALL MACHINE OPERATOR HELPER ? Copy to: ? Specimen/Source: ?Pap Test, [...] of Report ? [facility] 09/24/2008 09/27/2008 us Ender Varela LONGWALL MACHINE OPERATOR HELPER PATHOLOGY ORDERABLES Final R esult [facility] [address] [place] [address] documented in this encounter Visit Diagnoses Not on filedocumented in this encounter
--- OUTSIDE RECORDS SUMMARY | 2024-04-24 00:35 | XMS_ITS | Encounter Summary ---
Author Organization [facility] Address [address] [place] [address] Care Team Providers Care Bmw Sales Consultant Name Role Phone Unavailable Primary Care Provider Unavailabl e Encounter Details Date Type Department Care Team (Late st Contact Info) Description 11/16/2004 Results Only [facility] [address] [place] [address] Shane Sharma MD [address] [address] Social History Tobacco Use Types [...] when reading/interpreti ng unformatted reports. Name: ? BRANDONGUILLE ? Accession #: ? [id number] ? : ? 1970 (Age: 34) ??F [...] Gross Description: ? Received in formalin labelled [place] and POC are 5.5 x 5.0 x 1.5 cm of multiple red-brown, spongy, membranous, diffusely hemorrhagic, soft tissue fragments. ??No parts are grossly identified. ??Preventive Medicine Specialist sections are submitted as (A1) to (A3). ??(Thu Jackson)/philippe End of Report [facility] 11/16/2004 11/16/2004 15: 06 EDT us Shane Sharma MD PATHOLOGY ORDERABLES Final Resu lt [facility] [address] [place] [address] documented in this encounter Visit Diagnoses Not on filedocumented in this encounter
--- OUTSIDE RECORDS SUMMARY | 2024-04-24 00:35 | XMS_ITS | Encounter Summary ---
Author Organization [facility] [place] [address] Care Team Providers Care Plumbing Assembler Installer Name Role Phone Anel Cunningham HEATHER Primary Care Provider [phone] Encounter Details Date Type Department Care Team (Latest Contact Info) Description 12/25/2019 11:46 AM EDT - 12/25/2019 2:40 PM EDT Hospital Encounter [place] [phone] Jazzy Lara MD [facility] [place] [address] Discharge Disposition: Home Social History Tobacco Use [...] occurs, please contact your Doctor. Please call [phone] before 8pm Mon-Fri with problems, questions or concerns. If you call after 8pm or on weekends, call the Hospital at [phone] and ask to speak to the Air Defense Specialist aviation metalsmith and the jet dyeing machine operator will contact that person for you. When should you call for help? Call [phone] anytime you think you may need emergency [...] any problems. Where can you learn more? [facility] View your After Visit Summary and more online at [email or web address] If you would like to provide feedback [...] cost to you. Content Version: 12.2 ?? [id number] [employer]. Care instructions adapted under license by [facility]. If you have questions about a medical condition or this instruction, always ask your healthcare professional. [employer] disclaims any warranty or liability for your use of this information. documented in this encounter Medications at Time of Discharge Medication Sig Dispensed Refills Start Date End Date Vidvvfyvhrecg-Yd-Alfd-Minerals 18-0.4 mg Tablet Take by mouth. documented [...] Priority Date/Time Associated Diagnosis Comments Colonoscopy, Diagnostic ([address]) 12/25/2019 12:59 PM EDT Diverticulosis of large intestine without perforation or abscess with bleeding COLONOSCOPY Routine 12/25/2019 12:52 PM EDT documented in this encounter Results * COLONOSCOPY (12/25/2019 12:52 PM EDT) [facility] Signature COLONOSCOPY [facility] Endoscopy Procedure Date: 12/25/2019 12:52 PM ? Patient Name: Vilma Carey ? Date of : 1970 ? Age: 49 ? Order #: [id number] ? Instrument Name: [id number] ? Procedure: ? Colonoscopy Indications: ? Follow-up of diverticulitis Providers: ? Jazzy Lara MD, Helio Lynn ? Gloria Fischer, ? Chicle Grinder Feeder Referring : ?Anel Cunningham Medicines: ? Midazolam [...] RN) documented in this encounter Care Teams Plumbing Assembler Installer Relationship Specialty Start Date End Date Anel Cunningham APRN [address] [place] [address] PCP - General Family Medicine 06/12/19 05/16/20 documented as of this encounter
--- OUTSIDE RECORDS SUMMARY | 2024-04-24 00:35 | XMS_ITS | Encounter Summary ---
Author Organization [facility] Address [address] [place] [address] Care Team Providers Care Terminal Manager Name Role Phone Jennifer Pinto MD Primary Care Provider Unavailabl e Encounter Details Date Type Department Care Team (Latest Contact Info) Description 08/30/2014 15:27 EDT - 08/30/2014 23:59 EDT Hospital Encounter [address] [address] Unknown, Provider, Discharge Disposition: Home or Self [...] Code Departure Means Destination Home or Self [facility]dc documented in this encounter Plan of Treatment Not on file documented as of this encounter Visit Diagnoses Not on filedocumented in this encounter Care Teams Terminal Manager Relationship Specialty Start Date End Date Jennifer Pinto MD PCP - General 08/30/14 02/10/24 documented as of this encounter
--- OUTSIDE RECORDS SUMMARY | 2024-04-24 00:35 | XMS_ITS | Patient Health Record ---
Author Organization [facility] Address [address] [place] [address] Care Team Providers Care Newspaper Manager Name Role Phone [facility] [[email or web address]] Primary Care Provid er Unavailable Emeli Melissa MD Unavailable [phone] Allergies No Known Allergies Reason For Referral No Information Medications Medication SIG (Take, Route, Frequency, Duration) Notes Start Date End Date Status Loratadine Active Estradiol tablet, unknown dosage QD Not-Taking Ditropan XL 10 MG 1 tablet Orally Once a day for 30 day(s) Not-Taking Social History Tobacco Use: Social History Observation Description Date Details (start date - stop date) Never Smoker NA - NA Smoking Question Answer Notes Are you a: nonsmoker Problems Problem Type SNOMED Code ICD Code Onset Dates Problem Status W/U Status Risk Notes Problem Unspecified menopausal and perimenopausal disorder (N95.9) Active confirmed Problem Hysterectomy (373571079) 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 confirmed Problem Female urinary stress incontinence (34856749) JAMISON (stress urinary incontinence, female) (N39.3) Active confirmed Plan Of Treatment No Information Insurance Providers Payer Name Payer Address Payer Phone Subscriber Number Group Number Insured Name Patient Relationship to Insured Coverage Start Date Coverage End Date [employer] [address] [place] [phone] [id number] Vilma Macedo Self - patient is the insured Medical (General) History Medical History History ICD Code S/p gall bladder removal S/p TLH Reocurreing Last Pap: 05/23/2018 NIL, No HPV testing Surgical History Surgery Date(Month/Year) MARISABEL, BS at [facility] 02/11/2019 Hospitalization History Reason Date(Month/Year) Hysterectomy recurrent diverticulitis
--- OUTSIDE RECORDS SUMMARY | 2024-04-24 00:35 | XMS_ITS | Encounter Summary ---
Author Organization [facility] Address [address] [place] [address] Care Team Providers Care Steamboat Pilot Name Role Phone Jennifer Pinto MD Primary Care Provider Unavailabl e Encounter Details Date Type Department Care Team (Latest Contact Info) Description 02/11/2019 7:44 EDT - 02/11/2019 23:59 EDT Hospital Encounter [address] [address] Unknown, Provider, Discharge Disposition: Home or Self [...] Code Departure Means Destination Home or Self [facility] documented in this encounter Plan of Treatment Not on file documented as of this encounter Visit Diagnoses Not on filedocumented in this encounter Care Teams Steamboat Pilot Relationship Specialty Start Date End Date Jennifer Pinto MD PCP - General 08/30/14 02/10/24 documented as of this encounter
--- OUTSIDE RECORDS SUMMARY | 2024-04-24 00:35 | XMS_ITS | Encounter Summary ---
Author Organization [facility] Address [address] [place] [address] Care Team Providers Care Sulfuric Acid Plant Supervisor Name Role Phone Jennifer Pinto MD Primary Care Provider Jossy celaya Encounter Details Date Type Department Care Team (Late st Contact Info) Description 05/23/[address] Results [address] [facility] [phone] Ender Varela, [facility] [address] [place] [address] Social History Tobacco Use Types [...] ? BRANDON, TINA ? Accession #: ? [id number] : ? 1970 (Age: 48) ??F ?Collect Date: ? 05/23/2018 Location: ? [facility] ? Receive Date: ? 05/26/2018 Provider: ?ENDER VARELA NUTRITION INSTRUCTOR Copy to: ?ROLAND CARO VOCATIONAL GUIDANCE COUNSELOR ? Specimen/Source: ?Pap Test, Cervix, ThinPrep Imaging System with manual evaluation Last Menstrual Period: ? 04/08/18 Previous Gynecologic Pathology: ? EMBER II: 1998 ? SPECIMEN ADEQUACY ? Satisfactory for Evaluation - transformation zone component present GENERAL CATEGORIZATION ? Negative for Intraepithelial Lesion or Malignancy ? Document reviewed and electronically signed by: ? MONTSE Thomson(ASCP) ? Report Date: ??05/30/2018 13:51 End of Report [facility] 05/23/2018 05/26/2018 us Ender Varela NUTRITION INSTRUCTOR PATHOLOGY ORDERABLES Final R esult [facility] [address] [place] [address] documented in this encounter Visit Diagnoses Not on filedocumented in this encounter Care Teams Sulfuric Acid Plant Supervisor Relationship Specialty Start Date End Date Jennifer Pinto MD PCP - General 08/30/14 02/10/24 documented as of this encounter
--- OUTSIDE RECORDS SUMMARY | 2024-04-24 00:35 | XMS_ITS | Encounter Summary ---
Author Organization [facility] Address [address] [place] [address] Care Team Providers Care Refinery Operator Crude Unit Name Role Phone Jennifer Pinto MD Primary Care Provider Unavailabl e Encounter Details Date Type Department Care Team (Late st Contact Info) Description 04/12/2022 Lab Requisition [facility] Pathology & Laboratory Medicine - [facility] [address] [place], [place] [address] Outr Resulting Lab, Provider Social History Tobacco [...] 4th Generation Negative Negative 04/13/2022 10:[address] [facility] Comment:If acute HIV-1 infec tion is suspected in a high risk patient, submit plasma specimen for HIV-1 RNA quantitation test. Blood VENOUS BLOOD / Unknown 04/12/2022 9:25 EST 04/12/2022 21:[address] [facility] - 04/13/2022 10:02 EST Fourth Generation assay performed on the [employer] XPT. us Provider Outr Resulting Lab IMMUNOLOGY AND SEROL OGY ORDERABLES Final Result Performing Organization Address City/State/[facility] Co de Phone Number [facility] [address] [place] [address] documented in this encounter Visit Diagnoses Not on filedocumented in this encounter Care Teams Refinery Operator Crude Unit Relationship Specialty Start Date End Date Jennifer Pinto MD PCP - General 08/30/14 02/10/24 documented as of this encounter
--- OUTSIDE RECORDS SUMMARY | 2024-04-24 00:35 | XMS_ITS | Encounter Summary ---
Author Organization [facility] [place] [address] Care Team Providers Care Leach Runner Name Role Phone Anel Cunningham APRN Primary Care Provider [phone] [phone] Reason for Visit * Consultation (Urgent) - Closed Specialty Diagnoses / Procedures Referred By oDug t Referred To Contact Gastroenterology Diagnoses Diverticulitis of intestine, part unspecified, without perforation or abscess without bleeding Anel Cunningham APRN [address] [place] [address] [facility] [address] [place] [address] Referral ID Status Reason Start Date Expiration Date V isits Requested Visits Authorized [id number] Closed Consult, Test & Treat Connection Center PCP Updated and/or Approved 06/11/2019 06/10/2020 6 6 Encounter Details Date Type Department Care Team (Latest Contact Info) Description 07/21/2019 4:00 PM EDT TH Visit (TeleHealth) [place] [phone] Darien Curry APRN [facility] [place] [address] Diverticulosis of large intestine without [...] PM EDT Section of Gastroenterology and Hepatology [address] [place], [place] [id number] .Vilma Carey : 1970 Patient is here for further evaluation of gastrointestinal symptoms at the request of Anel Cunningham. HPI: She has been referred for diverticulitis. Long hx of intermittent flares. One flare in 2014. Three flares since January 2019. April 2019 CT scan: diverticulitis of mid descending colon; she indicates two other CTs done latefall 2018. Will need to obtain from [facility]. She has been hospitalized twice since January [...] diverticulitis. No blood in stool. Reviewed diet. [place] foods. To try to minimize sx. Weight [...] file Gets together: Not on file Attends zoroastrian service: Not on file Active member of [...] the medical problems described above. Sincerely, Darien uCrry NP Section of Gastroenterology and Hepatology documented [...] hemorrhage documented in this encounter Care Teams Leach Runner Relationship Specialty Start Date End Date Anel Cunningham APRN [address] [place] [address] PCP - General Family Medicine 06/12/19 05/16/20 documented as of this encounter
== END 2024-04-24 00:40 ==
LOC: DI 00:20
PROVIDERS: PCP Nurse Practitioner Family; Visit Provider Nurse Practitioner Family
DX: Z12.31 Encounter for screening mammogram for malignant neoplasm of breast (principal); R92.323 Mammographic fibroglandular density, bilateral breasts
CPT/HCPCS: 77063; 77067

== ENCOUNTER 2024-07-23 13:48 | Outpatient (REF) | payer OTHER, SELFPAY ==
[2024-07-23 16:19] LABS: ALT 21 U/L (14-59); AST 16 U/L (15-37); Albumin 3.6 g/dL (3.4-5.0); Alkaline Phosphatase 47 U/L (46-116); Anion Gap 7.4 mmol/L (3-11); BUN 13 mg/dL (7-18); Bilirubin, Total 0.6 mg/dL (0.2-1.0); CO2 29.6 mmol/L (21.0-32.0); CREATININE 0.7 mg/dL (0.55-1.02); Calcium 9.1 mg/dL (8.5-10.1); Calculated LDL 157 mg/dL (<100); Chloride 106 mmol/L (98-107); Cholesterol 234 mg/dL (<200); Estimated GFR 102.71 (mL/min/1.73m2); Glucose 87 mg/dL (74-106); HDL Cholesterol 57 mg/dL (>or=50); Potassium 4.3 mmol/L (3.5-5.1); Sodium 143 mmol/L (136-145); Total Protein 6.5 g/dL (6.4-8.2); Triglyceride 104 mg/dL (<150)
[2024-07-23 17:11] LABS: Hemoglobin A1C 5.6 % (<5.7)
== END 2024-07-23 13:49 | disposition home or self-care (01) ==
LOC: NCHCN 13:48
PROVIDERS: PCP Nurse Practitioner Family; Visit Provider Nurse Practitioner Family
DX: Z00.00 Encounter for general adult medical examination without abnormal findings (principal); R53.83 Other fatigue; E66.9 Obesity, unspecified; E78.5 Hyperlipidemia, unspecified
CPT/HCPCS: 80053; 80061; 83036; 84443